=== PATIENT | female | born 1945 | race Caucasian/White ===

== ENCOUNTER 2016-08-12 08:46 | Day surgery (SDC) | payer BC ==
[2016-08-11 10:17] VITALS: BMI 25.2
[~2016-08-12 08:46] MED LIST: DEXAMETHASONE SOD PHOSPHATE 10 MG/ML 1 ML VIAL IV ONE; HYDROmorphone 1 MG/ML 1 ML SYRINGE IVP PRN; LACTATED RINGERS 1,000 ML IV ONE; LIDOCAINE 1% 20 ML VIAL (10MG/ML) FOR IV START INTRADERMA PRN; MIDAZOLAM 2 MG/2 ML VIAL IV PRN; ONDANSETRON 4 MG/2 ML VIAL IVP ONE; SCOPOLAMINE 1.5MG/72HR PATCH TRANSDERM ONE
[2016-08-12] MEDS: PHENYLEPHRINE 10% OPHTH DROPS 5 ML BTL OP ONE ×3 (09:41→09:58)
[2016-08-12] MEDS: CYCLOPENTOLATE 1% OPHTH SOLN 2 ML BTL OP ONE ×3 (09:43→10:02)
[2016-08-12] MEDS: FLURBIPROFEN 0.03% OPHTH DROPS 2.5 ML BTL OP ONE ×3 (09:44→10:05)
[2016-08-12] MEDS ORDERED: METOPROLOL TARTRATE 5 MG/5 ML VIAL IVP ONE (09:59)
[2016-08-12] MEDS ORDERED: hydrALAZINE HCL 20 MG/ML 1 ML VIAL IV ONE (10:01)
[2016-08-12 10:08] VITALS: RESP 16; TEMP 97.7
[2016-08-12] MEDS ORDERED: LIDOCAINE 1% INJ 10MG/ML (20 ML MDV) ONE (10:09)
[2016-08-12] MEDS ORDERED: hydrALAZINE HCL 20 MG/ML 1 ML VIAL ONE (10:09)
[2016-08-12] MEDS ORDERED: PROPOFOL 10 MG/ML 20 ML VIAL IV ONE (10:09)
[2016-08-12] MEDS ORDERED: GLYCOPYRROLATE 0.2 MG/ML 2 ML VIAL ONE (10:09)
[2016-08-12] MEDS ORDERED: EPINEPHrine (PF) 0.5 ML in BALANCED SALT IRRIG SOLN COMB2 500 ML IRRIGATION ONE (10:17)
[2016-08-12] MEDS ORDERED: HYALURONATE SODIUM INTRAOCULAR 1 EACH SYRINGE (10MG/ML) INTRAOCULA ONE (10:19)
[2016-08-12] MEDS ORDERED: BALANCED SALT IRRIG SOLN COMB2 15 ML IRRIG.SOLN INTRAOCULA ONE (10:19)
--- NOTE | 2016-08-12 10:37 | P.OP ---
Date of Procedure: 08/12/16 Procedure(s) Performed: PREOPERATIVE DIAGNOSIS: Cataract, left eye. POSTOPERATIVE DIAGNOSIS: Cataract, left eye. OPERATION: Phacoemulsification cataract, left eye. DESCRIPTION OF PROCEDURE: The patient was taken to the preoperative holding area. Intravenous Propofol was given so as to bring about adequate sedation. The following mixture was given for local anesthesia: 5 mL of 2% lidocaine, 5 mL of 0.75% Marcaine, and 1 mL of Wydase. Approximately 4 mL was injected in the retrobulbar space of the surgical eye. Additional 1 mL was then directed to the temporal area of the surgical eye. This was performed to allow adequate neurological block of the facial muscles. The patient was revived and then taken into the operative room. The patient was prepped and draped in the usual sterile manner for the operative eye. A lid speculum was put into position. The conjunctiva was resected back from the limbus in the 12 o'clock position. Bleeding was controlled with electrocautery. A #69 blade was then used and a half-thickness scleral incision approximately 1-mm posterior to the limbus was made on bare sclera. This was shelved in the clear cornea using a crescent knife. Next a 15-degree blade was used to make a stab incision at the 3 o' clock position at the corneolimbal interface. Keratome blade was then used and the superior wound was extended into the anterior chamber. Viscoelastic was injected into the anterior chamber and to maintain its form. Next, a cystotome was used and a continuous anterior capsulotomy was made without difficulty. Hydrodissection using a blunt cannula and BSS was performed. Phaco probe was then employed and a groove extending from 12 to 6 o'clock in the lens was created. A Oswaldo wand was used through the stab incision so as to perform a divide and conquer technique. Next an irrigation aspiration probe was utilized and any residual cortex was removed from the eye. Again, viscoelastic was injected into the anterior chamber. An Jonnathan posterior chamber lens implant was placed in the cartridge and injected into the anterior chamber without difficulty. The [employer] Fle[employer] hook was utilized to spin the lens into position and this was again performed without any difficulty. The irrigation and aspiration probe was again employed and any residual viscoelastic was removed from the eye. Then BSS was injected into the limbal stab incision and the anterior chamber re-inflated. The conjunctiva was reapproximated using electrocautery. One drop of 0.25% Timoptic was placed over the corneal along with TobraDex ophthalmic ointment. Two sterile patches and a Willis eye shield were taped into position. The patient was transported to the recovery room in stable condition. Pathology: none sent Condition: stable Disposition: same day
[2016-08-12 11:08] VITALS: BP 156/80; PULSE 76
[2016-08-12] MEDS ORDERED: TIMOLOL 0.5% OPHTH SOLN (PF) 0.2 ML DROPERETTE OP ONE (23:00)
[2016-08-12] MEDS ORDERED: GENTAMICIN/PREDNISOL AC OPHTH OINT 3.5GM OPHTHALMIC ONE (23:00)
[2016-08-12] MEDS ORDERED: BUPIVACAINE (PF) 0.75% 5 ML, LIDOCAINE 4% (PF) 5 ML, HYALURONIDASE, HUMAN RECOMB 150 UNIT MISCELLANE ONE ×3 (23:00)
== END 2016-08-12 11:36 | disposition home or self-care (01) ==
LOC: OR 08:46
PROVIDERS: ATTEND Ophthalmology
DX: H26.9 Unspecified cataract (principal); H40.059 Ocular hypertension, unspecified eye; I10 Essential (primary) hypertension; J44.9 Chronic obstructive pulmonary disease, unspecified; F17.200 Nicotine dependence, unspecified, uncomplicated; Z79.899 Other long term (current) drug therapy
CPT/HCPCS: 66984; V2632; J2001 ×2; J3470; J0360; J0171; J2704; 99152; 99153

== ENCOUNTER → 2016-09-16 | Day surgery (SDC) | payer BC, OTHER ==
[2016-09-12 10:37] VITALS: BMI 25.2
[~2016-09-16] MED LIST changes: +BALANCED SALT IRRIG SOLN COMB2 15 ML IRRIG.SOLN INTRAOCULA ONE; +BUPIVACAINE (PF) 0.75% 5 ML, LIDOCAINE 4% (PF) 5 ML, HYALURONIDASE, HUMAN RECOMB 150 UNIT MISCELLANE ONE; +EPINEPHrine (PF) 0.5 ML in BALANCED SALT IRRIG SOLN COMB2 500 ML IRRIGATION ONE; +GENTAMICIN/PREDNISOL AC OPHTH OINT 3.5GM OPHTHALMIC ONE; +HYALURONATE SODIUM INTRAOCULAR 1 EACH SYRINGE (10MG/ML) INTRAOCULA ONE; -LACTATED RINGERS 1,000 ML IV ONE; +LACTATED RINGERS 1,000 ML IV SCH; +LIDOCAINE 1% 20 ML VIAL (10MG/ML) FOR IV START INTRADERMA ONE; -LIDOCAINE 1% 20 ML VIAL (10MG/ML) FOR IV START INTRADERMA PRN; +LIDOCAINE 1% INJ 10MG/ML (20 ML MDV) ONE; -MIDAZOLAM 2 MG/2 ML VIAL IV PRN; +PROPOFOL 10 MG/ML 20 ML VIAL IV ONE; -SCOPOLAMINE 1.5MG/72HR PATCH TRANSDERM ONE; +TETRACAINE 0.5% OPHTH (PF) DROPS 4 ML BTL RIGHT EYE ONE; +TIMOLOL 0.5% OPHTH SOLN (PF) 0.2 ML DROPERETTE OP ONE
[2016-09-16] MEDS: CYCLOPENTOLATE 1% OPHTH SOLN 2 ML BTL OP ONE ×3 (10:50→11:08)
[2016-09-16] MEDS: FLURBIPROFEN 0.03% OPHTH DROPS 2.5 ML BTL OP ONE ×3 (10:53→11:11)
[2016-09-16] MEDS: PHENYLEPHRINE 10% OPHTH DROPS 5 ML BTL OP ONE ×3 (10:56→11:15)
[2016-09-16 10:59] VITALS: RESP 18
--- NOTE | 2016-09-16 12:03 | P.OP ---
Date of Procedure: 09/16/16 Procedure(s) Performed: PREOPERATIVE DIAGNOSIS: Cataract, right eye. POSTOPERATIVE DIAGNOSIS: Cataract, right eye. OPERATION: Phacoemulsification cataract, right eye. DESCRIPTION OF PROCEDURE: The patient was taken to the preoperative holding area. Intravenous Propofol was given so as to bring about adequate sedation. The following mixture was given for local anesthesia: 5 mL of 2% lidocaine, 5 mL of 0.75% Marcaine, and 1 mL of Wydase. Approximately 4 mL was injected in the retrobulbar space of the surgical eye. Additional 1 mL was then directed to the temporal area of the surgical eye. This was performed to allow adequate neurological block of the facial muscles. The patient was revived and then taken into the operative room. The patient was prepped and draped in the usual sterile manner for the operative eye. A lid speculum was put into position. The conjunctiva was resected back from the limbus in the 12 o'clock position. Bleeding was controlled with electrocautery. A #69 blade was then used and a half-thickness scleral incision approximately 1-mm posterior to the limbus was made on bare sclera. This was shelved in the clear cornea using a crescent knife. The steep axis of astigmatism was marked using a pre-inked corneal marking device. Next a 15-degree blade was used to make a stab incision at the 3 o'clock position at the corneolimbal interface. Keratome blade was then used and the superior wound was extended into the anterior chamber. Viscoelastic was injected into the anterior chamber and to maintain its form. Next, a cystotome was used and a continuous anterior capsulotomy was made without difficulty. Hydrodissection using a blunt cannula and BSS was performed. Phaco probe was then employed and a groove extending from 12 to 6 o' clock in the lens was created. A Oswaldo wand was used through the stab incision so as to perform a divide and conquer technique. Next an irrigation aspiration probe was utilized and any residual cortex was removed from the eye. Again, viscoelastic was injected into the anterior chamber. An Jonnathan toric posterior chamber lens implant was placed in the cartridge and injected into the anterior chamber without difficulty. The Sinskey hook was utilized to spin the lens into position and this was again performed without any difficulty. The irrigation and aspiration probe was again employed and any residual viscoelastic was removed from the eye. Then BSS was injected into the limbal stab incision and the anterior chamber re-inflated. The conjunctiva was reapproximated using electrocautery. One drop of 0.25% Timoptic was placed over the corneal along with TobraDex ophthalmic ointment. Two sterile patches and a Willis eye shield were taped into position. The patient was transported to the recovery room in stable condition. Pathology: none sent Condition: stable Disposition: same day
[2016-09-16 12:17] VITALS: TEMP 98.2
[2016-09-16 12:26] VITALS: BP 200/90; PULSE 59
== END | disposition home or self-care (01) ==
LOC: OR 10:06
PROVIDERS: ATTEND Ophthalmology
DX: H26.9 Unspecified cataract (principal); I10 Essential (primary) hypertension; J44.9 Chronic obstructive pulmonary disease, unspecified; J45.909 Unspecified asthma, uncomplicated; Z87.891 Personal history of nicotine dependence; Z79.899 Other long term (current) drug therapy
CPT/HCPCS: 66984; V2787; C1780; J2001 ×2; J3470; J0171; J2704; 99152; 99153

== ENCOUNTER → 2017-04-06 | Outpatient (CLI) | payer BC ==
[2017-04-06 15:21] LABS: Blood Urea Nitrogen 16 mg/dL (7-17); Non-African American GFR(MDRD) >60 (>60 ml/min/1.73 sqM)
--- NOTE | 2017-04-06 16:07 | CT ---
EXAMINATION TYPE: CT chest w con DATE OF EXAM: 04/06/2017 COMPARISON: CT 07/08/2016 and chest x-ray 12/25/2016 HISTORY: Lung nodule follow-up. CT DLP: 647.00 mGycm Automated exposure control for dose reduction was used. CONTRAST: CT scan of the chest is performed with IV Contrast, patient injected with 100 mL of Omnipaque 300. FINDINGS: LUNGS: The lungs are grossly clear, there is no concerning parenchymal mass or nodule identified. Ca lcified right upper lobe lung nodule is present and stable. Centrilobular emphysematous changes are p resent bilaterally. Lingular nodule is not calcified and is stable. It measures 8 mm. There is no ple ural effusion or pneumothorax seen. The tracheobronchial tree is patent. MEDIASTINUM: There are no greater than 1 cm hilar or mediastinal lymph nodes. No pericardial effusi on is seen. Hiatal hernia is present as on prior exam. AORTA: No additional significant abnormality is seen. OTHER: Calcified granuloma present within the spleen. Liver shows low attenuation likely due to hepa tic steatosis. There are calcified right axillary nodes. IMPRESSION: Stable exam. Findings are likely benign, follow-up to assess for stability.
== END | disposition home or self-care (01) ==
LOC: RADCTMAIN 14:40
PROVIDERS: ATTEND Internal Medicine
DX: R91.8 Other nonspecific abnormal finding of lung field (principal); R06.02 Shortness of breath
CPT/HCPCS: 82565; 84520; 71260; 36415; Q9967

== ENCOUNTER → 2017-08-26 | Outpatient (CLI) | payer BC, MEDICARE ==
[2017-08-26 14:49] LABS: ALT 46 U/L (9-52); AST 34 U/L (14-36); Albumin 4.4 g/dL (3.5-5.0); Alkaline Phosphatase 63 U/L (38-126); Anion Gap 13 mmol/L; Blood Urea Nitrogen 23 mg/dL (7-17); Calcium 9.7 mg/dL (8.4-10.2); Carbon Dioxide 31 mmol/L (22-30); Chloride 101 mmol/L (98-107); Cholesterol 195 mg/dL (<200); Glucose 100 mg/dL (74-99); HDL Cholesterol 53 mg/dL (40-60); LDL Cholesterol,Calculated 118 mg/dL (0-99); Potassium 4.5 mmol/L (3.5-5.1); Sodium 145 mmol/L (137-145); Total Bilirubin 0.5 mg/dL (0.2-1.3); Total Protein 7.6 g/dL (6.3-8.2); Triglycerides 119 mg/dL (<150)
[2017-08-26 14:50] LABS: Basophils # (A) 0.1 k/uL (0-0.2); Basophils % (A) 1 %; Eosinophils # (A) 0.3 k/uL (0-0.7); Eosinophils % (A) 3 %; HCT 41.1 % (34.0-46.0); HGB 13.7 gm/dL (11.4-16.0); Lymphocytes # (A) 2.1 k/uL (1.0-4.8); Lymphocytes % (A) 28 %; MCH 28.7 pg (25.0-35.0); MCHC 33.4 g/dL (31.0-37.0); Monocytes # (A) 0.5 k/uL (0-1.0); Monocytes % (A) 7 %; Neutrophils # (A) 4.3 k/uL (1.3-7.7); Neutrophils % (A) 58 %; Platelet Count 205 k/uL (150-450); RBC 4.78 m/uL (3.80-5.40); RDW 14.9 % (11.5-15.5); WBC 7.3 k/uL (3.8-10.6)
--- NOTE | 2017-08-26 16:29 | BD ---
EXAMINATION TYPE: MG DEXA axial skeleton. DATE OF EXAM: 08/26/2017 COMPARISON: NONE CLINICAL HISTORY: 71-year-old female. Postmenopausal screening for osteoporosis Height: 5 FT 71/2 IN Weight: 200 FRAX RISK QUESTIONS: Alcohol (3 or more units per day): NO Family History (Parent hip fracture): NO Glucocorticoids (More than 3mos): NO (Ex: prednisone, prednisolone, methylprednisolone, dexamethasone, and hydrocortisone). History of Fracture in Adulthood: NO Secondary Osteoporosis: 1. Type 1 Diabetes: NO 2. Hyperthyroidism: NO 3. Menopause before 45: NO 4. Malnutrition: NO 5. Chronic liver disease: NO Rheumatoid Arthritis: NO Current Tobacco Use: NO RISK FACTORS HISTORY OF: Active: YES Postmenopausal woman: AGE 48 Lost more than 2 inches in height since high school: YES TOOK PREMPRO FOR SEVEN YEARS AFTER MENOPAUSE. NO LONGER TAKES MEDICATIONS: Additional Medications: BLOOD PRESSURE MEDS, INHALER FOR EMPHYSEMA Additional History: EXAM MEASUREMENTS: Bone mineral densitometry was performed using the [employer] System. Bone mineral density as measured about the Lumbar spine is: ----- L1-L4(G/cm2): 1.317 T Score Values are as follows: ----- L2: 0.9 ----- L3: 1.1 ----- L4: 1.6 ----- L1-L4: 1.1 BASELINE Bone mineral density about the R hip (g/cm2): 0.901 Bone mineral density about the L hip (g/cm2): 0.891 T Score values are as follows: -----R Neck: -1.0 -----L Neck: -1.1 -----R Total: 0.3 -----L Total: 0.8 BASELINE IMPRESSION: Osteopenia (T Score between -2.5 and -1 as noted by T score values There is slightly increased risk of fracture and the patient may be considered for treatment. Re-Screen 2-5 years. NOTE: T-SCORE=SD OF THE YOUNG ADULT MEAN.
--- NOTE | 2017-08-28 09:22 | MM ---
Reason for exam: screening (asymptomatic). History: Patient is postmenopausal. Physical Findings: A clinical breast exam by your physician is recommended on an annual basis and results should be correlated with mammographic findings. MG Screening Mammo w CAD Bilateral CC and MLO view(s) were taken. No prior studies available for comparison. There are scattered fibroglandular densities. There is a 6.6mm mass lower outer quadrant at posterior depth, 11-12cm from nipple. 5mm superior right breast asymmetry at middle depth. 1.1cm left breast focal asymmetry upper outer quadrant at middle depth. ASSESSMENT: Incomplete: need additional imaging evaluation, BI-RAD 0 RECOMMENDATION: Special view mammogram of both breasts. If lesion persists on supplemental views, image directed ultrasound is recommended. [facility] will attempt to contact patient to return for supplemental views and ultrasound if indicated.
== END | disposition home or self-care (01) ==
LOC: RADMAMWWP 13:39
PROVIDERS: ATTEND Family Medicine
DX: Z12.31 Encounter for screening mammogram for malignant neoplasm of breast (principal); Z13.820 Encounter for screening for osteoporosis; Z00.00 Encounter for general adult medical examination without abnormal findings; M85.80 Other specified disorders of bone density and structure, unspecified site; R92.2 Inconclusive mammogram; J42 Unspecified chronic bronchitis; I10 Essential (primary) hypertension; J44.9 Chronic obstructive pulmonary disease, unspecified
CPT/HCPCS: 77067; 77080; 80053; 80061; 84443; 85025; 86803

== ENCOUNTER → 2017-08-26 | Outpatient (CLI) | payer BC ==
--- NOTE | 2017-08-26 15:38 | XR ---
Lumbosacral spine HISTORY: Low back pain 5 views of the lumbosacral spine Lumbar vertebral bodies show preserved height and alignment. Bone mineralization is reduced. No spond ylolysis. There is multilevel spondylosis. Disc height is relatively maintained, some loss of disc he ight suspected L3-4, possible L4-5. Sclerosis present in the posterior elements of the lumbar spine. Atherosclerotic vascular calcifications noted within the aorta and proximal iliac vasculature. IMPRESSION: Osteopenia, facet arthropathy, lumbar spondylosis, possible degenerative disc disease.
== END | disposition home or self-care (01) ==
LOC: RADXRMAIN 14:27
PROVIDERS: ATTEND Family Medicine
DX: M85.80 Other specified disorders of bone density and structure, unspecified site (principal); M12.88 Other specific arthropathies, not elsewhere classified, other specified site; M47.816 Spondylosis without myelopathy or radiculopathy, lumbar region
CPT/HCPCS: 72110

== ENCOUNTER → 2017-09-07 | Outpatient (CLI) | payer BC ==
--- NOTE | 2017-09-08 07:57 | MM ---
Reason for exam: additional evaluation requested from abnormal screening. Last mammogram was performed less than 1 month ago. History: Patient is postmenopausal. Physical Findings: Nurse did not find any significant physical abnormalities on exam. MG Work Up Mamm w CAD BILAT Bilateral spot compression CC, spot compression MLO, and LM view(s) were taken. Prior study comparison: August 26, 2017, bilateral MG screening mammo w CAD. There are scattered fibroglandular densities. Right 1.1cm oval focal asymmetry far posterior lower outer quadrant. The focal asymmetry lateral left breast does not persist. These results were verbally communicated with the patient and result sheet given to the patient on 09/07/17. ASSESSMENT: Incomplete: need additional imaging evaluation, BI-RAD 0 RECOMMENDATION: Ultrasound of the right breast.
--- NOTE | 2017-09-08 08:05 | USB ---
Reason for exam: additional evaluation requested from abnormal screening. History: Patient is postmenopausal. US Breast Workup RT Right breast ultrasound includes all four quadrants, the retroareolar region and axilla. Finding demonstrates a 11 x 7 x 10mm irregular solid, hypoechoic, vascular lesion at 8 o'clock, 7-8cm from nipple. Suspicious. Non-enlarged axillary lymph nodes. A couple may have some incidental calcifications of questionable clinical significance. No other solid or cystic lesions. These results were verbally communicated with the patient and result sheet given to the patient on 09/07/17. ASSESSMENT: Suspicious, BI-RAD 4 RECOMMENDATION: Surgical consultation and ultrasound core biopsy of the right breast. Called Dr. Rivera with mammographic findings and has scheduled an appointment for the patient for 10/14/17 at 4:[address] Antony. Biopsy scheduled for 09/17/17 at 8:00. PRELIMINARY REPORT CALLED AND FAXED TO DR. ANTONY ON 09/08/17.
== END | disposition home or self-care (01) ==
LOC: RADMAMWWP 13:41
PROVIDERS: ATTEND Family Medicine
DX: R92.8 Other abnormal and inconclusive findings on diagnostic imaging of breast (principal)
CPT/HCPCS: 77066

== ENCOUNTER → 2017-09-17 | Day surgery (SDC) | payer BC ==
[2017-09-17 07:14] VITALS: RESP 16; BMI 28.7
[2017-09-17 09:23] VITALS: BP 147/91; PULSE 73; TEMP 97.5
--- NOTE | 2017-09-17 10:31 | USB ---
EXAMINATION TYPE: US biopsy breast VAD RT, Postprocedure MG diagnostic mammo RT wo CAD DATE OF EXAM: 09/17/2017 CLINICAL HISTORY: 71-year-old female R92.8 ABN Mammogram. Referred for ultrasound-guided biopsy TECHNIQUE: Ultrasound guided core biopsy of the 8:00 posterior right breast. COMPARISON: 09/07/2017 FINDINGS: The procedure of ultrasound guided core biopsy was explained to the patient. Benefits, alternatives, and risks were discussed. An informed consent was then obtained. The patient was placed in supine positioning for imaging and for the procedure. The overlying skin was prepped and draped in usual sterile fashion. Lidocaine buffered with bicarbonate was used as anesthetic into the skin and subcutaneous tissue up to area of concern in the 8:00 position right breast. Under ultrasound guidance, a 13-gauge vacuum-assisted mammotome Elite biopsy gun device was used to obtain 6 core samples. Following this, a coil clip was left in lesion. The patient tolerated the procedure well without any immediate complication. The patient was kept in the radiology department for short stay after the procedure and then discharged home in stable condition. Of note, the lesion at the time of biopsy had a less suspicious appearance as compared to the initial ultrasound workup on 09/07/2017. Postbiopsy mammogram shows clip posteriorly in the lower outer quadrant corresponding to the site of mammographic abnormality. IMPRESSION: Successful, uncomplicated ultrasound guided core biopsy of area of concern in the 8:00 posterior right breast. We note a somewhat less suspicious appearance to the lesion at the time of biopsy. Full pathology results to follow. Pathology Results: Benign BREAST, RIGHT, EIGHT O'CLOCK, CORE BIOPSY: FIBROADENOMA AND BACKGROUND FIBROCYSTIC CHANGES INCLUDING SCLEROSING ADENOSIS WITH MICROCALCIFICATIONS. Recommendation Follow up ultrasound of the right breast in 6 months. HERNANDEZD
== END ==
LOC: RADUSWWP 06:49
PROVIDERS: ATTEND Surgery
DX: D24.1 Benign neoplasm of right breast (principal); N60.21 Fibroadenosis of right breast; R92.0 Mammographic microcalcification found on diagnostic imaging of breast; N60.11 Diffuse cystic mastopathy of right breast
CPT/HCPCS: 88305; 77065; 19083; A4648; J2001

== ENCOUNTER → 2018-05-27 | Outpatient (CLI) | payer BC ==
--- NOTE | 2018-05-27 13:31 | XR ---
EXAMINATION TYPE: XR Hip Complete LT DATE OF EXAM: 05/27/2018 COMPARISON: NONE HISTORY: Pain TECHNIQUE: 2 views submitted FINDINGS: There is no evidence of erosive change or acute fracture. There is moderate to severe concentric narr owing the joint space. Hypertrophic change of the acetabulum. IMPRESSION: 1. No evidence of acute fracture or dislocation. 2. Moderate to severe arthropathy. Correlate for femoral acetabular impingement.
== END ==
LOC: RADXRMAIN 12:53
PROVIDERS: ATTEND Family Medicine
DX: M16.12 Unilateral primary osteoarthritis, left hip (principal)
CPT/HCPCS: 73502

== ENCOUNTER → 2018-12-09 | Outpatient (CLI) | payer BC ==
[2018-12-09 09:59] LABS: Basophils # (A) 0.1 k/uL (0-0.2); Basophils % (A) 1 %; Eosinophils # (A) 0.3 k/uL (0-0.7); Eosinophils % (A) 5 %; HGB 14.1 gm/dL (11.4-16.0); Lymphocytes # (A) 2.3 k/uL (1.0-4.8); Lymphocytes % (A) 40 %; MCH 26.9 pg (25.0-35.0); MCHC 32.2 g/dL (31.0-37.0); MCV 83.6 fL (80.0-100.0); Mean Platelet Volume 7.8; Monocytes # (A) 0.3 k/uL (0-1.0); Monocytes % (A) 5 %; Neutrophils # (A) 2.7 k/uL (1.3-7.7); Neutrophils % (A) 47 %; Platelet Count 187 k/uL (150-450); RBC 5.26 m/uL (3.80-5.40); RDW 14.2 % (11.5-15.5); WBC 5.7 k/uL (3.8-10.6)
[2018-12-09 16:47] LABS: Albumin 4.2 g/dL (3.80-4.90); Albumin/Globulin Ratio 1.68 (1.60-3.17); Anion Gap 6.7 mmol/L (4.00-12.00); Calcium 9.6 mg/dL (8.7-10.3); Carbon Dioxide 30.3 mmol/L (21.6-31.8); Globulin 2.5 g/dL (1.6-3.3); Potassium 4.4 mmol/L (3.5-5.5); Total Bilirubin 0.6 mg/dL (0.2-1.2); Total Protein 6.7 g/dL (6.2-8.2)
[2018-12-09 16:56] LABS: T4, Free (Free Thyroxine) 0.8 ng/dL (0.80-1.80)
== END | disposition home or self-care (01) ==
LOC: LABWHC1 09:16
PROVIDERS: ATTEND Family Medicine
DX: Z00.00 Encounter for general adult medical examination without abnormal findings (principal); I10 Essential (primary) hypertension; J44.9 Chronic obstructive pulmonary disease, unspecified; R91.1 Solitary pulmonary nodule; M15.2 Bouchard's nodes (with arthropathy)
CPT/HCPCS: 36415; 80053; 80061; 84439; 84443; 85025

== ENCOUNTER → 2020-05-07 | Outpatient (CLI) | payer MEDICARE ==
--- NOTE | 2020-05-07 14:02 | MM ---
Reason for exam: additional evaluation requested from prior study. Last mammogram was performed 2 years and 8 months ago. History: Patient is postmenopausal. Benign US biopsy breast VAD RT of the right breast, September 17, 2017. Took estrogen for 6 years beginning at age 49. Took progesterone for 6 years beginning at age 49. Physical Findings: Nurse did not find any significant physical abnormalities on exam. MG 3D Diag Mammo W/Cad BRIDGETTE Bilateral CC and MLO view(s) were taken. Prior study comparison: September 17, 2017, right breast MG diagnostic mammo RT wo CAD. September 07, 2017, bilateral MG work up mamm w CAD BILAT. There are scattered fibroglandular densities. Previous mammotome biopsy in the right breast. Right axillary calcifications are old and stable back to a 2016 CT. No significant new findings when compared with previous films. These results were verbally communicated with the patient and result sheet given to the patient on 05/07/20. ASSESSMENT: Benign, BI-RAD 2 RECOMMENDATION: Routine screening mammogram of both breasts in 1 year.
--- NOTE | 2020-05-07 19:12 | BD ---
EXAMINATION TYPE: Axial Bone Density DATE OF EXAM: 05/07/2020 COMPARISON: 08/26/2017 CLINICAL HISTORY: Post menopausal screening Height: 67.2 IN Weight: 201 LBS RISK FACTORS HISTORY OF: Active: YES Postmenopausal woman: AGE 49 Take estrogen and/or progesterone medications: NOT NOW How long: TOOK PREMPRO FOR 6 YEARS Lost more than 2 inches in height since high school: 3" MEDICATIONS: Thyroid Medications: YES Which medication: Levothyroxine How Lon MONTHS Additional Medications: CALCIUM, VIT D, LEVOTHYROXINE, BLOOD PRESSURE MEDS, ARTHRITIS MEDS, EXAM MEASUREMENTS: Bone mineral densitometry was performed using the [employer] System. Bone mineral density as measured about the Lumbar spine is: ----- L1-L4(G/cm2): 1.310 T Score Values are as follows: ----- L2: 0.7 ----- L3: 1.1 ----- L4: 1.4 ----- L1-L4: 1.1 Bone mineral density has: Decreased -1.1% since study of: 08/26/2017 Bone mineral density about the R hip (g/cm2): 0.926 Bone mineral density about the L hip (g/cm2): 0.881 T Score values are as follows: -----R Neck: -0.8 -----L Neck: -1.1 -----R Total: 0.6 -----L Total: 0.8 Bone mineral density has: Increased 2.2% since study of: 08/26/2017 IMPRESSION: Osteopenia (T Score between -2.5 and -1). There is slightly increased risk of fracture and the patient may be considered for treatment. Re-Screen 2-5 years. NOTE: T-SCORE=SD OF THE YOUNG ADULT MEAN.
== END | disposition home or self-care (01) ==
LOC: RADBDWWP 12:34
PROVIDERS: ATTEND Family Medicine
DX: R92.8 Other abnormal and inconclusive findings on diagnostic imaging of breast (principal); R92.0 Mammographic microcalcification found on diagnostic imaging of breast; M85.80 Other specified disorders of bone density and structure, unspecified site
CPT/HCPCS: 77080; 77066; G0279; 77062

== ENCOUNTER 2021-07-15 18:46 | Inpatient (IN) | payer MEDICARE ==
[2021-07-15] MEDS ORDERED: SODIUM CHLORIDE 0.9% 500 ML 500 ML IV STA (19:14)
--- NOTE | 2021-07-15 19:18 | ED ---
General Adult HPI - General Chief complaint: Shortness of Breath Stated complaint: weakness Time Seen by Provider: 07/15/21 19:00 Source: patient, RN notes reviewed, old records reviewed Mode of arrival: EMS Limitations: no limitations - History of Present Illness Initial comments: 75-year-old female, alert and oriented 4, presents to the emergency room with complaints of shortness of breath and cold-like symptoms for one week. Patient states she has not been vaccinated. She does have a history of COPD and hypertension. Came in today for worsening shortness of breath, weakness, she did have 5 days of diarrhea which has resolved 2 days ago. She is a former smoker. She has been tolerating Pedialyte and apple sauce. -: week(s) (1) Location: chest Severity scale (1-10): 2 Quality: aching (body aches) Consistency: constant Improves with: none Worsens with: none Associated Symptoms: cough, malaise, shortness of breath Treatments Prior to Arrival: none - Related Data Home Medications Medication Instructions Recorded Confirmed Celecoxib [CeleBREX] 200 mg PO DAILY 07/15/21 07/15/21 Chlorthalidone 12.5 mg PO DAILY 07/15/21 07/15/21 Fluticasone/Umeclidin/Vilanter 1 puff INHALATION RT-DAILY 07/15/21 07/15/21 [Trelegy Ellipta 100-62.5-25] Levothyroxine Sodium [Synthroid] 25 mcg PO DAILY 07/15/21 07/15/21 Naproxen Sodium [Aleve] 440 mg PO DAILY PRN 07/15/21 07/15/21 amLODIPine BESYLATE/BENAZEPRIL 1 cap PO DAILY 07/15/21 07/15/21 [amLODIPine BESYLATE/BENAZEPRIL 5-20 MG] Allergies Allergy/AdvReac Type Severity Reaction Status Date / Time No Known Allergies Allergy Verified 07/15/21 20:47 Review of Systems ROS Statement: Those systems with pertinent positive or pertinent negative responses have been documented in the HPI. ROS Other: All systems not noted in ROS Statement are negative. Past Medical History Past Medical History: COPD, Eye Disorder, Hypertension Additional Past Medical History / Comment(s): CATARACTS History of Any Multi-Drug Resistant Organisms: None Reported Past Surgical History: Tubal Ligation Additional Past Surgical History / Comment(s): Bilateral CATARACT SX Past Anesthesia/Blood Transfusion Reactions: No Reported Reaction Past Psychological History: No Psychological Hx Reported Smoking Status: Former smoker Past Alcohol Use History: Rare Past Drug Use History: None Reported - Past Family History Mother Family Medical History: No Reported History General Exam Limitations: no limitations General appearance: alert, in no apparent distress Head exam: Present: atraumatic, normocephalic, normal inspection Eye exam: Present: normal appearance, EOMI. Absent: scleral icterus, conj unctival injection, periorbital swelling, periorbital tenderness ENT exam: Present: normal exam, normal oropharynx, mucous membranes dry Neck exam: Present: normal inspection, full ROM. Absent: tenderness, meningismus, lymphadenopathy, thyromegaly Respiratory exam: Present: rales (Bilateral bases). Absent: stridor, chest wall tenderness, accessory muscle use, decreased breath sounds Cardiovascular Exam: Present: tachycardia, irregular rhythm. Absent: JVD GI/Abdominal exam: Present: soft, normal bowel sounds. Absent: distended, tenderness, guarding, rebound, rigid Extremities exam: Present: normal inspection, full ROM, normal capillary refill. Absent: tenderness, pedal edema, joint swelling, calf tenderness Back exam: Present: full ROM. Absent: tenderness Neurological exam: Present: alert, oriented X3 Psychiatric exam: Present: normal affect, normal mood Skin exam: Present: warm, dry, intact, normal color. Absent: rash, cyanosis, diaphoretic, petechiae, pallor Course Vital Signs 07/15/21 07/15/21 07/15/21 18:51 18:55 21:38 Temperature 99.3 F 98.0 F Pulse Rate 70 117 H Respiratory 16 20 Rate Blood Pressure 108/96 115/64 O2 Sat by Pulse 90 L 90 L Oximetry 07/15/21 22:20 Temperature 98.2 F Pulse Rate 110 H Respiratory 20 Rate Blood Pressure 119/70 O2 Sat by Pulse 90 L Oximetry - Reevaluation(s) Reevaluation #1: 07/15/21 20:27 Patient's oxygen saturation is 91 and 93% on room air. She has not been vaccinated and is interested in getting the monoclonal antibody infusion. She will be admitted for new onset atrial fibrillation with RVR and on a Cardizem drip. Heart rate is down to 104. I discussed this case with Dr. Yañez 07/15/21 20:34 Time: 20:27 EKG Findings - EKG Results: EKG shows: atrial fibrillation (Ventricular rate of 122, QRS 0.84, QTC 0.456; new onset afib) Medical Decision Making - Medical Decision Making 75-year-old female, alert and oriented 4, presents to the emergency room with complaints of shortness of breath and cold-like symptoms for one week. Patient states she has not been vaccinated. She does have a history of COPD and hypertension. Came in today for worsening shortness of breath, weakness, she did have 5 days of diarrhea which resolved 2 days ago. EKG shows atrial fibrillation with rapid ventricular rate of 130. Patient was started on Cardizem drip and rate was controlled at 104. She was also started on a heparin drip. Troponin is negative at 0.012. There is no evidence of leukocytosis. D-dimer is positive at 0.88. Patient is Covid positive and was given monoclonal antibodies. Chest xray shows mild interstitial pneumonia versus mild congestive heart failure. Case discussed with Dr. Yañez. Patient will be admitted to Dr. Sherman with new onset A. fib and coronavirus - Lab Data Result diagrams: 07/15/21 19:16 07/15/21 19:16 Lab Results 07/15/21 07/15/21 07/15/21 Range/Units 19:16 19:16 19:16 WBC 7.0 (3.8-10.6) k/uL RBC 5.46 H (3.80-5.40) m/uL Hgb 15.7 (11.4-16.0) gm/dL Hct 47.6 H (34.0-46.0) % MCV 87.2 (80.0-100.0) fL MCH 28.7 (25.0-35.0) pg MCHC 33.0 (31.0-37.0) g/dL RDW 13.4 (11.5-15.5) % Plt Count 192 (150-450) k/uL MPV 8.9 Neutrophils % 76 % Lymphocytes % 17 % Monocytes % 5 % Eosinophils % 0 % Basophils % 1 % Neutrophils # 5.3 (1.3-7.7) k/uL Lymphocytes # 1.2 (1.0-4.8) k/uL Monocytes # 0.3 (0-1.0) k/uL Eosinophils # 0.0 (0-0.7) k/uL Basophils # 0.0 (0-0.2) k/uL PT 10.3 (9.0-12.0) sec INR 1.0 (<1.2) APTT 25.0 (22.0-30.0) sec D-Dimer 0.88 H (<0.60) mg/L FEU Sodium 135 L (137-145) mmol/L Potassium 4.0 (3.5-5.1) mmol/L Chloride 91 L (98-107) mmol/L Carbon Dioxide 33 H (22-30) mmol/L Anion Gap 11 mmol/L BUN 27 H (7-17) mg/dL Creatinine 0.78 (0.52-1.04) mg/dL Est GFR (CKD-EPI)AfAm 86 (>60 ml/min/1.73 sqM) Est GFR (CKD-EPI)NonAf 74 (>60 ml/min/1.73 sqM) Glucose 107 H (74-99) mg/dL Plasma Lactic Acid Anders (0.7-2.0) mmol/L Calcium 8.3 L (8.4-10.2) mg/dL Magnesium 2.0 (1.6-2.3) mg/dL Total Bilirubin 0.6 (0.2-1.3) mg/dL AST 97 H (14-36) U/L ALT 52 H (4-34) U/L Alkaline Phosphatase 66 (38-126) U/L Troponin I (0.000-0.034) ng/mL Total Protein 7.0 (6.3-8.2) g/dL Albumin 3.8 (3.5-5.0) g/dL Coronavirus (PCR) (Not Detectd) 07/15/21 07/15/21 07/15/21 Range/Units 19:16 19:16 19:27 WBC (3.8-10.6) k/uL RBC (3.80-5.40) m/uL Hgb (11.4-16.0) gm/dL Hct (34.0-46.0) % MCV (80.0-100.0) fL MCH (25.0-35.0) pg MCHC (31.0-37.0) g/dL RDW (11.5-15.5) % Plt Count (150-450) k/uL MPV Neutrophils % % Lymphocytes % % Monocytes % % Eosinophils % % Basophils % % Neutrophils # (1.3-7.7) k/uL Lymphocytes # (1.0-4.8) k/uL Monocytes # (0-1.0) k/uL Eosinophils # (0-0.7) k/uL Basophils # (0-0.2) k/uL PT (9.0-12.0) sec INR (<1.2) APTT (22.0-30.0) sec D-Dimer (<0.60) mg/L FEU Sodium (137-145) mmol/L Potassium (3.5-5.1) mmol/L Chloride (98-107) mmol/L Carbon Dioxide (22-30) mmol/L Anion Gap mmol/L BUN (7-17) mg/dL Creatinine (0.52-1.04) mg/dL Est GFR (CKD-EPI)AfAm (>60 ml/min/1.73 sqM) Est GFR (CKD-EPI)NonAf (>60 ml/min/1.73 sqM) Glucose (74-99) mg/dL Plasma Lactic Acid Anders 1.4 (0.7-2.0) mmol/L Calcium (8.4-10.2) mg/dL Magnesium (1.6-2.3) mg/dL Total Bilirubin (0.2-1.3) mg/dL AST (14-36) U/L ALT (4-34) U/L Alkaline Phosphatase (38-126) U/L Troponin I <0.012 (0.000-0.034) ng/mL Total Protein (6.3-8.2) g/dL Albumin (3.5-5.0) g/dL Coronavirus (PCR) Detected A (Not Detectd) Disposition Clinical Impression: COVID-19, New onset a-fib Disposition: ADMITTED IP TO THIS [facility] Condition: Good Decision Date: 07/15/21 Decision Time: 21:00
[2021-07-15 19:39] LABS: Basophils % (A) 1 %; Eosinophils % (A) 0 %; HCT 47.6 % (34.0-46.0); HGB 15.7 gm/dL (11.4-16.0); Lymphocytes # (A) 1.2 k/uL (1.0-4.8); Lymphocytes % (A) 17 %; MCH 28.7 pg (25.0-35.0); MCV 87.2 fL (80.0-100.0); Mean Platelet Volume 8.9; Monocytes # (A) 0.3 k/uL (0-1.0); Monocytes % (A) 5 %; Neutrophils # (A) 5.3 k/uL (1.3-7.7); Neutrophils % (A) 76 %; Platelet Count 192 k/uL (150-450); RBC 5.46 m/uL (3.80-5.40); RDW 13.4 % (11.5-15.5)
[2021-07-15 19:56] LABS: Prothrombin Time 10.3 sec (9.0-12.0)
[2021-07-15 20:00] LABS: Albumin 3.8 g/dL (3.5-5.0); Calcium 8.3 mg/dL (8.4-10.2); Total Bilirubin 0.6 mg/dL (0.2-1.3)
[2021-07-15] MEDS ORDERED: DILTIAZEM 125 MG in SODIUM CHLORIDE 0.9% 100 ML IV SCH (20:00)
--- NOTE | 2021-07-15 20:08 | XR ---
EXAMINATION TYPE: XR chest 2V DATE OF EXAM: 07/15/2021 COMPARISON: 03/11/2021 HISTORY: Short of breath TECHNIQUE: FINDINGS: There is coarsening of the interstitial pulmonary markings. Heart appears enlarged. There i s very slight blunting of the costophrenic angles. There are no hilar masses. There are chest leads. IMPRESSION: There is some mild pulmonary interstitial increased density compared to old exam. This co uld be mild interstitial pneumonia. Mild congestive heart failure also possible.
[2021-07-15] MEDS ORDERED: SODIUM CHLORIDE 0.9% 50 ML IVPB ONE (20:45)
[2021-07-15] MEDS ORDERED: BAMLANIVIMAB (EUA) 700 MG, ETESEVIMAB (EUA) 1,400 MG in SODIUM CHLORIDE 0.9% 50 ML IVPB ONE (20:45)
[2021-07-15] MEDS ORDERED: HEPARIN SODIUM 1,000 UN/ML (10ML VL) IV PRN (21:09)
[2021-07-15] MEDS ORDERED: HEPARIN SODIUM 1,000 UN/ML (10ML VL) IV ONE (21:09)
[2021-07-15] MEDS ORDERED: NALOXONE 0.4 MG/ML 1 ML VIAL IV PRN (21:10)
[2021-07-15] MEDS ORDERED: NAPROXEN 250 MG TAB PO PRN (21:12)
[2021-07-15] MEDS ORDERED: HEPARIN SOD,PORK IN 0.45% NACL 25,000 UNIT in 0.45% NACL 1 250ML.BAG IV SCH (21:15)
[2021-07-16 03:05] LABS: Basophils # (A) 0.1 k/uL (0-0.2); Basophils % (A) 1 %; Eosinophils % (A) 0 %; HCT 42.7 % (34.0-46.0); HGB 14.6 gm/dL (11.4-16.0); Lymphocytes # (A) 1.2 k/uL (1.0-4.8); Lymphocytes % (A) 17 %; MCH 29.1 pg (25.0-35.0); MCHC 34.1 g/dL (31.0-37.0); MCV 85.4 fL (80.0-100.0); Mean Platelet Volume 8.6; Monocytes # (A) 0.4 k/uL (0-1.0); Monocytes % (A) 6 %; Neutrophils # (A) 5.3 k/uL (1.3-7.7); Neutrophils % (A) 75 %; Platelet Count 177 k/uL (150-450); WBC 7.1 k/uL (3.8-10.6)
[2021-07-16 03:40] LABS: Partial Thromboplastin Time 62.3 sec (22.0-30.0); Prothrombin Time 10.9 sec (9.0-12.0)
[2021-07-16 05:09] LABS: Appearance,Urine Clear (Clear); Bilirubin,Urine Negative (Negative); Blood,Urine Negative (Negative); Color,Urine Yellow; Glucose,Urine (UA) Negative (Negative); Ketones,Urine Negative (Negative); Leukocyte Esterase,Urine Negative (Negative); Nitrite,Urine Negative (Negative); PH, Urine 5.5 (5.0-8.0); Protein,Urine Negative (Negative); Specific Gravity,Urine 1.009 (1.001-1.035); Urobilinogen,Urine <2.0 mg/dL (<2.0)
[2021-07-16] MEDS: LEVOTHYROXINE 25 MCG TAB PO SCH (05:53)
[2021-07-16] MEDS: TIOTROPIUM 2.5 MCG INHALER INHALATION SCH (08:38)
[2021-07-16] MEDS: SYMBICORT 80-4.5 MCG INHALER INHALATION SCH ×2 (08:38→19:11)
[2021-07-16] MEDS ORDERED: lisinopriL 20 MG TAB PO SCH (09:00)
[2021-07-16] MEDS ORDERED: amLODIPine 5 MG TAB PO SCH (09:00)
[2021-07-16] MEDS ORDERED: MELOXICAM 7.5 MG TAB PO SCH (09:00)
[2021-07-16 09:08] LABS: ALT 41 U/L (4-34); AST 75 U/L (14-36); African American GFR (CKD) >90 (>60 ml/min/1.73 sqM); Albumin 3.3 g/dL (3.5-5.0); Alkaline Phosphatase 58 U/L (38-126); Anion Gap 9 mmol/L; Blood Urea Nitrogen 21 mg/dL (7-17); Calcium 7.9 mg/dL (8.4-10.2); Carbon Dioxide 29 mmol/L (22-30); Chloride 98 mmol/L (98-107); Glucose 110 mg/dL (74-99); Non-African American GFR(CKD) 82 (>60 ml/min/1.73 sqM); Potassium 3.6 mmol/L (3.5-5.1); Sodium 136 mmol/L (137-145); Total Bilirubin 0.7 mg/dL (0.2-1.3); Total Protein 6.4 g/dL (6.3-8.2)
[2021-07-16] MEDS: lisinopriL 10 MG TAB PO SCH (09:19)
[2021-07-16] MEDS: APIXABAN 5 MG TAB PO SCH ×2 (09:19→20:26)
[2021-07-16] MEDS: METOPROLOL SUCCINATE (ER) 25 MG TAB.ER.24H PO SCH (09:19)
[2021-07-16] MEDS: CHLORTHALIDONE 25 MG TAB PO SCH (09:20)
--- NOTE | 2021-07-16 11:01 | P.CRDCN ---
History of Present Illness History of present illness: HISTORY OF PRESENTING ILLNESS This is a pleasant 75-year-old female past medical history significant for hypertension, former smoker, COPD. 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 We have been asked to see in consultation for atrial fibrillation with rapid ventricular response. Patient presents emergency department with shortness of breath and cold-like symptoms for one week. She symptoms of shortness of breath, cough, chills, weakness, and diarrhea. Found to be COVID-19 positive. She is not vaccinated. She denies symptoms of chest pain, palpitations, lightheadedness, dizziness, syncope or near syncope. She denies history of A fib, Diabetes, Stroke, [place], or hyperlipidemia. Family history includes grandmother did have history of heart issues at an older age, patient unsure of diagnosis. She is a former smoker quit 5 years ago. She denies alcohol or illicit drug use. Patient was found to be in atrial fibrillation with RVR, she was started on IV Cardizem and IV heparin DIAGNOSTICS EKG reveals atrial fibrillation HR 122, no significant ST-T wave abnormalities. No prior EKG to compare Telemetry tracings indicate atrial fibrillation with controlled ventricular rates. Chest xray mild pulmonary interstitial increased density compared to old exam. Could be mild interstitial pneumonia. Laboratory reviewed,CBC unremarkable, d-dimer 0.88, sodium 136, potassium 3.6, B UN 21, serum creatinine 0.7, AST 75, ALT, TSH within normal limits Current home medications include amlodipine/benazepril 5-20mg daily, chlorthalidone, naproxien, Ellipta, Celebrex REVIEW OF SYSTEMS CONSTITUTIONAL: Denies fever +chills. CARDIOVASCULAR: Denies chest pain, +shortness of breath, Denies orthopnea, PND or palpitations. RESPIRATORY: + cough. GASTROINTESTINAL: Denies abdominal pain, diarrhea, constipation, nausea or vomiting. MUSCULOSKELETAL: Denies myalgias. NEUROLOGIC: Denies numbness, tingling, headacbe or weakness. ENDOCRINE: Denies fatigue, weight change, polydipsia or polyurina. GENITOURINARY: Denies burning, hematuria or urgency with micturation. HEMATOLOGIC: Denies history of anemia or bleeding. PHYSICAL EXAMINATION Vitals BP 101/55, HR 92, afebrile 92% on 2L nasal cannula CONSTITUTIONAL: No apparent distress. HEENT: Head is normocephalic. No JVD. No carotid bruit. CHEST EXAMINATION: Lungs are diminished bilaterally to auscultation. HEART EXAMINATION: Irregular rate and rhythm. S1, S2 heard. ABDOMEN: Soft, nontender. EXTREMITIES: no lower extremity edema and no calf tenderness. NEUROLOGIC EXAMINATION: Patient is awake, alert and oriented x3. ASSESSMENT New onset paroxysmal atrial fibrillation with RVR- [id number] score 4 History of hypertension, hypotensive inpatient COPD Former nicotine dependence PLAN -Discontinue IV Cardizem, start metoprolol succinate 25mg daily -Decrease lisinopril to 10mg daily and Discontinue amlodipine at this time -Start Eliquis 5mg BID, Consult case management for coverage -Stop IV heparin drip -Obtain 2D echocardiogram -Monitor patient on cardiac telemetry -Further recommendations based on clinical course Nurse Practitioner note has been reviewed, I agree with a documented findings and plan of care. Patient was seen and examined. Past Medical History Past Medical History: COPD, Eye Disorder, Hypertension Additional Past Medical History / Comment(s): CATARACTS History of Any Multi-Drug Resistant Organisms: None Reported Past Surgical History: Tubal Ligation Additional Past Surgical History / Comment(s): Bilateral CATARACT SX Past Anesthesia/Blood Transfusion Reactions: No Reported Reaction Past Psychological History: No Psychological Hx Reported Smoking Status: Former smoker Past Alcohol Use History: Rare Past Drug Use History: None Reported - Past Family History Mother Family Medical History: No Reported History Medications and Allergies Home Medications Medication Instructions Recorded Confirmed Type Celecoxib [CeleBREX] 200 mg PO DAILY 07/15/21 07/15/21 History Chlorthalidone 12.5 mg PO DAILY 07/15/21 07/15/21 History Fluticasone/Umeclidin/Vilanter 1 puff INHALATION RT-DAILY 07/15/21 07/15/21 History [Trelegy Ellipta 100-62.5-25] Levothyroxine Sodium [Synthroid] 25 mcg PO DAILY 07/15/21 07/15/21 History Naproxen Sodium [Aleve] 440 mg PO DAILY PRN 07/15/21 07/15/21 History amLODIPine BESYLATE/BENAZEPRIL 1 cap PO DAILY 07/15/21 07/15/21 History [amLODIPine BESYLATE/BENAZEPRIL 5-20 MG] Apixaban [Eliquis] 5 mg PO BID 30 Days #60 tab 07/16/21 Rx Allergies Allergy/AdvReac Type Severity Reaction Status Date / Time No Known Allergies Allergy Verified 07/15/21 20:47 Physical Exam Vitals: Vital Signs Temp Pulse Pulse Resp BP BP Pulse Ox 07/16/21 04:00 99.2 F 94 20 97/55 95 07/16/21 00:00 99.0 F 07/15/21 22:23 99.0 F 80 20 101/59 94 L 07/15/21 22:20 98.2 F 110 H 20 119/70 90 L 07/15/21 21:38 98.0 F 117 H 20 115/64 90 L 07/15/21 18:55 99.3 F 07/15/21 18:51 70 16 108/96 90 L Intake and Output 07/15/21 07/16/21 07/16/21 22:59 06:59 14:59 Intake Total 42.583 Balance 42.583 Intake: Intake, IV Titration 42.583 Amount Diltiazem 125 mg In 20.25 Sodium Chloride 0.9% 100 ml @ 5 MG/HR 5 mls/hr IV .Q24H [facility] Rx#:[id number] Heparin Sod,Pork in 0.45% 22.333 NaCl 25,000 unit In 0.45 % NaCl 1 250ml.bag @ 11. 023 UNITS/KG/HR 10 mls/hr IV .Q24H [facility] Rx#: [id number] Other: # Voids 1 1 Weight 90.718 kg 90.5 kg Results 07/16/21 02:43 07/16/21 08:08 Cardiac Enzymes 07/15/21 07/15/21 Range/Units 19:16 19:16 AST 97 H (14-36) U/L Troponin I <0.012 (0.000-0.034) ng/mL Coagulation 07/15/21 07/16/21 Range/Units 19:16 02:43 PT 10.3 10.9 (9.0-12.0) sec APTT 25.0 62.3 H (22.0-30.0) sec CBC 07/15/21 07/16/21 Range/Units 19:16 02:43 WBC 7.0 7.1 (3.8-10.6) k/uL RBC 5.46 H 5.00 (3.80-5.40) m/uL Hgb 15.7 14.6 (11.4-16.0) gm/dL Hct 47.6 H 42.7 (34.0-46.0) % Plt Count 192 177 (150-450) k/uL Comprehensive Metabolic Panel 07/15/21 Range/Units 19:16 Sodium 135 L (137-145) mmol/L Potassium 4.0 (3.5-5.1) mmol/L Chloride 91 L (98-107) mmol/L Carbon Dioxide 33 H (22-30) mmol/L BUN 27 H (7-17) mg/dL Creatinine 0.78 (0.52-1.04) mg/dL Glucose 107 H (74-99) mg/dL Calcium 8.3 L (8.4-10.2) mg/dL AST 97 H (14-36) U/L ALT 52 H (4-34) U/L Alkaline Phosphatase 66 (38-126) U/L Total Protein 7.0 (6.3-8.2) g/dL Albumin 3.8 (3.5-5.0) g/dL Current Medications Generic Name Dose Route Start Last Admin Trade Name Freq PRN Reason Stop Dose Admin Acetaminophen 650 mg 07/15/21 21:10 Acetaminophen Tab 325 Mg Tab PO Q6HR PRN Mild Pain or Fever > 100.5 Amlodipine Besylate 5 mg 07/16/21 09:00 Amlodipine 5 Mg Tab PO DAILY [facility] Budesonide/Formoterol Fumarate 2 puff 07/16/21 08:00 Symbicort 80-4.5 Mcg Inhaler INHALATION RT-BID [facility] Chlorthalidone 12.5 mg 07/16/21 09:00 Chlorthalidone 25 Mg Tab PO DAILY JAMES Heparin Sodium (Porcine) 0 unit 07/15/21 21:09 Heparin Sodium 1,000 Un/Ml (10ml Vl) IV PER PROTOCOL PRN Low PTT Protocol Diltiazem HCl 125 mg/ Sodium 125 mls @ 5 mls/hr 07/15/21 20:00 07/16/21 00:20 Chloride IV 5 mg/hr .Q24H JAMES 5 mls/hr Infusion 5 MG/HR Heparin Sodium/Sodium Chloride 250 mls @ 10 mls/hr 07/15/21 21:15 07/16/21 00:22 25,000 unit/ Sodium Chloride IV 11.02 units/kg/hr .Q24H JAMES 10 mls/hr Titration Protocol 11.023 UNITS/KG/HR Levothyroxine Sodium 25 mcg 07/16/21 06:30 07/16/21 05:53 Levothyroxine 25 Mcg Tab PO 25 mcg DAILY@0630 JAMES Administration Lisinopril 20 mg 07/16/21 09:00 Lisinopril 20 Mg Tab PO DAILY JAMES Meloxicam 7.5 mg 07/16/21 09:00 Meloxicam 7.5 Mg Tab PO DAILY JAMES Naloxone HCl 0.2 mg 07/15/21 21:10 Naloxone 0.4 Mg/Ml 1 Ml Vial IV Q2M PRN Opioid Reversal Naproxen 500 mg 07/15/21 21:12 Naproxen 250 Mg Tab PO DAILY PRN Pain Tiotropium [place] 2 puff 07/16/21 08:00 Tiotropium 2.5 Mcg Inhaler INHALATION RT-DAILY [facility] Intake and Output 07/15/21 07/16/21 07/16/21 22:59 06:59 14:59 Intake Total 42.583 Balance 42.583 Intake: Intake, IV Titration 42.583 Amount Diltiazem 125 mg In 20.25 Sodium Chloride 0.9% 100 ml @ 5 MG/HR 5 mls/hr IV .Q24H [facility] Rx#:[id number] Heparin Sod,Pork in 0.45% 22.333 NaCl 25,000 unit In 0.45 % NaCl 1 250ml.bag @ 11. 023 UNITS/KG/HR 10 mls/hr IV .Q24H [facility] Rx#: [id number] Other: # Voids 1 1 Weight 90.718 kg 90.5 kg 07/16/21 02:43 07/15/21 19:16
[2021-07-16 11:28] LABS: Magnesium 1.9 mg/dL (1.6-2.3)
[2021-07-16 11:44] LABS: C Reactive Protein 15.4 mg/dL (<1.0)
[2021-07-16 11:54] LABS: Partial Thromboplastin Time 43.4 sec (22.0-30.0); Prothrombin Time 10.8 sec (9.0-12.0)
--- NOTE | 2021-07-16 14:25 | P.HPIM ---
History of Present Illness This is a 75-year-old white female oknown to the practice. She has been sick since last Thursday. She is UNVACCINATED. She was aware she had Covid. She indicates increasing shortness of breath and weakness over the past five days. In the ER, she was found to be an atrial fibrillation with RVR. Shes been starting on a courtesy trip. Her heart rate is now gotten under control. She received monoclonal antibodies on the emergency room. Her chest x-ray showed possible interstitial pneumonia versus CHF. She was admitted to see cardiology and pulmonology.Today she complains of fatigue and shortness of breath with exertion. She is on oxygen 2 L via nasal cannula. She is afebrile. Heart rate and vital signs otherwise are stable. Review of Systems All systems: negative Past Medical History Past Medical History: COPD, Eye Disorder, Hypertension Additional Past Medical History / Comment(s): CATARACTS History of Any Multi-Drug Resistant Organisms: None Reported Past Surgical History: Tubal Ligation Additional Past Surgical History / Comment(s): Bilateral CATARACT SX Past Anesthesia/Blood Transfusion Reactions: No Reported Reaction Past Psychological History: No Psychological Hx Reported Smoking Status: Former smoker Past Alcohol Use History: Rare Past Drug Use History: None Reported - Past Family History Mother Family Medical History: No Reported History Medications and Allergies Home Medications Medication Instructions Recorded Confirmed Type Celecoxib [CeleBREX] 200 mg PO DAILY 07/15/21 07/15/21 History Chlorthalidone 12.5 mg PO DAILY 07/15/21 07/15/21 History Fluticasone/Umeclidin/Vilanter 1 puff INHALATION RT-DAILY 07/15/21 07/15/21 History [Trelegy Ellipta 100-62.5-25] Levothyroxine Sodium [Synthroid] 25 mcg PO DAILY 07/15/21 07/15/21 History Naproxen Sodium [Aleve] 440 mg PO DAILY PRN 07/15/21 07/15/21 History amLODIPine BESYLATE/BENAZEPRIL 1 cap PO DAILY 07/15/21 07/15/21 History [amLODIPine BESYLATE/BENAZEPRIL 5-20 MG] Apixaban [Eliquis] 5 mg PO BID 30 Days #60 tab 07/16/21 Rx Allergies Allergy/AdvReac Type Severity Reaction Status Date / Time No Known Allergies Allergy Verified 07/15/21 20:47 Physical Exam Vitals: Vital Signs Temp Pulse Pulse Resp BP BP Pulse Ox 07/16/21 12:08 97.3 F L 84 20 99/56 92 L 07/16/21 11:05 91 L 07/16/21 08:00 98.4 F 92 20 101/55 92 L 07/16/21 04:00 99.2 F 94 20 97/55 95 07/16/21 00:00 99.0 F 07/15/21 22:23 99.0 F 80 20 101/59 94 L 07/15/21 22:20 98.2 F 110 H 20 119/70 90 L 07/15/21 21:38 98.0 F 117 H 20 115/64 90 L 07/15/21 18:55 99.3 F 07/15/21 18:51 70 16 108/96 90 L Intake and Output 07/15/21 07/16/21 07/16/21 22:59 06:59 14:59 Intake Total 42.583 1114.833 Balance 42.583 1114.833 Intake: IV 20 Invasive Line 1 10 Invasive Line 2 10 Intake, IV Titration 42.583 134.833 Amount Diltiazem 125 mg In 20.25 45 Sodium Chloride 0.9% 100 ml @ 5 MG/HR 5 mls/hr IV .Q24H JAMES Rx#:[id number] Heparin Sod,Pork in 0.45% 22.333 89.833 NaCl 25,000 unit In 0.45 % NaCl 1 250ml.bag @ 11. 023 UNITS/KG/HR 10 mls/hr IV .Q24H JAMES Rx#: [id number] Oral 960 Other: Voiding Method Toilet Bedside Commode # Voids 1 1 Weight 90.718 kg 90.5 kg HEENT: PERRLA, EOMI, normal oropharynx Neck: The neck is supple, there is mild thyromegaly, lymphadenopathy, tenderness or JVD. Cardiovascular: S1S2 is normal, There is irregular rhythm, rate 90s. No murmur, rub or gallop is appreciated. Respiratory: Lungs are coarse to auscultation bilaterally with rhonchi intermittently noted, respirations are non-labored, breath sounds are equal. Gastrointestinal: Soft, non-distended, without masses or organomegaly noted. There is no rebound or guarding present. Bowel sounds are unremarkable. Musculoskeletal: Normal ROM, no tenderness, There is no pedal edema. There is no calf tenderness or swelling. No cords were appreciated. Neurological: CN II-XII intact, there are no obvious motor or sensory deficits. Coordination appears grossly intact. Speech is normal.he is awake alert and oriented 3 today. Skin: Skin is warm and dry and no rashes or lesions are noted. Results CBC & Chem 7: 07/16/21 02:43 07/16/21 08:08 Labs: Abnormal Lab Results - Last 24 Hours (Table) 07/15/21 07/15/21 07/15/21 Range/Units 19:16 19:16 19:16 RBC 5.46 H (3.80-5.40) m/uL Hct 47.6 H (34.0-46.0) % APTT (22.0-30.0) sec D-Dimer 0.88 H (<0.60) mg/L FEU Sodium 135 L (137-145) mmol/L Chloride 91 L (98-107) mmol/L Carbon Dioxide 33 H (22-30) mmol/L BUN 27 H (7-17) mg/dL Glucose 107 H (74-99) mg/dL Calcium 8.3 L (8.4-10.2) mg/dL AST 97 H (14-36) U/L ALT 52 H (4-34) U/L Lactate Dehydrogenase (313-618) U/L C-Reactive Protein (<1.0) mg/dL Albumin (3.5-5.0) g/dL Coronavirus (PCR) (Not Detectd) 07/15/21 07/16/21 07/16/21 Range/Units 19:27 02:43 08:08 RBC (3.80-5.40) m/uL Hct (34.0-46.0) % APTT 62.3 H (22.0-30.0) sec D-Dimer (<0.60) mg/L FEU Sodium 136 L (137-145) mmol/L Chloride (98-107) mmol/L Carbon Dioxide (22-30) mmol/L BUN 21 H (7-17) mg/dL Glucose 110 H (74-99) mg/dL Calcium 7.9 L (8.4-10.2) mg/dL AST 75 H (14-36) U/L ALT 41 H (4-34) U/L Lactate Dehydrogenase (313-618) U/L C-Reactive Protein (<1.0) mg/dL Albumin 3.3 L (3.5-5.0) g/dL Coronavirus (PCR) Detected A (Not Detectd) 07/16/21 07/16/21 07/16/21 Range/Units 08:09 10:39 10:39 RBC (3.80-5.40) m/uL Hct (34.0-46.0) % APTT 63.4 H 43.4 H (22.0-30.0) sec D-Dimer (<0.60) mg/L FEU Sodium (137-145) mmol/L Chloride (98-107) mmol/L Carbon Dioxide (22-30) mmol/L BUN (7-17) mg/dL Glucose (74-99) mg/dL Calcium (8.4-10.2) mg/dL AST (14-36) U/L ALT (4-34) U/L Lactate Dehydrogenase 1202 H (313-618) U/L C-Reactive Protein 15.4 H (<1.0) mg/dL Albumin (3.5-5.0) g/dL Coronavirus (PCR) (Not Detectd) Chest x-ray: report reviewed Thrombosis Risk Factor Assmnt - DVT/VTE Prophylaxis DVT/VTE Prophylaxis: Pharmacologic Prophylaxis ordered - Choose All That Apply Any of the Below Risk Factors Present?: Yes Each Factor Represents 1 point: Abnormal pulmonary function (COPD) Other Risk Factors: Yes Each Risk Factor Represents 3 Points: Age 75 years or older Other congenital or acquired thrombophilia - If yes, enter type in comment: No Thrombosis Risk Factor Assessment Total Risk Factor Score: 4 Thrombosis Risk Factor Assessment Level: Moderate Risk Assessment and Plan (1) Pneumonia due to COVID-19 virus Current Visit: Yes Status: Acute Code(s): U07.1 - COVID-19; J12.82 - PNEUMONIA DUE TO CORONAVIRUS DISEASE 2018 SNOMED Code(s): 077520504705180969 (2) Atrial fibrillation with rapid ventricular response Current Visit: Yes Status: Acute Code(s): I48.91 - UNSPECIFIED ATRIAL FIBRILLATION SNOMED Code(s): 331634909433953 (3) COVID-19 Current Visit: Yes Status: Acute Code(s): U07.1 - COVID-19 SNOMED Code(s): 102621456 (4) New onset a-fib Current Visit: Yes Status: Acute Code(s): I48.91 - UNSPECIFIED ATRIAL FIBRILLATION SNOMED Code(s): 08717621 (5) COPD (chronic obstructive pulmonary disease) Current Visit: Yes Status: Acute Code(s): J44.9 - CHRONIC OBSTRUCTIVE PULMONARY DISEASE, UNSPECIFIED SNOMED Code(s): 46796277 (6) Former smoker Current Visit: Yes Status: Acute Code(s): Z87.891 - PERSONAL HISTORY OF [place] DEPENDENCE SNOMED Code(s): 5949262 (7) Hypothyroidism Current Visit: Yes Status: Acute Code(s): E03.9 - HYPOTHYROIDISM, UNSPECIFIED SNOMED Code(s): 43607795 Plan: consult Cardiology and pulmonoology COVID protocol, isolation Covid Cocktail meds repeat labs in am reevaluate in the next 24 hours
[2021-07-16] MEDS ORDERED: IPRATROPIUM-ALBUTEROL 3 ML NEB INHALATION PRN (14:30)
[2021-07-16] MEDS: ASCORBIC ACID 500 MG TAB PO SCH (15:09)
[2021-07-16] MEDS: guaiFENesin 600 MG TABLET.ER PO SCH ×2 (15:09→20:27)
[2021-07-16] MEDS: ZINC SULFATE 220 MG CAP PO SCH (15:09)
[2021-07-16] MEDS: DEXAMETHASONE SOD PHOSPHATE 10 MG/ML 1 ML VIAL IV SCH (15:09)
[2021-07-16] MEDS: CHOLECALCIFEROL 125 MCG (5000 IU) TABLET PO SCH (15:09)
[2021-07-16] MEDS ORDERED: REMDESIVIR 200 MG in SODIUM CHLORIDE 0.9% 250 ML IVPB ONE (16:12)
--- NOTE | 2021-07-16 16:12 | P.CNPUL ---
History of Present Illness Consult date: 07/16/21 Reason for consult: dyspnea, hypoxemia, pneumonia History of present illness: 75-year-old. Patient presented to the ED because of worsening shortness of breath. The patient has history of COPD and hypertension. The patient is a former smoker. The patient was having symptoms of cold and some shortness of breath for the past 1 week. Her symptoms were shortness of breath, cough, chills, body aches, weakness and some diarrhea. She has not been vaccinated for COVID 19. In the emergency department, the patient checked positive for COVID 1 9. she was given multiple antibodies. Subsequently , The Patient Was Found to Be in Atrial Fibrillation with Rapid Ventricular Response and a Cardiology Consultation Has Been Initiated. She Denies Having Any Previous History of Cardiac Arrhythmias. The Patient Was Started on IV Cardizem Drip for Rate Control. The Patient Was Also Started on IV Heparin. His EKG Initially Showed Atrial Fibrillation with RVR with a Heart Rate of [address] Segment Changes. Chest X-Ray Showed Increased Interstitial Markings Bilaterally Could Be Related to interstitial pneumonia. The patient had a d-dimer of 0.88. The white cell count was at 7.1 with a hemoglobin of 14.6 and a platelet count of 177, the LDH level was 1202 with a CRP level of 15.4. Rest of the electrolytes were within essentially within normal limits. The patient a normal renal function. UA was negative. TSH was at 2.8 with a albumin of 3.3 and a total protein of 6.4. ProBNP level was 359. For now, the patient is on 2 L nasal cannula with a pulse ox of 91%. Review of Systems CONSTITUTIONAL: Denies fever +chills. CARDIOVASCULAR: Denies chest pain, +shortness of breath, Denies orthopnea, PND or palpitations. RESPIRATORY: + cough. GASTROINTESTINAL: Denies abdominal pain, diarrhea, constipation, nausea or vomiting. MUSCULOSKELETAL: Denies myalgias. NEUROLOGIC: Denies numbness, tingling, headacbe or weakness. ENDOCRINE: Denies fatigue, weight change, polydipsia or polyurina. GENITOURINARY: Denies burning, hematuria or urgency with micturation. HEMATOLOGIC: Denies history of anemia or bleeding. Past Medical History Past Medical History: COPD, Eye Disorder, Hypertension Additional Past Medical History / Comment(s): CATARACTS History of Any Multi-Drug Resistant Organisms: None Reported Past Surgical History: Tubal Ligation Additional Past Surgical History / Comment(s): Bilateral CATARACT SX Past Anesthesia/Blood Transfusion Reactions: No Reported Reaction Past Psychological History: No Psychological Hx Reported Smoking Status: Former smoker Past Alcohol Use History: Rare Past Drug Use History: None Reported - Past Family History Mother Family Medical History: No Reported History Medications and Allergies Home Medications Medication Instructions Recorded Confirmed Type Celecoxib [CeleBREX] 200 mg PO DAILY 07/15/21 07/15/21 History Chlorthalidone 12.5 mg PO DAILY 07/15/21 07/15/21 History Fluticasone/Umeclidin/Vilanter 1 puff INHALATION RT-DAILY 07/15/21 07/15/21 History [Trelegy Ellipta 100-62.5-25] Levothyroxine Sodium [Synthroid] 25 mcg PO DAILY 07/15/21 07/15/21 History Naproxen Sodium [Aleve] 440 mg PO DAILY PRN 07/15/21 07/15/21 History amLODIPine BESYLATE/BENAZEPRIL 1 cap PO DAILY 07/15/21 07/15/21 History [amLODIPine BESYLATE/BENAZEPRIL 5-20 MG] Apixaban [Eliquis] 5 mg PO BID 30 Days #60 tab 07/16/21 Rx Allergies Allergy/AdvReac Type Severity Reaction Status Date / Time No Known Allergies Allergy Verified 07/15/21 20:47 Physical Exam Vitals: Vital Signs Temp Pulse Pulse Resp BP BP Pulse Ox 07/16/21 15:15 98.1 F 83 20 101/60 91 L 07/16/21 12:08 97.3 F L 84 20 99/56 92 L 07/16/21 11:05 91 L 07/16/21 08:00 98.4 F 92 20 101/55 92 L 07/16/21 04:00 99.2 F 94 20 97/55 95 07/16/21 00:00 99.0 F 07/15/21 22:23 99.0 F 80 20 101/59 94 L 07/15/21 22:20 98.2 F 110 H 20 119/70 90 L 07/15/21 21:38 98.0 F 117 H 20 115/64 90 L 07/15/21 18:55 99.3 F 07/15/21 18:51 70 16 108/96 90 L Intake and Output 07/16/21 07/16/21 07/16/21 06:59 14:59 22:59 Intake Total 42.583 1114.833 Balance 42.583 1114.833 Intake: IV 20 Invasive Line 1 10 Invasive Line 2 10 Intake, IV Titration 42.583 134.833 Amount Diltiazem 125 mg In 20.25 45 Sodium Chloride 0.9% 100 ml @ 5 MG/HR 5 mls/hr IV .Q24H JAMES Rx#:[id number] Heparin Sod,Pork in 0.45% 22.333 89.833 NaCl 25,000 unit In 0.45 % NaCl 1 250ml.bag @ 11. 023 UNITS/KG/HR 10 mls/hr IV .Q24H JAMES Rx#: [id number] Oral 960 Other: Voiding Method Toilet Bedside Commode # Voids 1 Weight 90.5 kg Vitals BP 101/55, HR 92, afebrile 92% on 2L nasal cannula , breathing is nonlabored and the patient not using excessive muscle breathing CONSTITUTIONAL: No apparent distress. Head exam was generally normal. There was no scleral icterus or corneal arcus. Mucous membranes were moist. HEENT: Head is normocephalic. No JVD. No carotid bruit. CHEST EXAMINATION: Lungs are diminished bilaterally to auscultation. Few crackles in lung bases bilaterally HEART EXAMINATION: Irregular rate and rhythm. S1, S2 heard. Abdominal exam revealed normal bowel sounds. The abdomen was soft, non-tender, and without masses, organomegaly, or appreciable enlargement of the abdominal aorta. EXTREMITIES: no lower extremity edema and no calf tenderness. Neurologically, the patient is awake and alert and the patient does not have any focal neurological deficit. Cranial nerves are essentially intact. Examination of the skin revealed no evidence of significant rashes, suspicious appearing nevi or other concerning lesions. Results - Laboratory Findings CBC and BMP: 07/16/21 02:43 07/16/21 08:08 PT/INR, D-dimer PT 10.8 sec (9.0-12.0) 07/16/21 10:39 INR 1.0 (<1.2) 07/16/21 10:39 D-Dimer 0.55 mg/L FEU (<0.60) 07/16/21 10:39 Abnormal lab findings: Abnormal Labs 07/15/21 07/15/21 07/15/21 19:16 19:16 19:16 RBC 5.46 H Hct 47.6 H APTT D-Dimer 0.88 H Sodium 135 L Chloride 91 L Carbon Dioxide 33 H BUN 27 H Glucose 107 H Calcium 8.3 L AST 97 H ALT 52 H Lactate Dehydrogenase C-Reactive Protein Albumin Coronavirus (PCR) 07/15/21 07/16/21 07/16/21 19:27 02:43 08:08 RBC Hct APTT 62.3 H D-Dimer Sodium 136 L Chloride Carbon Dioxide BUN 21 H Glucose 110 H Calcium 7.9 L AST 75 H ALT 41 H Lactate Dehydrogenase C-Reactive Protein Albumin 3.3 L Coronavirus (PCR) Detected A 07/16/21 07/16/21 07/16/21 08:09 10:39 10:39 RBC Hct APTT 63.4 H 43.4 H D-Dimer Sodium Chloride Carbon Dioxide BUN Glucose Calcium AST ALT Lactate Dehydrogenase 1202 H C-Reactive Protein 15.4 H Albumin Coronavirus (PCR) - Diagnostic Findings Chest x-ray: image reviewed Assessment and Plan Plan: 1 acute COVID 19 related pneumonia. Given monoclonal abs in the ED. Symptoms started approximately a week ago and the patient is currently presented with bilateral pulmonary infiltrates and currently the patient's hypoxia on 2 L of oxygen by nasal cannula. She was started on Decadron. given a monoclonal antibodies in the emergency department. 2 acute hypoxic respiratory failure secondary to above currently on 2 L 3 atrial fibrillation with rapid ventricular response, currently on IV heparin and IV Cardizem drip 4 COPD 5 hypertension 6 elevated inflammatory markers second COVID 19 infection. D-dimer is low at this point in time. Plan Continue oxygen. Maintain saturation above 90% currently on 2 L Continue Decadron 6 mg IV every 24 hours Start Remdesivir Management of atrial fibrillation per cardiology. The patient will need a 2-D echocardiogram Monitor inflammatory markers D-dimer is low at this point in time Resume Spiriva and Symbicort regarding her COPD Albuterol HFA 4 times a day [id number] Cardizem drip to be switched to oral medications for rate control including possibility of beta blockers Anti-coagulation per cardiology. Patient will likely be switched Eliquis 5 mg by mouth twice a day We'll continue to follow.
[2021-07-17] MEDS: LEVOTHYROXINE 25 MCG TAB PO SCH (06:53)
[2021-07-17] MEDS: TIOTROPIUM 2.5 MCG INHALER INHALATION SCH (08:22)
[2021-07-17] MEDS: SYMBICORT 80-4.5 MCG INHALER INHALATION SCH ×2 (08:22→21:01)
--- NOTE | 2021-07-17 09:16 | ECHOF ---
Referral Reason:a fib MEASUREMENTS -------- HEIGHT: 175.3 cm WEIGHT: 90.3 kg BP: 97/55 RVIDd: 3.8 cm (< 3.3) IVSd: 1.2 cm (0.6 - 1.1) LVIDd: 4.2 cm (3.9 - 5.3) LVPWd: 1.2 cm (0.6 - 1.1) IVSs: 1.4 cm LVIDs: 3.2 cm LVPWs: 1.3 cm LAESV Index (A-L): 34.26 ml/m RAP: 5.00 mmHg RVSP: 14.58 mmHg FINDINGS -------- Atrial fibrillation. This was a technically difficult study with suboptimal apical views. The left ventricular size is normal. There is mild concentric left ventricular hypertrophy. Overa ll left ventricular systolic function is mild-moderately impaired with, an EF between 40 - 45 %. The right ventricle is mild to moderately enlarged. LA is moderately dilated 34-39 ml/m2 The right atrial size is normal. 3.0mg of Lumason was utilized for enhancement of images Interatrial and interventricular septum intact. There is no evidence of aortic regurgitation. There is no evidence of aortic stenosis. [id number] mitral regurgitation is present. Mild tricuspid regurgitation present. There is no evidence of pulmonary hypertension. The right v entricular systolic pressure, as measured by Doppler, is 14.58mmHg. There is no pulmonic regurgitation present. The aortic root size is normal. IVC Not well visulized. Echo free space represents a pericardial fat pad. There is no pericardial effusion. CONCLUSIONS -------- 1. The left ventricular size is normal. 2. There is mild concentric left ventricular hypertrophy. 3. Overall left ventricular systolic function is mild-moderately impaired with, an EF between 40 - 45 %. 4. The right ventricle is mild to moderately enlarged. 5. LA is moderately dilated 34-39 ml/m2 6. [id number] mitral regurgitation is present. 7. Mild tricuspid regurgitation present. TRANSPORT TECH: Cindy Chandra RDCS
[2021-07-17] MEDS: CHLORTHALIDONE 25 MG TAB PO SCH (10:29)
[2021-07-17] MEDS: lisinopriL 10 MG TAB PO SCH (10:30)
[2021-07-17] MEDS: guaiFENesin 600 MG TABLET.ER PO SCH ×2 (10:30→20:34)
[2021-07-17] MEDS: ZINC SULFATE 220 MG CAP PO SCH (10:30)
[2021-07-17] MEDS: ASCORBIC ACID 500 MG TAB PO SCH (10:30)
[2021-07-17] MEDS: METOPROLOL SUCCINATE (ER) 25 MG TAB.ER.24H PO SCH (10:30)
[2021-07-17] MEDS: APIXABAN 5 MG TAB PO SCH ×2 (10:30→20:34)
[2021-07-17] MEDS: DEXAMETHASONE SOD PHOSPHATE 10 MG/ML 1 ML VIAL IV SCH (10:31)
[2021-07-17] MEDS: REMDESIVIR 100 MG in SODIUM CHLORIDE 0.9% 250 ML IVPB SCH (10:32)
[2021-07-17] MEDS: CHOLECALCIFEROL 125 MCG (5000 IU) TABLET PO SCH (10:32)
--- NOTE | 2021-07-17 13:18 | P.PN ---
Subjective HISTORY OF PRESENTING ILLNESS This is a pleasant 75-year-old female past medical history significant for hypertension, former smoker, COPD. 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 We have been asked to see in consultation for atrial fibrillation with rapid ventricular response. Patient presents emergency department with shortness of breath and cold-like symptoms for one week. She symptoms of shortness of breath, cough, chills, weakness, and diarrhea. Found to be COVID-19 positive. She is not vaccinated. Patient seen at bedside, no acute distress. Her breathing and symptoms have improved. She continue to be in atrial fibrillation with controlled ventricular rates. Her Eliquis is covered with $40.50 copay per month per case management. He blood pressures are stable. She maintaining SpO2 92% on 2L nasal cannula. She is maintained on Eliquis 5mg BID, lisinopril 10mg daily, metoprolol succinate 25mg daily. Echocardiogram revealed an EF 40-45%, RV is mild to moderately enlarged, LA is moderately dilated. Mild to moderate mitral regurgitation, mild tricuspid regurgitation. PHYSICAL EXAMINATION Vitals Reviewed CONSTITUTIONAL: No apparent distress. HEENT: Head is normocephalic. No JVD. No carotid bruit. CHEST EXAMINATION: Lungs are diminished bilaterally to auscultation. HEART EXAMINATION: Irregular rate and rhythm. S1, S2 heard. ABDOMEN: Soft, nontender. EXTREMITIES: no lower extremity edema and no calf tenderness. NEUROLOGIC EXAMINATION: Patient is awake, alert and oriented x3. ASSESSMENT New onset paroxysmal atrial fibrillation with RVR- [id number] score 4 COVID-19 Infection Cardiomyopathy, with mild to moderately impaired EF 40-45%, likely non-ischemic History of hypertension, hypotensive inpatient COPD Former nicotine dependence PLAN -Continue metoprolol succinate 25mg daily -Continue lisinopril 10mg daily -Continue Eliquis 5mg BID, Medication is covered with $40.50 copay per month per case management -From a cardiology perspective, patient with controlled ventricular rates, recommend continue current medical therapy. Recommend follow up outpatient with Dr. Olivera for further management of atrial fibrillation. Please reach out with any further questions or concerns. Nurse Practitioner note has been reviewed, I agree with a documented findings and plan of care. Patient was seen and examined. Objective - Vital Signs Vital signs: Vital Signs Temp 97.8 F 07/17/21 04:00 Pulse 93 07/17/21 04:00 Resp 22 07/17/21 04:00 BP 112/58 07/17/21 04:00 Pulse Ox 92 L 07/17/21 04:00 Intake & Output 07/16/21 07/17/21 07/17/21 18:59 06:59 18:59 Intake Total 1294.833 118 Balance 1294.833 118 Weight 90.5 kg Intake: IV 20 Invasive Line 1 10 Invasive Line 2 10 Intake, IV Titration 134.833 Amount Diltiazem 125 mg In 45 Sodium Chloride 0.9% 100 ml @ 5 MG/HR 5 mls/hr IV .Q24H JAMES Rx#:[id number] Heparin Sod,Pork in 0.45% 89.833 NaCl 25,000 unit In 0.45 % NaCl 1 250ml.bag @ 11. 023 UNITS/KG/HR 10 mls/hr IV .Q24H JAMES Rx#: [id number] Oral 1140 118 Other: Voiding Method Toilet Bedside Commode # Voids 1 - Labs CBC & Chem 7: 07/16/21 02:43 07/16/21 08:08 Labs: Abnormal Lab Results - Last 24 Hours (Table) 07/16/21 Range/Units 10:39 Ferritin 519.0 H (10.0-291.0) ng/mL
--- NOTE | 2021-07-17 14:30 | P.PN ---
Subjective Progress Note Date: 07/17/21 75-year-old. Patient presented to the ED because of worsening shortness of breath. The patient has history of COPD and hypertension. The patient is a former smoker. The patient was having symptoms of cold and some shortness of breath for the past 1 week. Her symptoms were shortness of breath, cough, chills, body aches, weakness and some diarrhea. She has not been vaccinated for COVID 19. In the emergency department, the patient checked positive for COVID 19. she was given multiple antibodies. Subsequently , The Patient Was Found to Be in Atrial Fibrillation with Rapid Ventricular Response and a Cardiology Consultation Has Been Initiated. She Denies Having Any Previous History of Cardiac Arrhythmias. The Patient Was Started on IV Cardizem Drip for Rate Control. The Patient Was Also Started on IV Heparin. His EKG Initially Showed Atrial Fibrillation with RVR with a Heart Rate of [address] Segment Changes. Chest X-Ray Showed Increased Interstitial Markings Bilaterally Could Be Related to interstitial pneumonia. The patient had a d-dimer of 0.88. The white cell count was at 7.1 with a hemoglobin of 14.6 and a platelet count of 177, the LDH level was 1202 with a CRP level of 15.4. Rest of the electrolytes were within essentially within normal limits. The patient a normal renal function. UA was negative. TSH was at 2.8 with a albumin of 3.3 and a t otal protein of 6.4. ProBNP level was 359. For now, the patient is on 2 L nasal cannula with a pulse ox of 91%. On today's evaluation of 07/15/2021, the patient is feeling well. The patient is currently on 2 L of oxygen by nasal cannula. No significant cough sputum production chest answer wheezing her condition is been stable since yesterday. The patient is currently running a low d-dimer of 0.5, the LDH level was 1202 and the CRP level is at 15.4. The patient remains on Decadron and she was also started on Remdesivir per protocol and today she is day #2. Echo to 60 mg IV every 24 hours. The patient is also on long-term medical condition with Eliquis 5 mg by mouth twice a day. She remains atrial fibrillation. She is on a metoprolol 25 mg on a daily dose. Echo was completed yesterday and it showed evidence of mild CHF with an ejection fraction of 40-45%. No significant valvu lar abnormalities. There was [id number] mitral regurgitation. Objective - Vital Signs Vital signs: Vital Signs Temp 97.8 F 07/17/21 04:00 Pulse 93 07/17/21 04:00 Resp 22 07/17/21 04:00 BP 112/58 07/17/21 04:00 Pulse Ox 92 L 07/17/21 04:00 Intake & Output 07/16/21 07/17/21 07/17/21 18:59 06:59 18:59 Intake Total 1294.833 358 Balance 1294.833 358 Weight 90.5 kg Intake: IV 20 Invasive Line 1 10 Invasive Line 2 10 Intake, IV Titration 134.833 Amount Diltiazem 125 mg In 45 Sodium Chloride 0.9% 100 ml @ 5 MG/HR 5 mls/hr IV .Q24H JAMES Rx#:[id number] Heparin Sod,Pork in 0.45% 89.833 NaCl 25,000 unit In 0.45 % NaCl 1 250ml.bag @ 11. 023 UNITS/KG/HR 10 mls/hr IV .Q24H JAMES Rx#: [id number] Oral 1140 358 Other: Voiding Method Toilet Bedside Commode # Voids 1 1 # Bowel Movements 1 - Exam Vitals BP 101/55, HR 92, afebrile 92% on 2L nasal cannula , breathing is nonlabored and the patient not using excessive muscle breathing CONSTITUTIONAL: No apparent distress. Head exam was generally normal. There was no scleral icterus or corneal arcus. Mucous membranes were moist. HEENT: Head is normocephalic. No JVD. No carotid bruit. CHEST EXAMINATION: Lungs are diminished bilaterally to auscultation. Few crackles in lung bases bilaterally HEART EXAMINATION: Irregular rate and rhythm. S1, S2 heard. Abdominal exam revealed normal bowel sounds. The abdomen was soft, non-tender, and without masses, organomegaly, or appreciable enlargement of the abdominal aorta. EXTREMITIES: no lower extremity edema and no calf tenderness. Neurologically, the patient is awake and alert and the patient does not have any focal neurological deficit. Cranial nerves are essentially intact. Examination of the skin revealed no evidence of significant rashes, suspicious appearing nevi or other concerning lesions. - Labs CBC & Chem 7: 07/16/21 02:43 12/21/21 08:08 Labs: Abnormal Lab Results - Last 24 Hours (Table) 07/16/21 Range/Units 10:39 Ferritin 519.0 H (10.0-291.0) ng/mL Assessment and Plan Plan: 1 acute COVID 19 related pneumonia. Given monoclonal abs in the ED. Symptoms started approximately a week ago and the patient is currently presented with bilateral pulmonary infiltrates and currently the patient's hypoxia on 2 L of oxygen by nasal cannula. She was started on Decadron. given a monoclonal antibodies in the emergency department. The patient is currently stable on 2 L about 2 by nasal cannula maintained on a combination of Decadron and Remdesivir. 2 acute hypoxic respiratory failure secondary to above currently on 2 L 3 atrial fibrillation with rapid ventricular response, currently on IV heparin and IV Cardizem drip 4 COPD 5 hypertension 6 elevated inflammatory markers second COVID 19 infection. D-dimer is low at this point in time. Plan Continue oxygen. Maintain saturation above 90% currently on 2 L Continue Decadron 6 mg IV every 24 hours, and Remdesivir day #2 Echo of the heart was noted and the patient has a preserved LV function Management of atrial fibrillation per cardiology. Continue metoprolol Continue Eliquis Inflammatory markers were noted Monitor inflammatory markers D-dimer is low at this point in time Resume Spiriva and Symbicort regarding her COPD Albuterol HFA 4 times a day [id number] We'll continue to follow.
--- NOTE | 2021-07-17 15:39 | P.PN ---
Subjective This is a 75-year-old white female oknown to the practice. She has been sick since last Thursday. She is UNVACCINATED. She was aware she had Covid. She indicates increasing shortness of breath and weakness over the past five days. In the ER, she was found to be an atrial fibrillation with RVR. Shes been starting on a courtesy trip. Her heart rate is now gotten under control. She received monoclonal antibodies on the emergency room. Her chest x-ray showed possible interstitial pneumonia versus CHF. She was admitted to see cardiology and pulmonology.Today she complains of fatigue and shortness of breath with exertion. She is on oxygen 2 L via nasal cannula. She is afebrile. Heart rate and vital signs otherwise are stable. July 17, 2021: patient remain stable on 2 L of oxygen via nasal cannula. Pulse ox is in the low 90s. Temperature remains afebrile labs for this morning per Covid protocol. Pulmonology and cardiology notes reviewed Patient denies any chest pains or pressure this time. She has some shortness of breath with exertion but feels OK at rest. She is on Decadron, Remdesivir day number two, Covid cocktail, anticoagulated on Eliquis, Objective - Vital Signs Vital signs: Vital Signs Temp 98.1 F 07/17/21 12:30 Pulse 61 07/17/21 12:30 Resp 16 07/17/21 12:30 BP 119/54 07/17/21 12:30 Pulse Ox 97 07/17/21 14:26 Intake & Output 07/16/21 07/17/21 07/17/21 18:59 06:59 18:59 Intake Total 1294.833 358 Balance 1294.833 358 Weight 90.5 kg Intake: IV 20 Invasive Line 1 10 Invasive Line 2 10 Intake, IV Titration 134.833 Amount Diltiazem 125 mg In 45 Sodium Chloride 0.9% 100 ml @ 5 MG/HR 5 mls/hr IV .Q24H JAMES Rx#:[id number] Heparin Sod,Pork in 0.45% 89.833 NaCl 25,000 unit In 0.45 % NaCl 1 250ml.bag @ 11. 023 UNITS/KG/HR 10 mls/hr IV .Q24H JAMES Rx#: [id number] Oral 1140 358 Other: Voiding Method Toilet Toilet Bedside Commode Bedside Commode # Voids 1 1 # Bowel Movements 1 - Exam Neck: The neck is supple, there is mild thyromegaly, lymphadenopathy, tenderness or JVD. Cardiovascular: S1S2 is normal, There is irregular rhythm, rate 90s. No murmur, rub or gallop is appreciated. Respiratory: Lungs are coarse to auscultation bilaterally with rhonchi intermittently noted, respirations are non-labored, breath sounds are equal. Gastrointestinal: Soft, non-distended, without masses or organomegaly noted. There is no rebound or guarding present. Bowel sounds are unremarkable. Musculoskeletal: Normal ROM, no tenderness, There is no pedal edema. There is no calf tenderness or swelling. No cords were appreciated. Neurological: CN II-XII intact, there are no obvious motor or sensory deficits. Coordination appears grossly intact. Speech is normal.he is awake alert and oriented 3 today. Skin: Skin is warm and dry and no rashes or lesions are noted. - Labs CBC & Chem 7: 07/16/21 02:43 07/16/21 08:08 Labs: Abnormal Lab Results - Last 24 Hours (Table) 07/16/21 Range/Units 10:39 Ferritin 519.0 H (10.0-291.0) ng/mL Assessment and Plan (1) Pneumonia due to COVID-19 virus Current Visit: Yes Status: Acute Code(s): U07.1 - COVID-19; J12.82 - PNEUMON IA DUE TO CORONAVIRUS DISEASE 2019 SNOMED Code(s): 723016263707655328 (2) Atrial fibrillation with rapid ventricular response Current Visit: Yes Status: Acute Code(s): I48.91 - UNSPECIFIED ATRIAL FIBRILLATION SNOMED Code(s): 480107115611024 (3) COVID-19 Current Visit: Yes Status: Acute Code(s): U07.1 - COVID-19 SNOMED Code(s): 208380064 (4) New onset a-fib Current Visit: Yes Status: Acute Code(s): I48.91 - UNSPECIFIED ATRIAL FIBRILLATION SNOMED Code(s): 28978739 (5) COPD (chronic obstructive pulmonary disease) Current Visit: Yes Status: Acute Code(s): J44.9 - CHRONIC OBSTRUCTIVE PULMONARY DISEASE, UNSPECIFIED SNOMED Code(s): 68706740 (6) Former smoker Current Visit: Yes Status: Acute Code(s): Z87.891 - PERSONAL HISTORY OF NICOTINE DEPENDENCE SNOMED Code(s): 7697071 (7) Hypothyroidism Current Visit: Yes Status: Acute Code(s): E03.9 - HYPOTHYROIDISM, UNSPECIFIED SNOMED Code(s): 40428149 Plan: wait on furhter recommendations per Cardiology and pulmonoology COVID protocol, isolation Covid Cocktail meds, decadron, remdesivir day#2 repeat labs in am reevaluate in the next 24 hours
[2021-07-18] MEDS: LEVOTHYROXINE 25 MCG TAB PO SCH (05:47)
[2021-07-18] MEDS: TIOTROPIUM 2.5 MCG INHALER INHALATION SCH (09:38)
[2021-07-18] MEDS: SYMBICORT 80-4.5 MCG INHALER INHALATION SCH ×2 (09:38→21:22)
[2021-07-18] MEDS: APIXABAN 5 MG TAB PO SCH ×2 (10:00→20:53)
[2021-07-18] MEDS: ASCORBIC ACID 500 MG TAB PO SCH (10:00)
[2021-07-18] MEDS: CHLORTHALIDONE 25 MG TAB PO SCH (10:00)
[2021-07-18] MEDS: CHOLECALCIFEROL 125 MCG (5000 IU) TABLET PO SCH (10:02)
[2021-07-18] MEDS: lisinopriL 10 MG TAB PO SCH (10:03)
[2021-07-18] MEDS: REMDESIVIR 100 MG in SODIUM CHLORIDE 0.9% 250 ML IVPB SCH (10:03)
[2021-07-18] MEDS: METOPROLOL SUCCINATE (ER) 25 MG TAB.ER.24H PO SCH (10:03)
[2021-07-18] MEDS: guaiFENesin 600 MG TABLET.ER PO SCH ×2 (10:03→20:53)
[2021-07-18] MEDS: ZINC SULFATE 220 MG CAP PO SCH (10:03)
[2021-07-18] MEDS: DEXAMETHASONE SOD PHOSPHATE 10 MG/ML 1 ML VIAL IV SCH (10:04)
[2021-07-18 10:46] LABS: Basophils # (A) 0.1 k/uL (0-0.2); Basophils % (A) 0 %; Eosinophils % (A) 0 %; Lymphocytes # (A) 1.3 k/uL (1.0-4.8); Lymphocytes % (A) 7 %; MCH 29.4 pg (25.0-35.0); MCHC 33.4 g/dL (31.0-37.0); MCV 87.9 fL (80.0-100.0); Mean Platelet Volume 8.5; Monocytes # (A) 0.6 k/uL (0-1.0); Monocytes % (A) 3 %; Neutrophils # (A) 16.6 k/uL (1.3-7.7); Neutrophils % (A) 88 %; Platelet Count 332 k/uL (150-450); RBC 5.46 m/uL (3.80-5.40); RDW 13.7 % (11.5-15.5); WBC 18.8 k/uL (3.8-10.6)
[2021-07-18 10:53] LABS: INR 1.3 (<1.2); Partial Thromboplastin Time 24.8 sec (22.0-30.0); Prothrombin Time 13.2 sec (9.0-12.0)
[2021-07-18 10:57] LABS: Albumin 3.6 g/dL (3.5-5.0); C Reactive Protein 4.6 mg/dL (<1.0); Calcium 8.9 mg/dL (8.4-10.2); Magnesium 2.1 mg/dL (1.6-2.3); Potassium 3.9 mmol/L (3.5-5.1); Total Bilirubin 0.6 mg/dL (0.2-1.3)
--- NOTE | 2021-07-18 12:16 | P.PN ---
Subjective This is a 75-year-old white female oknown to the practice. She has been sick since last Thursday. She is UNVACCINATED. She was aware she had Covid. She indicates increasing shortness of breath and weakness over the past five days. In the ER, she was found to be an atrial fibrillation with RVR. Shes been starting on a courtesy trip. Her heart rate is now gotten under control. She received monoclonal antibodies on the emergency room. Her chest x-ray showed possible interstitial pneumonia versus CHF. She was admitted to see cardiology and pulmonology.Today she complains of fatigue and shortness of breath with exertion. She is on oxygen 2 L via nasal cannula. She is afebrile. Heart rate and vital signs otherwise are stable. July 17, 2021: patient remain stable on 2 L of oxygen via nasal cannula. Pulse ox is in the low 90s. Temperature remains afebrile labs for this morning per Covid protocol. Pulmonology and cardiology notes reviewed Patient denies any chest pains or pressure this time. She has some shortness of breath with exertion but feels OK at rest. She is on Decadron, Remdesivir day number two, Covid cocktail, anticoagulated on Eliquis, 07/18/2021: She remains stable on 2-3 L of oxygen via nasal cannula. She is afebrile. Heart rate and respiratory remain stable. Blood pressure is controlled. Laboratory studies now show a leukocytosis WBC count 18.8 and absolute neutrophil count of 516.6. Hemoglobin is stable 16. INR is 1.3 today d-dimer 0.9. Fibrinogen and PTT are normal. Electrolytes show BUN 32 creatine is 0.75. AST and ALT are slightly elevated at 118 and 81. LDH is down to 1085. C- reactive protein is down to 4.6. Patient is on day 3 of Remdesevir She remains on Covid cocktail. She Zantac anticoagulated with Elequis 5 mg twice a day. Heart rate and atrial fibrillation is controlled metoprolol lisinopril. She remains on her levothyroxin for hypothyroidism. She is breathing medications for COPD of albuterol,r, and Symbicort. Pulmonology notes were reviewed. Cardiology signed off for the atrial fibrillation this time. The patient feels improved. She indicates she is coughing bringing mucus up. Shortness of breath less fatigued today. Objective - Vital Signs Vital signs: Vital Signs Temp 97.0 F L 07/18/21 08:00 Pulse 101 H 07/18/21 08:00 Resp 20 07/18/21 08:00 BP 129/60 07/18/21 08:00 Pulse Ox 90 L 07/18/21 08:00 Intake & Output 07/17/21 07/18/21 07/18/21 18:59 06:59 18:59 Intake Total 476 Balance 476 Weight 90.5 kg Intake: Oral 476 Other: Voiding Method Toilet Bedside Commode # Voids 1 1 # Bowel Movements 1 - Exam Neck: The neck is supple, there is mild thyromegaly, lymphadenopathy, tenderness or JVD. Cardiovascular: S1S2 is normal, There is irregular rhythm, rate 90s. No murmur, rub or gallop is appreciated. Respiratory: Lungs are coarse to auscultation bilaterally with rhonchi intermittently noted, respirations are non-labored, breath sounds are equal. Gastrointestinal: Soft, non-distended, without masses or organomegaly noted. There is no rebound or guarding present. Bowel sounds are unremarkable. Musculoskeletal: Normal ROM, no tenderness, There is no pedal edema. There is no calf tenderness or swelling. No cords were appreciated. Neurological: CN II-XII intact, there are no obvious motor or sensory deficits. Coordination appears grossly intact. Speech is normal.he is awake alert and oriented 3 today. Skin: Skin is warm and dry and no rashes or lesions are noted. - Labs CBC & Chem 7: 07/18/21 10:15 07/18/21 10:15 Labs: Abnormal Lab Results - Last 24 Hours (Table) 07/18/21 07/18/21 07/18/21 Range/Units 10:15 10:15 10:15 WBC 18.8 H (3.8-10.6) k/uL RBC 5.46 H (3.80-5.40) m/uL Hct 48.0 H (34.0-46.0) % Neutrophils # 16.6 H (1.3-7.7) k/uL PT 13.2 H (9.0-12.0) sec INR 1.3 H (<1.2) D-Dimer 0.90 H (<0.60) mg/L FEU Chloride 96 L (98-107) mmol/L BUN 32 H (7-17) mg/dL Glucose 225 H (74-99) mg/dL AST 118 H (14-36) U/L ALT 81 H (4-34) U/L Lactate Dehydrogenase 1085 H (313-618) U/L C-Reactive Protein 4.6 H (<1.0) mg/dL Assessment and Plan (1) Pneumonia due to COVID-19 virus Current Visit: Yes Status: Acute Code(s): U07.1 - COVID-19; J12.82 - PNEUMONIA DUE TO CORONAVIRUS DISEASE 2019 SNOMED Code(s): 296156873016662553 (2) Atrial fibrillation with rapid ventricular response Current Visit: Yes Status: Acute Code(s): I48.91 - UNSPECIFIED ATRIAL FIBRILLATION SNOMED Code(s): 686960925883209 (3) COVID-19 Current Visit: Yes Status: Acute Code(s): U07.1 - COVID-19 SNOMED Code(s): 069232128 (4) New onset a-fib Current Visit: Yes Status: Acute Code(s): I48.91 - UNSPECIFIED ATRIAL FIBRILLATION SNOMED Code(s): 07974841 (5) COPD (chronic obstructive pulmonary disease) Current Visit: Yes Status: Acute Code(s): J44.9 - CHRONIC OBSTRUCTIVE PULMONARY DISEASE, UNSPECIFIED SNOMED Code(s): 56966107 (6) Former smoker Current Visit: Yes Status: Acute Code(s): Z87.891 - PERSONAL HISTORY OF NICOTINE DEPENDENCE SNOMED Code(s): 6779262 (7) Hypothyroidism Current Visit: Yes Status: Acute Code(s): E03.9 - HYPOTHYROIDISM, UNSPECIFIED SNOMED Code(s): 39002545 Plan: wait on further recognitions from pulmonology COVID protocol, isolation Covid Cocktail meds, decadron, remdesivir day#3 repeat labs in am reevaluate in the next 24 hours
--- NOTE | 2021-07-18 13:45 | P.PN ---
Subjective Progress Note Date: 07/18/21 75-year-old. Patient presented to the ED because of worsening shortness of breath. The patient has history of COPD and hypertension. The patient is a former smoker. The patient was having symptoms of cold and some shortness of breath for the past 1 week. Her symptoms were shortness of breath, cough, chills, body aches, weakness and some diarrhea. She has not been vaccinated for COVID 19. In the emergency department, the patient checked positive for COVID 19. she was given multiple antibodies. Subsequently , The Patient Was Found to Be in Atrial Fibrillation with Rapid Ventricular Response and a Cardiology Consultation Has Been Initiated. She Denies Having Any Previous History of Cardiac Arrhythmias. The Patient Was Started on IV Cardizem Drip for Rate Control. The Patient Was Also Started on IV Heparin. His EKG Initially Showed Atrial Fibrillation with RVR with a Heart Rate of [address] Segment Changes. Chest X-Ray Showed Increased Interstitial Markings Bilaterally Could Be Related to interstitial pneumonia. The patient had a d-dimer of 0.88. The white cell count was at 7.1 with a hemoglobin of 14.6 and a platelet count of 177, the LDH level was 1202 with a CRP level of 15.4. Rest of the electrolytes were within essentially within normal limits. The patient a normal renal function. UA was negative. TSH was at 2.8 with a albumin of 3.3 and a to julien protein of 6.4. ProBNP level was 359. For now, the patient is on 2 L nasal cannula with a pulse ox of 91%. On today's evaluation of 07/15/2021, the patient is feeling well. The patient is currently on 2 L of oxygen by nasal cannula. No significant cough sputum production chest answer wheezing her condition is been stable since yesterday. The patient is currently running a low d-dimer of 0.5, the LDH level was 1202 and the CRP level is at 15.4. The patient remains on Decadron and she was also started on Remdesivir per protocol and today she is day #2. Echo to 60 mg IV every 24 hours. The patient is also on long-term medical condition with Eliquis 5 mg by mouth twice a day. She remains atrial fibrillation. She is on a metoprolol 25 mg on a daily dose. Echo was completed yesterday and it showed evidence of mild CHF with an ejection fraction of 40-45%. No significant valvul ar abnormalities. There was [id number] mitral regurgitation. Patient seen today 07/18/2021 in follow-up on the elective care unit. She is awake and alert in no acute distress. She is up ambulating in her room. She is currently on 3 L nasal cannula to maintain O2 saturations in the 90s. She is anticoagulated with Eliquis. White count 18.8. Hemoglobin 16.0. INR 1.3. D- dimer 0.90. Sodium 141 potassium 3.9. Creatinine 0.5. Glucose 225. AST 2018. ALT 81. LDH 1085. C-reactive protein 4.6. She is continued on Symbicort, albuterol, Decadron, Remdesivir day #3. Objective - Vital Signs Vital signs: Vital Signs Temp 97.0 F L 07/18/21 08:00 Pulse 101 H 07/18/21 08:00 Resp 20 07/18/21 08:00 BP 129/60 07/18/21 08:00 Pulse Ox 90 L 07/18/21 08:00 Intake & Output 07/17/21 07/18/21 07/18/21 18:59 06:59 18:59 Intake Total 476 Balance 476 Weight 90.5 kg Intake: Oral 476 Other: Voiding Method Toilet Bedside Commode # Voids 1 1 # Bowel Movements 1 - Exam GENERAL EXAM: Alert, pleasant 75-year-old female patient, on 3 L nasal cannula, comfortable in no apparent distress. HEAD: Normocephalic. EYES: Normal reaction of pupils, equal size. NOSE: Clear with pink turbinates. THROAT: No erythema or exudates. NECK: No masses, no JVD. CHEST: No chest wall deformity. LUNGS: Equal air entry with crackles in the bilateral bases CVS: S1 and S2 normal with no audible murmur, regular rhythm. ABDOMEN: No hepatosplenomegaly, normal bowel sounds, no guarding or rigidity. SPINE: No scoliosis or deformity SKIN: No rashes CENTRAL NERVOUS SYSTEM: No focal deficits, tone is normal in all 4 extremities. EXTREMITIES: There is no peripheral edema. No clubbing, no cyanosis. Peripheral pulses are intact. - Labs CBC & Chem 7: 07/18/21 10:15 12/23/21 10:15 Labs: Abnormal Lab Results - Last 24 Hours (Table) 07/18/21 07/18/21 07/18/21 Range/Units 10:15 10:15 10:15 WBC 18.8 H (3.8-10.6) k/uL RBC 5.46 H (3.80-5.40) m/uL Hct 48.0 H (34.0-46.0) % Neutrophils # 16.6 H (1.3-7.7) k/uL PT 13.2 H (9.0-12.0) sec INR 1.3 H (<1.2) D-Dimer 0.90 H (<0.60) mg/L FEU Chloride 96 L (98-107) mmol/L BUN 32 H (7-17) mg/dL Glucose 225 H (74-99) mg/dL AST 118 H (14-36) U/L ALT 81 H (4-34) U/L Lactate Dehydrogenase 1085 H (313-618) U/L C-Reactive Protein 4.6 H (<1.0) mg/dL Assessment and Plan Assessment: 1 acute COVID 19 related pneumonia. Given monoclonal abs in the ED. Symptoms started approximately a week ago and the patient is currently presented with bilateral pulmonary infiltrates and currently the patient's hypoxia on 2 L of oxygen by nasal cannula. She was started on Decadron. given a monoclonal antibodies in the emergency department. 2 acute hypoxic respiratory failure secondary to above currently on 2 L 3 atrial fibrillation with rapid ventricular response, currently on IV heparin and IV Cardizem drip 4 COPD 5 hypertension 6 elevated inflammatory markers second COVID 19 infection. D-dimer is low at this point in time. Plan The patient was seen and evaluated Currently stable and on 3 L nasal cannula Anticoagulated with Eliquis, on Decadron Continued on Symbicort, Spiriva, albuterol Day#3 of Remdesivir Continue to work with the incentive spirometer Titrate down the FiO2 as tolerate We'll continue to follow I, the cosigning physician, performed a history & physical examination of the patient. Lungs sounds with coarse crackles in the bilateral bases. Maintaining good O2 saturations in the 90s on 3 liters per minute per nasal cannula. I discussed the assessment and plan of care with my nurse practitioner, Elly Nguyen. I attest to the above note as dictated by her.
[2021-07-18] MEDS: ACETAMINOPHEN TAB 325 MG TAB PO PRN (14:31)
[2021-07-18] MEDS: ALBUTEROL HFA INHALER INHALATION PRN ×2 (17:09→21:22)
[2021-07-19] MEDS: LEVOTHYROXINE 25 MCG TAB PO SCH (06:11)
[2021-07-19] MEDS: ALBUTEROL HFA INHALER INHALATION PRN ×4 (07:44→20:51)
[2021-07-19] MEDS: TIOTROPIUM 2.5 MCG INHALER INHALATION SCH (07:44)
[2021-07-19] MEDS: SYMBICORT 80-4.5 MCG INHALER INHALATION SCH ×2 (07:44→20:50)
[2021-07-19 07:53] VITALS: BMI 20.9
[2021-07-19] MEDS: CHLORTHALIDONE 25 MG TAB PO SCH (09:52)
[2021-07-19] MEDS: CHOLECALCIFEROL 125 MCG (5000 IU) TABLET PO SCH (09:53)
[2021-07-19] MEDS: ASCORBIC ACID 500 MG TAB PO SCH (09:53)
[2021-07-19] MEDS: guaiFENesin 600 MG TABLET.ER PO SCH ×2 (09:53→20:23)
[2021-07-19] MEDS: lisinopriL 10 MG TAB PO SCH (09:53)
[2021-07-19] MEDS: APIXABAN 5 MG TAB PO SCH ×2 (09:53→20:23)
[2021-07-19] MEDS: METOPROLOL SUCCINATE (ER) 25 MG TAB.ER.24H PO SCH (09:54)
[2021-07-19] MEDS: ZINC SULFATE 220 MG CAP PO SCH (09:54)
[2021-07-19] MEDS: REMDESIVIR 100 MG in SODIUM CHLORIDE 0.9% 250 ML IVPB SCH (09:56)
[2021-07-19] MEDS: DEXAMETHASONE SOD PHOSPHATE 10 MG/ML 1 ML VIAL IV SCH (10:12)
--- NOTE | 2021-07-19 11:44 | P.PN ---
Subjective This is a 75-year-old white female oknown to the practice. She has been sick since last Thursday. She is UNVACCINATED. She was aware she had Covid. She indicates increasing shortness of breath and weakness over the past five days. In the ER, she was found to be an atrial fibrillation with RVR. Shes been starting on a courtesy trip. Her heart rate is now gotten under control. She received monoclonal antibodies on the emergency room. Her chest x-ray showed possible interstitial pneumonia versus CHF. She was admitted to see cardiology and pulmonology.Today she complains of fatigue and shortness of breath with exertion. She is on oxygen 2 L via nasal cannula. She is afebrile. Heart rate and vital signs otherwise are stable. July 17, 2021: patient remain stable on 2 L of oxygen via nasal cannula. Pulse ox is in the low 90s. Temperature remains afebrile labs for this morning per Covid protocol. Pulmonology and cardiology notes reviewed Patient denies any chest pains or pressure this time. She has some shortness of breath with exertion but feels OK at rest. She is on Decadron, Remdesivir day number two, Covid cocktail, anticoagulated on Eliquis, 07/18/2021: She remains stable on 2-3 L of oxygen via nasal cannula. She is afebrile. Heart rate and respiratory remain stable. Blood pressure is controlled. Laboratory studies now show a leukocytosis WBC count 18.8 and absolute neutrophil count of 516.6. Hemoglobin is stable 16. INR is 1.3 today d-dimer 0.9. Fibrinogen and PTT are normal. Electrolytes show BUN 32 creatine is 0.75. AST and ALT are slightly elevated at 118 and 81. LDH is down to 1085. C- reactive protein is down to 4.6. Patient is on day 3 of Remdesevir She remains on Covid cocktail. She Zantac anticoagulated with Elequis 5 mg twice a day. Heart rate and atrial fibrillation is controlled metoprolol lisinopril. She remains on her levothyroxin for hypothyroidism. She is breathing medications for COPD of albuterol,r, and Symbicort. Pulmonology notes were reviewed. Cardiology signed off for the atrial fibrillation this time. The patient feels improved. She indicates she is coughing bringing mucus up. Shortness of breath less fatigued today. 07/19/2021: Patient education feeling a little worse today. She is having more shortness of breath. Her oxygen demands are now up to 3 L/m via nasal cannula. Heart rate remained sinus and stable. rate controlled. Blood pressure is normal. Pulse oximetry is 90% on 3 L O2 via nasal cannula currently. Laboratory studies today are pending per her protocol. Pulmonology notes reviewed from yesterday. Shoe today she'll receive room to severe dose #4. She remains on anticoagulation of Elequis for her new atrial fibrillation. She has Covid protocols ordered including methylprednisolone with him and CT and zinc. She has updrafts ordered of albuterol, breathing medications of Symbicort, Spiriva, and expectorant guaifenesin. She is anticoagulated with Elequis Objective - Vital Signs Vital signs: Vital Signs Temp 97.6 F 07/19/21 09:38 Pulse 87 07/19/21 09:38 Resp 18 07/19/21 09:38 BP 109/73 07/19/21 09:38 Pulse Ox 90 L 07/19/21 09:38 Intake & Output 07/18/21 07/19/21 07/19/21 18:59 06:59 18:59 Intake Total 400 Balance 400 Weight 64.5 kg 64.5 kg Intake: Oral 400 Other: Voiding Method Toilet Toilet Bedside Commode Bedside Commode # Voids 2 - Exam General appearance: Patient appears to be more distressed today. Neck: The neck is supple, there is mild thyromegaly, lymphadenopathy, tenderness or JVD. Cardiovascular: S1S2 is normal, There is irregular rhythm, rate 90s. No murmur, rub or gallop is appreciated. Respiratory: Lungs are coarse to auscultation bilaterally with rhonchi intermittently noted, respirations are slightly more labored than previous day. Gastrointestinal: Soft, non-distended, without masses or organomegaly noted. There is no rebound or guarding present. Bowel sounds are unremarkable. Musculoskeletal: Normal ROM, no tenderness, There is no pedal edema. There is no calf tenderness or swelling. No cords were appreciated. Neurological: CN II-XII intact, there are no obvious motor or sensory deficits. Coordination appears grossly intact. Speech is normal.he is awake alert and oriented 3 today. Skin: Skin is warm and dry and no rashes or lesions are noted. - Labs CBC & Chem 7: 07/18/21 10:15 07/18/21 10:15 Labs: Abnormal Lab Results - Last 24 Hours (Table) 07/18/21 Range/Units 10:15 Ferritin 454.0 H (10.0-291.0) ng/mL Assessment and Plan (1) Pneumonia due to COVID-19 virus Current Visit: Yes Status: Acute Code(s): U07.1 - COVID-19; J12.82 - PNE UMONIA DUE TO CORONAVIRUS DISEASE 2018 SNOMED Code(s): 964932999415279978 (2) Atrial fibrillation with rapid ventricular response Current Visit: Yes Status: Acute Code(s): I48.91 - UNSPECIFIED ATRIAL FIBRILLATION SNOMED Code(s): 093455203438279 (3) COVID-19 Current Visit: Yes Status: Acute Code(s): U07.1 - COVID-19 SNOMED Code(s): 079303447 (4) New onset a-fib Current Visit: Yes Status: Acute Code(s): I48.91 - UNSPECIFIED ATRIAL FIBRILLATION SNOMED Code(s): 73939111 (5) COPD (chronic obstructive pulmonary disease) Current Visit: Yes Status: Acute Code(s): J44.9 - CHRONIC OBSTRUCTIVE PULMONARY DISEASE, UNSPECIFIED SNOMED Code(s): 46577690 (6) Former smoker Current Visit: Yes Status: Acute Code(s): Z87.891 - PERSONAL HISTORY OF NICOTINE DEPENDENCE SNOMED Code(s): 9954797 (7) Hypothyroidism Current Visit: Yes Status: Acute Code(s): E03.9 - HYPOTHYROIDISM, UNSPECIFIED SNOMED Code(s): 86516734 Plan: wait on further recognitions from pulmonology COVID protocol, isolation Covid Cocktail meds, decadron, remdesivir day#4 repeat labs in am reevaluate in the next 24 hours
--- NOTE | 2021-07-19 11:51 | XR ---
EXAMINATION TYPE: XR chest 1V portable DATE OF EXAM: 07/19/2021 COMPARISON: Chest x-ray 07/15/2021 HISTORY: Covid, shortness of breath TECHNIQUE: Single frontal view of the chest is obtained. FINDINGS: There are overlying leads. Calcifications present in the right axilla are again seen, inde terminate. Probable calcified granuloma present in the right upper lobe. There are overlying artifact s. Patchy bilateral density present peripherally seen best the lung bases, there is prominence of int erstitium. No evident pneumothorax or pleural effusion. Cardiac mediastinal silhouette is stable. IMPRESSION: Correlate for pneumonia.
[2021-07-19] MEDS: methylPREDNISolone SOD SUCCI 125 MG/2 ML VIAL IV SCH ×2 (12:24→17:31)
--- NOTE | 2021-07-19 13:20 | P.PN ---
Subjective Progress Note Date: 07/19/21 Principal diagnosis: Shortness of breath, COVID-19 On 07/19/2021 patient seen in follow-up on medical surgical floor. She is awake and alert, she is currently on 3 L of oxygen pulse ox is 90-95%. Afebrile, she feels very congested today, coughing quite a bit, at times she is able to bring up some yellow colored phlegm. She remains in atrial fibrillation with a controlled rate, she has been on Eliquis. She continues on Remdesivir, she is on day 4 of treatment, she continues on Decadron 6 mg daily, and inhaled bronchodilators. Today's labs have been reviewed, her white blood cell count is up to 18.8, hemoglobin is 16, INR is 1.3, d-dimer is 0.90, sodium is 141, potas sium is 3.9, chloride is 96, BUN is 32, creatinine 0.75. AST is 118, ALT is 81, ferritin level is improving and is down to 454, CRP is improving and is down to 4.6, proBNP level has increased up to 1320. No fever, no hemoptysis or chest pain. Continued chest congestion, she is on Mucinex 600 mg twice daily. She does have underlying history of COPD Objective - Vital Signs Vital signs: Vital Signs Temp 97.6 F 07/19/21 09:38 Pulse 87 07/19/21 09:38 Resp 18 07/19/21 09:38 BP 109/73 07/19/21 09:38 Pulse Ox 90 L 07/19/21 09:38 Intake & Output 07/18/21 07/19/21 07/19/21 18:59 06:59 18:59 Intake Total 400 Balance 400 Weight 64.5 kg 64.5 kg Intake: Oral 400 Other: Voiding Method Toilet Toilet Bedside Commode Bedside Commode # Voids 2 - Exam GENERAL EXAM: Alert, pleasant, 75-year-old white female on 3 L of oxygen with a pulse ox of 90-92% frequent congested cough comfortable in no apparent distress. HEAD: Normocephalic/atraumatic. EYES: Normal reaction of pupils, equal size. Conjunctiva pink, sclera white. NOSE: Clear with pink turbinates. THROAT: No erythema or exudates. NECK: No masses, no JVD, no thyroid enlargement, no adenopathy. CHEST: No chest wall deformity. Symmetrical expansion. LUNGS: Equal air entry with basilar crackles and rhonchi CVS: Irregular rate and rhythm, normal S1 and S2, no gallops, no murmurs, no rubs ABDOMEN: Soft, nontender. No hepatosplenomegaly, normal bowel sounds, no guarding or rigidity. EXTREMITIES: No clubbing, no edema, no cyanosis, 2+ pulses and upper and lower extremities. MUSCULOSKELETAL: Muscle strength and tone normal. SPINE: No scoliosis or deformity SKIN: No rashes CENTRAL NERVOUS SYSTEM: Alert and oriented -3. No focal deficits, tone is normal in all 4 extremities. PSYCHIATRIC: Alert and oriented -3. Appropriate affect. Intact judgment and insight. - Labs CBC & Chem 7: 07/18/21 10:15 07/18/21 10:15 Labs: Abnormal Lab Results - Last 24 Hours (Table) 07/18/21 Range/Units 10:15 Ferritin 454.0 H (10.0-291.0) ng/mL Assessment and Plan Plan: Assessment: #1. Acute hypoxic respiratory failure related to acute COVID-19 related pneumonia, patient presented to the emergency department on 07/15/2021 with one week history of symptoms. She is status post monoclonal antibody infusion in the emergency department. Chest x-ray showed bilateral pulmonary infiltrates patient was started on Remdesivir on 07/16/2021 #2. Acute exacerbation of COPD #3. New onset A. fib with RVR, initially on Cardizem infusion and IV heparin, currently remains in A. fib with a controlled rate, has been transitioned to Eliquis and metoprolol for rate control #4. Leukocytosis, possibly related to IV steroids #5. Elevated inflammatory markers, improving #6. Nonischemic cardiomyopathy with moderately impaired EF of 40-45%, cardiology is following #7. Hypertension #8. Former nicotine dependence Plan: We'll switch Decadron to IV Solu-Medrol Continue oral anticoagulation Continue Remdesivir, today is day 4 of treatment Continue inhaled bronchodilators Remains in A. fib but the rate is controlled, patient has been transitioned to Eliquis remains on metoprolol for rate control No acute events overnight, just continues with congestion and cough We will continue to follow her clinical course I performed a history & physical examination of the patient and discussed their management with my nurse practitioner, Chiquita Vines. I reviewed the nurse practitioner's note and agree with the documented findings and plan of care. Lung sounds are positive for diffuse rhonchi throughout the lung chand. The findings and the impression was discussed with the patient. I attest to the documentation by the nurse practitioner. Time with Patient: Less than 30
[2021-07-20] MEDS: methylPREDNISolone SOD SUCCI 125 MG/2 ML VIAL IV SCH ×4 (00:05→17:26)
[2021-07-20 06:55] LABS: INR 1.4 (<1.2); Partial Thromboplastin Time 24.8 sec (22.0-30.0); Prothrombin Time 13.9 sec (9.0-12.0)
[2021-07-20] MEDS: lisinopriL 10 MG TAB PO SCH (08:15)
[2021-07-20] MEDS: APIXABAN 5 MG TAB PO SCH ×2 (08:15→21:05)
[2021-07-20] MEDS: CHLORTHALIDONE 25 MG TAB PO SCH (08:15)
[2021-07-20] MEDS: ASCORBIC ACID 500 MG TAB PO SCH (08:16)
[2021-07-20] MEDS: guaiFENesin 600 MG TABLET.ER PO SCH ×2 (08:16→21:06)
[2021-07-20] MEDS: METOPROLOL SUCCINATE (ER) 25 MG TAB.ER.24H PO SCH (08:16)
[2021-07-20] MEDS: ZINC SULFATE 220 MG CAP PO SCH (08:16)
[2021-07-20] MEDS: CHOLECALCIFEROL 125 MCG (5000 IU) TABLET PO SCH (08:16)
[2021-07-20] MEDS: REMDESIVIR 100 MG in SODIUM CHLORIDE 0.9% 250 ML IVPB SCH (08:16)
[2021-07-20] MEDS: LEVOTHYROXINE 25 MCG TAB PO SCH (08:17)
[2021-07-20 09:07] LABS: Basophils # (A) 0.03 X 10*3/uL (0.00-0.10); Basophils % (A) 0.2 %; Eosinophils # (A) 0 X 10*3/uL (0.04-0.35); Eosinophils % (A) 0 %; HCT 46.9 % (37.2-46.3); HGB 15.4 g/dL (12.0-15.0); Lymphocytes # (A) 1.32 X 10*3/uL (0.90-5.00); Lymphocytes % (A) 8.8 %; MCH 27.9 pg (27.0-32.0); MCHC 32.8 g/dL (32.0-37.0); MCV 85.1 fL (80.0-97.0); Mean Platelet Volume 10.8 fL (9.5-12.2); Monocytes # (A) 0.75 X 10*3/uL (0.20-1.00); Neutrophils # (A) 12.54 X 10*3/uL (1.80-7.70); Platelet Count 358 X 10*3/uL (140-440); RBC 5.51 X 10*6/uL (4.10-5.20); WBC 14.94 X 10*3/uL (4.50-10.00)
[2021-07-20 09:35] LABS: African American GFR (CKD) 97.5 (60.0-200.0); Albumin 3.8 g/dL (3.8-4.9); Albumin/Globulin Ratio 1.23 (1.60-3.17); Anion Gap 14.4 mmol/L (10.00-18.00); BUN/Creat Ratio 38.43 Ratio (12.00-20.00); Blood Urea Nitrogen 26.9 mg/dL (9.0-27.0); C Reactive Protein 2.5 mg/dL (0.00-0.80); Calcium 9.2 mg/dL (8.7-10.3); Carbon Dioxide 26.6 mmol/L (20.0-27.5); Globulin 3.1 g/dL (1.6-3.3); Magnesium 2.1 mg/dL (1.5-2.4); Non-African American GFR(CKD) 84.2 (60.0-200.0); Potassium 4.2 mmol/L (3.5-5.5); Total Bilirubin 0.6 mg/dL (0.30-1.20); Total Protein 6.9 g/dL (6.2-8.2)
[2021-07-20] MEDS: SYMBICORT 80-4.5 MCG INHALER INHALATION SCH ×2 (09:45→20:10)
[2021-07-20] MEDS: TIOTROPIUM 2.5 MCG INHALER INHALATION SCH (09:45)
[2021-07-20] MEDS: ACETAMINOPHEN TAB 325 MG TAB PO PRN ×2 (10:28→21:06)
[2021-07-20] MEDS: ALBUTEROL HFA INHALER INHALATION PRN ×2 (11:40→15:27)
--- NOTE | 2021-07-20 12:22 | P.PN ---
Subjective This is a 75-year-old white female oknown to the practice. She has been sick since last Thursday. She is UNVACCINATED. She was aware she had Covid. She indicates increasing shortness of breath and weakness over the past five days. In the ER, she was found to be an atrial fibrillation with RVR. Shes been starting on a courtesy trip. Her heart rate is now gotten under control. She received monoclonal antibodies on the emergency room. Her chest x-ray showed possible interstitial pneumonia versus CHF. She was admitted to see cardiology and pulmonology.Today she complains of fatigue and shortness of breath with exertion. She is on oxygen 2 L via nasal cannula. She is afebrile. Heart rate and vital signs otherwise are stable. July 17, 2021: patient remain stable on 2 L of oxygen via nasal cannula. Pulse ox is in the low 90s. Temperature remains afebrile labs for this morning per Covid protocol. Pulmonology and cardiology notes reviewed Patient denies any chest pains or pressure this time. She has some shortness of breath with exertion but feels OK at rest. She is on Decadron, Remdesivir day number two, Covid cocktail, anticoagulated on Eliquis, 07/18/2021: She remains stable on 2-3 L of oxygen via nasal cannula. She is afebrile. Heart rate and respiratory remain stable. Blood pressure is controlled. Laboratory studies now show a leukocytosis WBC count 18.8 and absolute neutrophil count of 516.6. Hemoglobin is stable 16. INR is 1.3 today d-dimer 0.9. Fibrinogen and PTT are normal. Electrolytes show BUN 32 creatine is 0.75. AST and ALT are slightly elevated at 118 and 81. LDH is down to 1085. C- reactive protein is down to 4.6. Patient is on day 3 of Remdesevir She remains on Covid cocktail. She Zantac anticoagulated with Elequis 5 mg twice a day. Heart rate and atrial fibrillation is controlled metoprolol lisinopril. She remains on her levothyroxin for hypothyroidism. She is breathing medications for COPD of albuterol,r, and Symbicort. Pulmonology notes were reviewed. Cardiology signed off for the atrial fibrillation this time. The patient feels improved. She indicates she is coughing bringing mucus up. Shortness of breath less fatigued today. 07/19/2021: Patient feeling a little worse today. She is having more shortness of breath. Her oxygen demands are now up to 3 L/m via nasal cannula. Heart rate remained sinus and stable. rate controlled. Blood pressure is normal. Pulse oximetry is 90% on 3 L O2 via nasal cannula currently. Laboratory studies today are pending per her protocol. Pulmonology notes reviewed from yesterday. Shoe today she'll receive room to severe dose #4. She remains on anticoagulation of Elequis for her new atrial fibrillation. She has Covid protocols ordered including methylprednisolone with him and CT and zinc. She has updrafts ordered of albuterol, breathing medications of Symbicort, Spiriva, and expectorant guaifenesin. She is anticoagulated with Elequis 07/20/2021: Patient is feels slightly improved today. She has only shortness breath with exertion at this time. She remains on oxygen at 3 L/m via nasal cannula. Heart rate remains controlled. She is afebrile. Respiratory rate is normal. Blood pressure is normal pulse ox in the low 90s on 3 L of O2. The laboratory studies show improving leukocytosis not on 14.9, hemoglobin is 15.4 today. Platelets are normal, chemistries were essentially normal today. INR is 1.4. Fibrinogen is noted on 411, d-dimer is normal 0.44. INR is 1.4. Because his elevated to 50 ferritin is now down to 369, AST ALT are improved as well. LDH is now 345. CRP is 2.5. Chest x-ray from yesterday shows correlate for pneumonia. Pulmonology notes reviewed from yesterday. Patient remains on Elequis for anticoagulation for A. fib and her COVID-19 ammonia, albuterol, budesonide/formoterol and she truly preoperative breathing treatments. She remains on vitamin CD and zinc for code protocol. Guaifenesin as an expectorant, levothyroxine for her hypothyroidism, lisinopril and metoprolol for blood pressure control, and Solu-Medrol. Objective - Vital Signs Vital signs: Vital Signs Temp 97.6 F 07/20/21 10:11 Pulse 100 07/20/21 10:11 Resp 18 07/20/21 10:11 BP 113/81 07/20/21 10:11 Pulse Ox 93 L 07/20/21 10:11 Intake & Output 07/19/21 07/20/21 07/20/21 18:59 06:59 18:59 Intake Total 480 400 Balance 480 400 Weight 64.5 kg 89.5 kg Intake: Oral 480 400 Other: Voiding Method Toilet Toilet Bedside Commode Bedside Commode # Voids 2 3 - Exam General appearance: Patient appears slightly more ease today. Neck: The neck is supple, there is mild thyromegaly, lymphadenopathy, tenderness or JVD. Cardiovascular: S1S2 is normal, There is irregular rhythm, rate 90s. No murmur, rub or gallop is appreciated. Respiratory: Lungs are coarse to auscultation bilaterally with rhonchi intermittently noted, respirations are slightly improved from 1 day ago. Active coughing with deep inspiration. Gastrointestinal: Soft, non-distended, without masses or organomegaly noted. There is no rebound or guarding present. Bowel sounds are unremarkable. Musculoskeletal: Normal ROM, no tenderness, There is no pedal edema. There is no calf tenderness or swelling. No cords were appreciated. Neurological: CN II-XII intact, there are no obvious motor or sensory deficits. Coordination appears grossly intact. Speech is normal.he is awake alert and oriented 3 today. Skin: Skin is warm and dry and no rashes or lesions are noted. - Labs CBC & Chem 7: 07/20/21 06:21 07/20/21 06:21 Labs: Abnormal Lab Results - Last 24 Hours (Table) 07/20/21 07/20/21 07/20/21 Range/Units 06:21 06:21 06:21 WBC 14.94 H (4.50-10.00) X 10*3/uL RBC 5.51 H (4.10-5.20) X 10*6/uL Hgb 15.4 H (12.0-15.0) g/dL Hct 46.9 H (37.2-46.3) % Absolute Nucleated RBC 0.02 H (0.00-0.00) X 10*3/uL Immature Gran # 0.30 H (0.00-0.04) X 10*3/uL Neutrophils # 12.54 H (1.80-7.70) X 10*3/uL Eosinophils # 0 L (0.04-0.35) X 10*3/uL NRBC/100 WBC Diff 0.1 H (0.0-0.0) /100 WBCS PT 13.9 H (9.0-12.0) sec INR 1.4 H (<1.2) Sodium 134 L (135-145) mmol/L Chloride 93 L (96-109) mmol/L BUN/Creatinine Ratio 38.43 H (12.00-20.00) Ratio Glucose 252 H (70-110) mg/dL Ferritin 369.0 H (10.0-291.0) ng/mL AST 44 H (13-35) U/L ALT 94 H (8-44) U/L Lactate Dehydrogenase 345 H (120-246) U/L C-Reactive Protein 2.50 H (0.00-0.80) mg/dL Albumin/Globulin Ratio 1.23 L (1.60-3.17) g/dL Microbiology - Last 24 Hours (Table) 07/19/21 10:00 Gram Stain - Preliminary Sputum Sputum Culture - Preliminary Assessment and Plan (1) Pneumonia due to COVID-19 virus Current Visit: Yes Status: Acute Code(s): U07.1 - COVID-19; J12.82 - PNEUMONIA DUE TO CORONAVIRUS DISEASE 2019 SNOMED Code(s): 146607257132189829 (2) Atrial fibrillation with rapid ventricular response Current Visit: Yes Status: Acute Code(s): I48.91 - UNSPECIFIED ATRIAL FIBRILLATION SNOMED Code(s): 260390278363485 (3) COVID-19 Current Visit: Yes Status: Acute Code(s): U07.1 - COVID-19 SNOMED Code(s): 487315456 (4) New onset a-fib Current Visit: Yes Status: Acute Code(s): I48.91 - UNSPECIFIED ATRIAL FIBRILLATION SNOMED Code(s): 63508607 (5) COPD (chronic obstructive pulmonary disease) Current Visit: Yes Status: Acute Code(s): J44.9 - CHRONIC OBSTRUCTIVE PULMONARY DISEASE, UNSPECIFIED SNOMED Code(s): 22887068 (6) Former smoker Current Visit: Yes Status: Acute Code(s): Z87.891 - PERSONAL HISTORY OF NICOTINE DEPENDENCE SNOMED Code(s): 5747176 (7) Hypothyroidism Current Visit: Yes Status: Acute Code(s): E03.9 - HYPOTHYROIDISM, UNSPECIFIED SNOMED Code(s): 99715720 Plan: wait on further recommendations from pulmonology COVID protocol, isolation Covid Cocktail meds, Solu-Medrol, remdesivir day#5, last dose was given this morning repeat labs in am reevaluate in the next 24 hours
--- NOTE | 2021-07-20 16:41 | P.PN ---
Subjective Progress Note Date: 07/20/21 Principal diagnosis: Acute hypoxic respiratory failure secondary to COVID-19 pneumonia On 07/19/2021 patient seen in follow-up on medical surgical floor. She is awake and alert, she is currently on 3 L of oxygen pulse ox is 90-95%. Afebrile, she feels very congested today, coughing quite a bit, at times she is able to bring up some yellow colored phlegm. She remains in atrial fibrillation with a controlled rate, she has been on Eliquis. She continues on Remdesivir, she is on day 4 of treatment, she continues on Decadron 6 mg daily, and inhaled bronchodilators. Today's labs have been reviewed, her white blood cell count is up to 18.8, hemoglobin is 16, INR is 1.3, d-dimer is 0.90, sodium is 141, potassium is 3.9, chloride is 96, BUN is 32, creatinine 0.75. AST is 118, ALT is 81, ferritin level is improving and is down to 454, CRP is improving and is down to 4.6, proBNP level has increased up to 1320. No fever, no hemoptysis or chest pain. Continued chest congestion, she is on Mucinex 600 mg twice daily. She does have underlying history of COPD Reevaluated today on 07/20/21, patient is doing quite well, she is on 3 L nasal cannula, and I believe the patient should be considered for discharge home today or tomorrow in a.m. She has minimal cough, minimal pulmonary symptoms. And I will clear the patient to be discharged home. Objective - Vital Signs Vital signs: Vital Signs Temp 97.6 F 07/20/21 14:43 Pulse 80 07/20/21 14:43 Resp 17 07/20/21 14:43 BP 115/77 07/20/21 14:43 Pulse Ox 93 L 07/20/21 15:04 Intake & Output 07/19/21 07/20/21 07/20/21 18:59 06:59 18:59 Intake Total 480 400 Balance 480 400 Weight 64.5 kg 89.5 kg Intake: Oral 480 400 Other: Voiding Method Toilet Toilet Bedside Commode Bedside Commode # Voids 2 3 0 - Exam Physical Exam revealed 75-year-old female in no distress on 2 L nasal cannula.. HEENT:[Neck is supple.] [No neck masses.] [No thyromegaly.] [No JVD.] Chest: [Crackles at the bases Cardiac Exam: [Normal S1 and S2, no S3 gallop, no murmur.] Abdomen: [Soft, nontender, no megaly, no rebound, no guarding, normal bowel sounds.] Extremities: [No clubbing, no edema, no cyanosis.] Neurological Exam: [No focal neurologic deficit.] Psychiatric: Normal mood affect and normal mental status examination. - Labs CBC & Chem 7: 07/20/21 06:21 07/20/21 06:21 Labs: Abnormal Lab Results - Last 24 Hours (Table) 07/20/21 07/20/21 07/20/21 Range/Units 06: 06:21 06:21 WBC 14.94 H (4.50-10.00) X 10*3/uL RBC 5.51 H (4.10-5.20) X 10*6/uL Hgb 15.4 H (12.0-15.0) g/dL Hct 46.9 H (37.2-46.3) % Absolute Nucleated RBC 0.02 H (0.00-0.00) X 10*3/uL Immature Gran # 0.30 H (0.00-0.04) X 10*3/uL Neutrophils # 12.54 H (1.80-7.70) X 10*3/uL Eosinophils # 0 L (0.04-0.35) X 10*3/uL NRBC/100 WBC Diff 0.1 H (0.0-0.0) /100 WBCS PT 13.9 H (9.0-12.0) sec INR 1.4 H (<1.2) Sodium 134 L (135-145) mmol/L Chloride 93 L (96-109) mmol/L BUN/Creatinine Ratio 38.43 H (12.00-20.00) Ratio Glucose 252 H (70-110) mg/dL Ferritin 369.0 H (10.0-291.0) ng/mL AST 44 H (13-35) U/L ALT 94 H (8-44) U/L Lactate Dehydrogenase 345 H (120-246) U/L C-Reactive Protein 2.50 H (0.00-0.80) mg/dL Albumin/Globulin Ratio 1.23 L (1.60-3.17) g/dL Microbiology - Last 24 Hours (Table) 07/19/21 10:00 Gram Stain - Preliminary Sputum Sputum Culture - Preliminary Assessment and Plan Assessment: #1. Acute hypoxic respiratory failure related to acute COVID-19 related pneumonia, patient presented to the emergency department on 07/15/2021 with one week history of symptoms. She is status post monoclonal antibody infusion in the emergency department. Chest x-ray showed bilateral pulmonary infiltrates patient was started on Remdesivir on 07/16/2021 #2. Acute exacerbation of COPD #3. New onset A. fib with RVR, initially on Cardizem infusion and IV heparin, currently remains in A. fib with a controlled rate, has been transitioned to Eliquis and metoprolol for rate control #4. Leukocytosis, possibly related to IV steroids #5. Elevated inflammatory markers, improving #6. Nonischemic cardiomyopathy with moderately impaired EF of 40-45%, cardiology is following #7. Hypertension #8. Former nicotine dependence Recommendation: Continue present treatment plan Clear patient to be discharged home today or in a.m. Patient finished a full course of Remdesivir Continue inhaled bronchodilators Follow-up on outpatient basis Time with Patient: Less than 30
[2021-07-21] MEDS: methylPREDNISolone SOD SUCCI 125 MG/2 ML VIAL IV SCH ×2 (00:48→05:24)
[2021-07-21] MEDS: LEVOTHYROXINE 25 MCG TAB PO SCH (05:25)
[2021-07-21] MEDS: CHLORTHALIDONE 25 MG TAB PO SCH (07:17)
[2021-07-21] MEDS: ZINC SULFATE 220 MG CAP PO SCH (07:17)
[2021-07-21] MEDS: CHOLECALCIFEROL 125 MCG (5000 IU) TABLET PO SCH (07:17)
[2021-07-21] MEDS: ASCORBIC ACID 500 MG TAB PO SCH (07:17)
[2021-07-21] MEDS: METOPROLOL SUCCINATE (ER) 25 MG TAB.ER.24H PO SCH (07:17)
[2021-07-21] MEDS: guaiFENesin 600 MG TABLET.ER PO SCH (07:18)
[2021-07-21] MEDS: APIXABAN 5 MG TAB PO SCH (07:18)
[2021-07-21] MEDS: lisinopriL 10 MG TAB PO SCH (07:18)
[2021-07-21] MEDS: ALBUTEROL HFA INHALER INHALATION PRN ×2 (08:23→12:04)
[2021-07-21] MEDS: SYMBICORT 80-4.5 MCG INHALER INHALATION SCH (08:23)
[2021-07-21] MEDS: TIOTROPIUM 2.5 MCG INHALER INHALATION SCH (08:23)
--- NOTE | 2021-07-21 10:47 | P.PN ---
Subjective Progress Note Date: 07/21/21 Principal diagnosis: Shortness of breath, COVID-19 On 07/19/2021 patient seen in follow-up on medical surgical floor. She is awake and alert, she is currently on 3 L of oxygen pulse ox is 90-95%. Afebrile, she feels very congested today, coughing quite a bit, at times she is able to bring up some yellow colored phlegm. She remains in atrial fibrillation with a controlled rate, she has been on Eliquis. She continues on Remdesivir, she is on day 4 of treatment, she continues on Decadron 6 mg daily, and inhaled bronchodilators. Today's labs have been reviewed, her white blood cell count is up to 18.8, hemoglobin is 16, INR is 1.3, d-dimer is 0.90, sodium is 141, potas sium is 3.9, chloride is 96, BUN is 32, creatinine 0.75. AST is 118, ALT is 81, ferritin level is improving and is down to 454, CRP is improving and is down to 4.6, proBNP level has increased up to 1320. No fever, no hemoptysis or chest pain. Continued chest congestion, she is on Mucinex 600 mg twice daily. She does have underlying history of COPD On 07/21/2021 patient seen in follow-up on medical surgical floor. She is sitting up in bed, currently on 3 L of oxygen pulse ox of 92%. She states she still has some exertional dyspnea, but does not appear to be in any acute distress, overall she states that she is feeling tired. Afebrile, blood pressure is been stable, she remains in atrial fibrillation with a rate of 90 BPM, she is currently on Eliquis, and Toprol XL 25 mg daily. She is on inhaled bronchodilators in the form of a bitter all and Symbicort, she is receiving Mucinex, she has completed her Remdesivir. She is on IV Solu-Medrol 60 mg every 6 hours, the cough, and the chest congestion have significantly improved. Objective - Vital Signs Vital signs: Vital Signs Temp 98.3 F 07/21/21 09:58 Pulse 91 07/21/21 09:58 Resp 17 07/21/21 09:58 BP 139/77 07/21/21 09:58 Pulse Ox 91 L 07/21/21 09:58 Intake & Output 07/20/21 07/21/21 07/21/21 18:59 06:59 18:59 Intake Total 300 Balance 300 Weight 89 kg Intake: Oral 300 Other: Voiding Method Toilet Bedside Commode # Voids 0 2 - Exam GENERAL EXAM: Alert, pleasant, 75-year-old white female on 3 L of oxygen with a pulse ox of 92% in no apparent distress HEAD: Normocephalic/atraumatic. EYES: Normal reaction of pupils, equal size. Conjunctiva pink, sclera white. NOSE: Clear with pink turbinates. THROAT: No erythema or exudates. NECK: No masses, no JVD, no thyroid enlargement, no adenopathy. CHEST: No chest wall deformity. Symmetrical expansion. LUNGS: Equal air entry with basilar crackles CVS: Irregular rate and rhythm, normal S1 and S2, no gallops, no murmurs, no rubs ABDOMEN: Soft, nontender. No hepatosplenomegaly, normal bowel sounds, no guarding or rigidity. EXTREMITIES: No clubbing, no edema, no cyanosis, 2+ pulses and upper and lower extremities. MUSCULOSKELETAL: Muscle strength and tone normal. SPINE: No scoliosis or deformity SKIN: No rashes CENTRAL NERVOUS SYSTEM: Alert and oriented -3. No focal deficits, tone is normal in all 4 extremities. PSYCHIATRIC: Alert and oriented -3. Appropriate affect. Intact judgment and i nsight. - Labs CBC & Chem 7: 07/20/21 06:21 07/20/21 06:21 Labs: Microbiology - Last 24 Hours (Table) 07/19/21 10:00 Gram Stain - Preliminary Sputum Sputum Culture - Preliminary Assessment and Plan Plan: Assessment: #1. Acute hypoxic respiratory failure related to acute COVID-19 related pneumonia, patient presented to the emergency department on 07/15/2021 with one week history of symptoms. She is status post monoclonal antibody infusion in the emergency department. Chest x-ray showed bilateral pulmonary infiltrates patient was started on Remdesivir on 07/16/2021 and finished on 07/21/2021 #2. Acute exacerbation of COPD, improved #3. New onset A. fib with RVR, initially on Cardizem infusion and IV heparin, currently remains in A. fib with a controlled rate, has been transitioned to Eliquis and metoprolol for rate control #4. Leukocytosis, possibly related to IV steroids, improving #5. Elevated inflammatory markers, improving #6. Nonischemic cardiomyopathy with moderately impaired EF of 40-45%, cardiology is following #7. Hypertension #8. Former nicotine dependence Plan: Patient's cough and chest congestion have significantly improved in the last 48 hours We'll switch the IV Solu-Medrol to oral prednisone 40 mg daily Vital signs are stable Patient is on 3 L of oxygen pulse ox of 92% Increase activity as tolerated Continue oral anticoagulation Patient remains in A. fib, rate control medications per cardiology Inflammatory markers are improving She could be considered for discharge home today or tomorrow if cleared by medicine I performed a history & physical examination of the patient and discussed their management with my nurse practitioner, Chiquita Vines. I reviewed the nurse practitioner's note and agree with the documented findings and plan of care. Lung sounds are positive for diffuse rhonchi throughout the lung chand. The findings and the impression was discussed with the patient. I attest to the documentation by the nurse practitioner. Time with Patient: Less than 30
--- NOTE | 2021-07-21 13:05 | P.DS ---
Providers Date of admission: 07/15/21 20:21 Expected date of discharge: 07/21/21 Attending physician: Hugo Sherman Consults: 07/15/21 21:10 Consult Physician Routine Consulting Provider: Jass Neville Consult Reason/Comments: new onset afib with RVR Do you want consulting provider notified?: Yes 07/16/21 10:04 Consult Physician Routine Consulting Provider: Armando Don Consult Reason/Comments: COVID Do you want consulting provider notified?: Yes Primary care physician: Merritt Sarmiento - Arpan Diagnosis(es) (1) Pneumonia due to COVID-19 virus Current Visit: Yes Status: Acute (2) Atrial fibrillation with rapid ventricular response Current Visit: Yes Status: Acute (3) COVID-19 Current Visit: Yes Status: Acute (4) New onset a-fib Current Visit: Yes Status: Acute (5) COPD (chronic obstructive pulmonary disease) Current Visit: Yes Status: Acute (6) Former smoker Current Visit: Yes Status: Acute (7) Hypothyroidism Current Visit: Yes Status: Acute Hospital Course: This is a 75-year-old white female oknown to the practice. She has been sick since last Thursday. She is UNVACCINATED. She was aware she had Covid. She indicates increasing shortness of breath and weakness over the past five days. In the ER, she was found to be an atrial fibrillation with RVR. Shes been starting on a courtesy trip. Her heart rate is now gotten under control. She received monoclonal antibodies on the emergency room. Her chest x-ray showed possible interstitial pneumonia versus CHF. She was admitted to see cardiology and pulmonology.Today she complains of fatigue and shortness of breath with exertion. She is on oxygen 2 L via nasal cannula. She is afebrile. Heart rate and vital signs otherwise are stable. July 17, 2021: patient remain stable on 2 L of oxygen via nasal cannula. Pulse ox is in the low 90s. Temperature remains afebrile labs for this morning per Covid protocol. Pulmonology and cardiology notes reviewed Patient denies any chest pains or pressure this time. She has some shortness of breath with exertion but feels OK at rest. She is on Decadron, Remdesivir day number two, Covid cocktail, anticoagulated on Eliquis, 07/18/2021: She remains stable on 2-3 L of oxygen via nasal cannula. She is afebrile. Heart rate and respiratory remain stable. Blood pressure is controlled. Laboratory studies now show a leukocytosis WBC count 18.8 and absolute neutrophil count of 516.6. Hemoglobin is stable 16. INR is 1.3 today d-dimer 0.9. Fibrinogen and PTT are normal. Electrolytes show BUN 32 creatine is 0.75. AST and ALT are slightly elevated at 118 and 81. LDH is down to 1085. C- reactive protein is down to 4.6. Patient is on day 3 of Remdesevir She remains on Covid cocktail. She Zantac anticoagulated with Elequis 5 mg twice a day. Heart rate and atrial fibrillation is controlled metoprolol lisinopril. She remains on her levothyroxin for hypothyroidism. She is breathing medications for COPD of albuterol,r, and Symbicort. Pulmonology notes were reviewed. Cardiology signed off for the atrial fibrillation this time. The patient feels improved. She indicates she is coughing bringing mucus up. Shortness of breath less fatigued today. 07/19/2021: Patient feeling a little worse today. She is having more shortness of breath. Her oxygen demands are now up to 3 L/m via nasal cannula. Heart rate remained sinus and stable. Mr. rate controlled. Blood pressure is normal. Pulse oximetry is 90% on 3 L O2 via nasal cannula currently. Laboratory studies today are pending per her protocol. Pulmonology notes reviewed from yesterday. Shoe today she'll receive room to severe dose #4. She remains on anticoagulation of Elequis for her new atrial fibrillation. She has Covid protocols ordered including methylprednisolone with him and CT and zinc. She has updrafts ordered of albuterol, breathing medications of Symbicort, Spiriva, and expectorant guaifenesin. She is anticoagulated with Elequis 07/20/2021: Patient is feels slightly improved today. She has only shortness breath with exertion at this time. She remains on oxygen at 3 L/m via nasal cannula. Heart rate remains controlled. She is afebrile. Respiratory rate is normal. Blood pressure is normal pulse ox in the low 90s on 3 L of O2. The laboratory studies show improving leukocytosis not on 14.9, hemoglobin is 15.4 today. Platelets are normal, chemistries were essentially normal today. INR is 1.4. Fibrinogen is noted on 411, d-dimer is normal 0.44. INR is 1.4. Because his elevated to 50 ferritin is now down to 369, AST ALT are improved as well. LDH is now 345. CRP is 2.5. Chest x-ray from yesterday shows correlate for pneumonia. Pulmonology notes reviewed from yesterday. Patient remains on Elequis for anticoagulation for A. fib and her COVID-19 ammonia, albuterol, budesonide/formoterol and she truly preoperative breathing treatments. She remains on vitamin CD and zinc for code protocol. Guaifenesin as an expectorant, levothyroxine for her hypothyroidism, lisinopril and metoprolol for blood pressure control, and Solu-Medrol. July 21, 2021: patient is slightly improved again. She remains on 3 L of oxygen via nasal cannula. Laboratory studies are improved. She's been cleared by pulmonology for discharge. Oxygen at home has been set up. So continue on Medication's as per her discharge summary. She'll follow up in the office in the next several days via Tele visit. Patient Condition at Discharge: Good Plan - Discharge Summary Discharge Rx Participant: No New Discharge Prescriptions: New guaiFENesin [Mucinex] 600 mg PO Q12HR tablet Zinc Sulfate [Orazinc] 220 mg PO DAILY cap Acetaminophen Tab [Tylenol] 650 mg PO Q6HR PRN tab PRN Reason: Mild Pain Or Fever > 100.5 Cholecalciferol [Vitamin D3 (125 Mcg = 5000 Iu)] 125 mcg PO DAILY tablet Apixaban [Eliquis] 5 mg PO BID #60 tab predniSONE [Deltasone] 20 mg PO DAILY #10 tab Metoprolol Succinate (ER) [Toprol XL] 25 mg PO DAILY #90 tab Albuterol Inhaler [Ventolin Hfa Inhaler] 2 puff INHALATION RT-QID PRN #1 unit PRN Reason: Shortness Of Breath Or Wheezing Ascorbic Acid [Vitamin C] 500 mg PO DAILY tab Continue Fluticasone/Umeclidin/Vilanter [Trelegy Ellipta 100-62.5-25] 1 puff INHALATION RT-DAILY amLODIPine BESYLATE/BENAZEPRIL [amLODIPine BESYLATE/BENAZEPRIL 5-20 MG] 1 cap PO DAILY Levothyroxine Sodium [Synthroid] 25 mcg PO DAILY Chlorthalidone 12.5 mg PO DAILY Celecoxib [CeleBREX] 200 mg PO DAILY Discontinued Naproxen Sodium [Aleve] 440 mg PO DAILY PRN PRN Reason: Pain Discharge Medication List Celecoxib [CeleBREX] 200 mg PO DAILY 07/15/21 [History] Chlorthalidone 12.5 mg PO DAILY 07/15/21 [History] Fluticasone/Umeclidin/Vilanter [Trelegy Ellipta 100-62.5-25] 1 puff INHALATION RT-DAILY 07/15/21 [History] Levothyroxine Sodium [Synthroid] 25 mcg PO DAILY 07/15/21 [History] amLODIPine BESYLATE/BENAZEPRIL [amLODIPine BESYLATE/BENAZEPRIL 5-20 MG] 1 cap PO DAILY 07/15/21 [History] Acetaminophen Tab [Tylenol] 650 mg PO Q6HR PRN tab 07/21/21 [Rx] Albuterol Inhaler [Ventolin Hfa Inhaler] 2 puff INHALATION RT-QID PRN #1 unit 07/21/21 [Rx] Apixaban [Eliquis] 5 mg PO BID #60 tab 07/21/21 [Rx] Ascorbic Acid [Vitamin C] 500 mg PO DAILY tab 07/21/21 [Rx] Cholecalciferol [Vitamin D3 (125 Mcg = 5000 Iu)] 125 mcg PO DAILY tablet 07/21/21 [Rx] Metoprolol Succinate (ER) [Toprol XL] 25 mg PO DAILY #90 tab 07/21/21 [Rx] Zinc Sulfate [Orazinc] 220 mg PO DAILY cap 07/21/21 [Rx] guaiFENesin [Mucinex] 600 mg PO Q12HR tablet 07/21/21 [Rx] predniSONE [Deltasone] 20 mg PO DAILY #10 tab 07/21/21 [Rx] Follow up Appointment(s)/Referral(s): Merritt Sarmiento Jr, DO [Primary Care Provider] - 1-2 days [facility],Equipment [NON-STAFF] - (*Please call [facility] once home to arrange delivery of oxygen concentrator. ) [facility], [NON-STAFF] - As Needed Abhishek Olivera MD [STAFF PHYSICIAN] - 3 Weeks (Office will call patient to make appointment) Armando Don MD [STAFF PHYSICIAN] - 2 Weeks Activity/Diet/Wound Care/Special Instructions: [facility] [employer] $40.50 per [facility] located at [facility] RX SENT TO [facility] as thery are CLOSED THURSDAY. Oxygen 3 L per minute, via nasal cannula Discharge Disposition: HOME WITH HOME HEALTH SERVICES
[2021-07-21 18:41] VITALS: BP 123/78; PULSE 98; RESP 18; TEMP 98.3
[2021-07-22] MEDS ORDERED: predniSONE 20 MG TAB PO SCH (09:00)
== END 2021-07-21 18:45 | disposition home health service (06) | DRG 177 ==
LOC: EC 18:46 → 3SCARD 20:21 → 4SSUR 07-18 11:26
PROVIDERS: ADMIT Family Medicine; ATTEND Family Medicine
PROC: XW033F6 Introduction of Bamlanivimab Monoclonal Antibody into Peripheral Vein, Percutaneous Approach, New Technology Group 6 (ICD-10-PCS; principal; 2021-07-15)
PROC: XW033E5 Introduction of Remdesivir Anti-infective into Peripheral Vein, Percutaneous Approach, New Technology Group 5 (ICD-10-PCS; 2021-07-16)
DX: U07.1 COVID-19 (principal); J12.82 Pneumonia due to coronavirus disease 2019; J96.01 Acute respiratory failure with hypoxia; I42.8 Other cardiomyopathies; J44.0 Chronic obstructive pulmonary disease with (acute) lower respiratory infection; J44.1 Chronic obstructive pulmonary disease with (acute) exacerbation; E03.9 Hypothyroidism, unspecified; F17.200 Nicotine dependence, unspecified, uncomplicated; I50.9 Heart failure, unspecified; I11.0 Hypertensive heart disease with heart failure; I25.5 Ischemic cardiomyopathy; I34.0 Nonrheumatic mitral (valve) insufficiency; I48.0 Paroxysmal atrial fibrillation; Z79.01 Long term (current) use of anticoagulants; Z79.1 Long term (current) use of non-steroidal anti-inflammatories (NSAID); Z79.890 Hormone replacement therapy; Z79.899 Other long term (current) drug therapy; Z98.42 Cataract extraction status, left eye; Z98.41 Cataract extraction status, right eye
CPT/HCPCS: 36415; 71045; 71046; 80053; 81003; 82728; 83605; 83615; 83735; 83880; 84443; 84484; 85025; 85379; 85384; 85610; 85730; 86140; 87070; 87205; 87635; 93005; 93306; 94640; 99285

== ENCOUNTER → 2021-08-26 | Outpatient (CLI) | payer MEDICARE ==
[2021-08-26 18:55] LABS: Anion Gap 14.8 mmol/L (10.00-18.00); Blood Urea Nitrogen 14.8 mg/dL (9.0-27.0); Carbon Dioxide 25.2 mmol/L (20.0-27.5); Non-African American GFR(CKD) 62.1 (60.0-200.0); Potassium 4.1 mmol/L (3.5-5.5)
[2021-08-26 18:57] LABS: HCT 41.7 % (37.2-46.3); MCH 28.3 pg (27.0-32.0); MCHC 31.2 g/dL (32.0-37.0); MCV 90.8 fL (80.0-97.0); Mean Platelet Volume 11.3 fL (9.5-12.2); Platelet Count 269 X 10*3/uL (140-440); RBC 4.59 X 10*6/uL (4.10-5.20); WBC 10.36 X 10*3/uL (4.50-10.00)
== END | disposition home or self-care (01) ==
LOC: LABPAT 12:22
PROVIDERS: ATTEND Internal Medicine Cardiovascular Disease
DX: Z01.812 Encounter for preprocedural laboratory examination (principal); I48.11 Longstanding persistent atrial fibrillation
CPT/HCPCS: 36415; 80051; 82565; 84520; 85027

== ENCOUNTER 2021-09-03 10:40 | Day surgery (SDC) | payer MEDICARE ==
[2021-08-29 13:34] VITALS: BMI 28.6
[~2021-09-03 10:40] MED LIST changes: -BALANCED SALT IRRIG SOLN COMB2 15 ML IRRIG.SOLN INTRAOCULA ONE; -BUPIVACAINE (PF) 0.75% 5 ML, LIDOCAINE 4% (PF) 5 ML, HYALURONIDASE, HUMAN RECOMB 150 UNIT MISCELLANE ONE; -DEXAMETHASONE SOD PHOSPHATE 10 MG/ML 1 ML VIAL IV ONE; -EPINEPHrine (PF) 0.5 ML in BALANCED SALT IRRIG SOLN COMB2 500 ML IRRIGATION ONE; -GENTAMICIN/PREDNISOL AC OPHTH OINT 3.5GM OPHTHALMIC ONE; -HYALURONATE SODIUM INTRAOCULAR 1 EACH SYRINGE (10MG/ML) INTRAOCULA ONE; -HYDROmorphone 1 MG/ML 1 ML SYRINGE IVP PRN; -LACTATED RINGERS 1,000 ML IV SCH; -LIDOCAINE 1% 20 ML VIAL (10MG/ML) FOR IV START INTRADERMA ONE; -LIDOCAINE 1% INJ 10MG/ML (20 ML MDV) ONE; -ONDANSETRON 4 MG/2 ML VIAL IVP ONE; -PROPOFOL 10 MG/ML 20 ML VIAL IV ONE; +SODIUM CHLORIDE 0.9% 1,000 ML IV SCH; -TETRACAINE 0.5% OPHTH (PF) DROPS 4 ML BTL RIGHT EYE ONE; -TIMOLOL 0.5% OPHTH SOLN (PF) 0.2 ML DROPERETTE OP ONE
[2021-09-03] MEDS ORDERED: SODIUM CHLORIDE 0.9% 500 ML 500 ML IV ONE (11:12)
[2021-09-03 11:20] VITALS: RESP 16; TEMP 98.6
[2021-09-03] MEDS ORDERED: BENZOCAINE SPRAY 1 CAN MUCOUS MEM ONE (11:58)
[2021-09-03] MEDS ORDERED: PROPOFOL 10 MG/ML 20 ML VIAL IV ONE (12:00)
[2021-09-03] MEDS ORDERED: LIDOCAINE 1% INJ 10MG/ML (20 ML MDV) ONE (12:00)
--- NOTE | 2021-09-03 12:38 | ECHOT ---
TRANSESOPHAGEAL ECHOCARDIOGRAM TRANSESOPHAGEAL ECHOCARDIOGRAM: INDICATION: Persistent atrial fibrillation. This is a 75-year-old lady who developed atrial fibrillation following an episode of COVID infection, had cardiomyopathy and was in atrial fibrillation. She continued to be in atrial fibrillation, so we advised her to undergo a transesophageal echo and cardioversion. PROCEDURE NOTE: After obtaining informed consent, transesophageal echocardiogram is performed in left lateral position using an Omniplane probe. Local and IV sedation were obtained by the cider press operator. Two-D, color Doppler and spectral analysis were performed. The patient tolerated the procedure well without any obvious immediate complications. FINDINGS: 1. There is no intracardiac thrombus within the left atrial appendage, left atrium, right atrium, right ventricle or left ventricle. 2. Left atrium appears mildly enlarged. 3. Right atrium appears moderately enlarged. 4. Left ventricle appears mildly enlarged, shows diffuse global hypokinesis with severe LV dysfunction with an ejection fraction of 30% to 35%. 5. Mitral valve is anatomically normal. There is moderate central mitral regurgitation noted. 6. Aortic valve is a 3-leaflet valve. There is no evidence of aortic stenosis or regurgitation. 7. There is mild tricuspid regurgitation. 8. Interatrial septum: There is no evidence of [id number] shunt by color-flow Doppler or [id number] shunt by agitated saline contrast study. CONCLUSIONS: 1. No intracardiac thrombus. 2. Severe LV dysfunction. 3. Moderate mitral regurgitation. PLAN: Patient will undergo cardioversion. MMDESHAWN / IJN: [id number] /
[2021-09-03 13:52] VITALS: PULSE 67
--- NOTE | 2021-09-03 13:55 | PCN ---
PROCEDURE NOTE PROCEDURE: Cardioversion. INDICATION: Persistent atrial fibrillation. DESCRIPTION: The patient underwent electrical cardioversion with 150 joules of synchronized DC current. She converted to sinus rhythm following a single shock. Local and IV sedation were obtained by the assistant professor of criminal justice. A CAS was performed to rule out intracardiac thrombus and patient is adequately anticoagulated with Eliquis. MMODL / IJN: [id number] /
--- NOTE | 2021-09-03 13:58 | LTR ---
September 03, 2021 To: Dr. Sherman Re: Josette Koenig (43) Dear Hugo, I performed a CAS and cardioversion on Josette Koenig for persistent atrial fibrillation that she developed after a recent COVID infection. I am happy to report to you that she converted to sinus rhythm following a single shock. I am hoping that with resumption of sinus and adequate medical therapy, her LV function would improve. Thank you for giving me the privilege of participating in the care of this pleasant lady. Sincerely, Abhishek Olivera M.D. ASHLEIGH / BERTA: [id number] /
[2021-09-03 14:04] VITALS: BP 109/56
== END 2021-09-03 14:13 | disposition home or self-care (01) ==
LOC: CATHCVL 10:40
PROVIDERS: ATTEND Internal Medicine Cardiovascular Disease
DX: I48.19 Other persistent atrial fibrillation (principal)
CPT/HCPCS: 92960; 93312; 93320; 93325; J2001; J2704

== ENCOUNTER 2022-07-07 10:59 | Inpatient (IN) | payer MEDICARE ==
[2022-07-07] MEDS ORDERED: SODIUM CHLORIDE 0.9% 1,000 ML IV STA (11:26)
[2022-07-07] MEDS ORDERED: ACETAMINOPHEN TAB 500 MG TAB PO STA (11:26)
--- NOTE | 2022-07-07 11:32 | ED ---
SOB HPI - General Chief Complaint: Shortness of Breath Stated Complaint: IDA Time Seen by Provider: 07/07/22 11:09 Source: patient, RN notes reviewed Mode of arrival: EMS Limitations: no limitations - History of Present Illness Initial Comments: Patient is 76-year-old female presenting to the emergency room via EMS with complaints of increase in shortness of breath. Upon arrival she was hypoxic with an oxygen level of 86-88 on room air. She required titration to 3.5 L to maintain oxygen saturation of 91-92%. She did not demonstrate any accessory muscle use, purse lipped breathing or tachypnea at time of arrival are after titration of oxygen. She states that she has not been feeling well since of last week (4 days ago). She reports a barky cough, shortness of breath and sputum production. She reports that her ribs are bothering her from coughing along with her head bothering her from coughing but she denies any typical chest pain. She has a history of COPD and typically uses Trilogy and does not require nebulized treatments but does have albuterol to utilize at home as needed. She utilize albuterol yesterday without any improvement in symptoms. She complains of generalized malaise and fatigue. She does report some nausea without any emesis,. She denies any abdominal pain diarrhea, dizziness, altered mental status or weakness not directly related to her generalized malaise. She has a history of atrial fibrillation and is on Eliquis. She denies any palpitations at this time. She denies any known exposure to COVID, influenza, RSV, or pneumonia. In addition to her COPD and A. fib history she has past medical history significant for hypertension, osteoarthritis and hypothyroidism. - Related Data Home Medications Medication Instructions Recorded Confirmed Chlorthalidone 12.5 mg PO DAILY 07/15/21 07/07/22 Levothyroxine Sodium [Synthroid] 25 mcg PO DAILY 07/15/21 07/07/22 amLODIPine BESYLATE/BENAZEPRIL 1 cap PO DAILY 07/15/21 07/07/22 [amLODIPine BESYLATE/BENAZEPRIL 5-20 MG] Bran/D3/Mag11/Zinc/Steward/Stewardess Second/Kurtis/Bor 1 tab PO HS 08/29/21 07/07/22 [Caltrate 600+D Plus Tablet] Fish Oil/Dha/Epa [Fish Oil 1,200 1 cap PO BID 08/29/21 07/07/22 mg Fish Oil] Fluticasone/Umeclidin/Vilanter 1 puff INHALATION RT-DAILY 08/29/21 07/07/22 [Trelegy Ellipta 100-62.5-25] Albuterol Sulfate [Albuterol 2 puff PO RT-QID PRN 07/07/22 07/07/22 Sulfate Hfa] Cholecalciferol [Vitamin D3 (125 125 mcg PO DAILY 07/07/22 07/07/22 Mcg = 5000 Iu)] Metoprolol Succinate (ER) [Toprol 25 mg PO DAILY 07/07/22 07/07/22 Xl] Previous Rx's Medication Instructions Recorded Apixaban [Eliquis] 5 mg PO BID #60 tab 07/21/21 Allergies Allergy/AdvReac Type Severity Reaction Status Date / Time No Known Allergies Allergy Verified 07/07/22 12:23 Review of Systems ROS Statement: Those systems with pertinent positive or pertinent negative responses have been documented in the HPI. ROS Other: All systems not noted in ROS Statement are negative. Past Medical History Past Medical History: Atrial Fibrillation, COPD, Hypertension, Osteoarthritis (OA), Pneumonia, Thyroid Disorder Additional Past Medical History / Comment(s): COVID 07/15/21, History of Any Multi-Drug Resistant Organisms: None Reported Past Surgical History: Tubal Ligation Additional Past Surgical History / Comment(s): Bilateral CATARACT SX Past Anesthesia/Blood Transfusion Reactions: No Reported Reaction Past Psychological History: No Psychological Hx Reported Smoking Status: Former smoker - Past Family History Mother Family Medical History: No Reported History General Exam General appearance: alert, in no apparent distress Head exam: Present: atraumatic, normocephalic, normal inspection Eye exam: Present: normal appearance, PERRL, EOMI. Absent: scleral icterus, conjunctival injection, periorbital swelling ENT exam: Present: normal exam, mucous membranes moist Neck exam: Present: normal inspection, full ROM Respiratory exam: Present: decreased breath sounds, other (Hypoxemia requiring supplemental oxygen). Absent: respiratory distress, wheezes, rales, rhonchi, stridor, chest wall tenderness, accessory muscle use Cardiovascular Exam: Present: tachycardia, irregular rhythm, normal heart sounds. Absent: systolic murmur, diastolic murmur, rubs, gallop, clicks GI/Abdominal exam: Present: soft, normal bowel sounds. Absent: distended, tenderness, guarding, rebound, rigid Rectal exam: Present: deferred Extremities exam: Present: normal inspection. Absent: pedal edema, joint swelling Back exam: Present: normal inspection Neurological exam: Present: alert, oriented X3, CN II-XII intact Psychiatric exam: Present: normal affect, normal mood Skin exam: Present: warm, dry, intact, normal color. Absent: rash Course Vital Signs 07/07/22 07/07/22 11:06 12:00 Temperature 100.2 F H Pulse Rate 130 H Respiratory 20 Rate Blood Pressure 110/77 103/76 O2 Sat by Pulse 90 L Oximetry - Consultations Consultation #1: Spoke with Dr. Sarmiento regarding patient presentation workup and results. Advise requiring supplemental oxygen to maintain oxygen saturations. He is accepting of admission and advised observation admission. Advised patient follows with Dr. Gaona and Dr. Waldrop cardiology pulmonology respectively outpatient and advised may consult providers. Time: 13:13 Medical Decision Making - Medical Decision Making 76-year-old female presenting to the emergency room via EMS for cough, congestion, shortness of breath, generalized malaise and low-grade fevers. Ongoing for 4 days. Hypoxic on arrival of oxygen level 88% requiring supplemental oxygen. No wheeze on exam assess her muscle use or obvious respiratory distress. Will continue supplemental oxygen. Tachycardia noted will give IV fluid bolus along with Tylenol for low-grade temperature. Known history of atrial fibrillation. Will start workup with chest x-ray, EKG, CBC, CMP, mag, proBNP, troponin, d-dimer, coags, lactic acid, venous blood gas and blood cultures. Will also obtain separate swab to evaluate for COVID, RSV and flu. Will continue to monitor closely. Chest x-ray to the imaging Information is hyper inflation consistent with COPD, no consolidation or infiltrate. Radiologist's report reviewed. EKG completed demonstrates atrial flutter ablation with RVR, improved heart rate with oxygenation but continuing to maintain elevated heart rate of 110s despite 1 g of Tylenol for fever and limited fluid bolus. Will give home dose of metoprolol for heart rate. Cephid swab positive for RSV. Covid and influenza negative. CBC with mild leukocytosis and elevated hemoglobin likely delusional. Troponin negative, BUN normal, CO2 slightly elevated; VBG's shows compensation for respiratory acidosis. D-dimer normal. Coags normal. No significant abnormalities and electrolyte replacement. Lactic acid normal. Blood cultures pending. ProBNP slightly elevated no obvious heart failure. Spoke with Dr. Sarmiento regarding admission for RSV positive hypoxemia. He is accepting of admission. Will place admission orders. Consult to cardiopulmonary pulmonary will also be placed as indicated by him. His request his physician shipping assistant was paged to notify regarding admission. Awaiting callback. Case discussed with Dr. Yañez. - Lab Data Result diagrams: 07/07/22 11:31 07/07/22 11:31 Lab Results 07/07/22 07/07/22 07/07/22 Range/Units 11:31 11:31 11:31 WBC 11.7 H (3.8-10.6) k/uL RBC 5.35 (3.80-5.40) m/uL Hgb 16.1 H (11.4-16.0) gm/dL Hct 47.3 H (34.0-46.0) % MCV 88.4 (80.0-100.0) fL MCH 30.1 (25.0-35.0) pg MCHC 34.0 (31.0-37.0) g/dL RDW 12.7 (11.5-15.5) % Plt Count 210 (150-450) k/uL MPV 8.3 Neutrophils % 83 % Lymphocytes % 10 % Monocytes % 5 % Eosinophils % 0 % Basophils % 1 % Neutrophils # 9.7 H (1.3-7.7) k/uL Lymphocytes # 1.2 (1.0-4.8) k/uL Monocytes # 0.6 (0-1.0) k/uL Eosinophils # 0.0 (0-0.7) k/uL Basophils # 0.1 (0-0.2) k/uL PT 11.6 (9.0-12.0) sec INR 1.1 (<1.2) APTT 27.2 (22.0-30.0) sec D-Dimer 0.40 (<0.60) mg/L FEU VBG pH (7.31-7.41) VBG pCO2 (37-51) mmHg VBG HCO3 (24-28) mmol/L Sodium 134 L (137-145) mmol/L Potassium 3.9 (3.5-5.1) mmol/L Chloride 93 L (98-107) mmol/L Carbon Dioxide 32 H (22-30) mmol/L Anion Gap 9 mmol/L BUN 15 (7-17) mg/dL Creatinine 0.88 (0.52-1.04) mg/dL Est GFR (CKD-EPI)AfAm 74 (>60 ml/min/1.73 sqM) Est GFR (CKD-EPI)NonAf 64 (>60 ml/min/1.73 sqM) Glucose 158 H (74-99) mg/dL Plasma Lactic Acid Anders (0.7-2.0) mmol/L Calcium 9.2 (8.4-10.2) mg/dL Magnesium 1.5 L (1.6-2.3) mg/dL Total Bilirubin 1.3 (0.2-1.3) mg/dL AST 33 (14-36) U/L ALT 24 (4-34) U/L Alkaline Phosphatase 74 (38-126) U/L Troponin I (0.000-0.034) ng/mL NT-Pro-B Natriuret Pep pg/mL Total Protein 7.9 (6.3-8.2) g/dL Albumin 4.5 (3.5-5.0) g/dL Influenza Type A (PCR) (Not Detectd) Influenza Type B (PCR) (Not Detectd) RSV (PCR) (Not Detectd) SARS-CoV-2 (PCR) (Not Detectd) 07/07/22 07/07/22 07/07/22 Range/Units 11:31 11:31 11:31 WBC (3.8-10.6) k/uL RBC (3.80-5.40) m/uL Hgb (11.4-16.0) gm/dL Hct (34.0-46.0) % MCV (80.0-100.0) fL MCH (25.0-35.0) pg MCHC (31.0-37.0) g/dL RDW (11.5-15.5) % Plt Count (150-450) k/uL MPV Neutrophils % % Lymphocytes % % Monocytes % % Eosinophils % % Basophils % % Neutrophils # (1.3-7.7) k/uL Lymphocytes # (1.0-4.8) k/uL Monocytes # (0-1.0) k/uL Eosinophils # (0-0.7) k/uL Basophils # (0-0.2) k/uL PT (9.0-12.0) sec INR (<1.2) APTT (22.0-30.0) sec D-Dimer (<0.60) mg/L FEU VBG pH (7.31-7.41) VBG pCO2 (37-51) mmHg VBG HCO3 (24-28) mmol/L Sodium (137-145) mmol/L Potassium (3.5-5.1) mmol/L Chloride (98-107) mmol/L Carbon Dioxide (22-30) mmol/L Anion Gap mmol/L BUN (7-17) mg/dL Creatinine (0.52-1.04) mg/dL Est GFR (CKD-EPI)AfAm (>60 ml/min/1.73 sqM) Est GFR (CKD-EPI)NonAf (>60 ml/min/1.73 sqM) Glucose (74-99) mg/dL Plasma Lactic Acid Anders 1.9 (0.7-2.0) mmol/L Calcium (8.4-10.2) mg/dL Magnesium (1.6-2.3) mg/dL Total Bilirubin (0.2-1.3) mg/dL AST (14-36) U/L ALT (4-34) U/L Alkaline Phosphatase (38-126) U/L Troponin I <0.012 (0.000-0.034) ng/mL NT-Pro-B Natriuret Pep 1550 pg/mL Total Protein (6.3-8.2) g/dL Albumin (3.5-5.0) g/dL Influenza Type A (PCR) (Not Detectd) Influenza Type B (PCR) (Not Detectd) RSV (PCR) (Not Detectd) SARS-CoV-2 (PCR) (Not Detectd) 07/07/22 07/07/22 Range/Units 11:31 11:46 WBC (3.8-10.6) k/uL RBC (3.80-5.40) m/uL Hgb (11.4-16.0) gm/dL Hct (34.0-46.0) % MCV (80.0-100.0) fL MCH (25.0-35.0) pg MCHC (31.0-37.0) g/dL RDW (11.5-15.5) % Plt Count (150-450) k/uL MPV Neutrophils % % Lymphocytes % % Monocytes % % Eosinophils % % Basophils % % Neutrophils # (1.3-7.7) k/uL Lymphocytes # (1.0-4.8) k/uL Monocytes # (0-1.0) k/uL Eosinophils # (0-0.7) k/uL Basophils # (0-0.2) k/uL PT (9.0-12.0) sec INR (<1.2) APTT (22.0-30.0) sec D-Dimer (<0.60) mg/L FEU VBG pH 7.37 (7.31-7.41) VBG pCO2 56 H (37-51) mmHg VBG HCO3 32 H (24-28) mmol/L Sodium (137-145) mmol/L Potassium (3.5-5.1) mmol/L Chloride (98-107) mmol/L Carbon Dioxide (22-30) mmol/L Anion Gap mmol/L BUN (7-17) mg/dL Creatinine (0.52-1.04) mg/dL Est GFR (CKD-EPI)AfAm (>60 ml/min/1.73 sqM) Est GFR (CKD-EPI)NonAf (>60 ml/min/1.73 sqM) Glucose (74-99) mg/dL Plasma Lactic Acid Anders (0.7-2.0) mmol/L Calcium (8.4-10.2) mg/dL Magnesium (1.6-2.3) mg/dL Total Bilirubin (0.2-1.3) mg/dL AST (14-36) U/L ALT (4-34) U/L Alkaline Phosphatase (38-126) U/L Troponin I (0.000-0.034) ng/mL NT-Pro-B Natriuret Pep pg/mL Total Protein (6.3-8.2) g/dL Albumin (3.5-5.0) g/dL Influenza Type A (PCR) Not Detected (Not Detectd) Influenza Type B (PCR) Not Detected (Not Detectd) RSV (PCR) Detected A (Not Detectd) SARS-CoV-2 (PCR) Not Detected (Not Detectd) - EKG Data EKG Comments: EKG completed 1141 interpreted by me demonstrates atrial fibrillation with rapid ventricular response, ventricular 126 bmp, DE interval * ms, QRS duration 84 ms, QT/QTC 287/362 ms, PRT axes *, 60, 92 - Radiology Data Radiology results: report reviewed, image reviewed Disposition Clinical Impression: Acute hypoxemic respiratory failure, RSV infection, Atrial fibrillation with RVR Disposition: ADMITTED IP TO THIS HOSP Condition: Fair Is patient prescribed a controlled substance at d/c from ED?: No Referrals: Hugo Sherman MD [Primary Care Provider] - 1-2 days Time of Disposition: 13:25
[2022-07-07 11:48] LABS: VBG PH 7.37 (7.31-7.41)
[2022-07-07 11:52] LABS: HCT 47.3 % (34.0-46.0); HGB 16.1 gm/dL (11.4-16.0); MCH 30.1 pg (25.0-35.0); MCV 88.4 fL (80.0-100.0); RBC 5.35 m/uL (3.80-5.40); WBC 11.7 k/uL (3.8-10.6)
[2022-07-07 11:53] LABS: Basophils # (A) 0.1 k/uL (0-0.2); Basophils % (A) 1 %; Eosinophils % (A) 0 %; Lymphocytes # (A) 1.2 k/uL (1.0-4.8); Lymphocytes % (A) 10 %; Mean Platelet Volume 8.3; Monocytes # (A) 0.6 k/uL (0-1.0); Monocytes % (A) 5 %; Neutrophils # (A) 9.7 k/uL (1.3-7.7); Neutrophils % (A) 83 %; Platelet Count 210 k/uL (150-450); RDW 12.7 % (11.5-15.5)
[2022-07-07 11:58] LABS: Albumin 4.5 g/dL (3.5-5.0); Calcium 9.2 mg/dL (8.4-10.2); Magnesium 1.5 mg/dL (1.6-2.3); Potassium 3.9 mmol/L (3.5-5.1); Total Bilirubin 1.3 mg/dL (0.2-1.3); Total Protein 7.9 g/dL (6.3-8.2)
[2022-07-07 12:05] LABS: INR 1.1 (<1.2); Partial Thromboplastin Time 27.2 sec (22.0-30.0); Prothrombin Time 11.6 sec (9.0-12.0)
--- NOTE | 2022-07-07 12:07 | XR ---
EXAMINATION TYPE: XR chest 2V DATE OF EXAM: 07/07/2022 COMPARISON: 07/19/2021 HISTORY: Shortness of breath TECHNIQUE: Frontal and lateral views of the chest are obtained. FINDINGS: Scattered senescent parenchymal changes noted. Hyperinflation compatible with COPD. No evidence for infiltrate. No evidence for atelectasis. Mild cardiomegaly without pulmonary venous congestion. No evidence for overt failure at this time. Mediastinal structures are stable and grossly unremarkable. No evidence for hilar prominence. Degenerative changes dorsal spine. IMPRESSION: 1. Mild cardiomegaly without pulmonary venous congestion. No evidence for overt failure at this time.
[2022-07-07] MEDS ORDERED: METOPROLOL SUCCINATE (ER) 25 MG TAB.ER.24H PO STA (13:15)
[2022-07-07] MEDS ORDERED: NALOXONE 0.4 MG/ML 1 ML VIAL IV PRN (13:23)
[2022-07-07] MEDS ORDERED: DILTIAZEM 5 MG/ML 5 ML VIAL IVP STA (13:51)
[2022-07-07] MEDS ORDERED: ALBUTEROL NEBULIZED 2.5 MG/3 ML INHALATION STA (13:54)
[2022-07-07] MEDS ORDERED: DEXTROSE 5%-0.45% NACL 1,000 ML IV ONE (14:38)
[2022-07-07] MEDS ORDERED: IPRATROPIUM-ALBUTEROL 3 ML NEB INHALATION PRN (14:44)
[2022-07-07] MEDS ORDERED: Magnesium Replacement Protocol 1 EACH MISC MISCELLANE PRN ×2 (14:49→19:48)
[2022-07-07] MEDS: PANTOPRAZOLE 40 MG/10 ML VIAL IVP SCH (15:27)
[2022-07-07] MEDS ORDERED: DEXTROSE 5% IN WATER 100 ML with AMIODARONE 150 MG IV ONE ×2 (15:55→18:24)
[2022-07-07] MEDS ORDERED: AMIODARONE 360 MG in DEXTROSE 5% IN WATER 200 ML IV ONE ×4 (15:55→18:24)
[2022-07-07] MEDS: methylPREDNISolone SOD SUCCI 125 MG/2 ML VIAL IV SCH (16:16)
[2022-07-07] MEDS: IPRATROPIUM-ALBUTEROL 3 ML NEB INHALATION SCH ×2 (16:41→20:17)
--- NOTE | 2022-07-07 18:04 | P.CNPUL ---
History of Present Illness Consult date: 07/07/22 Reason for consult: dyspnea History of present illness: 76-year-old female patient who presented emergency department with progressively worsening shortness of breath. The patient is known to me. After taking care of this patient back in June 2021 and at that time the patient had a Covid 19 infection/pneumonia. The patient was given a monoclonal antibiotics in the emergency department and subsequently she developed bilateral pulmonary infiltrates and she was given steroids and she gradually improved and she was discharged home. She was also given Remdesivir. During this current admission, the patient came into the emergency department because of shortness of breath and she was found to be hypoxic. She was placed initially on oxygen at 3-1/2 L and subsequently her condition further decompensated and the patient was placed on BiPAP. At the time of my arrival in the emergency department, the patient was receiving BiPAP at a pressure of 12/6 and 50 she was able to generate a tidal volume of 550 and her respiratory rate was 28 and a minute ventilation was 13.7. The patient was in acute COPD exacerbation. The chest x-ray showed mild hepatomegaly without pulmonary vessel congestion. Nevertheless, during her hospital emergency stay, the patient went into atrial fibrillation with rapid ventricular response. She was given a dose of Cardizem with limited success. She became borderline hypotensive along with A. fib RVR. She checked positive for RSV. Her Covid 19 testing was negative. She is known to have severe COPD with an FEV1 of 49%. The patient has limited on Trelegy Ellipta on outpatient basis. Her blood work showed a WBC count of 11.7 with a hemoglobin of 16 normal coagulation profile, d-dimer was at 0.4, BUN was 50 with a creatinine of 0.80 sodium level of 134 with a potassium level of 3.9. Troponins were negative. ProBNP level was 1550. Influenza screen was negative. Troponin 2 was negative . Review of Systems Constitutional: Reports fatigue, Reports weakness Eyes: denies as per HPI, denies blurred vision, denies bulging eye, denies decreased vision, denies diplopia, denies discharge, denies dry eye, denies irritation, denies itching, denies pain, denies photophobia, denies loss of peripheral vision, denies loss of vision, denies tunnel vision/blind spots Ears: deny: decreased hearing, ear discharge, earache, tinnitus Ears, nose, mouth and throat: Reports as per HPI Breasts: absent: as per HPI, change in shape, gynecomastia, masses, nipple discharge, pain, skin changes, swelling Cardiovascular: Reports decreased exercise tolerance, Reports dyspnea on exertion, Reports irregular heart beat, Reports shortness of breath Respiratory: Reports cough, Reports dyspnea Gastrointestinal: Reports as per HPI Genitourinary: Reports as per HPI Menstruation: Reports as per HPI Musculoskeletal: Reports as per HPI Musculoskeletal: absent: ankle pain, ankle stiffness, ankle swelling Integumentary: Reports as per HPI Neurological: Reports as per HPI Psychiatric: Reports as per HPI Endocrine: Reports as per HPI, Reports fatigue Hematologic/Lymphatic: Reports as per HPI Allergic/Immunologic: Reports as per HPI Past Medical History Past Medical History: Atrial Fibrillation, COPD, Hypertension, Osteoarthritis (OA), Pneumonia, Thyroid Disorder Additional Past Medical History / Comment(s): COVID 07/15/21, History of Any Multi-Drug Resistant Organisms: None Reported Past Surgical History: Tubal Ligation Additional Past Surgical History / Comment(s): Bilateral CATARACT SX Past Anesthesia/Blood Transfusion Reactions: No Reported Reaction Past Psychological History: No Psychological Hx Reported Smoking Status: Former smoker - Past Family History Mother Family Medical History: No Reported History Medications and Allergies Home Medications Medication Instructions Recorded Confirmed Type Chlorthalidone 12.5 mg PO DAILY 07/15/21 07/07/22 History Levothyroxine Sodium [Synthroid] 25 mcg PO DAILY 07/15/21 07/07/22 History amLODIPine BESYLATE/BENAZEPRIL 1 cap PO DAILY 07/15/21 07/07/22 History [amLODIPine BESYLATE/BENAZEPRIL 5-20 MG] Apixaban [Eliquis] 5 mg PO BID #60 tab 07/21/21 07/07/22 Rx Bran/D3/Mag11/Zinc/Food And Nutrition Supervisor/Kurtis/Bor 1 tab PO HS 08/29/21 07/07/22 History [Caltrate 600+D Plus Tablet] Fish Oil/Dha/Epa [Fish Oil 1,200 1 cap PO BID 08/29/21 07/07/22 History mg Fish Oil] Fluticasone/Umeclidin/Vilanter 1 puff INHALATION RT-DAILY 08/29/21 07/07/22 History [Trelegy Ellipta 100-62.5-25] Albuterol Sulfate [Albuterol 2 puff PO RT-QID PRN 07/07/22 07/07/22 History Sulfate Hfa] Cholecalciferol [Vitamin D3 (125 125 mcg PO DAILY 07/07/22 07/07/22 History Mcg = 5000 Iu)] Metoprolol Succinate (ER) [Toprol 25 mg PO DAILY 07/07/22 07/07/22 History Xl] Allergies Allergy/AdvReac Type Severity Reaction Status Date / Time No Known Allergies Allergy Verified 07/07/22 12:23 Physical Exam Vitals: Vital Signs Temp Pulse Pulse Resp BP BP Pulse Ox 07/07/22 16:51 112 H 07/07/22 16:41 123 H 07/07/22 16:30 133 H 28 H 94/70 95 07/07/22 16:15 121 H 24 124/76 94 L 07/07/22 16:10 98.3 F 122 H 27 H 112/96 94 L 07/07/22 15:31 98.2 F 138 H 26 H 94/83 94 L 07/07/22 15:15 133 H 26 H 126/71 96 07/07/22 15:05 07/07/22 15:00 130 H 26 H 108/79 93 L 07/07/22 14:45 152 H 22 100/72 86 L 07/07/22 14:39 98.3 F 07/07/22 14:38 125 H 07/07/22 14:30 128 H 22 91/68 92 L 07/07/22 14:27 116 H 07/07/22 14:25 07/07/22 14:16 125 H 20 103/76 90 L 07/07/22 14:00 122 H 20 106/70 89 L 07/07/22 13:55 07/07/22 13:52 133 H 20 91/64 87 L 07/07/22 13:00 120 H 22 119/64 92 L 07/07/22 12:00 103/76 07/07/22 11:06 100.2 F H 130 H 20 110/77 90 L FiO2 07/07/22 16:51 07/07/22 16:41 07/07/22 16:30 50 07/07/22 16:15 50 07/07/22 16:10 50 07/07/22 15:31 07/07/22 15:15 07/07/22 15:05 50 07/07/22 15:00 07/07/22 14:45 07/07/22 14:39 07/07/22 14:38 07/07/22 14:30 07/07/22 14:27 07/07/22 14:25 50 07/07/22 14:16 07/07/22 14:00 07/07/22 13:55 40 07/07/22 13:52 07/07/22 13:00 07/07/22 12:00 07/07/22 11:06 Intake and Output 07/07/22 07/07/22 07/07/22 06:59 14:59 22:59 Other: Weight 90.718 kg Gen. appearance the patient is a mild degree of respiratory distress and the patient was kept on a BiPAP at a pressure of 12/6 cm of water with FiO2 50% Head exam was generally normal. There was no scleral icterus or corneal arcus. Mucous membranes were moist. Neck was supple and without jugular venous distension, thyromegaly, or carotid bruits. Carotids were easily palpable bilaterally. There was no adenopathy. HEENT: Head is normocephalic. No JVD. No carotid bruit. CHEST EXAMINATION: Lungs are diminished bilaterally to auscultation. Few crackles in lung bases bilaterally HEART EXAMINATION: Irregular rate and rhythm. S1, S2 heard. The patient was also no evidence currently response. Abdominal exam revealed normal bowel sounds. The abdomen was soft, non-tender, and without masses, organomegaly, or appreciable enlargement of the abdominal aorta. EXTREMITIES: no lower extremity edema and no calf tenderness. Neurologically, the patient is awake and alert and the patient does not have any focal neurological deficit. Cranial nerves are essentially intact. Examination of the skin revealed no evidence of significant rashes, suspicious appearing nevi or other concerning lesions. Results - Laboratory Findings CBC and BMP: 07/07/22 11:31 07/07/22 11:31 PT/INR, D-dimer PT 11.6 sec (9.0-12.0) 07/07/22 11:31 INR 1.1 (<1.2) 07/07/22 11:31 D-Dimer 0.40 mg/L FEU (<0.60) 07/07/22 11:31 Abnormal lab findings: Abnormal Labs 12/12/22 12/12/22 12/12/22 11:31 11:31 11:31 WBC 11.7 H Hgb 16.1 H Hct 47.3 H Neutrophils # 9.7 H VBG pCO2 56 H VBG HCO3 32 H Sodium 134 L Chloride 93 L Carbon Dioxide 32 H Glucose 158 H Magnesium 1.5 L RSV (PCR) 07/07/22 11:46 WBC Hgb Hct Neutrophils # VBG pCO2 VBG HCO3 Sodium Chloride Carbon Dioxide Glucose Magnesium RSV (PCR) Detected A - Diagnostic Findings Chest x-ray: image reviewed Assessment and Plan Plan: Acute COPD exacerbation Acute RSV tracheal bronchitis with secondary COPD exacerbation Acute dyspnea and hypoxic respiratory failure currently on a BiPAP at a pressure of 12/6 L of water with an FiO2 of 50% Chronic atrial fibrillation with rapid ventricular response secondary to above Recent Covid 19 pneumonia, hospitalized back in June 2021 Advanced COPD with an FEV1 of 49% of predicted maintain on Trelegy Ellipta on outpatient basis Hypertension Chronic systolic heart failure with an ejection fraction of 40-45% based on echocardiography from 07/17/2021. The patient also has [id number] mitral regurgitation Plan Admit this patient to intensive care unit Start the patient on DuoNeb nebulized treatments [id number] and IV Solu- Medrol 60 mg every 6 hours Check pro calcitonin level Start the patient amiodarone per protocol Continue anticoagulation with Eliquis May restart beta blockers in the form of metoprolol and the patient's blood pressure tolerates We'll continue to follow make further recommendations based on her progress
[2022-07-07 19:14] LABS: Glucose,Whole Blood 232 mg/dL (70-110)
[2022-07-07] MEDS ORDERED: BUDESONIDE 1 MG/2 ML NEBU INHALATION SCH (20:00)
[2022-07-07] MEDS: BUDESONIDE 1 MG/2 ML NEBU INHALATION SCH (20:17)
[2022-07-07] MEDS ORDERED: APIXABAN 5 MG TAB PO SCH (21:00)
[2022-07-07 21:12] LABS: Glucose,Whole Blood 268 mg/dL (70-110)
[2022-07-07] MEDS: INSULIN ASPART (NovoLOG) 100 UNIT/ML VIAL SQ SCH (21:19)
[2022-07-07] MEDS: APIXABAN 5 MG TAB PO SCH (21:19)
[2022-07-07] MEDS: MAGNESIUM SULFATE-D5W PMX 1 GM in DEXTROSE/WATER 1 100ML.BAG IVPB SCH ×2 (21:20→23:06)
[2022-07-07] MEDS: SODIUM CHLORIDE 0.9% 1,000 ML IV SCH (21:20)
[2022-07-07] MEDS ORDERED: AMIODARONE 450 MG in DEXTROSE 5% IN WATER 250 ML IV SCH ×4 (22:00)
[2022-07-08] MEDS: methylPREDNISolone SOD SUCCI 125 MG/2 ML VIAL IV SCH ×4 (00:11→18:14)
[2022-07-08 06:24] LABS: Glucose,Whole Blood 251 mg/dL (70-110)
[2022-07-08] MEDS: INSULIN ASPART (NovoLOG) 100 UNIT/ML VIAL SQ SCH ×4 (06:36→20:12)
[2022-07-08] MEDS: LEVOTHYROXINE 25 MCG TAB PO SCH (06:36)
[2022-07-08 07:44] LABS: Basophils % (A) 0 %; Eosinophils % (A) 0 %; HCT 40.7 % (34.0-46.0); HGB 14.2 gm/dL (11.4-16.0); Lymphocytes # (A) 1.1 k/uL (1.0-4.8); Lymphocytes % (A) 7 %; MCH 30.6 pg (25.0-35.0); MCHC 34.9 g/dL (31.0-37.0); MCV 87.9 fL (80.0-100.0); Mean Platelet Volume 8.4; Monocytes # (A) 0.3 k/uL (0-1.0); Monocytes % (A) 2 %; Neutrophils # (A) 14.6 k/uL (1.3-7.7); Neutrophils % (A) 91 %; Platelet Count 208 k/uL (150-450); RBC 4.63 m/uL (3.80-5.40); RDW 12.8 % (11.5-15.5); WBC 16.1 k/uL (3.8-10.6)
[2022-07-08 07:57] LABS: African American GFR (CKD) >90 (>60 ml/min/1.73 sqM); Anion Gap 8 mmol/L; Blood Urea Nitrogen 19 mg/dL (7-17); Calcium 8.3 mg/dL (8.4-10.2); Carbon Dioxide 25 mmol/L (22-30); Chloride 103 mmol/L (98-107); Glucose 246 mg/dL (74-99); Magnesium 2.3 mg/dL (1.6-2.3); Non-African American GFR(CKD) 86 (>60 ml/min/1.73 sqM); Potassium 3.4 mmol/L (3.5-5.1); Sodium 136 mmol/L (137-145)
[2022-07-08] MEDS ORDERED: SYMBICORT 80-4.5 MCG INHALER INHALATION SCH (08:00)
[2022-07-08] MEDS ORDERED: IPRATROPIUM 0.5 MG/2.5 ML NEBU INHALATION SCH (08:00)
[2022-07-08] MEDS: APIXABAN 5 MG TAB PO SCH ×2 (08:05→20:12)
[2022-07-08] MEDS: PANTOPRAZOLE 40 MG/10 ML VIAL IVP SCH (08:05)
--- NOTE | 2022-07-08 08:34 | XR ---
EXAMINATION TYPE: XR chest 1V portable DATE OF EXAM: 07/08/2022 COMPARISON: 07/07/2022 HISTORY: Difficulty breathing TECHNIQUE: Single frontal view of the chest is obtained. FINDINGS: There is no focal air space opacity, pleural effusion, or pneumothorax seen. The cardiac silhouette size is within normal limits. The osseous structures are intact. Subsegmental linear josie nges at the lung bases. Heart size upper limits of normal. No overt failure. Nodule measuring 7 mm ri ght upper lobe. IMPRESSION: 1. Basilar atelectasis favored over pneumonia. There is a 7 mm nodule right upper lobe.
--- NOTE | 2022-07-08 08:45 | P.CRDCN ---
History of Present Illness Consult date: 07/08/22 History of present illness: History of Present Illness: The patient is a 76-year-old female with a history of hypertension, diabetes prior history of smoking, history of COPD for about a year ago had COVID-19 infection and had atrial fibrillation at that time she was subsequently evaluated by Dr. Olivera and underwent CAS guided cardioversion with taoist of sinus mechanism. At that time she was found to have a cardiomyopathy. It is unclear if her LV systolic function improved. According to her she had an MPI that showed no evidence of stress-induced ischemia. She has been doing well until the last week when she started to have cough, progressive dyspnea and fatigue. She presented with respiratory distress and was diagnosed with RSV infection. She was in atrial fibrillation with episodes of rapid ventricle response. She does not feel the palpitations. She denies any chest discomfort, PND or orthopnea. She has no peripheral edema. She is feeling better today and continues to be in atrial fibrillation. She has been anticoagulated as an outpatient. Her [id number] score is 5. On presentation her troponin was normal and her NT proBNP was 1550. She had no ventricular ectopic activity since admission. Medications: Metoprolol succinate 25 mg daily, amlodipineBenazepril 520, Eliquis 5 mg bid, levothyroxine, albuterol, Trelegy Ellipta, vitamin D, insulin, Review of Systems: Respiratory: He should has a history of COPD with dyspnea on exertion GI: No nausea or vomiting . No history of peptic ulcer disease. No recent GI bleed. : No hematuria or dysuria. Nervous System: No stroke or seizure. Physical Examination: 76-year-old female, alert and oriented no apparent distress ,Blood pressure 107/70, Heart rate 95 Head: Normocephalic. Eyes: Sclerae nonicteric. Neck: Good carotid upstroke, no bruit, no jugular venous distention. Lungs: Decrease air exchange with diffuse crackles Heart: Irregular rate and rhythm, S1-S2, no S3, no rub. No murmur. Abdomen: Soft nontender, positive bowel sounds no organomegaly. Extremities: No edema, intact distal pulses. Labs: 1 blood cell 11.7, hemoglobin 16.1. BUN 15, creatinine 0.88. Potassium 3.4, chest x-ray bi-basilar atelectasis and 7 mm nodule in the right upper lobe EKG: Atrial fibrillation, rate of [address]-T wave changes Impression: 1. RSV infection with progressive dyspnea 2. Recurrent atrial fibrillation status post cardioversion. It is unclear when the patient converted back to atrial fibrillation 3. Cardiomyopathy in the past with no clear evidence of CHF 4. History of hypertension 5. History of COPD 6. COVID-19 infection last year 7. History of diabetes Plan: 1. Change to oral amiodarone 2. Restart beta flower 3. Repeat echocardiogram 4. Follow ventricular response 5. If blood pressure is stable restart RACHAEL inhibitor 6. Depending on her progress further recommendations will be made. Thank you for this consult we will follow with you. Past Medical History Past Medical History: Atrial Fibrillation, COPD, Hypertension, Osteoarthritis (OA), Pneumonia, Thyroid Disorder Additional Past Medical History / Comment(s): COVID 07/15/21 History of Any Multi-Drug Resistant Organisms: None Reported Past Surgical History: Tubal Ligation Additional Past Surgical History / Comment(s): Bilateral CATARACT SX Past Anesthesia/Blood Transfusion Reactions: No Reported Reaction Past Psychological History: No Psychological Hx Reported Smoking Status: Former smoker Past Alcohol Use History: None Reported Additional Past Alcohol Use History / Comment(s): quit smoking 2015, smoked for 30 yrs, up to 1 PPD Past Drug Use History: None Reported - Past Family History Mother Family Medical History: No Reported History Medications and Allergies Home Medications Medication Instructions Recorded Confirmed Type Chlorthalidone 12.5 mg PO DAILY 07/15/21 07/07/22 History Levothyroxine Sodium [Synthroid] 25 mcg PO DAILY 07/15/21 07/07/22 History amLODIPine BESYLATE/BENAZEPRIL 1 cap PO DAILY 07/15/21 07/07/22 History [amLODIPine BESYLATE/BENAZEPRIL 5-20 MG] Apixaban [Eliquis] 5 mg PO BID #60 tab 07/21/21 07/07/22 Rx Bran/D3/Mag11/Zinc/Motel Keeper/Kurtis/Bor 1 tab PO HS 08/29/21 07/07/22 History [Caltrate 600+D Plus Tablet] Fish Oil/Dha/Epa [Fish Oil 1,200 1 cap PO BID 08/29/21 07/07/22 History mg Fish Oil] Fluticasone/Umeclidin/Vilanter 1 puff INHALATION RT-DAILY 08/29/21 07/07/22 History [Treledavid Ellipta 100-62.5-25] Albuterol Sulfate [Albuterol 2 puff PO RT-QID PRN 07/07/22 07/07/22 History Sulfate Hfa] Cholecalciferol [Vitamin D3 (125 125 mcg PO DAILY 07/07/22 07/07/22 History Mcg = 5000 Iu)] Metoprolol Succinate (ER) [Toprol 25 mg PO DAILY 07/07/22 07/07/22 History Xl] Allergies Allergy/AdvReac Type Severity Reaction Status Date / Time No Known Allergies Allergy Verified 07/07/22 12:23 Physical Exam Vitals: Vital Signs Temp Pulse Pulse Resp BP BP Pulse Ox 07/08/22 08:00 98.2 F 109 H 14 107/74 96 07/08/22 07:00 97 21 113/74 96 07/08/22 06:00 94 21 110/73 97 07/08/22 05:00 99 19 109/68 95 07/08/22 04:29 07/08/22 04:00 97.9 F 84 20 112/70 95 07/08/22 03:00 102 H 20 127/83 95 07/08/22 02:00 89 20 119/95 95 07/08/22 01:00 89 20 115/81 95 07/08/22 00:23 07/08/22 00:06 99 22 106/70 95 07/08/22 00:00 98.2 F 105 H 24 103/74 95 07/07/22 23:00 112 H 24 110/80 96 07/07/22 22:28 07/07/22 22:00 117 H 22 140/90 88 L 07/07/22 21:49 97.8 F 116 H 23 140/90 89 L 07/07/22 21:00 108 H 27 H 120/70 88 L 07/07/22 20:40 92 L 07/07/22 20:39 112 H 07/07/22 20:18 118 H 07/07/22 20:00 97.9 F 108 H 24 109/96 96 07/07/22 19:14 07/07/22 19:13 97.9 F 114 H 22 124/61 95 07/07/22 18:29 98.4 F 120 H 26 H 125/97 93 L 07/07/22 18:15 107 H 25 H 108/80 93 L 07/07/22 18:00 111 H 25 H 109/73 93 L 07/07/22 17:45 112 H 24 126/75 07/07/22 17:30 120 H 25 H 137/117 93 L 07/07/22 17:15 126 H 24 111/80 94 L 07/07/22 17:00 120 H 26 H 114/78 92 L 07/07/22 16:51 112 H 07/07/22 16:45 125 H 26 H 114/70 94 L 07/07/22 16:41 123 H 07/07/22 16:30 133 H 28 H 94/70 95 07/07/22 16:15 121 H 24 124/76 94 L 07/07/22 16:10 98.3 F 122 H 27 H 112/96 94 L 07/07/22 16:01 97.8 F 116 H 07/07/22 15:31 98.2 F 138 H 26 H 94/83 94 L 07/07/22 15:15 133 H 26 H 126/71 96 07/07/22 15:05 07/07/22 15:00 130 H 26 H 108/79 93 L 07/07/22 14:45 152 H 22 100/72 86 L 07/07/22 14:39 98.3 F 07/07/22 14:38 125 H 07/07/22 14:30 128 H 22 91/68 92 L 07/07/22 14:27 116 H 07/07/22 14:25 07/07/22 14:16 125 H 20 103/76 90 L 07/07/22 14:00 122 H 20 106/70 89 L 07/07/22 13:55 07/07/22 13:52 133 H 20 91/64 87 L 07/07/22 13:00 120 H 22 119/64 92 L 07/07/22 12:00 103/76 07/07/22 11:06 100.2 F H 130 H 20 110/77 90 L FiO2 07/08/22 08:00 50 07/08/22 07:00 07/08/22 06:00 07/08/22 05:00 07/08/22 04:29 50 07/08/22 04:00 50 07/08/22 03:00 07/08/22 02:00 07/08/22 01:00 07/08/22 00:23 50 07/08/22 00:06 07/08/22 00:00 50 07/07/22 23:00 50 07/07/22 22:28 50 07/07/22 22:00 07/07/22 21:49 07/07/22 21:00 07/07/22 20:40 07/07/22 20:39 07/07/22 20:18 07/07/22 20:00 50 07/07/22 19:14 50 07/07/22 19:13 07/07/22 18:29 07/07/22 18:15 50 07/07/22 18:00 50 07/07/22 17:45 50 07/07/22 17:30 50 07/07/22 17:15 50 07/07/22 17:00 50 07/07/22 16:51 07/07/22 16:45 50 07/07/22 16:41 07/07/22 16:30 50 07/07/22 16:15 50 07/07/22 16:10 50 07/07/22 16:01 07/07/22 15:31 07/07/22 15:15 07/07/22 15:05 50 07/07/22 15:00 07/07/22 14:45 07/07/22 14:39 07/07/22 14:38 07/07/22 14:30 07/07/22 14:27 07/07/22 14:25 50 07/07/22 14:16 07/07/22 14:00 07/07/22 13:55 40 07/07/22 13:52 07/07/22 13:00 07/07/22 12:00 07/07/22 11:06 Intake and Output 07/07/22 07/08/22 07/08/22 22:59 06:59 14:59 Intake Total 790 970 20 Output Total 0 1500 Balance 790 -530 20 Intake: IV 250 700 20 Magnesium Sulfate-D5w Pmx 100 100 1 gm In Dextrose/Water 1 100ml.bag @ 100 mls/hr IVPB Q1H [facility] Rx#: [id number] Sodium Chloride 0.9% 1, 150 600 20 000 ml @ 75 mls/hr IV . [id number] [facility] Rx#:[id number] Oral 540 270 Output: Urine 0 1500 Other: Voiding Method Bedside Commode Bedside Commode Weight 90.718 kg 96.2 kg Results 07/08/22 07:26 07/08/22 07:26 Cardiac Enzymes 07/07/22 07/07/22 Range/Units 11:31 11:31 AST 33 (14-36) U/L Troponin I <0.012 (0.000-0.034) ng/mL Coagulation 07/07/22 Range/Units 11:31 PT 11.6 (9.0-12.0) sec APTT 27.2 (22.0-30.0) sec CBC 07/07/22 07/08/22 Range/Units 11:31 07:26 WBC 11.7 H 16.1 H (3.8-10.6) k/uL RBC 5.35 4.63 (3.80-5.40) m/uL Hgb 16.1 H 14.2 (11.4-16.0) gm/dL Hct 47.3 H 40.7 (34.0-46.0) % Plt Count 210 208 (150-450) k/uL Comprehensive Metabolic Panel 07/07/22 07/08/22 Range/Units 11:31 07:26 Sodium 134 L 136 L (137-145) mmol/L Potassium 3.9 3.4 L (3.5-5.1) mmol/L Chloride 93 L 103 (98-107) mmol/L Carbon Dioxide 32 H 25 (22-30) mmol/L BUN 15 19 H (7-17) mg/dL Creatinine 0.88 0.66 (0.52-1.04) mg/dL Glucose 158 H 246 H (74-99) mg/dL Calcium 9.2 8.3 L (8.4-10.2) mg/dL AST 33 (14-36) U/L ALT 24 (4-34) U/L Alkaline Phosphatase 74 (38-126) U/L Total Protein 7.9 (6.3-8.2) g/dL Albumin 4.5 (3.5-5.0) g/dL Current Medications Generic Name Dose Route Start Last Admin Trade Name Freq PRN Reason Stop Dose Admin Albuterol/Ipratropium 3 ml 07/07/22 14:45 07/07/22 20:17 Ipratropium-Albuterol 3 Ml Neb INHALATION 3 ml RT-QID JAMES Administration Albuterol/Ipratropium 3 ml 07/07/22 14:44 Ipratropium-Albuterol 3 Ml Neb INHALATION Q2H PRN Shortness Of Breath Apixaban 5 mg 07/07/22 21:00 07/08/22 08:05 Apixaban 5 Mg Tab PO 5 mg BID JAMES Administration Protocol Budesonide 1 mg 07/07/22 20:00 07/07/22 20:17 Budesonide 1 Mg/2 Ml Nebu INHALATION 1 mg RT-BID JAMES Administration Amiodarone HCl 450 mg/ 250 mls @ 16.667 mls/hr 07/07/22 22:00 07/07/22 22:40 Dextrose/Water IV 07/08/22 15:59 0.5 mg/min .Q15H JAMES 16.667 mls/hr Administration Protocol 0.5 MG/MIN Sodium Chloride 1,000 mls @ 75 mls/hr 07/07/22 21:00 07/07/22 21:20 Saline 0.9% IV 75 mls/hr .[id number] JAMES Administration Insulin Aspart 0 unit 07/07/22 21:00 07/08/22 06:36 Insulin Aspart (Novolog) 100 Unit/Ml Vial SQ 6 unit ACHS JAMES Administration Protocol Levothyroxine Sodium 25 mcg 07/08/22 06:30 07/08/22 06:36 Levothyroxine 25 Mcg Tab PO 25 mcg DAILY@0630 JAMES Administration Methylprednisolone Sodium Succinate 60 mg 07/07/22 18:00 07/08/22 06:36 Methylprednisolone Sod Succi 125 Mg/2 Ml Vial IV 60 mg Q6HR JAMES Administration Miscellaneous Information 1 each 07/07/22 19:48 Magnesium Replacement Protocol 1 Each Misc MISCELLANE DAILY PRN Per Protocol Protocol Naloxone HCl 0.2 mg 07/07/22 13:23 Naloxone 0.4 Mg/Ml 1 Ml Vial IV Q2M PRN Opioid Reversal Pantoprazole Sodium 40 mg 07/07/22 15:00 07/08/22 08:05 Pantoprazole 40 Mg/10 Ml Vial IVP 40 mg DAILY JAMES Administration Intake and Output 07/07/22 07/08/2222 22:59 06:59 14:59 Intake Total 790 970 20 Output Total 0 1500 Balance 790 -530 20 Intake: IV 250 700 20 Magnesium Sulfate-D5w Pmx 100 100 1 gm In Dextrose/Water 1 100ml.bag @ 100 mls/hr IVPB Q1H [facility] Rx#: [id number] Sodium Chloride 0.9% 1, 150 600 20 000 ml @ 75 mls/hr IV . [id number] [facility] Rx#:[id number] Oral 540 270 Output: Urine 0 1500 Other: Voiding Method Bedside Commode Bedside Commode Weight 90.718 kg 96.2 kg 07/08/22 07:26 07/08/22 07:26
[2022-07-08] MEDS ORDERED: METOPROLOL SUCCINATE (ER) 50 MG TAB.ER.24H PO SCH (09:00)
[2022-07-08] MEDS: BUDESONIDE 1 MG/2 ML NEBU INHALATION SCH ×2 (09:25→19:40)
[2022-07-08] MEDS: IPRATROPIUM-ALBUTEROL 3 ML NEB INHALATION SCH ×4 (09:25→19:40)
[2022-07-08] MEDS: ATORVASTATIN 40 MG TAB PO SCH (10:02)
[2022-07-08] MEDS: AMIODARONE 200 MG TAB PO SCH ×2 (10:03→20:12)
[2022-07-08] MEDS: POTASSIUM CHLORIDE ER 20 MEQ TAB.ER PO SCH ×2 (10:05→11:08)
[2022-07-08] MEDS: SODIUM CHLORIDE 0.9% 1,000 ML IV SCH (11:00)
[2022-07-08 11:36] LABS: Glucose,Whole Blood 262 mg/dL (70-110)
[2022-07-08] MEDS ORDERED: METOPROLOL SUCCINATE (ER) 50 MG TAB.ER.24H PO STA (11:38)
--- NOTE | 2022-07-08 13:57 | P.PN ---
Subjective Progress Note Date: 07/08/22 76-year-old female patient who presented emergency department with progressively worsening shortness of breath. The patient is known to me. After taking care of this patient back in June 2021 and at that time the patient had a Covid 19 infection/pneumonia. The patient was given a monoclonal antibiotics in the emergency department and subsequently she developed bilateral pulmonary infiltrates and she was given steroids and she gradually improved and she was discharged home. She was also given Remdesivir. During this current admission, the patient came into the emergency department because of shortness of breath and she was found to be hypoxic. She was placed initially on oxygen at 3-1/2 L and subsequently her condition further decompensated and the patient was placed on BiPAP. At the time of my arrival in the emergency department, the patient was receiving BiPAP at a pressure of 12/6 and 50 she was able to generate a tidal volume of 550 and her respiratory rate was 28 and a minute ventilation was 13.7. The patient was in acute COPD exacerbation. The chest x-ray showed mild hepatomegaly without pulmonary vessel congestion. Nevertheless, during her hospital emergency stay, the patient went into atrial fibrillation with rapid ventricular response. She was given a dose of Cardizem with limited success. She became borderline hypotensive along with A. fib RVR. She checked positive for RSV. Her Covid 19 testing was negative. She is known to have severe COPD with an FEV1 of 49%. The patient has limited on Trelegy Ellipta on outpatient basis. Her blood work showed a WBC count of 11.7 with a hemoglobin of 16 normal coagulation profile, d-dimer was at 0.4, BUN was 50 with a creatinine of 0.80 sodium level of 134 with a potassium level of 3.9. Troponins were negative. ProBNP level was 1550. Influenza screen was negative. Troponin 2 was negative. On 07/08/2022, the patient is doing well. She is off the BiPAP and is on 5 L of oxygen by nasal cannula. Less short of breath bronchospastic and wheezy. Note that the patient was infected with RSV which exacerbated underlying COPD. She also went into atrial fibrillation with rapid ventricular response. She was started on amiodarone loading and the patient is currently on amiodarone 0.5 mg/m maintenance. She is going to switch to oral amiodarone. She missed into fibrillation. Her pro calcitonin level was at 0.21. No vesicles of 16.4 with a hemoglobin of 14.2 platelets of 208. Sodium is at 136 with a BUN of 19 and a creatinine of 0.6. Alert and awake and communicating. Tolerating her diet. Denies having any chest pain. The proBNP level was slightly elevated at 1 5 x 0 and the troponins were negative. Blood sugars are slightly elevated secondary to systemic steroids as the patient is currently on IV Solu-Medrol 60 mg every 6 hours. The patient is also on anticoagulants with Eliquis. Objective - Vital Signs Vital signs: Vital Signs Temp 98.2 F 07/08/22 08:00 Pulse 109 H 07/08/22 08:00 Resp 14 07/08/22 08:00 BP 107/74 07/08/22 08:00 Pulse Ox 96 07/08/22 08:00 FiO2 50 07/08/22 08:00 Intake & Output 07/07/22 07/08/22 07/08/22 18:59 06:59 18:59 Intake Total 1760 20 Output Total 1500 Balance 260 20 Weight 90.718 kg 96.2 kg Intake: IV 950 20 Magnesium Sulfate-D5w Pmx 200 1 gm In Dextrose/Water 1 100ml.bag @ 100 mls/hr IVPB Q1H [facility] Rx#: [id number] Sodium Chloride 0.9% 1, 750 20 000 ml @ 75 mls/hr IV . [id number] [facility] Rx#:[id number] Oral 810 Output: Urine 1500 Other: Voiding Method Bedside Commode - Exam Gen. appearance the patient is a mild degree of respiratory distress and the patient is currently off BiPAP on 5 L of oxygen by nasal cannula Head exam was generally normal. There was no scleral icterus or corneal arcus. Mucous membranes were moist. Neck was supple and without jugular venous distension, thyromegaly, or carotid bruits. Carotids were easily palpable bilaterally. There was no adenopathy. HEENT: Head is normocephalic. No JVD. No carotid bruit. CHEST EXAMINATION: Lungs are diminished bilaterally to auscultation. Few crackles in lung bases bilaterally, diminished wheezing compared to yesterday and there is improvement in air entry HEART EXAMINATION: Irregular rate and rhythm. S1, S2 heard. The patient was als o no evidence currently response. Abdominal exam revealed normal bowel sounds. The abdomen was soft, non-tender, and without masses, organomegaly, or appreciable enlargement of the abdominal aorta. EXTREMITIES: no lower extremity edema and no calf tenderness. Neurologically, the patient is awake and alert and the patient does not have any focal neurological deficit. Cranial nerves are essentially intact. Examination of the skin revealed no evidence of significant rashes, suspicious appearing nevi or other concerning lesions. - Labs CBC & Chem 7: 07/08/22 07:26 07/08/22 07:26 Labs: Abnormal Lab Results - Last 24 Hours (Table) 07/07/22 07/07/22 07/07/22 Range/Units 11:31 11:31 11:31 WBC 11.7 H (3.8-10.6) k/uL Hgb 16.1 H (11.4-16.0) gm/dL Hct 47.3 H (34.0-46.0) % Neutrophils # 9.7 H (1.3-7.7) k/uL VBG pCO2 56 H (37-51) mmHg VBG HCO3 32 H (24-28) mmol/L Sodium 134 L (137-145) mmol/L Potassium (3.5-5.1) mmol/L Chloride 93 L (98-107) mmol/L Carbon Dioxide 32 H (22-30) mmol/L BUN (7-17) mg/dL Glucose 158 H (74-99) mg/dL POC Glucose (mg/dL) (70-110) mg/dL Calcium (8.4-10.2) mg/dL Magnesium 1.5 L (1.6-2.3) mg/dL Procalcitonin (0.02-0.09) ng/mL RSV (PCR) (Not Detectd) 07/07/22 07/07/22 07/07/22 Range/Units 11:31 11:46 19:12 WBC (3.8-10.6) k/uL Hgb (11.4-16.0) gm/dL Hct (34.0-46.0) % Neutrophils # (1.3-7.7) k/uL VBG pCO2 (37-51) mmHg VBG HCO3 (24-28) mmol/L Sodium (137-145) mmol/L Potassium (3.5-5.1) mmol/L Chloride (98-107) mmol/L Carbon Dioxide (22-30) mmol/L BUN (7-17) mg/dL Glucose (74-99) mg/dL POC Glucose (mg/dL) 232 H (70-110) mg/dL Calcium (8.4-10.2) mg/dL Magnesium (1.6-2.3) mg/dL Procalcitonin 0.21 H (0.02-0.09) ng/mL RSV (PCR) Detected A (Not Detectd) 07/07/22 07/08/22 07/08/22 Range/Units 21:10 06:22 07:26 WBC (3.8-10.6) k/uL Hgb (11.4-16.0) gm/dL Hct (34.0-46.0) % Neutrophils # (1.3-7.7) k/uL VBG pCO2 (37-51) mmHg VBG HCO3 (24-28) mmol/L Sodium 136 L (137-145) mmol/L Potassium 3.4 L (3.5-5.1) mmol/L Chloride (98-107) mmol/L Carbon Dioxide (22-30) mmol/L BUN 19 H (7-17) mg/dL Glucose 246 H (74-99) mg/dL POC Glucose (mg/dL) 268 H 251 H (70-110) mg/dL Calcium 8.3 L (8.4-10.2) mg/dL Magnesium (1.6-2.3) mg/dL Procalcitonin (0.02-0.09) ng/mL RSV (PCR) (Not Detectd) 07/08/22 Range/Units 07:26 WBC 16.1 H (3.8-10.6) k/uL Hgb (11.4-16.0) gm/dL Hct (34.0-46.0) % Neutrophils # 14.6 H (1.3-7.7) k/uL VBG pCO2 (37-51) mmHg VBG HCO3 (24-28) mmol/L Sodium (137-145) mmol/L Potassium (3.5-5.1) mmol/L Chloride (98-107) mmol/L Carbon Dioxide (22-30) mmol/L BUN (7-17) mg/dL Glucose (74-99) mg/dL POC Glucose (mg/dL) (70-110) mg/dL Calcium (8.4-10.2) mg/dL Magnesium (1.6-2.3) mg/dL Procalcitonin (0.02-0.09) ng/mL RSV (PCR) (Not Detectd) Assessment and Plan Plan: Acute COPD exacerbation, improving Acute RSV tracheal bronchitis with secondary COPD exacerbation, improved compared to yesterday Acute dyspnea and hypoxic respiratory failure currently on a BiPAP at the time of admission currently the patient is off the BiPAP on 5 L of 02 nasal cannula Atrial fibrillation, chronic with rapid ventricular response secondary to above, currently on amiodarone loading to be transitioned to oral amiodarone and the patient isn't particularly related with Eliquis Recent Covid 19 pneumonia, hospitalized back in June 2021 Advanced COPD with an FEV1 of 49% of predicted maintain on Trelegy Ellipta on outpatient basis Hypertension Chronic systolic heart failure with an ejection fraction of 40-45% based on echocardiography from 07/17/2021. The patient also has [id number] mitral regurgitation Plan Keep the patient 5 L of O2 nasal cannula Continue patient on DuoNeb nebulized treatments [id number] and IV Solu- Medrol 60 mg every 6 hours Oral amiodarone at a dose of 4 mg by mouth twice a day and metoprolol 50 mg by mouth twice a day for rate control Continue anticoagulation with Noemyqudelisa Clinically improving At 10 units of Levemir insulin coverage for blood sugar control We'll continue to follow make further recommendations based on her progress
--- NOTE | 2022-07-08 14:52 | P.HPIM ---
History of Present Illness H&P Date: 07/08/22 Chief Complaint: Worsening dyspnea This is 76-year-old female with past medical history of COPD, hypertension, former nicotine dependence, COVID-19 infection, and multiple other medical issues presented to the ER with complaints of worsening dyspnea. Hypoxic on admission, initially placed on 3 L nasal cannula, continued to decline and eventually required BiPAP.developed atrial fibrillation with RVR, initially treated with IV Cardizem, blood pressure softened. troponin negative 2 ,NT proBNP 1550.Chest x-ray reported mild cardiomegaly without pulmonary theodore congestion, with no overt failure. Repeat chest x-ray reported basilar atelectasis favored over pneumonia, 7 mm nodule right upper lobe .influenza screen negative ,tested positive for RSV. Placed on nebulized bronchodilators, IV steroids and weaned to 6 L high flow nasal cannula. Lkdbxajsyupdm-pespgaj-ezvnawd. Pro-calcitonin 0.21 . Sputum culture reporting many Haemophilus influenzae. Renal function stable This morning telemetry A. fib heart rates 130s to 140s, completing amiodarone drip and transitioning to oral. Received an additional dose of metoprolol. Denies chest pain, palpitations. Review of Systems ROS Statement: Those systems with pertinent positive or pertinent negative responses have been documented in the HPI. ROS Other: All systems not noted in ROS Statement are negative. Past Medical History Past Medical History: Atrial Fibrillation, COPD, Hypertension, Osteoarthritis (OA), Pneumonia, Thyroid Disorder Additional Past Medical History / Comment(s): COVID 07/15/21 History of Any Multi-Drug Resistant Organisms: None Reported Past Surgical History: Tubal Ligation Additional Past Surgical History / Comment(s): Bilateral CATARACT SX Past Anesthesia/Blood Transfusion Reactions: No Reported Reaction Past Psychological History: No Psychological Hx Reported Smoking Status: Former smoker Past Alcohol Use History: None Reported Additional Past Alcohol Use History / Comment(s): quit smoking 2015, smoked for 30 yrs, up to 1 PPD Past Drug Use History: None Reported - Past Family History Mother Family Medical History: No Reported History Medications and Allergies Home Medications Medication Instructions Recorded Confirmed Type Chlorthalidone 12.5 mg PO DAILY 07/15/21 07/07/22 History Levothyroxine Sodium [Synthroid] 25 mcg PO DAILY 07/15/21 07/07/22 History amLODIPine BESYLATE/BENAZEPRIL 1 cap PO DAILY 07/15/21 07/07/22 History [amLODIPine BESYLATE/BENAZEPRIL 5-20 MG] Apixaban [Eliquis] 5 mg PO BID #60 tab 07/21/21 07/07/22 Rx Bran/D3/Mag11/Zinc/Press Machine Feeder/Kurtis/Bor 1 tab PO HS 08/29/21 07/07/22 History [Caltrate 600+D Plus Tablet] Fish Oil/Dha/Epa [Fish Oil 1,200 1 cap PO BID 08/29/21 07/07/22 History mg Fish Oil] Fluticasone/Umeclidin/Vilanter 1 puff INHALATION RT-DAILY 08/29/21 07/07/22 History [Trelegy Ellipta 100-62.5-25] Albuterol Sulfate [Albuterol 2 puff PO RT-QID PRN 07/07/22 07/07/22 History Sulfate Hfa] Cholecalciferol [Vitamin D3 (125 125 mcg PO DAILY 07/07/22 07/07/22 History Mcg = 5000 Iu)] Metoprolol Succinate (ER) [Toprol 25 mg PO DAILY 07/07/22 07/07/22 History Xl] Allergies Allergy/AdvReac Type Severity Reaction Status Date / Time No Known Allergies Allergy Verified 07/07/22 12:23 Physical Exam Vitals: Vital Signs Temp Pulse Pulse Resp BP BP Pulse Ox 07/08/22 11:00 129 H 26 H 124/112 90 L 07/08/22 10:00 133 H 27 H 114/73 91 L 07/08/22 09:44 120 H 07/08/22 09:26 100 07/08/22 09:00 108 H 18 107/74 90 L 07/08/22 08:00 98.2 F 109 H 14 107/74 96 07/08/22 07:00 97 21 113/74 96 07/08/22 06:00 94 21 110/73 97 07/08/22 05:00 99 19 109/68 95 07/08/22 04:29 07/08/22 04:00 97.9 F 84 20 112/70 95 07/08/22 03:00 102 H 20 127/83 95 07/08/22 02:00 89 20 119/95 95 07/08/22 01:00 89 20 115/81 95 07/08/22 00:23 07/08/22 00:06 99 22 106/70 95 07/08/22 00:00 98.2 F 105 H 24 103/74 95 07/07/22 23:00 112 H 24 110/80 96 07/07/22 22:28 07/07/22 22:00 117 H 22 140/90 88 L 07/07/22 21:49 97.8 F 116 H 23 140/90 89 L 07/07/22 21:00 108 H 27 H 120/70 88 L 07/07/22 20:40 92 L 07/07/22 20:39 112 H 07/07/22 20:18 118 H 07/07/22 20:00 97.9 F 108 H 24 109/96 96 07/07/22 19:14 07/07/22 19:13 97.9 F 114 H 22 124/61 95 07/07/22 18:29 98.4 F 120 H 26 H 125/97 93 L 07/07/22 18:15 107 H 25 H 108/80 93 L 07/07/22 18:00 111 H 25 H 109/73 93 L 07/07/22 17:45 112 H 24 126/75 07/07/22 17:30 120 H 25 H 137/117 93 L 07/07/22 17:15 126 H 24 111/80 94 L 07/07/22 17:00 120 H 26 H 114/78 92 L 07/07/22 16:51 112 H 07/07/22 16:45 125 H 26 H 114/70 94 L 07/07/22 16:41 123 H 07/07/22 16:30 133 H 28 H 94/70 95 07/07/22 16:15 121 H 24 124/76 94 L 07/07/22 16:10 98.3 F 122 H 27 H 112/96 94 L 07/07/22 16:01 97.8 F 116 H 07/07/22 15:31 98.2 F 138 H 26 H 94/83 94 L 07/07/22 15:15 133 H 26 H 126/71 96 07/07/22 15:05 07/07/22 15:00 130 H 26 H 108/79 93 L 07/07/22 14:45 152 H 22 100/72 86 L 07/07/22 14:39 98.3 F 07/07/22 14:38 125 H 07/07/22 14:30 128 H 22 91/68 92 L 07/07/22 14:27 116 H 07/07/22 14:25 07/07/22 14:16 125 H 20 103/76 90 L 07/07/22 14:00 122 H 20 106/70 89 L 07/07/22 13:55 07/07/22 13:52 133 H 20 91/64 87 L 07/07/22 13:00 120 H 22 119/64 92 L 07/07/22 12:00 103/76 FiO2 07/08/22 11:00 07/08/22 10:00 07/08/22 09:44 07/08/22 09:26 07/08/22 09:00 07/08/22 08:00 50 07/08/22 07:00 07/08/22 06:00 07/08/22 05:00 07/08/22 04:29 50 07/08/22 04:00 50 07/08/22 03:00 07/08/22 02:00 07/08/22 01:00 07/08/22 00:23 50 07/08/22 00:06 07/08/22 00:00 50 07/07/22 23:00 50 07/07/22 22:28 50 07/07/22 22:00 07/07/22 21:49 07/07/22 21:00 07/07/22 20:40 07/07/22 20:39 07/07/22 20:18 07/07/22 20:00 50 07/07/22 19:14 50 07/07/22 19:13 07/07/22 18:29 07/07/22 18:15 50 07/07/22 18:00 50 07/07/22 17:45 50 07/07/22 17:30 50 07/07/22 17:15 50 07/07/22 17:00 50 07/07/22 16:51 07/07/22 16:45 50 07/07/22 16:41 07/07/22 16:30 50 07/07/22 16:15 50 07/07/22 16:10 50 07/07/22 16:01 07/07/22 15:31 07/07/22 15:15 07/07/22 15:05 50 12/12/22 15:00 07/07/22 14:45 07/07/22 14:39 07/07/22 14:38 07/07/22 14:30 07/07/22 14:27 07/07/22 14:25 50 07/07/22 14:16 07/07/22 14:00 07/07/22 13:55 40 07/07/22 13:52 07/07/22 13:00 07/07/22 12:00 Intake and Output 07/07/22 07/08/22 07/08/22 22:59 06:59 14:59 Intake Total 790 970 80 Output Total 0 1500 400 Balance 790 -530 -320 Intake: IV 250 700 80 Magnesium Sulfate-D5w Pmx 100 100 1 gm In Dextrose/Water 1 100ml.bag @ 100 mls/hr IVPB Q1H J[facility] Rx#: [id number] Sodium Chloride 0.9% 1, 150 600 80 000 ml @ 75 mls/hr IV . [id number] J[facility] Rx#:[id number] Oral 540 270 Output: Urine 0 1500 400 Other: Voiding Method Bedside Commode Bedside Commode Bedside Commode Weight 90.718 kg 96.2 kg - Exam General: Sitting up in chair, no acute distress. Conversing fluently without shortness of breath. HEENT: Atraumatic, normocephalic ,MMM.neck is supple, no JVD, no thyromegaly. Cardiovascular: S1S2 is normal, irregular , tachycardic. No murmur, rub or gallop is appreciated. Respiratory: Improved air entry with bilateral bases diminished with fine bibasilar crackles, minimal expiratory wheezing. Gastrointestinal: Soft, non-distended, without masses or organomegaly noted. There is no rebound or guarding present. Bowel sounds are unremarkable. Musculoskeletal: Normal ROM, no tenderness, There is no pedal edema. There is no calf tenderness or swelling. Neurological: CN II-XII intact, no focal deficits Skin: Skin is warm and dry and no rashes noted. Results CBC & Chem 7: 07/08/22 07:26 07/08/22 07:26 Labs: Abnormal Lab Results - Last 24 Hours (Table) 07/07/22 07/07/22 07/07/22 Range/Units 11:31 11:31 11:31 WBC 11.7 H (3.8-10.6) k/uL Hgb 16.1 H (11.4-16.0) gm/dL Hct 47.3 H (34.0-46.0) % Neutrophils # 9.7 H (1.3-7.7) k/uL VBG pCO2 56 H (37-51) mmHg VBG HCO3 32 H (24-28) mmol/L Sodium 134 L (137-145) mmol/L Potassium (3.5-5.1) mmol/L Chloride 93 L (98-107) mmol/L Carbon Dioxide 32 H (22-30) mmol/L BUN (7-17) mg/dL Glucose 158 H (74-99) mg/dL POC Glucose (mg/dL) (70-110) mg/dL Calcium (8.4-10.2) mg/dL Magnesium 1.5 L (1.6-2.3) mg/dL Procalcitonin (0.02-0.09) ng/mL RSV (PCR) (Not Detectd) 07/07/22 07/07/22 07/07/22 Range/Units 11:31 11:46 19:12 WBC (3.8-10.6) k/uL Hgb (11.4-16.0) gm/dL Hct (34.0-46.0) % Neutrophils # (1.3-7.7) k/uL VBG pCO2 (37-51) mmHg VBG HCO3 (24-28) mmol/L Sodium (137-145) mmol/L Potassium (3.5-5.1) mmol/L Chloride (98-107) mmol/L Carbon Dioxide (22-30) mmol/L BUN (7-17) mg/dL Glucose (74-99) mg/dL POC Glucose (mg/dL) 232 H (70-110) mg/dL Calcium (8.4-10.2) mg/dL Magnesium (1.6-2.3) mg/dL Procalcitonin 0.21 H (0.02-0.09) ng/mL RSV (PCR) Detected A (Not Detectd) 07/07/22 07/08/22 07/08/22 Range/Units 21:10 06:22 07:26 WBC (3.8-10.6) k/uL Hgb (11.4-16.0) gm/dL Hct (34.0-46.0) % Neutrophils # (1.3-7.7) k/uL VBG pCO2 (37-51) mmHg VBG HCO3 (24-28) mmol/L Sodium 136 L (137-145) mmol/L Potassium 3.4 L (3.5-5.1) mmol/L Chloride (98-107) mmol/L Carbon Dioxide (22-30) mmol/L BUN 19 H (7-17) mg/dL Glucose 246 H (74-99) mg/dL POC Glucose (mg/dL) 268 H 251 H (70-110) mg/dL Calcium 8.3 L (8.4-10.2) mg/dL Magnesium (1.6-2.3) mg/dL Procalcitonin (0.02-0.09) ng/mL RSV (PCR) (Not Detectd) 07/08/22 07/08/22 Range/Units 07:26 07:26 WBC 16.1 H (3.8-10.6) k/uL Hgb (11.4-16.0) gm/dL Hct (34.0-46.0) % Neutrophils # 14.6 H (1.3-7.7) k/uL VBG pCO2 (37-51) mmHg VBG HCO3 (24-28) mmol/L Sodium (137-145) mmol/L Potassium (3.5-5.1) mmol/L Chloride (98-107) mmol/L Carbon Dioxide (22-30) mmol/L BUN (7-17) mg/dL Glucose (74-99) mg/dL POC Glucose (mg/dL) (70-110) mg/dL Calcium (8.4-10.2) mg/dL Magnesium (1.6-2.3) mg/dL Procalcitonin 0.38 H (0.02-0.09) ng/mL RSV (PCR) (Not Detectd) Thrombosis Risk Factor Assmnt - Choose All That Apply Any of the Below Risk Factors Present?: Yes Each Risk Factor Represents 3 Points: Age 75 years or older Other congenital or acquired thrombophilia - If yes, enter type in comment: No Thrombosis Risk Factor Assessment Total Risk Factor Score: 3 Thrombosis Risk Factor Assessment Level: Moderate Risk Assessment and Plan Assessment: Acute hypoxic respiratory failure secondary to acute RSV bronchitis, acute COPD exacerbation, status post BiPAP Chronic atrial fibrillation currently with RVR on amiodarone drip 7 mm nodule right upper lobe reported per chest x-ray Recent Covid-19 infection Hypertension Chronic CHF, systolic dysfunction Mild to moderate mitral regurgitation, history Obesity, BMI 32.2 Plan: Continue on current medication regime ,monitoring and symptomatic treatment. Antiarrhythmics as per cardiology. Anticoagulated on Eliquis. Aggressive pulmonary toileting with nebulized bronchodilators, IV steroids. Hyperglycemic, steroid-induced, Lantus initiated. Potassium 3.4, receiving supplementation. The impression and plan of care has been dictated as directed. : I performed a history and examination of this patient, discussed the same with the dictator. I agree with the dictator's note ,documented as a scribe. Any additional findings or plans will be noted.
[2022-07-08] MEDS: ACETAMINOPHEN TAB 500 MG TAB PO PRN (16:20)
[2022-07-08 16:43] LABS: Glucose,Whole Blood 161 mg/dL (70-110)
--- NOTE | 2022-07-08 17:46 | CA ---
Transthoracic Echo Report Name: Josette Koenig Age: 76 Gender: F : 1945 Exam Date: 07/08/2022 14:07 Exam Location: [facility] Ht (in): 68 Wt (lb): 212 Ordering Physician: Ruperto Kumari MD ([id number]) Attending/Referring Phys: Sharemilker Cindy Chandra RDCS Procedure CPT: Indications: cm Cardiac Hx: Technical Quality: Fair Contrast 1: Total Dose (mL): Contrast 2: Total Dose (mL): MEASUREMENTS (Male / Female) Normal Values 2D ECHO LV Diastolic Diameter PLAX 3.5 cm 4.2 - 5.9 / 3.9 - 5.3 cm LV Systolic Diameter PLAX 2.8 cm IVS Diastolic Thickness 1.4 cm 0.6 - 1.0 / 0.6 - 0.9 cm LVPW Diastolic Thickness 1.5 cm 0.6 - 1.0 / 0.6 - 0.9 cm LV Relative Wall Thickness 0.8 LA Volume 76.5 cm??? 18 - 58 / 22 - 52 cm??? M-MODE Aortic Root Diameter MM 3.3 cm LA Systolic Diameter MM 4.2 cm LA Ao Ratio MM 1.3 AV Cusp Separation MM 1.9 cm DOPPLER AV Peak Velocity 112.5 cm/s AV Peak Gradient 5.1 mmHg TR Peak Velocity 253.6 cm/s TR Peak Gradient 25.7 mmHg Right Ventricular Systolic Press 30.7 mmHg FINDINGS Left Ventricle Moderately increased left ventricular wall thickness. Normal left ventricular systolic function with no obvious regional wall motion abnormalities. Left ventricular ejection fraction is estimated at 50-55 %. Right Ventricle Normal right ventricular size and function. Right ventricular systolic pressure within normal limits. Right Atrium Normal right atrial size. Left Atrium Severely increased left atrial volume. Mildly increased left atrial area. Mitral Valve Structurally normal mitral valve. Ccni-vs-ddkemujr mitral regurgitation. Aortic Valve No aortic valve stenosis or regurgitation. Tricuspid Valve Structurally normal tricuspid valve. Mild tricuspid regurgitation. Pulmonic Valve Trace pulmonic regurgitation. Pericardium No pericardial effusion. Aorta Normal size aortic root and proximal ascending aorta. CONCLUSIONS Moderate left ventricular hypertrophy with normal LV function Dilated left atrium Mild to moderate mitral regurgitation Mild tricuspid regurgitation Anterior echo free space probably represents pericardial fat pad Previewed by: Dr. Abhishek Olivera MD (Electronically Signed) Final Date: 08 July 2022 17:45
[2022-07-08 19:59] LABS: Glucose,Whole Blood 159 mg/dL (70-110)
[2022-07-08] MEDS: INSULIN DETEMIR (LEVEMIR) 100 UNIT/ML SYR SQ SCH (20:12)
[2022-07-08] MEDS: METOPROLOL SUCCINATE (ER) 50 MG TAB.ER.24H PO SCH (21:57)
[2022-07-09] MEDS: SODIUM CHLORIDE 0.9% 1,000 ML IV SCH (01:00)
[2022-07-09] MEDS: methylPREDNISolone SOD SUCCI 125 MG/2 ML VIAL IV SCH ×4 (01:07→18:01)
[2022-07-09 02:27] LABS: Glucose,Whole Blood 160 mg/dL (70-110)
[2022-07-09] MEDS: LEVOTHYROXINE 25 MCG TAB PO SCH (05:39)
[2022-07-09 06:31] LABS: Glucose,Whole Blood 158 mg/dL (70-110)
[2022-07-09 06:46] LABS: Calcium 8.3 mg/dL (8.4-10.2); Potassium 3.6 mmol/L (3.5-5.1)
[2022-07-09] MEDS: INSULIN ASPART (NovoLOG) 100 UNIT/ML VIAL SQ SCH ×4 (06:52→21:23)
--- NOTE | 2022-07-09 08:58 | P.PN ---
Subjective Progress Note Date: 07/09/22 PROGRESS NOTE The patient is a 76-year-old female with a history of hypertension, diabetes prior history of smoking, history of COPD for about a year ago had COVID-19 infection and had atrial fibrillation at that time she was subsequently evaluated by Dr. Olivera and underwent CAS guided cardioversion with zoroastrianism of sinus mechanism. At that time she was found to have a cardiomyopathy. It is unclear if her LV systolic function improved. According to her she had an MPI that showed no evidence of stress-induced ischemia. She has been doing well until the last week when she started to have cough, progressive dyspnea and fatigue. She presented with respiratory distress and was diagnosed with RSV infection. She was in atrial fibrillation with episodes of rapid ventricle response. She does not feel the palpitations. She denies any chest discomfort, PND or orthopnea. She has no peripheral edema. She is feeling better today and continues to be in atrial fibrillation. She has been anticoagulated as an outpatient. Her [id number] score is 5. On presentation her troponin was normal and her NT proBNP was 1550. She had no ventricular ectopic activity since admission. July 09: The patient continues to be dyspneic, coughing. She continues to be in atrial fibrillation with overall controlled ventricular response. She denies any chest discomfort, dizziness or palpitations. Her MPI in the office showed no evidence of stress-induced ischemia. Her echocardiogram showed an ejection fraction of 50-55% with [id number]-sd-mcihkigy mitral and mild tricuspid regurgitation. She has no nausea or vomiting. Medications: Amiodarone 400 mg twice a day, metoprolol succinate 50 mg twice a day, insulin, Lipitor 40 mg daily,Eliquis 5 mg bid PHYSICAL EXAMINATION: Blood pressure 113/70 heart rate 80 LUNGS: Scattered rhonchi HEART: Irregular rate and rhythm, S1, S2. No S3. systolic ejection murmur ABDOMEN: Soft, nontender, no organomegaly EXTREMETIES: No edema LAB: Potassium 3.6, BUN 29, creatinine 0.75 IMPRESSION: 1. RSV infection with dyspnea 2. Recurrent atrial fibrillation, anticoagulated, rate controlled 3. Prior cardiomyopathy improved 4. History of hypertension PLAN: 1. Continue present dose of amiodarone for 7 days 2. Continue beta flower 3. Increase physical activity 4. Restart low-dose RACHAEL inhibitor 5. If atrial fibrillation persists after resolution of the infection consider repeat heart cardioversion as an outpatient. Objective - Vital Signs Vital signs: Vital Signs Temp 97.9 F 07/09/22 04:00 Pulse 89 07/09/22 04:00 Resp 21 07/09/22 04:00 BP 113/70 07/09/22 04:00 Pulse Ox 91 L 07/09/22 04:00 FiO2 50 07/08/22 08:00 Intake & Output 07/08/22 07/09/22 07/09/22 18:59 06:59 18:59 Intake Total 240 180 Output Total 1200 1350 Balance -960 -1170 Weight 95.8 kg Intake: IV 240 180 Sodium Chloride 0.9% 1, 240 180 000 ml @ 75 mls/hr IV . [id number] [facility] Rx#:[id number] Output: Urine 1200 1350 Other: Voiding Method Bedside Commode Bedside Commode # Voids 0 1 # Bowel Movements 1 - Labs CBC & Chem 7: 07/08/22 07:26 07/09/22 05:46 Labs: Abnormal Lab Results - Last 24 Hours (Table) 07/08/22 07/08/22 07/08/22 Range/Units 07:26 11:35 16:42 BUN (7-17) mg/dL Glucose (74-99) mg/dL POC Glucose (mg/dL) 262 H 161 H (70-110) mg/dL Calcium (8.4-10.2) mg/dL Procalcitonin 0.38 H (0.02-0.09) ng/mL 07/08/22 07/09/22 07/09/22 Range/Units 19:58 02:25 05:46 BUN 29 H (7-17) mg/dL Glucose 164 H (74-99) mg/dL POC Glucose (mg/dL) 159 H 160 H (70-110) mg/dL Calcium 8.3 L (8.4-10.2) mg/dL Procalcitonin (0.02-0.09) ng/mL 07/09/22 Range/Units 06:30 BUN (7-17) mg/dL Glucose (74-99) mg/dL POC Glucose (mg/dL) 158 H (70-110) mg/dL Calcium (8.4-10.2) mg/dL Procalcitonin (0.02-0.09) ng/mL Microbiology - Last 24 Hours (Table) 07/07/22 11:31 Blood Culture - Preliminary Blood No Growth after 24 hours 07/07/22 11:31 Blood Culture - Preliminary Blood No Growth after 24 hours
[2022-07-09] MEDS: IPRATROPIUM-ALBUTEROL 3 ML NEB INHALATION SCH ×4 (09:07→20:05)
[2022-07-09] MEDS ORDERED: FUROSEMIDE 10 MG/ML 2 ML VIAL IV STA (10:03)
[2022-07-09] MEDS ORDERED: SODIUM CHLORIDE 0.65% NASAL SPRAY 44 ML BTL NASAL PRN (10:04)
[2022-07-09] MEDS: PANTOPRAZOLE 40 MG/10 ML VIAL IVP SCH (10:06)
[2022-07-09] MEDS: APIXABAN 5 MG TAB PO SCH ×2 (10:07→21:23)
[2022-07-09] MEDS: AMIODARONE 200 MG TAB PO SCH ×2 (10:07→21:23)
[2022-07-09] MEDS: METOPROLOL SUCCINATE (ER) 50 MG TAB.ER.24H PO SCH ×2 (10:07→21:35)
[2022-07-09] MEDS: ATORVASTATIN 40 MG TAB PO SCH (10:07)
[2022-07-09] MEDS: guaiFENesin-DM 100-10MG/5ML 10 ML CUP PO SCH ×2 (11:35→18:01)
[2022-07-09] MEDS: BUDESONIDE 1 MG/2 ML NEBU INHALATION SCH ×2 (11:47→20:05)
[2022-07-09 12:00] LABS: Glucose,Whole Blood 267 mg/dL (70-110)
--- NOTE | 2022-07-09 13:47 | P.PN ---
Subjective Progress Note Date: 07/09/22 07/09/2022 H&P Date: 07/08/22 Chief Complaint: Worsening dyspnea This is 76-year-old female with past medical history of COPD, hypertension, former nicotine dependence, COVID-19 infection, and multiple other medical issues presented to the ER with complaints of worsening dyspnea. Hypoxic on admission, initially placed on 3 L nasal cannula, continued to decline and eventually required BiPAP.developed atrial fibrillation with RVR, initially treated with IV Cardizem, blood pressure softened. troponin negative 2 ,NT proBNP 1550.Chest x-ray reported mild cardiomegaly without pulmonary theodore congestion, with no overt failure. Repeat chest x-ray reported basilar atelectasis favored over pneumonia, 7 mm nodule right upper lobe .influenza screen negative ,tested positive for RSV. Placed on nebulized bronchodilators, IV steroids and weaned to 6 L high flow nasal cannula. Bdhcolctkmfet-vcogfnq-nmxgifv. Pro-calcitonin 0.21 . Sputum culture reporting many Haemophilus influenzae. Renal function stable This morning telemetry A. fib heart rates 130s to 140s, completing amiodarone drip and transitioning to oral. Received an additional dose of metoprolol. Denies chest pain, palpitations. 07/09/2022 telemetry A. fib with controlled ventricular rate, transition to oral amiodarone yesterday, continued on beta flower. Maintaining O2 sats in the 90s on 8 L high flow nasal cannula. Received a dose of Lasix 40 mg IV push 1 as per pulmonary. Sitting up in chair, positive diet intake, denies nausea vomiting or diarrhea. Bowel movement earlier this a.m. denies chest pain, palpitations. Echo completed yesterday reporting moderate left ventricular hypertrophy with normal LV function, mild to moderate mitral regurgitation. Objective - Vital Signs Vital signs: Vital Signs Temp 97.9 F 07/09/22 08:00 Pulse 110 H 07/09/22 12:02 Resp 25 H 07/09/22 10:00 BP 129/81 07/09/22 10:00 Pulse Ox 91 L 07/09/22 10:00 FiO2 50 07/08/22 08:00 Intake & Output 07/08/22 07/09/22 07/09/22 18:59 06:59 18:59 Intake Total 240 180 Output Total 1200 1350 0 Balance -960 -1170 0 Weight 95.8 kg Intake: IV 240 180 Sodium Chloride 0.9% 1, 240 180 000 ml @ 75 mls/hr IV . [id number] [facility] Rx#:[id number] Output: Urine 1200 1350 0 Other: Voiding Method Bedside Commode Bedside Commode Bedside Commode # Voids 0 1 # Bowel Movements 1 1 - Exam - Exam General: Sitting up in chair, no acute distress. Conversing fluently without shortness of breath. HEENT: Atraumatic, normocephalic ,MMM.neck is supple, no JVD, Cardiovascular: S1S2 is normal, irregular , No murmur, rub or gallop is appreciated. Respiratory: Improved air entry with bilateral bases diminished with fine bibasilar crackles, minimal expiratory wheezing. Gastrointestinal: Soft, non-distended, without masses or organomegaly noted. There is no rebound or guarding present. Positive Bowel sounds. EXTREMITIES: no pedal edema. There is no calf tenderness or swelling. Neurological: CN II-XII intact, no focal deficits Skin: Skin is warm and dry and no rashes noted. - Labs CBC & Chem 7: 07/08/22 07:26 07/09/22 05:46 Labs: Abnormal Lab Results - Last 24 Hours (Table) 07/08/22 07/08/22 07/09/22 Range/Units 16:42 19:58 02:25 BUN (7-17) mg/dL Glucose (74-99) mg/dL POC Glucose (mg/dL) 161 H 159 H 160 H (70-110) mg/dL Calcium (8.4-10.2) mg/dL 07/09/22 07/09/22 07/09/22 Range/Units 05:46 06:30 11:59 BUN 29 H (7-17) mg/dL Glucose 164 H (74-99) mg/dL POC Glucose (mg/dL) 158 H 267 H (70-110) mg/dL Calcium 8.3 L (8.4-10.2) mg/dL Microbiology - Last 24 Hours (Table) 07/07/22 11:31 Blood Culture - Preliminary Blood No Growth after 24 hours 07/07/22 11:31 Blood Culture - Preliminary Blood No Growth after 24 hours Assessment and Plan Assessment: Acute hypoxic respiratory failure secondary to acute RSV bronchitis, acute COPD exacerbation, status post BiPAP Chronic atrial fibrillation currently with RVR on amiodarone drip 7 mm nodule right upper lobe reported per chest x-ray Recent Covid-19 infection Hypertension Chronic CHF, systolic dysfunction Mild to moderate mitral regurgitation, history Obesity, BMI 32.2 Plan: Continue on current medication regime ,monitoring and symptomatic treatment. Antiarrhythmics as per cardiology. Anticoagulated on Eliquis. Aggressive pulmonary toileting with nebulized bronchodilators, IV steroids. Hyperglycemic, steroid-induced, Lantus initiated. Potassium 3.4, receiving supplementation. The impression and plan of care has been dictated as directed. : I performed a history and examination of this patient, discussed the same with the dictator. I agree with the dictator's note ,documented as a scribe. Any additional findings or plans will be noted.
--- NOTE | 2022-07-09 15:20 | P.PN ---
Subjective Progress Note Date: 07/09/22 76-year-old female patient who presented emergency department with progressively worsening shortness of breath. The patient is known to me. After taking care of this patient back in June 2021 and at that time the patient had a Covid 19 infection/pneumonia. The patient was given a monoclonal antibiotics in the emergency department and subsequently she developed bilateral pulmonary infiltrates and she was given steroids and she gradually improved and she was discharged home. She was also given Remdesivir. During this current admission, the patient came into the emergency department because of shortness of breath and she was found to be hypoxic. She was placed initially on oxygen at 3-1/2 L and subsequently her condition further decompensated and the patient was placed on BiPAP. At the time of my arrival in the emergency department, the patient was receiving BiPAP at a pressure of 12/6 and 50 she was able to generate a tidal volume of 550 and her respiratory rate was 28 and a minute ventilation was 13.7. The patient was in acute COPD exacerbation. The chest x-ray showed mild hepatomegaly without pulmonary vessel congestion. Nevertheless, during her hospital emergency stay, the patient went into atrial fibrillation with rapid ventricular response. She was given a dose of Cardizem with limited success. She became borderline hypotensive along with A. fib RVR. She checked positive for RSV. Her Covid 19 testing was negative. She is known to have severe COPD with an FEV1 of 49%. The patient has limited on Trelegy Ellipta on outpatient basis. Her blood work showed a WBC count of 11.7 with a hemoglobin of 16 normal coagulation profile, d-dimer was at 0.4, BUN was 50 with a creatinine of 0.80 sodium level of 134 with a potassium level of 3.9. Troponins were negative. ProBNP level was 1550. Influenza screen was negative. Troponin 2 was negative. On 07/08/2022, the patient is doing well. She is off the BiPAP and is on 5 L of oxygen by nasal cannula. Less short of breath bronchospastic and wheezy. Note that the patient was infected with RSV which exacerbated underlying COPD. She also went into atrial fibrillation with rapid ventricular response. She was started on amiodarone loading and the patient is currently on amiodarone 0.5 mg/m maintenance. She is going to switch to oral amiodarone. She missed into fibrillation. Her pro calcitonin level was at 0.21. No vesicles of 16.4 with a hemoglobin of 14.2 platelets of 208. Sodium is at 136 with a BUN of 19 and a creatinine of 0.6. Alert and awake and communicating. Tolerating her diet. Denies having any chest pain. The proBNP level was slightly elevated at 1 5 x 0 and the troponins were negative. Blood sugars are slightly elevated secondary to systemic steroids as the patient is currently on IV Solu-Medrol 60 mg every 6 hours. The patient is also on anticoagulants with Eliquis. 07/09/2022, the patient is feeling better. She is on 8 L of oxygen by nasal cannula. Nevertheless, she feels less bronchospastic and wheezy and her cough has essentially subsided and the patient is not using the BiPAP at this point in time. She is on DuoNeb about treatments [id number]. She is on Pulmicort Respules and Perforomist twice a day and she is also receiving IV Solu-Medrol 60 mg IV push every 6 hours. She remained nature fibrillation. Rate is controlled. The patient on anticoagulation with Eliquis. The patient also metoprolol XL 50 mg by mouth daily. No other significant events otherwise for now. IV fluids are still running at the rate of 75 mL an hour. She is fariba ating her diet. No chest pain. No nausea or vomiting. No other complaints otherwise for now. Echocardiogram was noted and the patient has a preserved LV function with an ejection fraction of 50% without any valvular abnormalities. No evidence of any pulmonary hypertension. Objective - Vital Signs Vital signs: Vital Signs Temp 97.9 F 07/09/22 12:00 Pulse 110 H 07/09/22 12:02 Resp 14 07/09/22 12:00 BP 105/51 07/09/22 12:00 Pulse Ox 91 L 07/09/22 12:00 FiO2 50 07/08/22 08:00 Intake & Output 07/08/22 07/09/22 07/09/22 18:59 06:59 18:59 Intake Total 240 180 500 Output Total 1200 1350 0 Balance -960 -1170 500 Weight 95.8 kg Intake: IV 240 180 Sodium Chloride 0.9% 1, 240 180 000 ml @ 75 mls/hr IV . [id number] [facility] Rx#:[id number] Oral 500 Output: Urine 1200 1350 0 Other: Voiding Method Bedside Commode Bedside Commode Bedside Commode # Voids 0 1 1 # Bowel Movements 1 1 - Exam Gen. appearance the patient is a mild degree of respiratory distress and the patient is currently off BiPAP on 8 L of oxygen by nasal cannula Head exam was generally normal. There was no scleral icterus or corneal arcus. Mucous membranes were moist. Neck was supple and without jugular venous distension, thyromegaly, or carotid bruits. Carotids were easily palpable bilaterally. There was no adenopathy. HEENT: Head is normocephalic. No JVD. No carotid bruit. CHEST EXAMINATION: Lungs are diminished bilaterally to auscultation. Few crackles in lung bases bilaterally, diminished wheezing compared to yesterday and there is improvement in air entry HEART EXAMINATION: Irregular rate and rhythm. S1, S2 heard. The patient was also no evidence currently response. Abdominal exam revealed normal bowel sounds. The abdomen was soft, non-tender, and without masses, organomegaly, or appreciable enlargement of the abdominal aorta. EXTREMITIES: no lower extremity edema and no calf tenderness. Neurologically, the patient is awake and alert and the patient does not have any focal neurological deficit. Cranial nerves are essentially intact. Examination of the skin revealed no evidence of significant rashes, suspicious appearing nevi or other concerning lesions. - Labs CBC & Chem 7: 07/08/22 07:26 07/09/22 05:46 Labs: Abnormal Lab Results - Last 24 Hours (Table) 07/08/22 07/08/22 07/09/22 Range/Units 16:42 19:58 02:25 BUN (7-17) mg/dL Glucose (74-99) mg/dL POC Glucose (mg/dL) 161 H 159 H 160 H (70-110) mg/dL Calcium (8.4-10.2) mg/dL 07/09/22 07/09/22 07/09/22 Range/Units 05:46 06:30 11:59 BUN 29 H (7-17) mg/dL Glucose 164 H (74-99) mg/dL POC Glucose (mg/dL) 158 H 267 H (70-110) mg/dL Calcium 8.3 L (8.4-10.2) mg/dL Microbiology - Last 24 Hours (Table) 07/07/22 11:31 Blood Culture - Preliminary Blood No Growth after 48 hours 07/07/22 11:31 Blood Culture - Preliminary Blood No Growth after 48 hours Assessment and Plan Plan: Acute COPD exacerbation, improving, and the exacerbating factor was RSV infection of the lungs. The patient is less short of breath as bronchus spastic and wheezy. Oxygenation is still abnormal and the patient is currently on 8 L of O2 nasal cannula. Acute hypoxic respiratory failure the patient is currently on 8 L of oxygen by n gypsy cannula Acute RSV tracheal bronchitis with secondary COPD exacerbation, improved compared to yesterday Acute dyspnea and hypoxic respiratory failure currently on a BiPAP at the time of admission currently the patient is off the BiPAP on 8 L of 02 nasal cannula Atrial fibrillation, chronic with rapid ventricular response secondary to above, currently on amiodarone loading to be transitioned to oral amiodarone and the patient isn't particularly related with Eliquis, the patient's rate is under better control for now and the patient is on metoprolol 50 mg by mouth daily in combination with amiodarone 400 mg by mouth twice a day. Recent Covid 19 pneumonia, hospitalized back in June 2021 Advanced COPD with an FEV1 of 49% of predicted maintain on Trelegy Ellipta on outpatient basis Hypertension Chronic systolic heart failure with an ejection fraction of 40-45% based on echocardiography from 07/17/2021. The patient also has [id number] mitral regurgitation Plan Keep the patient 8 L of O2 nasal cannula Wean down FiO2 to maintain saturation above 90% Discontinue BiPAP Continue patient on DuoNeb nebulized treatments [id number] and IV Solu- Medrol 60 mg every 6 hours Oral amiodarone at a dose of 400 mg by mouth twice a day and metoprolol 50 mg by mouth twice a day for rate control Continue anticoagulation with Eliquis Clinically improving Levemir insulin coverage for blood sugar control We'll continue to follow make further recommendations based on her progress IV fluids to KVO We'll give the patient does of Lasix 40 mg IV push 1. The patient can be transferred out of the intensive care unit for now.
[2022-07-09 16:47] LABS: Glucose,Whole Blood 170 mg/dL (70-110)
[2022-07-09 21:16] LABS: Glucose,Whole Blood 168 mg/dL (70-110)
[2022-07-09] MEDS: INSULIN DETEMIR (LEVEMIR) 100 UNIT/ML SYR SQ SCH (21:23)
[2022-07-10] MEDS: guaiFENesin-DM 100-10MG/5ML 10 ML CUP PO SCH ×5 (00:57→23:30)
[2022-07-10] MEDS: methylPREDNISolone SOD SUCCI 125 MG/2 ML VIAL IV SCH ×5 (00:57→23:29)
[2022-07-10 06:36] LABS: Glucose,Whole Blood 177 mg/dL (70-110)
[2022-07-10] MEDS: INSULIN ASPART (NovoLOG) 100 UNIT/ML VIAL SQ SCH ×4 (06:39→21:21)
[2022-07-10] MEDS: LEVOTHYROXINE 25 MCG TAB PO SCH (06:39)
[2022-07-10 06:45] LABS: Basophils # (A) 0.1 k/uL (0-0.2); Basophils % (A) 0 %; Eosinophils % (A) 0 %; HCT 38.7 % (34.0-46.0); HGB 13.1 gm/dL (11.4-16.0); Lymphocytes # (A) 1.2 k/uL (1.0-4.8); Lymphocytes % (A) 6 %; MCH 29.8 pg (25.0-35.0); MCHC 33.9 g/dL (31.0-37.0); MCV 87.9 fL (80.0-100.0); Monocytes # (A) 0.5 k/uL (0-1.0); Monocytes % (A) 3 %; Neutrophils # (A) 16.4 k/uL (1.3-7.7); Neutrophils % (A) 89 %; Platelet Count 233 k/uL (150-450); RBC 4.41 m/uL (3.80-5.40); RDW 13.1 % (11.5-15.5); WBC 18.4 k/uL (3.8-10.6)
[2022-07-10] MEDS ORDERED: FUROSEMIDE 10 MG/ML 4 ML VIAL IV STA (07:06)
[2022-07-10 07:09] LABS: Calcium 8.3 mg/dL (8.4-10.2); Potassium 3.5 mmol/L (3.5-5.1)
--- NOTE | 2022-07-10 07:09 | P.PN ---
Subjective Progress Note Date: 07/10/22 76-year-old female patient who presented emergency department with progressively worsening shortness of breath. The patient is known to me. After taking care of this patient back in June 2021 and at that time the patient had a Covid 19 infection/pneumonia. The patient was given a monoclonal antibiotics in the emergency department and subsequently she developed bilateral pulmonary infiltrates and she was given steroids and she gradually improved and she was discharged home. She was also given Remdesivir. During this current admission, the patient came into the emergency department because of shortness of breath and she was found to be hypoxic. She was placed initially on oxygen at 3-1/2 L and subsequently her condition further decompensated and the patient was placed on BiPAP. At the time of my arrival in the emergency department, the patient was receiving BiPAP at a pressure of 12/6 and 50 she was able to generate a tidal volume of 550 and her respiratory rate was 28 and a minute ventilation was 13.7. The patient was in acute COPD exacerbation. The chest x-ray showed mild hepatomegaly without pulmonary vessel congestion. Nevertheless, during her hospital emergency stay, the patient went into atrial fibrillation with rapid ventricular response. She was given a dose of Cardizem with limited success. She became borderline hypotensive along with A. fib RVR. She checked positive for RSV. Her Covid 19 testing was negative. She is known to have severe COPD with an FEV1 of 49%. The patient has limited on Trelegy Ellipta on outpatient basis. Her blood work showed a WBC count of 11.7 with a hemoglobin of 16 normal coagulation profile, d-dimer was at 0.4, BUN was 50 with a creatinine of 0.80 sodium level of 134 with a potassium level of 3.9. Troponins were negative. ProBNP level was 1550. Influenza screen was negative. Troponin 2 was negative. On 07/08/2022, the patient is doing well. She is off the BiPAP and is on 5 L of oxygen by nasal cannula. Less short of breath bronchospastic and wheezy. Note that the patient was infected with RSV which exacerbated underlying COPD. She also went into atrial fibrillation with rapid ventricular response. She was started on amiodarone loading and the patient is currently on amiodarone 0.5 mg/m maintenance. She is going to switch to oral amiodarone. She missed into fibrillation. Her pro calcitonin level was at 0.21. No vesicles of 16.4 with a hemoglobin of 14.2 platelets of 208. Sodium is at 136 with a BUN of 19 and a creatinine of 0.6. Alert and awake and communicating. Tolerating her diet. Denies having any chest pain. The proBNP level was slightly elevated at 1 5 x 0 and the troponins were negative. Blood sugars are slightly elevated secondary to systemic steroids as the patient is currently on IV Solu-Medrol 60 mg every 6 hours. The patient is also on anticoagulants with Eliquis. 07/09/2022, the patient is feeling better. She is on 8 L of oxygen by nasal cannula. Nevertheless, she feels less bronchospastic and wheezy and her cough has essentially subsided and the patient is not using the BiPAP at this point in time. She is on DuoNeb about treatments [id number]. She is on Pulmicort Respules and Perforomist twice a day and she is also receiving IV Solu-Medrol 60 mg IV push every 6 hours. She remained nature fibrillation. Rate is controlled. The patient on anticoagulation with Eliquis. The patient also metoprolol XL 50 mg by mouth daily. No other significant events otherwise for now. IV fluids are still running at the rate of 75 mL an hour. She is fariba ating her diet. No chest pain. No nausea or vomiting. No other complaints otherwise for now. Echocardiogram was noted and the patient has a preserved LV function with an ejection fraction of 50% without any valvular abnormalities. No evidence of any pulmonary hypertension. 15 2021, the patient remains on 8 L. She is using the incentive spirometer. Her pulse ox is ranging between 91-94%. Chest x-ray shows some increased interstitial marking in small left-sided pleural effusion/atelectasis. Otherwise, there is no airspace disease. The patient remains on bronchodilators. The patient remains on Pulmicort Respules and Perforomist updrafts. The patient remains on IV Solu-Medrol. Her cardiac rhythm is atrial fibrillation which is essentially well controlled and the patient is on ant icoagulants. Her IV fluids are currently of KVO. She was given a dose of Lasix yesterday with good diuresis. This will be repeated today. Had echocardiogram showed a preserved LV function with an EF of around 50%. Objective - Vital Signs Vital signs: Vital Signs Temp 98.0 F 07/10/22 04:00 Pulse 112 H 07/09/22 20:29 Resp 19 07/09/22 16:00 BP 118/76 07/10/22 04:00 Pulse Ox 96 07/10/22 04:00 FiO2 50 07/08/22 08:00 Intake & Output 07/09/22 07/10/22 07/10/22 18:59 06:59 18:59 Intake Total 500 Output Total 0 Balance 500 Weight 90 kg Intake: Oral 500 Output: Urine 0 Other: Voiding Method Bedside Commode Bedside Commode # Voids 1 0 # Bowel Movements 1 - Exam Gen. appearance the patient is a mild degree of respiratory distress and the patient is currently off BiPAP on 8 L of oxygen by nasal cannula Head exam was generally normal. There was no scleral icterus or corneal arcus. Mucous membranes were moist. Neck was supple and without jugular venous distension, thyromegaly, or carotid bruits. Carotids were easily palpable bilaterally. There was no adenopathy. HEENT: Head is normocephalic. No JVD. No carotid bruit. CHEST EXAMINATION: Lungs are diminished bilaterally to auscultation. Few crack les in lung bases bilaterally, diminished wheezing compared to yesterday and there is improvement in air entry HEART EXAMINATION: Irregular rate and rhythm. S1, S2 heard. The patient was also no evidence currently response. Abdominal exam revealed normal bowel sounds. The abdomen was soft, non-tender, and without masses, organomegaly, or appreciable enlargement of the abdominal aorta. EXTREMITIES: no lower extremity edema and no calf tenderness. Neurologically, the patient is awake and alert and the patient does not have any focal neurological deficit. Cranial nerves are essentially intact. Examination of the skin revealed no evidence of significant rashes, suspicious appearing nevi or other concerning lesions. - Labs CBC & Chem 7: 07/10/22 05:41 07/09/22 05:46 Labs: Abnormal Lab Results - Last 24 Hours (Table) 07/09/22 07/09/22 07/09/22 Range/Units 11:59 16:45 21:15 WBC (3.8-10.6) k/uL Neutrophils # (1.3-7.7) k/uL POC Glucose (mg/dL) 267 H 170 H 168 H (70-110) mg/dL 07/10/22 07/10/22 Range/Units 05:41 06:35 WBC 18.4 H (3.8-10.6) k/uL Neutrophils # 16.4 H (1.3-7.7) k/uL POC Glucose (mg/dL) 177 H (70-110) mg/dL Microbiology - Last 24 Hours (Table) 07/07/22 11:31 Blood Culture - Preliminary Blood No Growth after 48 hours 07/07/22 11:31 Blood Culture - Preliminary Blood No Growth after 48 hours Assessment and Plan Plan: Acute COPD exacerbation, improving, and the exacerbating factor was RSV infection of the lungs. The patient is less short of breath as bronchus spastic and wheezy. Oxygenation is still abnormal and the patient is currently on 8 L of O2 nasal cannula. Chest x-ray still showing some pulmonary vascular markings and small effusion left lung base. Oxygen requirements remain unchanged and the patient remains on 8 L of oxygen by nasal cannula. Nevertheless, much less bronchospastic and wheezy on today's evaluation. Remains on bronchodilators. Remains on steroids. Acute hypoxic respiratory failure the patient is currently on 8 L of oxygen by nasal cannula Acute RSV tracheal bronchitis with secondary COPD exacerbation, improved compared to yesterday Acute dyspnea and hypoxic respiratory failure currently on a BiPAP at the time of admission currently the patient is off the BiPAP on 8 L of 02 nasal cannula Atrial fibrillation, chronic with rapid ventricular response secondary to above, currently on amiodarone loading to be transitioned to oral amiodarone and the patient isn't particularly related with Eliquis, the patient's rate is under better control for now and the patient is on metoprolol 50 mg by mouth daily in combination with amiodarone 400 mg by mouth twice a day. Recent Covid 19 pneumonia, hospitalized back in June 2021 Advanced COPD with an FEV1 of 49% of predicted maintain on Trelegy Ellipta on o utpatient basis Hypertension Chronic systolic heart failure with an ejection fraction of 40-45% based on echocardiography from 07/17/2021. The patient also has [id number] mitral regurgitation Plan Keep the patient 8 L of O2 nasal cannula Give the patient another dose of Lasix 40 mg IV Wean down FiO2 to maintain saturation above 90% Obtain adequate pulse ox reading Continue patient on DuoNeb nebulized treatments [id number] and IV Solu- Medrol 60 mg every 6 hours Oral amiodarone at a dose of 400 mg by mouth twice a day and metoprolol 50 mg by mouth twice a day for rate control Continue anticoagulation with Eliquis Levemir insulin coverage for blood sugar control IV fluids to KVO Use incentive spirometer. The patient can be transferred out of the intensive care unit for now.
[2022-07-10] MEDS ORDERED: Potassium Replacement Protocol 1 EACH MISC MISCELLANE PRN (07:53)
--- NOTE | 2022-07-10 08:22 | P.PN ---
Subjective Progress Note Date: 07/10/22 PROGRESS NOTE The patient is a 76-year-old female with a history of hypertension, diabetes prior history of smoking, history of COPD for about a year ago had COVID-19 infection and had atrial fibrillation at that time she was subsequently evaluated by Dr. Olivera and underwent CAS guided cardioversion with taoist of sinus mechanism. At that time she was found to have a cardiomyopathy. It is unclear if her LV systolic function improved. According to her she had an MPI that showed no evidence of stress-induced ischemia. She has been doing well until the last week when she started to have cough, progressive dyspnea and fatigue. She presented with respiratory distress and was diagnosed with RSV infection. She was in atrial fibrillation with episodes of rapid ventricle response. She does not feel the palpitations. She denies any chest discomfort, PND or orthopnea. She has no peripheral edema. She is feeling better today and continues to be in atrial fibrillation. She has been anticoagulated as an outpatient. Her [id number] score is 5. On presentation her troponin was normal and her NT proBNP was 1550. She had no ventricular ectopic activity since admission. July 09: The patient continues to be dyspneic, coughing. She continues to be in atrial fibrillation with overall controlled ventricular response. She denies any chest discomfort, dizziness or palpitations. Her MPI in the office showed no evidence of stress-induced ischemia. Her echocardiogram showed an ejection fraction of 50-55% with [id number] mitral and mild tricuspid regurgitation. She has no nausea or vomiting. July 10: The patient feels better today, her cough is better. She denies any chest discomfort, dizziness or palpitations. She continues to be in atrial ablation with controlled ventricular response. She has no evidence of ventricular ectopic activity. She continues to be anticoagulated. She received one dose of diuresis yesterday Medications: Amiodarone 400 mg twice a day, metoprolol succinate 50 mg twice a day, insulin, Lipitor 40 mg daily,Eliquis 5 mg bid, lisinopril 20 half milligrams twice a day PHYSICAL EXAMINATION: Blood pressure 118/70 heart rate 90 LUNGS: Scattered rhonchi HEART: Irregular rate and rhythm, S1, S2. No S3. systolic ejection murmur ABDOMEN: Soft, nontender, no organomegaly EXTREMETIES: No edema LAB: Potassium 3.5, BUN 33, creatinine 0.76 IMPRESSION: 1. RSV infection with dyspnea with exacerbation of COPD 2. Recurrent atrial fibrillation, anticoagulated, rate controlled 3. Prior cardiomyopathy improved 4. History of hypertension PLAN: 1. If heart rate remains stable decrease amiodarone tomorrow 2. Follow blood pressure and adjust the dose of RACHAEL inhibitor 3. Increase physical activity and probable transfer to telemetry 4. Evaluate as outpatient for repeat cardioversion once her infectious process resolves. Objective - Vital Signs Vital signs: Vital Signs Temp 98.0 F 07/10/22 04:00 Pulse 112 H 07/09/22 20:29 Resp 19 07/09/22 16:00 BP 118/76 07/10/22 04:00 Pulse Ox 96 07/10/22 04:00 FiO2 50 07/08/22 08:00 Intake & Output 07/09/22 07/10/22 07/10/22 18:59 06:59 18:59 Intake Total 500 Output Total 0 Balance 500 Weight 90 kg Intake: Oral 500 Output: Urine 0 Other: Voiding Method Bedside Commode Bedside Commode # Voids 1 0 # Bowel Movements 1 - Labs CBC & Chem 7: 07/10/22 05:41 07/10/22 05:41 Labs: Abnormal Lab Results - Last 24 Hours (Table) 07/09/22 07/09/22 07/09/22 Range/Units 11:59 16:45 21:15 WBC (3.8-10.6) k/uL Neutrophils # (1.3-7.7) k/uL Carbon Dioxide (22-30) mmol/L BUN (7-17) mg/dL Glucose (74-99) mg/dL POC Glucose (mg/dL) 267 H 170 H 168 H (70-110) mg/dL Calcium (8.4-10.2) mg/dL 07/10/22 07/10/22 07/10/22 Range/Units 05:41 05:41 06:35 WBC 18.4 H (3.8-10.6) k/uL Neutrophils # 16.4 H (1.3-7.7) k/uL Carbon Dioxide 35 H (22-30) mmol/L BUN 33 H (7-17) mg/dL Glucose 144 H (74-99) mg/dL POC Glucose (mg/dL) 177 H (70-110) mg/dL Calcium 8.3 L (8.4-10.2) mg/dL Microbiology - Last 24 Hours (Table) 12 11:31 Blood Culture - Preliminary Blood No Growth after 48 hours 07/07/22 11:31 Blood Culture - Preliminary Blood No Growth after 48 hours
[2022-07-10] MEDS: BUDESONIDE 1 MG/2 ML NEBU INHALATION SCH ×2 (08:58→21:06)
[2022-07-10] MEDS: IPRATROPIUM-ALBUTEROL 3 ML NEB INHALATION SCH ×4 (08:58→21:06)
--- NOTE | 2022-07-10 09:17 | XR ---
EXAMINATION TYPE: XR chest 1V portable DATE OF EXAM: 07/10/2022 COMPARISON: NONE HISTORY: SOB TECHNIQUE: Single frontal view of the chest is obtained. FINDINGS: There is no focal air space opacity, pleural effusion, or pneumothorax seen. The cardiac s ilhouette size is within normal limits. The osseous structures are intact. Subsegmental linear change s at the lung bases. Heart size upper limits of normal. No overt failure. Nodule measuring 7 mm right upper lobe. IMPRESSION: Basilar atelectasis favored over pneumonia. There is a 7 mm nodule right upper lobe.
[2022-07-10] MEDS: PANTOPRAZOLE 40 MG/10 ML VIAL IVP SCH (09:22)
[2022-07-10] MEDS: APIXABAN 5 MG TAB PO SCH ×2 (09:22→21:21)
[2022-07-10] MEDS: POTASSIUM CHLORIDE ER 20 MEQ TAB.ER PO SCH ×2 (09:22→11:42)
[2022-07-10] MEDS: ATORVASTATIN 40 MG TAB PO SCH (09:22)
[2022-07-10] MEDS: AMIODARONE 200 MG TAB PO SCH ×2 (09:22→21:21)
[2022-07-10] MEDS: METOPROLOL SUCCINATE (ER) 50 MG TAB.ER.24H PO SCH ×2 (09:28→21:22)
[2022-07-10 11:35] LABS: Glucose,Whole Blood 146 mg/dL (70-110)
--- NOTE | 2022-07-10 11:54 | P.PN ---
Subjective Progress Note Date: 07/10/22 07/09/2022 H&P Date: 07/08/22 Chief Complaint: Worsening dyspnea This is 76-year-old female with past medical history of COPD, hypertension, former nicotine dependence, COVID-19 infection, and multiple other medical issues presented to the ER with complaints of worsening dyspnea. Hypoxic on admission, initially placed on 3 L nasal cannula, continued to decline and eventually required BiPAP.developed atrial fibrillation with RVR, initially treated with IV Cardizem, blood pressure softened. troponin negative 2 ,NT proBNP 1550.Chest x-ray reported mild cardiomegaly without pulmonary theodore congestion, with no overt failure. Repeat chest x-ray reported basilar atelectasis favored over pneumonia, 7 mm nodule right upper lobe .influenza screen negative ,tested positive for RSV. Placed on nebulized bronchodilators, IV steroids and weaned to 6 L high flow nasal cannula. Agpvbjpzcowqr-cvnnzzo-rohxyrq. Pro-calcitonin 0.21 . Sputum culture reporting many Haemophilus influenzae. Renal function stable This morning telemetry A. fib heart rates 130s to 140s, completing amiodarone drip and transitioning to oral. Received an additional dose of metoprolol. Denies chest pain, palpitations. 07/09/2022 telemetry A. fib with controlled ventricular rate, transition to oral amiodarone yesterday, continued on beta flower. Maintaining O2 sats in the 90s on 8 L high flow nasal cannula. Received a dose of Lasix 40 mg IV push 1 as per pulmonary. Sitting up in chair, positive diet intake, denies nausea vomiting or diarrhea. Bowel movement earlier this a.m. denies chest pain, palpitations. Echo completed yesterday reporting moderate left ventricular hypertrophy with normal LV function, mild to moderate mitral regurgitation. 07/10/2022 A. fib with controlled ventricular rate. Maintained on oral amiodarone, metoprolol .Anticoagulated on Eliquis.Continues on IV steroids, nebulized bronchodilators, currently requiring 8 L high flow nasal cannula, maintaining O2 sats in the 90s. Chest x-ray reporting these or atelectasis favored over pneumonia, 7 mm nodule right upper lobe .Afebrile, T-max 99.1, preliminary blood cultures reporting no growth after 48 hours. Potassium 3.5, BUN 33, creatinine 0.76. Good diet intake, no nausea vomiting or diarrhea. Positive bowel movement yesterday. Denies abdominal pain. blood sugars controlled, on Lantus. Objective - Vital Signs Vital signs: Vital Signs Temp 98.1 F 07/10/22 09:41 Pulse 96 07/10/22 09:41 Resp 19 07/10/22 07:00 BP 126/87 07/10/22 09:41 Pulse Ox 93 L 07/10/22 09:41 FiO2 50 07/08/22 08:00 Intake & Output 07/09/22 07/10/22 07/10/22 18:59 06:59 18:59 Intake Total 500 Output Total 0 Balance 500 Weight 90 kg Intake: Oral 500 Output: Urine 0 Other: Voiding Method Bedside Commode Bedside Commode # Voids 1 0 # Bowel Movements 1 - Exam - Exam General: Sitting up in chair, no acute distress. Conversing fluently without shortness of breath. HEENT: Atraumatic, normocephalic ,MMM.neck is supple, no JVD, Cardiovascular: S1S2 is normal, irregular , No murmur, rub or gallop is appreciated. Respiratory: Improved air entry with bilateral bases diminished with minimal expiratory wheezing. Gastrointestinal: Soft, non-distended, without masses or organomegaly noted. There is no rebound or guarding present. Positive Bowel sounds. EXTREMITIES: no pedal edema. There is no calf tenderness or swelling. Neurological: CN II-XII intact, no focal deficits Skin: Skin is warm and dry and no rashes noted. - Labs CBC & Chem 7: 07/10/22 05:41 07/10/22 05:41 Labs: Abnormal Lab Results - Last 24 Hours (Table) 07/09/22 07/09/22 07/09/22 Range/Units 11:59 16:45 21:15 WBC (3.8-10.6) k/uL Neutrophils # (1.3-7.7) k/uL Carbon Dioxide (22-30) mmol/L BUN (7-17) mg/dL Glucose (74-99) mg/dL POC Glucose (mg/dL) 267 H 170 H 168 H (70-110) mg/dL Calcium (8.4-10.2) mg/dL 07/10/22 07/10/22 07/10/22 Range/Units 05:41 05:41 06:35 WBC 18.4 H (3.8-10.6) k/uL Neutrophils # 16.4 H (1.3-7.7) k/uL Carbon Dioxide 35 H (22-30) mmol/L BUN 33 H (7-17) mg/dL Glucose 144 H (74-99) mg/dL POC Glucose (mg/dL) 177 H (70-110) mg/dL Calcium 8.3 L (8.4-10.2) mg/dL 07/10/22 Range/Units 11:34 WBC (3.8-10.6) k/uL Neutrophils # (1.3-7.7) k/uL Carbon Dioxide (22-30) mmol/L BUN (7-17) mg/dL Glucose (74-99) mg/dL POC Glucose (mg/dL) 146 H (70-110) mg/dL Calcium (8.4-10.2) mg/dL Microbiology - Last 24 Hours (Table) 07/07/22 11:31 Blood Culture - Preliminary Blood No Growth after 48 hours 07/07/22 11:31 Blood Culture - Preliminary Blood No Growth after 48 hours Assessment and Plan Assessment: Acute hypoxic respiratory failure secondary to acute RSV bronchitis, acute COPD exacerbation, status post BiPAP Chronic atrial fibrillation currently with RVR on amiodarone drip 7 mm nodule right upper lobe reported per chest x-ray Recent Covid-19 infection Hypertension Chronic CHF, systolic dysfunction Mild to moderate mitral regurgitation, history Obesity, BMI 32.2 Plan: Continue on current medication regime ,monitoring and symptomatic treatme nt. Potassium 3.5, receiving supplementation.Antiarrhythmics as per cardiology. Maintain aggressive pulmonary toileting with nebulized bronchodilators, IV steroids. The impression and plan of care has been dictated as directed. : I performed a history and examination of this patient, discussed the same with the dictator. I agree with the dictator's note ,documented as a scribe. Any ad ditional findings or plans will be noted.
[2022-07-10 16:29] LABS: Glucose,Whole Blood 162 mg/dL (70-110)
[2022-07-10 21:06] LABS: Glucose,Whole Blood 199 mg/dL (70-110)
[2022-07-10] MEDS: INSULIN DETEMIR (LEVEMIR) 100 UNIT/ML SYR SQ SCH (21:21)
[2022-07-11] MEDS: guaiFENesin-DM 100-10MG/5ML 10 ML CUP PO SCH ×4 (00:28→17:27)
[2022-07-11] MEDS: LEVOTHYROXINE 25 MCG TAB PO SCH (05:30)
[2022-07-11] MEDS: methylPREDNISolone SOD SUCCI 125 MG/2 ML VIAL IV SCH ×3 (05:31→17:27)
[2022-07-11 06:52] LABS: Glucose,Whole Blood 163 mg/dL (70-110)
[2022-07-11] MEDS: INSULIN ASPART (NovoLOG) 100 UNIT/ML VIAL SQ SCH ×4 (06:55→20:28)
[2022-07-11 07:25] LABS: Calcium 8.3 mg/dL (8.4-10.2); Potassium 3.3 mmol/L (3.5-5.1)
[2022-07-11 07:31] LABS: Basophils # (A) 0.1 k/uL (0-0.2); Basophils % (A) 1 %; Eosinophils % (A) 0 %; HCT 40.5 % (34.0-46.0); HGB 13.9 gm/dL (11.4-16.0); Lymphocytes # (A) 1.4 k/uL (1.0-4.8); Lymphocytes % (A) 8 %; MCH 30.2 pg (25.0-35.0); MCHC 34.2 g/dL (31.0-37.0); MCV 88.3 fL (80.0-100.0); Mean Platelet Volume 8.5; Monocytes # (A) 0.7 k/uL (0-1.0); Monocytes % (A) 4 %; Neutrophils # (A) 15.6 k/uL (1.3-7.7); Neutrophils % (A) 87 %; Platelet Count 244 k/uL (150-450); RBC 4.59 m/uL (3.80-5.40); RDW 12.6 % (11.5-15.5); WBC 17.9 k/uL (3.8-10.6)
[2022-07-11] MEDS: BUDESONIDE 1 MG/2 ML NEBU INHALATION SCH ×2 (07:39→20:48)
[2022-07-11] MEDS: IPRATROPIUM-ALBUTEROL 3 ML NEB INHALATION SCH ×4 (07:39→20:48)
[2022-07-11] MEDS: PANTOPRAZOLE 40 MG/10 ML VIAL IVP SCH (08:10)
[2022-07-11] MEDS: POTASSIUM CHLORIDE ER 20 MEQ TAB.ER PO SCH ×2 (08:14→09:44)
[2022-07-11] MEDS: APIXABAN 5 MG TAB PO SCH ×2 (08:14→20:28)
[2022-07-11] MEDS: METOPROLOL SUCCINATE (ER) 50 MG TAB.ER.24H PO SCH ×2 (08:14→20:28)
[2022-07-11] MEDS: AMIODARONE 200 MG TAB PO SCH ×3 (08:14→20:28)
[2022-07-11] MEDS: ATORVASTATIN 40 MG TAB PO SCH (08:14)
[2022-07-11] MEDS: ACETAMINOPHEN TAB 500 MG TAB PO PRN (08:21)
--- NOTE | 2022-07-11 08:44 | P.PN ---
Subjective Progress Note Date: 07/11/22 PROGRESS NOTE The patient is a 76-year-old female with a history of hypertension, diabetes prior history of smoking, history of COPD for about a year ago had COVID-19 infection and had atrial fibrillation at that time she was subsequently evaluated by Dr. Olivera and underwent CAS guided cardioversion with voodoo of sinus mechanism. At that time she was found to have a cardiomyopathy. It is unclear if her LV systolic function improved. According to her she had an MPI that showed no evidence of stress-induced ischemia. She has been doing well until the last week when she started to have cough, progressive dyspnea and fatigue. She presented with respiratory distress and was diagnosed with RSV infection. She was in atrial fibrillation with episodes of rapid ventricle response. She does not feel the palpitations. She denies any chest discomfort, PND or orthopnea. She has no peripheral edema. She is feeling better today and continues to be in atrial fibrillation. She has been anticoagulated as an outpatient. Her [id number] score is 5. On presentation her troponin was normal and her NT proBNP was 1550. She had no ventricular ectopic activity since admission. July 09: The patient continues to be dyspneic, coughing. She continues to be in atrial fibrillation with overall controlled ventricular response. She denies any chest discomfort, dizziness or palpitations. Her MPI in the office showed no evidence of stress-induced ischemia. Her echocardiogram showed an ejection fraction of 50-55% with [id number] mitral and mild tricuspid regurgitation. She has no nausea or vomiting. July 10: The patient feels better today, her cough is better. She denies any chest discomfort, dizziness or palpitations. She continues to be in atrial fibrillation with controlled ventricular response. She has no evidence of ventricular ectopic activity. She continues to be anticoagulated. She received one dose of diuresis yesterday July 11: She continues to have a cough, productive, she denies any chest discomfort, dizziness or palpitations. She continues to be in atrial fibrillation with controlled ventricular response. Hemodynamically she is stable. She is ambulating in the room. She denies any nausea or vomiting. There is no evidence of ventricular ectopic activity. Medications: Amiodarone 400 mg twice a day, metoprolol succinate 50 mg twice a day, insulin, Lipitor 40 mg daily,Eliquis 5 mg bid, lisinopril 20 half milligrams twice a day PHYSICAL EXAMINATION: Blood pressure 128/80 heart rate 80 LUNGS: No wheezes or rales with mild decrease in the breath sounds HEART: Irregular rate and rhythm, S1, S2. No S3. systolic ejection murmur ABDOMEN: Soft, nontender, no organomegaly EXTREMETIES: No edema LAB: Potassium 3.3, BUN 36, creatinine 0.79, white blood cells 17.9 IMPRESSION: 1. RSV infection with dyspnea with exacerbation of COPD 2. Recurrent atrial fibrillation, anticoagulated, rate controlled 3. Prior cardiomyopathy improved 4. History of hypertension PLAN: 1. Decrease amiodarone to 200 mg twice a day 2. Increase physical activity 3. Follow-up as an outpatient with Dr. Olivera for evaluation for possible cardioversion once the infection resolved 4. Replace potassium 5. We will see her as needed, please feel free to call us for any question Objective - Vital Signs Vital signs: Vital Signs Temp 98.1 F 07/11/22 00:00 Pulse 82 07/11/22 07:53 Resp 19 07/11/22 01:21 BP 128/82 07/11/22 00:00 Pulse Ox 94 L 07/11/22 00:00 FiO2 50 07/08/22 08:00 Intake & Output 07/10/22 07/11/22 07/11/22 18:59 06:59 18:59 Intake Total 400 500 Output Total 1200 900 Balance -800 -400 Intake: Oral 400 500 Output: Urine 1200 900 Other: Voiding Method Bedside Commode Bedside Commode - Labs CBC & Chem 7: 07/11/22 06:00 07/11/22 06:00 Labs: Abnormal Lab Results - Last 24 Hours (Table) 07/10/22 07/10/22 07/10/22 Range/Units 11:34 16:28 21:04 WBC (3.8-10.6) k/uL Neutrophils # (1.3-7.7) k/uL Sodium (137-145) mmol/L Potassium (3.5-5.1) mmol/L Chloride (98-107) mmol/L Carbon Dioxide (22-30) mmol/L BUN (7-17) mg/dL Glucose (74-99) mg/dL POC Glucose (mg/dL) 146 H 162 H 199 H (70-110) mg/dL Calcium (8.4-10.2) mg/dL 07/11/22 07/11/22 07/11/22 Range/Units 06:00 06:00 06:51 WBC 17.9 H (3.8-10.6) k/uL Neutrophils # 15.6 H (1.3-7.7) k/uL Sodium 136 L (137-145) mmol/L Potassium 3.3 L (3.5-5.1) mmol/L Chloride 96 L (98-107) mmol/L Carbon Dioxide 33 H (22-30) mmol/L BUN 36 H (7-17) mg/dL Glucose 135 H (74-99) mg/dL POC Glucose (mg/dL) 163 H (70-110) mg/dL Calcium 8.3 L (8.4-10.2) mg/dL Microbiology - Last 24 Hours (Table) 07/07/22 11:31 Blood Culture - Preliminary Blood No Growth after 72 hours 07/07/22 11:31 Blood Culture - Preliminary Blood No Growth after 72 hours
[2022-07-11] MEDS ORDERED: POTASSIUM CHLORIDE ER 20 MEQ TAB.ER PO ONE (11:00)
--- NOTE | 2022-07-11 11:44 | P.PN ---
Subjective Progress Note Date: 07/11/22 07/09/2022 H&P Date: 07/08/22 Chief Complaint: Worsening dyspnea This is 76-year-old female with past medical history of COPD, hypertension, former nicotine dependence, COVID-19 infection, and multiple other medical issues presented to the ER with complaints of worsening dyspnea. Hypoxic on admission, initially placed on 3 L nasal cannula, continued to decline and eventually required BiPAP.developed atrial fibrillation with RVR, initially treated with IV Cardizem, blood pressure softened. troponin negative 2 ,NT proBNP 1550.Chest x-ray reported mild cardiomegaly without pulmonary theodore congestion, with no overt failure. Repeat chest x-ray reported basilar atelectasis favored over pneumonia, 7 mm nodule right upper lobe .influenza screen negative ,tested positive for RSV. Placed on nebulized bronchodilators, IV steroids and weaned to 6 L high flow nasal cannula. Hfnbjwnzwlffz-xympbsg-[id number]. Pro-calcitonin 0.21 . Sputum culture reporting many Haemophilus influenzae. Renal function stable This morning telemetry A. fib heart rates 130s to 140s, completing amiodarone drip and transitioning to oral. Received an additional dose of metoprolol. Denies chest pain, palpitations. 07/09/2022 telemetry A. fib with controlled ventricular rate, transition to oral amiodarone yesterday, continued on beta flower. Maintaining O2 sats in the 90s on 8 L high flow nasal cannula. Received a dose of Lasix 40 mg IV push 1 as per pulmonary. Sitting up in chair, positive diet intake, denies nausea vomiting or diarrhea. Bowel movement earlier this a.m. denies chest pain, palpitations. Echo completed yesterday reporting moderate left ventricular hypertrophy with normal LV function, mild to moderate mitral regurgitation. 07/10/2022 A. fib with controlled ventricular rate. Maintained on oral amiodarone, metoprolol .Anticoagulated on Eliquis.Continues on IV steroids, nebulized bronchodilators, currently requiring 8 L high flow nasal cannula, maintaining O2 sats in the 90s. Chest x-ray reporting these or atelectasis favored over pneumonia, 7 mm nodule right upper lobe .Afebrile, T-max 99.1, preliminary blood cultures reporting no growth after 48 hours. Potassium 3.5, BUN 33, creatinine 0.76. Good diet intake, no nausea vomiting or diarrhea. Positive bowel movement yesterday. Denies abdominal pain. blood sugars controlled, on Lantus. 07/11/2022 received a dose of Lasix IV push yesterday, diuresed well. Remains in atrial fibrillation with controlled ventricular rate. Amiodarone decreased. Continues on nebulized bronchodilators , IV steroids ,FIO2 weaned to 5 L nasal cannula, maintaining O2 sats in the 90s. Potassium 3.3, magnesium level pending. Afebrile. Objective - Vital Signs Vital signs: Vital Signs Temp 98.0 F 07/11/22 08:00 Pulse 93 07/11/22 08:00 Resp 16 07/11/22 08:00 BP 133/82 07/11/22 08:00 Pulse Ox 94 L 07/11/22 08:00 FiO2 50 07/08/22 08:00 Intake & Output 07/10/22 07/11/22 07/11/22 18:59 06:59 18:59 Intake Total 400 500 Output Total 1200 900 600 Balance -800 -400 -600 Intake: Oral 400 500 Output: Urine 1200 900 600 Other: Voiding Method Bedside Commode Bedside Commode Bedside Commode # Bowel Movements 1 - Exam - Exam VS: As above General: Alert and oriented 3 Sitting up in chair, no acute distress. HEENT: Atraumatic, normocephalic ,MMM.neck is supple, no JVD, Cardiovascular: S1S2 is normal, irregular , No murmur, rub or gallop is appreciated. Respiratory: Improved air entry with bilateral bases diminished with fine expiratory wheezing. Gastrointestinal: Soft, non-distended, without masses or organomegaly noted. There is no rebound or guarding present. Positive Bowel sounds. EXTREMITIES: no pedal edema. There is no calf tenderness or swelling. Neurological: CN II-XII intact, no focal deficits Skin: Skin is warm and dry and no rashes noted. - Labs CBC & Chem 7: 07/11/22 06:00 07/11/22 06:00 Labs: Abnormal Lab Results - Last 24 Hours (Table) 07/10/22 07/10/22 07/10/22 Range/Units 11:34 16:28 21:04 WBC (3.8-10.6) k/uL Neutrophils # (1.3-7.7) k/uL Sodium (137-145) mmol/L Potassium (3.5-5.1) mmol/L Chloride (98-107) mmol/L Carbon Dioxide (22-30) mmol/L BUN (7-17) mg/dL Glucose (74-99) mg/dL POC Glucose (mg/dL) 146 H 162 H 199 H (70-110) mg/dL Calcium (8.4-10.2) mg/dL 07/11/22 07/11/22 07/11/22 Range/Units 06:00 06:00 06:51 WBC 17.9 H (3.8-10.6) k/uL Neutrophils # 15.6 H (1.3-7.7) k/uL Sodium 136 L (137-145) mmol/L Potassium 3.3 L (3.5-5.1) mmol/L Chloride 96 L (98-107) mmol/L Carbon Dioxide 33 H (22-30) mmol/L BUN 36 H (7-17) mg/dL Glucose 135 H (74-99) mg/dL POC Glucose (mg/dL) 163 H (70-110) mg/dL Calcium 8.3 L (8.4-10.2) mg/dL Microbiology - Last 24 Hours (Table) 07/07/22 11:31 Blood Culture - Preliminary Blood No Growth after 72 hours 07/07/22 11:31 Blood Culture - Preliminary Blood No Growth after 72 hours Assessment and Plan Assessment: Acute hypoxic respiratory failure secondary to acute RSV bronchitis, acute COPD exacerbation, status post BiPAP Chronic atrial fibrillation currently with RVR on amiodarone drip 7 mm nodule right upper lobe reported per chest x-ray Recent Covid-19 infection Hypertension Chronic CHF, systolic dysfunction Mild to moderate mitral regurgitation, history Obesity, BMI 32.2 Plan: Continue on current medication regime ,monitoring and symptomatic treatment. Receiving potassium supplementation as per replacement protocol, magnesium level ordered.Antiarrhythmics as per cardiology. Maintain aggressive pulmonary toileting with nebulized bronchodilators, IV steroids. Incentive spirometer reinforced. The impression and plan of care has been dictated as directed. : I performed a history and examination of this patient, discussed the same with the dictator. I agree with the dictator's note ,documented as a scribe. Any additional findings or plans will be noted.
[2022-07-11 12:06] LABS: Glucose,Whole Blood 177 mg/dL (70-110)
--- NOTE | 2022-07-11 13:01 | P.PN ---
Subjective Progress Note Date: 07/11/22 76-year-old female patient who presented emergency department with progressively worsening shortness of breath. The patient is known to me. After taking care of this patient back in June 2021 and at that time the patient had a Covid 19 infection/pneumonia. The patient was given a monoclonal antibiotics in the emergency department and subsequently she developed bilateral pulmonary infiltrates and she was given steroids and she gradually improved and she was discharged home. She was also given Remdesivir. During this current admission, the patient came into the emergency department because of shortness of breath and she was found to be hypoxic. She was placed initially on oxygen at 3-1/2 L and subsequently her condition further decompensated and the patient was placed on BiPAP. At the time of my arrival in the emergency department, the patient was receiving BiPAP at a pressure of 12/6 and 50 she was able to generate a tidal volume of 550 and her respiratory rate was 28 and a minute ventilation was 13.7. The patient was in acute COPD exacerbation. The chest x-ray showed mild hepatomegaly without pulmonary vessel congestion. Nevertheless, during her hospital emergency stay, the patient went into atrial fibrillation with rapid ventricular response. She was given a dose of Cardizem with limited success. She became borderline hypotensive along with A. fib RVR. She checked positive for RSV. Her Covid 19 testing was negative. She is known to have severe COPD with an FEV1 of 49%. The patient has limited on Trelegy Ellipta on outpatient basis. Her blood work showed a WBC count of 11.7 with a hemoglobin of 16 normal coagulation profile, d-dimer was at 0.4, BUN was 50 with a creatinine of 0.80 sodium level of 134 with a potassium level of 3.9. Troponins were negative. ProBNP level was 1550. Influenza screen was negative. Troponin 2 was negative. On 07/08/2022, the patient is doing well. She is off the BiPAP and is on 5 L of oxygen by nasal cannula. Less short of breath bronchospastic and wheezy. Note that the patient was infected with RSV which exacerbated underlying COPD. She also went into atrial fibrillation with rapid ventricular response. She was started on amiodarone loading and the patient is currently on amiodarone 0.5 mg/m maintenance. She is going to switch to oral amiodarone. She missed into fibrillation. Her pro calcitonin level was at 0.21. No vesicles of 16.4 with a hemoglobin of 14.2 platelets of 208. Sodium is at 136 with a BUN of 19 and a creatinine of 0.6. Alert and awake and communicating. Tolerating her diet. Denies having any chest pain. The proBNP level was slightly elevated at 1 5 x 0 and the troponins were negative. Blood sugars are slightly elevated secondary to systemic steroids as the patient is currently on IV Solu-Medrol 60 mg every 6 hours. The patient is also on anticoagulants with Eliquis. 07/09/2022, the patient is feeling better. She is on 8 L of oxygen by nasal cannula. Nevertheless, she feels less bronchospastic and wheezy and her cough has essentially subsided and the patient is not using the BiPAP at this point in time. She is on DuoNeb about treatments [id number]. She is on Pulmicort Respules and Perforomist twice a day and she is also receiving IV Solu-Medrol 60 mg IV push every 6 hours. She remained nature fibrillation. Rate is controlled. The patient on anticoagulation with Eliquis. The patient also metoprolol XL 50 mg by mouth daily. No other significant events otherwise for now. IV fluids are still running at the rate of 75 mL an hour. She is fariba ating her diet. No chest pain. No nausea or vomiting. No other complaints otherwise for now. Echocardiogram was noted and the patient has a preserved LV function with an ejection fraction of 50% without any valvular abnormalities. No evidence of any pulmonary hypertension. 2021, the patient remains on 8 L. She is using the incentive spirometer. Her pulse ox is ranging between 91-94%. Chest x-ray shows some increased interstitial marking in small left-sided pleural effusion/atelectasis. Otherwise, there is no airspace disease. The patient remains on bronchodilators. The patient remains on Pulmicort Respules and Perforomist updrafts. The patient remains on IV Solu-Medrol. Her cardiac rhythm is atrial fibrillation which is essentially well controlled and the patient is on ant icoagulants. Her IV fluids are currently of KVO. She was given a dose of Lasix yesterday with good diuresis. This will be repeated today. Had echocardiogram showed a preserved LV function with an EF of around 50%. On 07/10/2022, the patient is improved and the patient is currently down to 5 L of oxygen by nasal cannula. Using the [employer] spirometer. Cardiac rhythm remained nature fibrillation. The patient has adequate rate control and the patient is also on anticoagulants. In terms of her COPD exacerbation, the patient remains on IV Solu-Medrol. She remains on DuoNeb about 2000 clock. She is on Levemir insulin for blood sugar control in addition to a sliding scale coverage. She is doing better. No chest pain. No shortness of breath at rest. Cough is also subsided. No hemoptysis. No pleurisy. No other complaints otherwise. On today's blood work, the patient has been restarted of 17.9 with a hemoglobin of 15.5. BUN is 36 with a creatinine of 0.7 and a sodium level is at 136. Blood sugars at 177. Objective - Vital Signs Vital signs: Vital Signs Temp 98.0 F 07/11/22 08:00 Pulse 78 07/11/22 12:00 Resp 16 07/11/22 08:00 BP 133/82 07/11/22 08:00 Pulse Ox 93 L 07/11/22 12:00 FiO2 50 07/08/22 08:00 Intake & Output 07/10/22 07/11/22 07/11/22 18:59 06:59 18:59 Intake Total 400 500 Output Total 1200 900 600 Balance -800 -400 -600 Intake: Oral 400 500 Output: Urine 1200 900 600 Other: Voiding Method Bedside Commode Bedside Commode Bedside Commode # Bowel Movements 1 - Exam Gen. appearance the patient is a mild degree of respiratory distress and the patient is currently off BiPAP on 5 L of oxygen by nasal cannula Head exam was generally normal. There was no scleral icterus or corneal arcus. Mucous membranes were moist. Neck was supple and without jugular venous distension, thyromegaly, or carotid bruits. Carotids were easily palpable bilaterally. There was no adenopathy. HEENT: Head is normocephalic. No JVD. No carotid bruit. CHEST EXAMINATION: Lungs are diminished bilaterally to auscultation. Few crackles in lung bases bilaterally, diminished wheezing compared to yesterday and there is improvement in air entry HEART EXAMINATION: Irregular rate and rhythm. S1, S2 heard. The patient was also no evidence currently response. Abdominal exam revealed normal bowel sounds. The abdomen was soft, non-tender, and without masses, organomegaly, or appreciable enlargement of the abdominal aorta. EXTREMITIES: no lower extremity edema and no calf tenderness. Neurologically, the patient is awake and alert and the patient does not have any focal neurological deficit. Cranial nerves are essentially intact. Examination of the skin revealed no evidence of significant rashes, suspicious appearing nevi or other concerning lesions. - Labs CBC & Chem 7: 07/11/22 06:00 07/11/22 06:00 Labs: Abnormal Lab Results - Last 24 Hours (Table) 07/10/22 07/10/22 07/11/22 Range/Units 16:28 21:04 06:00 WBC 17.9 H (3.8-10.6) k/uL Neutrophils # 15.6 H (1.3-7.7) k/uL Sodium (137-145) mmol/L Potassium (3.5-5.1) mmol/L Chloride (98-107) mmol/L Carbon Dioxide (22-30) mmol/L BUN (7-17) mg/dL Glucose (74-99) mg/dL POC Glucose (mg/dL) 162 H 199 H (70-110) mg/dL Calcium (8.4-10.2) mg/dL 07/11/22 07/11/22 07/11/22 Range/Units 06:00 06:51 12:05 WBC (3.8-10.6) k/uL Neutrophils # (1.3-7.7) k/uL Sodium 136 L (137-145) mmol/L Potassium 3.3 L (3.5-5.1) mmol/L Chloride 96 L (98-107) mmol/L Carbon Dioxide 33 H (22-30) mmol/L BUN 36 H (7-17) mg/dL Glucose 135 H (74-99) mg/dL POC Glucose (mg/dL) 163 H 177 H (70-110) mg/dL Calcium 8.3 L (8.4-10.2) mg/dL Microbiology - Last 24 Hours (Table) 07/07/22 11:31 Blood Culture - Preliminary Blood No Growth after 72 hours 07/07/22 11:31 Blood Culture - Preliminary Blood No Growth after 72 hours Assessment and Plan Plan: Acute COPD exacerbation, improving, and the exacerbating factor was RSV infection of the lungs. The patient is less short of breath as bronchus spastic and wheezy. Oxygenation is still abnormal and the patient is currently on 8 L of O2 nasal cannula. Chest x-ray still showing some pulmonary vascular markings and small effusion left lung base. Oxygen requirements remain unchanged and the patient remains on 5 L of oxygen by nasal cannula. Nevertheless, much less bronchospastic and wheezy on today's evaluation. Remains on bronchodilators. Remains on steroids. The patient continues to improve on a daily basis. She is breathing comfortably at rest. Acute hypoxic respiratory failure the patient is currently on 5 L of oxygen by nasal cannula Acute RSV tracheal bronchitis with secondary COPD exacerbation, improved compared to yesterday Acute dyspnea and hypoxic respiratory failure currently on a BiPAP at the time of admission currently the patient is off the BiPAP on 5 L of 02 nasal cannula Atrial fibrillation, chronic with rapid ventricular response secondary to above, currently on amiodarone loading to be transitioned to oral amiodarone and the patient isn't particularly related with Eliquis, the patient's rate is under better control for now and the patient is on metoprolol 50 mg by mouth daily in combination with amiodarone 400 mg by mouth twice a day. Recent Covid 19 pneumonia, hospitalized back in June 2021 Advanced COPD with an FEV1 of 49% of predicted maintain on Trelegy Ellipta on outpatient basis Hypertension Chronic systolic heart failure with an ejection fraction of 40-45% based on echocardiography from 07/17/2021. The patient also has [id number] mitral regurgitation Plan Keep the patient 5 L of O2 nasal cannula Attempt to wean down FiO2 further No need for further diuretics as the patient was given Lasix on a daily basis for the past 2 days Wean down FiO2 to maintain saturation above 90% Obtain adequate pulse ox reading Continue patient on DuoNeb nebulized treatments [id number] and IV Solu- Medrol 60 mg every 6 hours Oral amiodarone at a dose of 400 mg by mouth twice a day and metoprolol 50 mg by mouth twice a day for rate control Continue anticoagulation with Eliquis Levemir insulin coverage for blood sugar control IV fluids to KVO Use incentive spirometer. The patient can be transferred out of the intensive care unit for now.
[2022-07-11 16:39] LABS: Glucose,Whole Blood 186 mg/dL (70-110)
[2022-07-11 20:20] LABS: Glucose,Whole Blood 219 mg/dL (70-110)
[2022-07-11] MEDS: INSULIN DETEMIR (LEVEMIR) 100 UNIT/ML SYR SQ SCH (20:28)
[2022-07-12] MEDS: methylPREDNISolone SOD SUCCI 125 MG/2 ML VIAL IV SCH ×4 (00:36→19:37)
[2022-07-12] MEDS: guaiFENesin-DM 100-10MG/5ML 10 ML CUP PO SCH ×4 (00:36→17:47)
[2022-07-12 05:51] LABS: Glucose,Whole Blood 172 mg/dL (70-110)
[2022-07-12] MEDS: INSULIN ASPART (NovoLOG) 100 UNIT/ML VIAL SQ SCH ×4 (05:53→22:31)
[2022-07-12] MEDS: LEVOTHYROXINE 25 MCG TAB PO SCH (05:54)
[2022-07-12 07:43] LABS: Basophils # (A) 0.2 k/uL (0-0.2); Basophils % (A) 1 %; Eosinophils % (A) 0 %; HCT 41.1 % (34.0-46.0); Lymphocytes % (A) 6 %; MCHC 34.1 g/dL (31.0-37.0); Mean Platelet Volume 8.6; Monocytes # (A) 0.7 k/uL (0-1.0); Monocytes % (A) 4 %; Neutrophils # (A) 13.9 k/uL (1.3-7.7); Neutrophils % (A) 88 %; Platelet Count 258 k/uL (150-450); RBC 4.68 m/uL (3.80-5.40); RDW 12.7 % (11.5-15.5); WBC 15.8 k/uL (3.8-10.6)
[2022-07-12 07:55] LABS: Calcium 8.4 mg/dL (8.4-10.2); Potassium 3.8 mmol/L (3.5-5.1)
[2022-07-12] MEDS: IPRATROPIUM-ALBUTEROL 3 ML NEB INHALATION SCH ×4 (08:23→20:40)
[2022-07-12] MEDS: BUDESONIDE 1 MG/2 ML NEBU INHALATION SCH ×2 (08:29→20:40)
[2022-07-12] MEDS: METOPROLOL SUCCINATE (ER) 50 MG TAB.ER.24H PO SCH ×2 (09:28→22:30)
[2022-07-12] MEDS: APIXABAN 5 MG TAB PO SCH ×2 (09:28→22:30)
[2022-07-12] MEDS: ATORVASTATIN 40 MG TAB PO SCH (09:28)
[2022-07-12] MEDS: PANTOPRAZOLE 40 MG/10 ML VIAL IVP SCH (09:28)
[2022-07-12] MEDS: AMIODARONE 200 MG TAB PO SCH ×2 (09:28→22:30)
[2022-07-12 12:02] LABS: Glucose,Whole Blood 207 mg/dL (70-110)
[2022-07-12 16:51] LABS: Glucose,Whole Blood 203 mg/dL (70-110)
--- NOTE | 2022-07-12 18:33 | P.PN ---
Subjective Progress Note Date: 07/12/22 76-year-old female patient who presented emergency department with progressively worsening shortness of breath. The patient is known to me. After taking care of this patient back in June 2021 and at that time the patient had a Covid 19 infection/pneumonia. The patient was given a monoclonal antibiotics in the emergency department and subsequently she developed bilateral pulmonary infiltrates and she was given steroids and she gradually improved and she was discharged home. She was also given Remdesivir. During this current admission, the patient came into the emergency department because of shortness of breath and she was found to be hypoxic. She was placed initially on oxygen at 3-1/2 L and subsequently her condition further decompensated and the patient was placed on BiPAP. At the time of my arrival in the emergency department, the patient was receiving BiPAP at a pressure of 12/6 and 50 she was able to generate a tidal volume of 550 and her respiratory rate was 28 and a minute ventilation was 13.7. The patient was in acute COPD exacerbation. The chest x-ray showed mild hepatomegaly without pulmonary vessel congestion. Nevertheless, during her hospital emergency stay, the patient went into atrial fibrillation with rapid ventricular response. She was given a dose of Cardizem with limited success. She became borderline hypotensive along with A. fib RVR. She checked positive for RSV. Her Covid 19 testing was negative. She is known to have severe COPD with an FEV1 of 49%. The patient has limited on Trelegy Ellipta on outpatient basis. Her blood work showed a WBC count of 11.7 with a hemoglobin of 16 normal coagulation profile, d-dimer was at 0.4, BUN was 50 with a creatinine of 0.80 sodium level of 134 with a potassium level of 3.9. Troponins were negative. ProBNP level was 1550. Influenza screen was negative. Troponin 2 was negative. On 07/08/2022, the patient is doing well. She is off the BiPAP and is on 5 L of oxygen by nasal cannula. Less short of breath bronchospastic and wheezy. Note that the patient was infected with RSV which exacerbated underlying COPD. She also went into atrial fibrillation with rapid ventricular response. She was started on amiodarone loading and the patient is currently on amiodarone 0.5 mg/m maintenance. She is going to switch to oral amiodarone. She missed into fibrillation. Her pro calcitonin level was at 0.21. No vesicles of 16.4 with a hemoglobin of 14.2 platelets of 208. Sodium is at 136 with a BUN of 19 and a creatinine of 0.6. Alert and awake and communicating. Tolerating her diet. Denies having any chest pain. The proBNP level was slightly elevated at 1 5 x 0 and the troponins were negative. Blood sugars are slightly elevated secondary to systemic steroids as the patient is currently on IV Solu-Medrol 60 mg every 6 hours. The patient is also on anticoagulants with Eliquis. 07/09/2022, the patient is feeling better. She is on 8 L of oxygen by nasal cannula. Nevertheless, she feels less bronchospastic and wheezy and her cough has essentially subsided and the patient is not using the BiPAP at this point in time. She is on DuoNeb about treatments [id number]. She is on Pulmicort Respules and Perforomist twice a day and she is also receiving IV Solu-Medrol 60 mg IV push every 6 hours. She remained nature fibrillation. Rate is controlled. The patient on anticoagulation with Eliquis. The patient also metoprolol XL 50 mg by mouth daily. No other significant events otherwise for now. IV fluids are still running at the rate of 75 mL an hour. She is fariba ating her diet. No chest pain. No nausea or vomiting. No other complaints otherwise for now. Echocardiogram was noted and the patient has a preserved LV function with an ejection fraction of 50% without any valvular abnormalities. No evidence of any pulmonary hypertension. 2021, the patient remains on 8 L. She is using the incentive spirometer. Her pulse ox is ranging between 91-94%. Chest x-ray shows some increased interstitial marking in small left-sided pleural effusion/atelectasis. Otherwise, there is no airspace disease. The patient remains on bronchodilators. The patient remains on Pulmicort Respules and Perforomist updrafts. The patient remains on IV Solu-Medrol. Her cardiac rhythm is atrial fibrillation which is essentially well controlled and the patient is on ant icoagulants. Her IV fluids are currently of KVO. She was given a dose of Lasix yesterday with good diuresis. This will be repeated today. Had echocardiogram showed a preserved LV function with an EF of around 50%. On 07/10/2022, the patient is improved and the patient is currently down to 5 L of oxygen by nasal cannula. Using the [employer] spirometer. Cardiac rhythm remained nature fibrillation. The patient has adequate rate control and the patient is also on anticoagulants. In terms of her COPD exacerbation, the patient remains on IV Solu-Medrol. She remains on DuoNeb about 2000 clock. She is on Levemir insulin for blood sugar control in addition to a sliding scale coverage. She is doing better. No chest pain. No shortness of breath at rest. Cough is also subsided. No hemoptysis. No pleurisy. No other complaints otherwise. On today's blood work, the patient has been restarted of 17.9 with a hemoglobin of 15.5. BUN is 36 with a creatinine of 0.7 and a sodium level is at 136. Blood sugars at 177. 07/12/2022, the patient has been weaned down to 3 L O2 nasal cannula. Overall, doing well. She remains on systemic steroids and bronchodilators. No new complaints otherwise for now. She was transferred outside intensive care unit yesterday. Blood work from today shows a white cell count of 15.8 with a hemoglobin of 14. BUN is 36 with a creatinine of 0.8 and sodium level is 134. Objective - Vital Signs Vital signs: Vital Signs Temp 98.1 F 07/12/22 15:28 Pulse 98 07/12/22 17:10 Resp 18 07/12/22 15:28 BP 118/76 07/12/22 15:28 Pulse Ox 92 L 07/12/22 15:28 FiO2 50 07/08/22 08:00 Intake & Output 07/11/22 07/12/22 07/12/22 18:59 06:59 18:59 Intake Total 600 Output Total 600 Balance 0 Intake: Oral 600 Output: Urine 600 Other: Voiding Method Bedside Commode Bedside Commode # Voids 1 0 2 # Bowel Movements 1 - Exam Gen. appearance the patient is a mild degree of respiratory distress and the patient is currently off BiPAP on 5 L of oxygen by nasal cannula Head exam was generally normal. There was no scleral icterus or corneal arcus. Mucous membranes were moist. Neck was supple and without jugular venous distension, thyromegaly, or carotid bruits. Carotids were easily palpable bilaterally. There was no adenopathy. HEENT: Head is normocephalic. No JVD. No carotid bruit. CHEST EXAMINATION: Lungs are diminished bilaterally to auscultation. Few crackles in lung bases bilaterally, diminished wheezing compared to yesterday and there is improvement in air entry HEART EXAMINATION: Irregular rate and rhythm. S1, S2 heard. The patient was also no evidence currently response. Abdominal exam revealed normal bowel sounds. The abdomen was soft, non-tender, and without masses, organomegaly, or appreciable enlargement of the abdominal aorta. EXTREMITIES: no lower extremity edema and no calf tenderness. Neurologically, the patient is awake and alert and the patient does not have any focal neurological deficit. Cranial nerves are essentially intact. Examination of the skin revealed no evidence of significant rashes, suspicious appearing nevi or other concerning lesions. - Labs CBC & Chem 7: 07/12/22 07:03 07/12/22 07:03 Labs: Abnormal Lab Results - Last 24 Hours (Table) 07/11/22 07/12/22 07/12/22 Range/Units 20:19 05:48 07:03 WBC 15.8 H (3.8-10.6) k/uL Neutrophils # 13.9 H (1.3-7.7) k/uL Sodium (137-145) mmol/L Chloride (98-107) mmol/L Carbon Dioxide (22-30) mmol/L BUN (7-17) mg/dL Glucose (74-99) mg/dL POC Glucose (mg/dL) 219 H 172 H (70-110) mg/dL 07/12/22 07/12/22 07/12/22 Range/Units 07:03 12:01 16:51 WBC (3.8-10.6) k/uL Neutrophils # (1.3-7.7) k/uL Sodium 134 L (137-145) mmol/L Chloride 95 L (98-107) mmol/L Carbon Dioxide 32 H (22-30) mmol/L BUN 36 H (7-17) mg/dL Glucose 185 H (74-99) mg/dL POC Glucose (mg/dL) 207 H 203 H (70-110) mg/dL Microbiology - Last 24 Hours (Table) 07/07/22 11:31 Blood Culture - Preliminary Blood No Growth after 120 hours 07/07/22 11:31 Blood Culture - Preliminary Blood No Growth after 120 hours Assessment and Plan Plan: Acute COPD exacerbation, improving, and the exacerbating factor was RSV infection of the lungs. clinically improving and the patient is less short of breath Acute hypoxic respiratory failure the patient is currently on 3 L of oxygen by nasal cannula Acute RSV tracheal bronchitis with secondary COPD exacerbation, improved compared to yesterday Acute dyspnea and hypoxic respiratory failure currently on a BiPAP at the time of admission currently the patient is off the BiPAP on 5 L of 02 nasal cannula Atrial fibrillation, chronic with rapid ventricular response secondary to above, currently on amiodarone loading to be transitioned to oral amiodarone and the patient isn't particularly related with Eliquis, the patient's rate is under better control for now and the patient is on metoprolol 50 mg by mouth daily in combination with amiodarone 400 mg by mouth twice a day. Recent Covid 19 pneumonia, hospitalized back in June 2021 Advanced COPD with an FEV1 of 49% of predicted maintain on Trelegy Ellipta on outpatient basis Hypertension Chronic systolic heart failure with an ejection fraction of 40-45% based on echocardiography from 07/17/2021. The patient also has [id number] mitral regurgitation Plan Keep the patient 3 L of O2 nasal cannula Attempt to wean down FiO2 further Wean down FiO2 to maintain saturation above 90% Obtain adequate pulse ox reading Continue patient on DuoNeb nebulized treatments [id number] and IV Solu- Medrol 60 mg every 6 hours Oral amiodarone at a dose of 400 mg by mouth twice a day and metoprolol 50 mg by mouth twice a day for rate control Continue anticoagulation with Eliquis Levemir insulin coverage for blood sugar control IV fluids to KVO Use incentive spirometer.
[2022-07-12 21:13] LABS: Glucose,Whole Blood 208 mg/dL (70-110)
[2022-07-12] MEDS: INSULIN DETEMIR (LEVEMIR) 100 UNIT/ML SYR SQ SCH (22:30)
[2022-07-13] MEDS: guaiFENesin-DM 100-10MG/5ML 10 ML CUP PO SCH ×4 (00:32→16:54)
[2022-07-13] MEDS: methylPREDNISolone SOD SUCCI 125 MG/2 ML VIAL IV SCH ×4 (00:32→16:56)
[2022-07-13 06:10] LABS: Glucose,Whole Blood 159 mg/dL (70-110)
[2022-07-13] MEDS: INSULIN ASPART (NovoLOG) 100 UNIT/ML VIAL SQ SCH ×4 (06:38→21:15)
[2022-07-13] MEDS: LEVOTHYROXINE 25 MCG TAB PO SCH (06:38)
[2022-07-13] MEDS: ATORVASTATIN 40 MG TAB PO SCH (08:02)
[2022-07-13] MEDS: METOPROLOL SUCCINATE (ER) 50 MG TAB.ER.24H PO SCH ×2 (08:02→21:15)
[2022-07-13] MEDS: AMIODARONE 200 MG TAB PO SCH ×2 (08:03→21:15)
[2022-07-13] MEDS: APIXABAN 5 MG TAB PO SCH ×2 (08:03→21:15)
[2022-07-13] MEDS: PANTOPRAZOLE 40 MG/10 ML VIAL IVP SCH (08:03)
[2022-07-13] MEDS: IPRATROPIUM-ALBUTEROL 3 ML NEB INHALATION SCH ×4 (08:34→19:34)
[2022-07-13] MEDS: BUDESONIDE 1 MG/2 ML NEBU INHALATION SCH ×2 (08:34→19:34)
[2022-07-13 11:47] LABS: Glucose,Whole Blood 145 mg/dL (70-110)
--- NOTE | 2022-07-13 13:19 | P.PN ---
Subjective Progress Note Date: 07/13/22 Principal diagnosis: RSV pneumonia 76-year-old female well-known to the practice. Pleasant lady, nasal O2 has been weaned down to 3 L, is doing delightfully well currently on IV as well as inhaled corticosteroids, and bronchodilators. Objective - Vital Signs Vital signs: Vital Signs Temp 97.7 F 07/13/22 09:04 Pulse 101 H 07/13/22 11:49 Resp 18 07/13/22 11:49 BP 129/85 07/13/22 09:04 Pulse Ox 95 07/13/22 09:04 FiO2 50 07/08/22 08:00 Intake & Output 07/12/22 07/13/22 07/13/22 18:59 06:59 18:59 Intake Total 450 Balance 450 Intake: Oral 450 Other: Voiding Method Toilet Toilet # Voids 2 3 - Exam General: [Patient awake, alert and oriented times 3. Patient in no acute distress.] HEENT: [PERRL. EOMI. No pharyngeal erythema or exudate.] Neck: [No adenopathy.] Cardiac: [Heart regular in rate and rhythm. No S3. No S4. No clicks, rubs. No murmur.] Lungs: Breath sounds clear but slightly diminished Abdomen: [No mass. No organomegaly. Bowel sounds presnt and normoactive in all 4 quadrants.] Extremes: [No edema no cyanosis no claudication normal pulses] : Normal female genitalia Musculoskeletal: [No joint erythema, edema or tenderness.] Skin: [No rash.] Neurologic: [No lateralizing deficits. CN II - XII grossly intact.] Lymphatic: [No adenopathy.] - Labs CBC & Chem 7: 07/12/22 07:03 07/12/22 07:03 Labs: Abnormal Lab Results - Last 24 Hours (Table) 07/12/22 07/12/22 07/13/22 Range/Units 16:51 21:12 06:09 POC Glucose (mg/dL) 203 H 208 H 159 H (70-110) mg/dL 07/13/22 Range/Units 11:45 POC Glucose (mg/dL) 145 H (70-110) mg/dL Microbiology - Last 24 Hours (Table) 07/07/22 11:31 Blood Culture - Preliminary Blood No Growth after 120 hours 07/07/22 11:31 Blood Culture - Preliminary Blood No Growth after 120 hours Assessment and Plan (1) Acute hypoxemic respiratory failure Current Visit: Yes Status: Acute Code(s): J96.01 - ACUTE RESPIRATORY FAILURE WITH HYPOXIA SNOMED Code(s): 413148558 (2) Atrial fibrillation with rapid ventricular response Current Visit: Yes Status: Acute Code(s): I48.91 - UNSPECIFIED ATRIAL FIBRILLATION SNOMED Code(s): 650193018951321 (3) RSV infection Current Visit: Yes Status: Acute Code(s): B33.8 - OTHER SPECIFIED VIRAL DISEASES SNOMED Code(s): 57762653 (4) COPD (chronic obstructive pulmonary disease) Current Visit: No Status: Acute Code(s): J44.9 - CHRONIC OBSTRUCTIVE PULMONARY DISEASE, UNSPECIFIED SNOMED Code(s): 11443878 (5) Former smoker Current Visit: No Status: Acute Code(s): Z87.891 - PERSONAL HISTORY OF NICOTINE DEPENDENCE SNOMED Code(s): 8551451 Plan: Continue to wean O2 Continue IV steroids Continue inhaled long-acting beta agonists Continue antiarrhythmics amiodarone and metoprolol Continue apixaban Continue insulin coverage as scheduled Time with Patient: Greater than 30
[2022-07-13 13:27] LABS: HCT 44.4 % (37.2-46.3); HGB 14.8 g/dL (12.0-15.0); MCH 29.4 pg (27.0-32.0); MCHC 33.3 g/dL (32.0-37.0); MCV 88.1 fL (80.0-97.0); Mean Platelet Volume 10.8 fL (9.5-12.2); NRBC Per 100 WBC 0 /100 WBCS (0.0-0.0); Platelet Count 325 X 10*3/uL (140-440); RBC 5.04 X 10*6/uL (4.10-5.20); RDW 12.9 % (11.5-14.5); WBC 20.19 X 10*3/uL (4.50-10.00)
[2022-07-13 13:44] LABS: African American GFR (CKD) 62.9 (60.0-200.0); Anion Gap 10.7 mmol/L (10.00-18.00); BUN/Creat Ratio 30.7 Ratio (12.00-20.00); Blood Urea Nitrogen 30.7 mg/dL (9.0-27.0); Calcium 9.3 mg/dL (8.7-10.3); Carbon Dioxide 33.3 mmol/L (20.0-27.5); Non-African American GFR(CKD) 54.3 (60.0-200.0); Potassium 3.8 mmol/L (3.5-5.5)
[2022-07-13 14:06] LABS: Basophils # (M) 0 X 10*3/uL (0.00-0.10); Eosinophils # (M) 0 X 10*3/uL (0.04-0.35); Lymphocytes # (M) 1.62 X 10*3/uL (0.90-5.00); Metamyelocytes % 1 % (0-0); Monocytes # (M) 0.61 X 10*3/uL (0.20-1.00); Myelocytes % 6 % (0-0); Neutrophils # (M) 16.35 X 10*3/uL (2.00-8.90); Neutrophils % (M) 81 %; Promyelocytes % 1 % (0-0)
--- NOTE | 2022-07-13 15:01 | P.PN ---
Subjective Progress Note Date: 07/13/22 76-year-old female patient who presented emergency department with progressively worsening shortness of breath. The patient is known to me. After taking care of this patient back in June 2021 and at that time the patient had a Covid 19 infection/pneumonia. The patient was given a monoclonal antibiotics in the emergency department and subsequently she developed bilateral pulmonary infiltrates and she was given steroids and she gradually improved and she was discharged home. She was also given Remdesivir. During this current admission, the patient came into the emergency department because of shortness of breath and she was found to be hypoxic. She was placed initially on oxygen at 3-1/2 L and subsequently her condition further decompensated and the patient was placed on BiPAP. At the time of my arrival in the emergency department, the patient was receiving BiPAP at a pressure of 12/6 and 50 she was able to generate a tidal volume of 550 and her respiratory rate was 28 and a minute ventilation was 13.7. The patient was in acute COPD exacerbation. The chest x-ray showed mild hepatomegaly without pulmonary vessel congestion. Nevertheless, during her hospital emergency stay, the patient went into atrial fibrillation with rapid ventricular response. She was given a dose of Cardizem with limited success. She became borderline hypotensive along with A. fib RVR. She checked positive for RSV. Her Covid 19 testing was negative. She is known to have severe COPD with an FEV1 of 49%. The patient has limited on Trelegy Ellipta on outpatient basis. Her blood work showed a WBC count of 11.7 with a hemoglobin of 16 normal coagulation profile, d-dimer was at 0.4, BUN was 50 with a creatinine of 0.80 sodium level of 134 with a potassium level of 3.9. Troponins were negative. ProBNP level was 1550. Influenza screen was negative. Troponin 2 was negative. On 07/08/2022, the patient is doing well. She is off the BiPAP and is on 5 L of oxygen by nasal cannula. Less short of breath bronchospastic and wheezy. Note that the patient was infected with RSV which exacerbated underlying COPD. She also went into atrial fibrillation with rapid ventricular response. She was started on amiodarone loading and the patient is currently on amiodarone 0.5 mg/m maintenance. She is going to switch to oral amiodarone. She missed into fibrillation. Her pro calcitonin level was at 0.21. No vesicles of 16.4 with a hemoglobin of 14.2 platelets of 208. Sodium is at 136 with a BUN of 19 and a creatinine of 0.6. Alert and awake and communicating. Tolerating her diet. Denies having any chest pain. The proBNP level was slightly elevated at 1 5 x 0 and the troponins were negative. Blood sugars are slightly elevated secondary to systemic steroids as the patient is currently on IV Solu-Medrol 60 mg every 6 hours. The patient is also on anticoagulants with Eliquis. 07/09/2022, the patient is feeling better. She is on 8 L of oxygen by nasal cannula. Nevertheless, she feels less bronchospastic and wheezy and her cough has essentially subsided and the patient is not using the BiPAP at this point in time. She is on DuoNeb about treatments [id number]. She is on Pulmicort Respules and Perforomist twice a day and she is also receiving IV Solu-Medrol 60 mg IV push every 6 hours. She remained nature fibrillation. Rate is controlled. The patient on anticoagulation with Eliquis. The patient also metoprolol XL 50 mg by mouth daily. No other significant events otherwise for now. IV fluids are still running at the rate of 75 mL an hour. She is fariba ating her diet. No chest pain. No nausea or vomiting. No other complaints otherwise for now. Echocardiogram was noted and the patient has a preserved LV function with an ejection fraction of 50% without any valvular abnormalities. No evidence of any pulmonary hypertension. 2021, the patient remains on 8 L. She is using the incentive spirometer. Her pulse ox is ranging between 91-94%. Chest x-ray shows some increased interstitial marking in small left-sided pleural effusion/atelectasis. Otherwise, there is no airspace disease. The patient remains on bronchodilators. The patient remains on Pulmicort Respules and Perforomist updrafts. The patient remains on IV Solu-Medrol. Her cardiac rhythm is atrial fibrillation which is essentially well controlled and the patient is on ant icoagulants. Her IV fluids are currently of KVO. She was given a dose of Lasix yesterday with good diuresis. This will be repeated today. Had echocardiogram showed a preserved LV function with an EF of around 50%. On 07/10/2022, the patient is improved and the patient is currently down to 5 L of oxygen by nasal cannula. Using the [employer] spirometer. Cardiac rhythm remained nature fibrillation. The patient has adequate rate control and the patient is also on anticoagulants. In terms of her COPD exacerbation, the patient remains on IV Solu-Medrol. She remains on DuoNeb about 2000 clock. She is on Levemir insulin for blood sugar control in addition to a sliding scale coverage. She is doing better. No chest pain. No shortness of breath at rest. Cough is also subsided. No hemoptysis. No pleurisy. No other complaints otherwise. On today's blood work, the patient has been restarted of 17.9 with a hemoglobin of 15.5. BUN is 36 with a creatinine of 0.7 and a sodium level is at 136. Blood sugars at 177. 07/12/2022, the patient has been weaned down to 3 L O2 nasal cannula. Overall, doing well. She remains on systemic steroids and bronchodilators. No new complaints otherwise for now. She was transferred outside intensive care unit yesterday. Blood work from today shows a white cell count of 15.8 with a hemoglobin of 14. BUN is 36 with a creatinine of 0.8 and sodium level is 134. 07/13/2022, patient is clinically stable and the patient remains intubated. Nasal cannula. The WBC count is at 20 with a hemoglobin of 14.8, sodium was at 134 BUN is at 30 with a creatinine of 1.0. The patient remains on IV Solu- Medrol. The patient remains on DuoNeb about treatments [id number]. Objective - Vital Signs Vital signs: Vital Signs Temp 98.3 F 07/13/22 14:55 Pulse 95 07/13/22 14:55 Resp 18 07/13/22 14:55 BP 105/70 07/13/22 14:55 Pulse Ox 92 L 07/13/22 14:55 FiO2 50 07/08/22 08:00 Intake & Output 07/12/22 07/13/22 07/13/22 18:59 06:59 18:59 Intake Total 450 Balance 450 Intake: Oral 450 Other: Voiding Method Toilet Toilet # Voids 2 3 - Exam Gen. appearance the patient is a mild degree of respiratory distress and the patient is currently off BiPAP on 5 L of oxygen by nasal cannula Head exam was generally normal. There was no scleral icterus or corneal arcus. Mucous membranes were moist. Neck was supple and without jugular venous distension, thyromegaly, or carotid bruits. Carotids were easily palpable bilaterally. There was no adenopathy. HEENT: Head is normocephalic. No JVD. No carotid bruit. CHEST EXAMINATION: Lungs are diminished bilaterally to auscultation. Few crac kles in lung bases bilaterally, diminished wheezing compared to yesterday and there is improvement in air entry HEART EXAMINATION: Irregular rate and rhythm. S1, S2 heard. The patient was also no evidence currently response. Abdominal exam revealed normal bowel sounds. The abdomen was soft, non-tender, and without masses, organomegaly, or appreciable enlargement of the abdominal aorta. EXTREMITIES: no lower extremity edema and no calf tenderness. Neurologically, the patient is awake and alert and the patient does not have any focal neurological deficit. Cranial nerves are essentially intact. Examination of the skin revealed no evidence of significant rashes, suspicious appearing nevi or other concerning lesions. - Labs CBC & Chem 7: 07/13/22 07:25 07/13/22 07:25 Labs: Abnormal Lab Results - Last 24 Hours (Table) 07/12/22 07/12/22 07/13/22 Range/Units 16:51 21:12 06:09 WBC (4.50-10.00) X 10*3/uL Metamyelocytes % (0-0) % Myelocytes % (0-0) % Promyelocytes % (0-0) % Neutrophils # (Manual) (2.00-8.90) X 10*3/uL Eosinophils # (Manual) (0.04-0.35) X 10*3/uL Chloride (96-109) mmol/L Carbon Dioxide (20.0-27.5) mmol/L BUN (9.0-27.0) mg/dL Est GFR (CKD-EPI)NonAf (60.0-200.0) BUN/Creatinine Ratio (12.00-20.00) Ratio Glucose (70-110) mg/dL POC Glucose (mg/dL) 203 H 208 H 159 H (70-110) mg/dL 07/13/22 07/13/22 07/13/22 Range/Units 07:25 07:25 11:45 WBC 20.19 H (4.50-10.00) X 10*3/uL Metamyelocytes % 1 H (0-0) % Myelocytes % 6 H (0-0) % Promyelocytes % 1 H (0-0) % Neutrophils # (Manual) 16.35 H (2.00-8.90) X 10*3/uL Eosinophils # (Manual) 0 L (0.04-0.35) X 10*3/uL Chloride 91 L (96-109) mmol/L Carbon Dioxide 33.3 H (20.0-27.5) mmol/L BUN 30.7 H (9.0-27.0) mg/dL Est GFR (CKD-EPI)NonAf 54.3 L (60.0-200.0) BUN/Creatinine Ratio 30.70 H (12.00-20.00) Ratio Glucose 154 H (70-110) mg/dL POC Glucose (mg/dL) 145 H (70-110) mg/dL Microbiology - Last 24 Hours (Table) 07/07/22 11:31 Blood Culture - Final Blood No Growth after 144 hours 07/07/22 11:31 Blood Culture - Final Blood No Growth after 144 hours Assessment and Plan Plan: Acute COPD exacerbation, improving, and the exacerbating factor was RSV infection of the lungs. clinically improving and the patient is less short of breath, continues to improve slowly, no new complaints for now and she left intensive care unit. Acute hypoxic respiratory failure the patient is currently on 3 L of oxygen by nasal cannula Acute RSV tracheal bronchitis with secondary COPD exacerbation, improved compared to yesterday Acute dyspnea and hypoxic respiratory failure currently on a BiPAP at the time of admission currently the patient is off the BiPAP on 5 L of 02 nasal cannula Atrial fibrillation, chronic with rapid ventricular response secondary to above, currently on amiodarone loading to be transitioned to oral amiodarone and the patient isn't particularly related with Eliquis, the patient's rate is under better control for now and the patient is on metoprolol 50 mg by mouth daily in combination with amiodarone 400 mg by mouth twice a day. Recent Covid 19 pneumonia, hospitalized back in June 2021 Advanced COPD with an FEV1 of 49% of predicted maintain on Trelegy Ellipta on outpatient basis Hypertension Chronic systolic heart failure with an ejection fraction of 40-45% based on echocardiography from 07/17/2021. The patient also has [id number]-[id number] mitral regurgitation Plan Clinically stable Keep the patient 3 L of O2 nasal cannula Attempt to wean down FiO2 further Wean down FiO2 to maintain saturation above 90% Obtain adequate pulse ox reading Continue patient on DuoNeb nebulized treatments [id number] and IV Solu- Medrol 60 mg every 6 hours Oral amiodarone at a dose of 400 mg by mouth twice a day and metoprolol 50 mg by mouth twice a day for rate control Continue anticoagulation with Eliquis Levemir insulin coverage for blood sugar control IV fluids to KVO Use incentive spirometer.
[2022-07-13 16:49] LABS: Glucose,Whole Blood 268 mg/dL (70-110)
[2022-07-13 20:54] LABS: Glucose,Whole Blood 273 mg/dL (70-110)
[2022-07-13] MEDS: INSULIN DETEMIR (LEVEMIR) 100 UNIT/ML SYR SQ SCH (21:15)
[2022-07-14] MEDS: guaiFENesin-DM 100-10MG/5ML 10 ML CUP PO SCH ×3 (00:10→12:32)
[2022-07-14] MEDS: methylPREDNISolone SOD SUCCI 125 MG/2 ML VIAL IV SCH ×3 (00:10→12:32)
[2022-07-14 06:13] LABS: Glucose,Whole Blood 158 mg/dL (70-110)
[2022-07-14] MEDS: INSULIN ASPART (NovoLOG) 100 UNIT/ML VIAL SQ SCH ×2 (06:58→12:32)
[2022-07-14] MEDS: LEVOTHYROXINE 25 MCG TAB PO SCH (06:58)
[2022-07-14] MEDS: IPRATROPIUM-ALBUTEROL 3 ML NEB INHALATION SCH ×2 (08:01→11:44)
[2022-07-14] MEDS: BUDESONIDE 1 MG/2 ML NEBU INHALATION SCH (08:01)
[2022-07-14 08:51] VITALS: BMI 30.2
[2022-07-14] MEDS: APIXABAN 5 MG TAB PO SCH (09:07)
[2022-07-14] MEDS: ATORVASTATIN 40 MG TAB PO SCH (09:07)
[2022-07-14] MEDS: PANTOPRAZOLE 40 MG/10 ML VIAL IVP SCH (09:07)
[2022-07-14] MEDS: AMIODARONE 200 MG TAB PO SCH (09:07)
[2022-07-14] MEDS: METOPROLOL SUCCINATE (ER) 50 MG TAB.ER.24H PO SCH (09:07)
--- NOTE | 2022-07-14 11:14 | P.DS ---
Providers Date of admission: 07/07/22 14:30 Expected date of discharge: 07/14/22 Attending physician: Merritt Sarmiento Consults: 07/07/22 13:23 Consult Physician Routine Consulting Provider: Johnnie Cameron Consult Reason/Comments: Hypoxemic with RSV. COPD history Do you want consulting provider notified?: Yes Consult Physician Routine Consulting Provider: Abhishek Olivera Consult Reason/Comments: A. fib Do you want consulting provider notified?: Yes Primary care physician: Hugo Sherman Hospital Course: Final Diagnoses: Acute hypoxic respiratory failure secondary to acute RSV bronchitis, acute COPD exacerbation, status post BiPAP Chronic atrial fibrillation currently with RVR on amiodarone drip 7 mm nodule right upper lobe reported per chest x-ray Recent Covid-19 infection Hypertension Chronic CHF, systolic dysfunction Mild to moderate mitral regurgitation, history Obesity, BMI 32.2 Hospital course:This is 76-year-old female with past medical history of COPD, hypertension, former nicotine dependence, COVID-19 infection, and multiple other medical issues presented to the ER with complaints of worsening dyspnea. Hypoxic on admission, initially placed on 3 L nasal cannula, continued to decline and eventually required BiPAP.developed atrial fibrillation with RVR, initially treated with IV Cardizem, blood pressure softened. troponin negative 2 ,NT proBNP 1550.Chest x-ray reported mild cardiomegaly without pulmonary theodore congestion, with no overt failure. Repeat chest x-ray reported basilar atelectasis favored over pneumonia, 7 mm nodule right upper lobe .influenza screen negative ,tested positive for RSV. Placed on nebulized bronchodilators, IV steroids and weaned to 6 L high flow nasal cannula. Vbqqbqtulnsqg-srlpxub-bahswle. Pro-calcitonin 0.21 . Sputum culture reporting many Haemophilus influenzae. Renal function stable This morning telemetry A. fib heart rates 130s to 140s, completing amiodarone drip and transitioning to oral. Received an additional dose of metoprolol. Denies chest pain, palpitations. 07/09/2022 telemetry A. fib with controlled ventricular rate, transition to oral amiodarone yesterday, continued on beta flower. Maintaining O2 sats in the 90s on 8 L high flow nasal cannula. Received a dose of Lasix 40 mg IV push 1 as per pulmonary. Sitting up in chair, positive diet intake, denies nausea vomiting or diarrhea. Bowel movement earlier this a.m. denies chest pain, palpitations. Echo completed yesterday reporting moderate left ventricular hypertrophy with normal LV function, mild to moderate mitral regurgitation. 07/10/2022 A. fib with controlled ventricular rate. Maintained on oral amiodarone, metoprolol .Anticoagulated on Eliquis.Continues on IV steroids, nebulized bronchodilators, currently requiring 8 L high flow nasal cannula, maintaining O2 sats in the 90s. Chest x-ray reporting these or atelectasis favored over pneumonia, 7 mm nodule right upper lobe .Afebrile, T-max 99.1, preliminary blood cultures reporting no growth after 48 hours. Potassium 3.5, BUN 33, creatinine 0.76. Good diet intake, no nausea vomiting or diarrhea. Positive bowel movement yesterday. Denies abdominal pain. blood sugars controlled, on Lantus. 07/11/2022 received a dose of Lasix IV push yesterday, diuresed well. Remains in atrial fibrillation with controlled ventricular rate. Amiodarone decreased. Continues on nebulized bronchodilators , IV steroids ,FIO2 weaned to 5 L nasal cannula, maintaining O2 sats in the 90s. Potassium 3.3, magnesium level pending. Afebrile. Significant clinical improvement. O2 sat on room air after ambulation 84%, patient will require 2 L nasal cannula O2 for acute on chronic hypoxic respiratory failure secondary to RSV pneumonia as well as COPD. Patient has bee n cleared by pulmonary for discharge. Antiarrhythmics as per cardiology, patient will require amiodarone taper as per cardiology. Patient will be discharged home today in stable condition with guarded prognosis. The impression and plan of care has been dictated as directed. : I performed a history and examination of this patient, discussed the same with the dictator. I agree with the dictator's note ,documented as a scribe. Any additional findings or plans will be noted. Patient Condition at Discharge: Stable Plan - Discharge Summary Discharge Rx Participant: Yes New Discharge Prescriptions: New Ipratropium-Albuterol Nebulize [Duoneb 0.5 mg-3 mg/3 ml Soln] 3 ml INHALATION RT-QID #120 each Sodium Chloride 0.65% Nasal [Deep Sea (Saline)] 2 spray NASAL QID PRN ml PRN Reason: Dry Nasal Passages Atorvastatin [Lipitor] 40 mg PO DAILY #30 tab predniSONE 10 mg PO DIRECTED #30 tab guaiFENesin-DM 100-10MG/5ML [Robitussin DM] 10 ml PO Q6HR ml Metoprolol Succinate (ER) [Toprol XL] 50 mg PO BID #60 tab lisinopriL [Zestril] 2.5 mg PO BID #60 tab Continue Apixaban [Eliquis] 5 mg PO BID #60 tab Bran/D3/Mag11/Zinc/Machine Ii Trimmer/Kurtis/Bor [Caltrate 600+D Plus Tablet] 1 tab PO HS Fluticasone/Umeclidin/Vilanter [Trelegy Ellipta 100-62.5-25] 1 puff INHALATION RT-DAILY Albuterol Sulfate [Albuterol Sulfate Hfa] 2 puff PO RT-QID PRN PRN Reason: Shortness Of Breath Cholecalciferol [Vitamin D3 (125 Mcg = 5000 Iu)] 125 mcg PO DAILY Levothyroxine Sodium [Synthroid] 25 mcg PO DAILY Fish Oil/Dha/Epa [Fish Oil 1,200 mg Fish Oil] 1 cap PO BID Discontinued amLODIPine BESYLATE/BENAZEPRIL [amLODIPine BESYLATE/BENAZEPRIL 5-20 MG] 1 cap PO DAILY Chlorthalidone 12.5 mg PO DAILY Metoprolol Succinate (ER) [Toprol Xl] 25 mg PO DAILY Discharge Medication List Levothyroxine Sodium [Synthroid] 25 mcg PO DAILY 07/15/21 [History] Apixaban [Eliquis] 5 mg PO BID #60 tab 07/21/21 [Rx] Bran/D3/Mag11/Zinc/Machine Ii Trimmer/Kurtis/Bor [Caltrate 600+D Plus Tablet] 1 tab PO HS 08/29/21 [History] Fish Oil/Dha/Epa [Fish Oil 1,200 mg Fish Oil] 1 cap PO BID 08/29/21 [History] Fluticasone/Umeclidin/Vilanter [Trelegy Ellipta 100-62.5-25] 1 puff INHALATION RT-DAILY 08/29/21 [History] Albuterol Sulfate [Albuterol Sulfate Hfa] 2 puff PO RT-QID PRN 07/07/22 [History] Cholecalciferol [Vitamin D3 (125 Mcg = 5000 Iu)] 125 mcg PO DAILY 07/07/22 [History] Atorvastatin [Lipitor] 40 mg PO DAILY #30 tab 07/14/22 [Rx] Ipratropium-Albuterol Nebulize [Duoneb 0.5 mg-3 mg/3 ml Soln] 3 ml INHALATION RT-QID #120 each 07/14/22 [Rx] Metoprolol Succinate (ER) [Toprol XL] 50 mg PO BID #60 tab 07/14/22 [Rx] Sodium Chloride 0.65% Nasal [Deep Sea (Saline)] 2 spray NASAL QID PRN ml 07/14/22 [Rx] guaiFENesin-DM 100-10MG/5ML [Robitussin DM] 10 ml PO Q6HR ml 07/14/22 [Rx] lisinopriL [Zestril] 2.5 mg PO BID #60 tab 07/14/22 [Rx] predniSONE 10 mg PO DIRECTED #30 tab 07/14/22 [Rx] Follow up Appointment(s)/Referral(s): Johnnie Cameron MD [STAFF PHYSICIAN] - 08/01/22 1:30 pm Hugo Sherman MD [Primary Care Provider] - 07/18/22 11:30 am Abhishek Olivera MD [STAFF PHYSICIAN] - 07/29/22 2:45 pm Activity/Diet/Wound Care/Special Instructions: Amiodarone taper as per cardiology Case management to verify patient has a nebulizer 02:2 Lnc O2 Discharge Disposition: HOME WITH HOME HEALTH SERVICES
[2022-07-14 11:45] LABS: Glucose,Whole Blood 253 mg/dL (70-110)
[2022-07-14 14:48] VITALS: BP 108/75; PULSE 86; RESP 18; TEMP 98
--- NOTE | 2022-07-14 14:56 | P.PN ---
Subjective Progress Note Date: 07/14/22 Principal diagnosis: RSV, COPD exacerbation 76-year-old female patient who presented emergency department with progressively worsening shortness of breath. The patient is known to me. After taking care of this patient back in June 2021 and at that time the patient had a Covid 19 infection/pneumonia. The patient was given a monoclonal antibiotics in the emergency department and subsequently she developed bilateral pulmonary infiltrates and she was given steroids and she gradually improved and she was discharged home. She was also given Remdesivir. During this current admission, the patient came into the emergency department because of shortness of breath and she was found to be hypoxic. She was placed initially on oxygen at 3-1/2 L and subsequently her condition further decompensated and the patient was placed on BiPAP. At the time of my arrival in the emergency department, the patient was receiving BiPAP at a pressure of 12/6 and 50 she was able to generate a tidal volume of 550 and her respiratory rate was 28 and a minute ventilation was 13.7. The patient was in acute COPD exacerbation. The chest x-ray showed mild hepatomegaly without pulmonary vessel congestion. Nevertheless, during her hospital emergency stay, the patient went into atrial fibrillation with rapid ventricular response. She was given a dose of Cardizem with limited success. She became borderline hypotensive along with A. fib RVR. She checked positive for RSV. Her Covid 19 testing was negative. She is known to have severe COPD with an FEV1 of 49%. The patient has limited on Trelegy Ellipta on outpatient basis. Her blood work showed a WBC count of 11.7 with a hemoglobin of 16 normal coagulation profile, d-dimer was at 0.4, BUN was 50 with a creatinine of 0.80 sodium level of 134 with a potassium level of 3.9. Troponins were negative. ProBNP level was 1550. Influenza screen was negative. Troponin 2 was negative. On 07/08/2022, the patient is doing well. She is off the BiPAP and is on 5 L of oxygen by nasal cannula. Less short of breath bronchospastic and wheezy. Note that the patient was infected with RSV which exacerbated underlying COPD. She also went into atrial fibrillation with rapid ventricular response. She was started on amiodarone loading and the patient is currently on amiodarone 0.5 mg/m maintenance. She is going to switch to oral amiodarone. She missed into fibrillation. Her pro calcitonin level was at 0.21. No vesicles of 16.4 with a hemoglobin of 14.2 platelets of 208. Sodium is at 136 with a BUN of 19 and a creatinine of 0.6. Alert and awake and communicating. Tolerating her diet. Denies having any chest pain. The proBNP level was slightly elevated at 1 5 x 0 and the troponins were negative. Blood sugars are slightly elevated secondary to systemic steroids as the patient is currently on IV Solu-Medrol 60 mg every 6 hours. The patient is also on anticoagulants with Eliquis. 07/09/2022, the patient is feeling better. She is on 8 L of oxygen by nasal cannula. Nevertheless, she feels less bronchospastic and wheezy and her cough has essentially subsided and the patient is not using the BiPAP at this point in time. She is on DuoNeb about treatments [id number]. She is on Pulmicort Respules and Perforomist twice a day and she is also receiving IV Solu-Medrol 60 mg IV push every 6 hours. She remained nature fibrillation. Rate is controlled. The patient on anticoagulation with Eliquis. The patient also metoprolol XL 50 mg by mouth daily. No other significant events otherwise for now. IV fluids are still running at the rate of 75 mL an hour. She is tolerating her diet. No chest pain. No nausea or vomiting. No other complaints otherwise for now. Echocardiogram was noted and the patient has a preserved LV function with an ejection fraction of 50% without any valvular abnormalities. No evidence of any pulmonary hypertension. 2021, the patient remains on 8 L. She is using the incentive spirometer. Her pulse ox is ranging between 91-94%. Chest x-ray shows some increased interstitial marking in small left-sided pleural effusion/atelectasis. Otherwise, there is no airspace disease. The patient remains on bronchodilators. The patient remains on Pulmicort Respules and Perforomist updrafts. The patient remains on IV Solu-Medrol. Her cardiac rhythm is atrial fibrillation which is essentially well controlled and the patient is on anticoagulants. Her IV fluids are currently of KVO. She was given a dose of Lasix yesterday with good diuresis. This will be repeated today. Had echocardiogram showed a preserved LV function with an EF of around 50%. On 07/10/2022, the patient is improved and the patient is currently down to 5 L of oxygen by nasal cannula. Using the [place] spirometer. Cardiac rhythm remained nature fibrillation. The patient has adequate rate control and the patient is also on anticoagulants. In terms of her COPD exacerbation, the theo pettit remains on IV Solu-Medrol. She remains on DuoNeb about 2000 clock. She is on Levemir insulin for blood sugar control in addition to a sliding scale coverage. She is doing better. No chest pain. No shortness of breath at rest. Cough is also subsided. No hemoptysis. No pleurisy. No other complaints otherwise. On today's blood work, the patient has been restarted of 17.9 with a hemoglobin of 15.5. BUN is 36 with a creatinine of 0.7 and a sodium level is at 136. Blood sugars at 177. 07/12/2022, the patient has been weaned down to 3 L O2 nasal cannula. Overall, doing well. She remains on systemic steroids and bronchodilators. No new complaints otherwise for now. She was transferred outside intensive care unit yesterday. Blood work from today shows a white cell count of 15.8 with a hemoglobin of 14. BUN is 36 with a creatinine of 0.8 and sodium level is 134. 07/13/2022, patient is clinically stable and the patient remains intubated. Nasal cannula. The WBC count is at 20 with a hemoglobin of 14.8, sodium was at 134 BUN is at 30 with a creatinine of 1.0. The patient remains on IV Solu- Medrol. The patient remains on DuoNeb about treatments [id number]. I am evaluating this patient today on 07/14/2022. She appears comfortable in no acute distress. She is sitting in chair on 2 L nasal cannula. She has not qualified for home 02 based on walk test. No new labs today. Most recent chest x-ray from 07/10/2022 showed basilar atelectasis and a 7 mm nodule in the right upper lobe. She remains remains on DuoNeb inhalations, Pulmicort, and IV Solu- Medrol. HR remains well controlled with PO amio and metoprolol. Anticoagulated with Eliquis. IS is at bedside. We will continue to manage this patient's COPD in the office outpatient. Objective - Vital Signs Vital signs: Vital Signs Temp 97.7 F 07/14/22 08:00 Pulse 100 07/14/22 11:57 Resp 22 07/14/22 08:00 BP 137/90 07/14/22 08:00 Pulse Ox 93 L 07/14/22 09:33 FiO2 50 07/08/22 08:00 Intake & Output 07/13/22 07/14/22 07/14/22 18:59 06:59 18:59 Intake Total 450 Balance 450 Weight 90 kg Intake: Oral 450 Other: Voiding Method Toilet Toilet # Voids 2 3 - Exam GENERAL EXAM: Alert, active, obese female, comfortable in no apparent distress. HEAD: Normocephalic. EYES: Normal reaction of pupils, equal size. NOSE: Clear with pink turbinates. THROAT: No erythema or exudates. NECK: No masses, no JVD. CHEST: No chest wall deformity. LUNGS: Equal air entry with no crackles, wheeze, rhonchi or dullness. CVS: S1 and S2 normal with no audible murmur, regular rhythm. ABDOMEN: No hepatosplenomegaly, normal bowel sounds, no guarding or rigidity. SPINE: No scoliosis or deformity SKIN: No rashes CENTRAL NERVOUS SYSTEM: No focal deficits, tone is normal in all 4 extremities. EXTREMITIES: There is no peripheral edema. No clubbing, no cyanosis. Peripheral pulses are intact., - Labs CBC & Chem 7: 07/13/22 07:25 07/13/22 07:25 Labs: Abnormal Lab Results - Last 24 Hours (Table) 07/13/22 07/13/22 07/13/22 Range/Units 07:25 07:25 16:47 WBC 20.19 H (4.50-10.00) X 10*3/uL Metamyelocytes % 1 H (0-0) % Myelocytes % 6 H (0-0) % Promyelocytes % 1 H (0-0) % Neutrophils # (Manual) 16.35 H (2.00-8.90) X 10*3/uL Eosinophils # (Manual) 0 L (0.04-0.35) X 10*3/uL Promyelocytes # (Man) 0.20 H (0) k/uL Chloride 91 L (96-109) mmol/L Carbon Dioxide 33.3 H (20.0-27.5) mmol/L BUN 30.7 H (9.0-27.0) mg/dL Est GFR (CKD-EPI)NonAf 54.3 L (60.0-200.0) BUN/Creatinine Ratio 30.70 H (12.00-20.00) Ratio Glucose 154 H (70-110) mg/dL POC Glucose (mg/dL) 268 H (70-110) mg/dL 07/13/22 07/14/22 07/14/22 Range/Units 20:53 06:11 11:43 WBC (4.50-10.00) X 10*3/uL Metamyelocytes % (0-0) % Myelocytes % (0-0) % Promyelocytes % (0-0) % Neutrophils # (Manual) (2.00-8.90) X 10*3/uL Eosinophils # (Manual) (0.04-0.35) X 10*3/uL Promyelocytes # (Man) (0) k/uL Chloride (96-109) mmol/L Carbon Dioxide (20.0-27.5) mmol/L BUN (9.0-27.0) mg/dL Est GFR (CKD-EPI)NonAf (60.0-200.0) BUN/Creatinine Ratio (12.00-20.00) Ratio Glucose (70-110) mg/dL POC Glucose (mg/dL) 273 H 158 H 253 H (70-110) mg/dL Microbiology - Last 24 Hours (Table) 07/07/22 11:31 Blood Culture - Final Blood No Growth after 144 hours 07/07/22 11:31 Blood Culture - Final Blood No Growth after 144 hours Assessment and Plan Assessment: Acute COPD exacerbation, improving, and the exacerbating factor was RSV infection of the lungs. Acute hypoxic respiratory failure the patient is currently on 2 L of oxygen by nasal cannula. Acute RSV tracheal bronchitis with secondary COPD exacerbation, continues to improve on 2 L nasal cannula Atrial fibrillation, chronic with rapid ventricular response secondary to above, currently on by mouth amiodarone and metoprolol he remains anticoagulated on eliquis. Recent Covid 19 pneumonia, hospitalized back in June 2021. Advanced COPD with an FEV1 of 49% of predicted maintain on Trelegy Ellipta on outpatient basis Hypertension Chronic systolic heart failure with an ejection fraction of 40-45% based on echocardiography from 07/17/2021. The patient also has [id number] mitral regurgitation Plan: Plan Clinically stable wean off 2 L nasal cannula as tolerated to maintain oxygen saturation greater than 90% Use incentive spirometer. May discharge patient on oral prednisone taper. continue oral amiodarone at a dose of 200 mg by mouth twice a day and metoprolol 50 mg by mouth twice a day for rate control. Continue anticoagulation with Eliquis IV fluids to KVO a total of 10 minutes was spent with this patient follow-up. Time with Patient: Less than 30
== END 2022-07-14 16:12 | disposition home health service (06) | DRG 189 ==
LOC: EC 10:59 → 3SCARD 14:30 → 2SICU 16:08 → 4SSUR 07-11 21:48
PROVIDERS: ADMIT Family Medicine; ATTEND Family Medicine
PROC: 5A09357 Assistance with Respiratory Ventilation, Less than 24 Consecutive Hours, Continuous Positive Airway Pressure (ICD-10-PCS; principal; 2022-07-07)
DX: J96.01 Acute respiratory failure with hypoxia (principal); J44.0 Chronic obstructive pulmonary disease with (acute) lower respiratory infection; J44.1 Chronic obstructive pulmonary disease with (acute) exacerbation; J98.11 Atelectasis; E87.29 Other acidosis; I42.9 Cardiomyopathy, unspecified; I48.20 Chronic atrial fibrillation, unspecified; I48.92 Unspecified atrial flutter; I50.22 Chronic systolic (congestive) heart failure; J20.5 Acute bronchitis due to respiratory syncytial virus; T38.0X5A Adverse effect of glucocorticoids and synthetic analogues, initial encounter; E11.65 Type 2 diabetes mellitus with hyperglycemia; E03.9 Hypothyroidism, unspecified; E66.9 Obesity, unspecified; Z68.32 Body mass index [BMI] 32.0-32.9, adult; Z87.891 Personal history of nicotine dependence; I11.0 Hypertensive heart disease with heart failure; I34.0 Nonrheumatic mitral (valve) insufficiency; Z20.822 Contact with and (suspected) exposure to COVID-19; Z28.310 Unvaccinated for COVID-19; Z79.01 Long term (current) use of anticoagulants; Z79.890 Hormone replacement therapy; Z79.899 Other long term (current) drug therapy; Z86.16 Personal history of COVID-19; Z87.01 Personal history of pneumonia (recurrent)
CPT/HCPCS: 36415; 71045; 71046; 80048; 80053; 82803; 83605; 83735; 83880; 84145; 84443; 84484; 85025; 85379; 85610; 85730; 87040; 87636; 93005; 93306; 94640; 94660; 94760; 96361; 96365; 96366; 96375; 99285

== ENCOUNTER 2022-12-11 07:16 | Day surgery (SDC) | payer MEDICARE ==
[~2022-12-11 07:16] MED LIST changes: +LACTATED RINGERS 1,000 ML IV SCH; -SODIUM CHLORIDE 0.9% 1,000 ML IV SCH
[2022-12-11 08:57] VITALS: TEMP 98
[2022-12-11] MEDS ORDERED: PROPOFOL 10 MG/ML 20 ML VIAL IV ONE (08:58)
[2022-12-11] MEDS ORDERED: APIXABAN 5 MG TAB PO SCH (09:30)
[2022-12-11 10:32] VITALS: RESP 18
[2022-12-11 11:07] VITALS: BP 126/80; PULSE 70
[2022-12-11] MEDS ORDERED: SODIUM CHLORIDE 0.9% 1,000 ML IV SCH (11:15)
--- NOTE | 2022-12-11 12:26 | ECHOT ---
TRANSESOPHAGEAL ECHOCARDIOGRAM PROCEDURES PERFORMED: 1. Transesophageal echocardiogram. 2. Cardioversion. INDICATION: Persistent atrial fibrillation. DESCRIPTION OF PROCEDURE: After obtaining informed consent, transesophageal echocardiogram was performed in left lateral position using an Omni plane probe. Local and IV sedation were obtained by the revising clerk. The patient tolerated the procedure well without any obvious immediate complications. FINDINGS: 1. There is no intracardiac thrombus within the left atrial appendage, left atrium, right atrium, right ventricle and left ventricle. 2. Left ventricle has normal size and systolic function. 3. Mitral valve is anatomically normal. There is mild central mitral regurgitation noted. 4. Aortic valve is a 3-leaflet valve. There is no evidence of aortic stenosis or regurgitation. 5. Interatrial septum: There is no evidence of eeoh-pn-vyrty shunt by color-flow Doppler or pkxej-ry-tlth shunt by agitated saline contrast study. 6. Tricuspid valve shows mild tricuspid regurgitation. 7. Aortic root measures within normal limits. CONCLUSIONS: 1. No intracardiac thrombus. 2. Normal LV systolic function. 3. Mild mitral regurgitation. PLAN: The patient will proceed with cardioversion. CARDIOVERSION: INDICATION: Persistent atrial fibrillation. After making sure that the patient does not have any intracardiac thrombus with a transesophageal echo, the patient is adequately anticoagulated with Eliquis. She was cardioverted using 200 joules of synchronized DC current. The patient was shocked twice and was converted to sinus rhythm following the second shock. She will continue the Eliquis and follow up with me in 2 weeks' time. MMODL / IJN: [id number] /
== END 2022-12-11 11:09 | disposition home or self-care (01) ==
LOC: OR 07:16
PROVIDERS: ATTEND Internal Medicine Cardiovascular Disease
DX: I48.19 Other persistent atrial fibrillation (principal); I08.1 Rheumatic disorders of both mitral and tricuspid valves; I10 Essential (primary) hypertension; J44.9 Chronic obstructive pulmonary disease, unspecified; F17.210 Nicotine dependence, cigarettes, uncomplicated; E07.9 Disorder of thyroid, unspecified; Z79.51 Long term (current) use of inhaled steroids; Z79.01 Long term (current) use of anticoagulants; Z79.890 Hormone replacement therapy; Z79.899 Other long term (current) drug therapy; Z82.49 Family history of ischemic heart disease and other diseases of the circulatory system
CPT/HCPCS: 93312; 93320; 93325; 92960; J2704

== ENCOUNTER → 2023-10-23 | Outpatient (CLI) | payer MEDICARE ==
[2023-10-23 13:25] LABS: INR 1.1 (<1.2); Partial Thromboplastin Time 29.6 sec (22.0-30.0); Prothrombin Time 12.1 sec (10.0-12.5)
[2023-10-23 16:32] LABS: ALT 17 U/L (8-44); AST 22 U/L (13-35); Albumin 4.4 g/dL (3.8-4.9); Albumin/Globulin Ratio 1.69 Ratio (1.60-3.17); Alkaline Phosphatase 82 U/L (41-126); Blood Urea Nitrogen 15.7 mg/dL (9.0-27.0); Calcium 10.7 mg/dL (8.7-10.3); Carbon Dioxide 29.2 mmol/L (21.6-31.8); Chloride 104 mmol/L (96-109); Globulin 2.6 g/dL (1.6-3.3); Glucose 110 mg/dL (70-110); Potassium 4.6 mmol/L (3.5-5.5); Sodium 143 mmol/L (135-145); Total Bilirubin 0.7 mg/dL (0.3-1.2)
[2023-10-23 18:16] LABS: Appearance,Urine Clear (Clear); Bilirubin,Urine Negative (Negative); Blood,Urine Negative (Negative); Color,Urine Dark Yellow (Yellow); Ketones,Urine Negative (Negative); Nitrite,Urine Negative (Negative); Specific Gravity,Urine 1.019 (1.001-1.030); Urobilinogen,Urine 0.2 E.U./DL
[2023-10-23 18:23] LABS: Bacteria,Urine Trace (None Seen)
[2023-10-23 19:17] LABS: HCT 46.7 % (37.2-46.3); HGB 14.5 g/dL (12.0-15.0); MCH 27.4 pg (27.0-32.0); MCV 88.3 FL (80.0-97.0); Mean Platelet Volume 11.7 FL (9.5-12.2); NRBC Per 100 WBC 0 X 10*3/uL (0.00-0.01); Platelet Count 220 X 10*3/uL (140-440); RBC 5.29 X 10*6/uL (4.10-5.20); RDW 14.7 % (11.5-14.5); WBC 8.96 X 10*3/uL (4.50-10.00)
== END | disposition home or self-care (01) ==
LOC: LABPAT 12:16
PROVIDERS: ATTEND Orthopaedic Surgery
DX: Z01.812 Encounter for preprocedural laboratory examination (principal); M16.12 Unilateral primary osteoarthritis, left hip; Z22.322 Carrier or suspected carrier of Methicillin resistant Staphylococcus aureus
CPT/HCPCS: 36415; 80053; 81001; 85027; 85610; 85730; 86850; 86900; 86901; 87070

== ENCOUNTER 2023-11-03 08:32 | Day surgery (SDC) | payer MEDICARE ==
[~2023-11-03 08:32] MED LIST changes: +HYDROmorphone 0.5 MG/0.5 ML SYRINGE IVP PRN; -LACTATED RINGERS 1,000 ML IV SCH; +TRANEXAMIC 1,000 MG/100ML-NACL 1,000 MG in SALINE 1 100ML.BAG IVPB PRN
[2023-11-03] MEDS: LACTATED RINGERS 1,000 ML IV SCH (08:57)
[2023-11-03] MEDS: DEXAMETHASONE SOD PHOSPHATE 4 MG/ML 1 ML VIAL IV ONE (09:40)
[2023-11-03] MEDS: MELOXICAM 7.5 MG TAB PO PRN (09:40)
[2023-11-03] MEDS: ONDANSETRON 4 MG/2 ML VIAL IVP ONE (09:40)
[2023-11-03] MEDS: GABAPENTIN 300 MG CAP PO PRN (09:40)
[2023-11-03] MEDS: ACETAMINOPHEN TAB 500 MG TAB PO PRN (09:40)
[2023-11-03] MEDS: MIDAZOLAM 2 MG/2 ML VIAL IVP ONE (09:50)
[2023-11-03] MEDS: fentaNYL (PF) 50 MCG/ML 2 ML AMP IVP ONE (09:55)
--- NOTE | 2023-11-03 10:10 | P.ANPRN ---
Procedure Note - Anesthesia - Nerve Block Performed Left Cesar Single Time Out Performed: Yes Date of Procedure: 11/03/23 Procedure Start Time: 09:50 Procedure Stop Time: 10:00 Location of Patient: PreOp Indication: Acute Post-Operative Pain, Analgesia, Requested by Surgeon Sedation Type: Sedate with meaningful contact maintained Preparation: Sterile Prep Position: Supine Catheter: None Needle Types: Pajunk Needle Gauge: 21 Ultrasound used to visualize needle placement: Yes Ultrasound used to observe medication spread: Yes Injectate: 0.5% Ropivacaine (see comment for volume) (Ropiv 25ml + Decadron 4mg) Blood Aspirated: No Pain Paresthesia on Injection Noted: No Resistance on Injection: Normal Image Stored and Saved: Yes Events: Uneventful and Well Tolerated
[2023-11-03] MEDS ORDERED: fentaNYL (PF) 50 MCG/ML 2 ML AMP ONE (13:32)
[2023-11-03] MEDS ORDERED: GLYCOPYRROLATE 0.2 MG/ML 2 ML VIAL ONE (13:32)
[2023-11-03] MEDS ORDERED: LIDOCAINE 1% INJ 10MG/ML (20 ML MDV) ONE (13:32)
[2023-11-03] MEDS ORDERED: NEOSTIGMINE 1 MG/ML 10 ML VIAL ONE (13:32)
[2023-11-03] MEDS ORDERED: PHENYLEPHRINE-0.9% NACL SYG 1,000 MCG/10 ML SYRINGE ONE (13:32)
[2023-11-03] MEDS ORDERED: PROPOFOL 10 MG/ML 20 ML VIAL IV ONE (13:32)
[2023-11-03] MEDS ORDERED: ROCURONIUM 10 MG/ML (5 ML VIAL) IV ONE (13:32)
[2023-11-03] MEDS ORDERED: ROPIVACAINE 5 MG/ML 30 ML VIAL ONE (13:32)
[2023-11-03] MEDS ORDERED: TRANEXAMIC 1,000 MG/100ML-NACL PREMIX BAG ONE (13:32)
[2023-11-03] MEDS ORDERED: MIDAZOLAM 2 MG/2 ML VIAL ONE (13:32)
[2023-11-03] MEDS ORDERED: SUCCINYLCHOLINE CHLORIDE 200 MG/10 ML VIAL IV ONE (13:32)
[2023-11-03] MEDS ORDERED: DEXAMETHASONE SOD PHOSPHATE 4 MG/ML 1 ML VIAL ONE (13:32)
[2023-11-03] MEDS: ROPIVACAINE 5 MG/ML 30 ML VIAL MISCELLANE ONE (13:59)
[2023-11-03] MEDS: LACTATED RINGERS 1,000 ML IV ONE (14:00)
[2023-11-03] MEDS: ceFAZolin 1,000 MG in SODIUM CHLORIDE 0.9% 1,000 ML IRRIGATION ONE (14:01)
--- NOTE | 2023-11-03 14:43 | P.OP ---
Date of Procedure: 11/03/23 Preoperative Diagnosis: severe osteoarthritis left hip Postoperative Diagnosis: severe osteoarthritis left hip Procedure(s) Performed: left total hip arthroplasty with a direct anterior approach Implants: [employer] Polarstem standard size 2 with a collar [employer] R3, 3 hole hemispherical acetabular shell, 54 mm [employer] Reflection 6.5 mm cancellus screw, 20 mm, 25 mm [employer] R3, XLPE 20 acetabular liner [employer] Oxinium femoral head 36 mm, +8 All components were press-fit. The articulation is Oxinium on polyethylene. Anesthesia: GETA Surgeon: Manny Romero Gaming Surveillance Observer #1: Kimberly Burgess Estimated Blood Loss (ml): 350 Pathology: none sent Condition: stable Disposition: PACU Indications for Procedure: After failure of conservative treatment we discussed the surgical and nonsur gical treatment options at length. Patient wishes to proceed with a total hip arthroplasty with a direct anterior approach. Complications specific to this procedure were discussed at length, including but not limited to infection, leg length discrepancy, dislocation, nerve injury, and fracture. Covid-19 was also discussed at length with the patient, and they are aware of the current policies and procedures. The patient was given the option of delaying surgery, but they elect to proceed knowing these risks. Patient is aware of all these complications and informed consent was obtained Operative Findings: the operative findings are consistent with severe osteoarthritis of the left hip Description of Procedure: The patient was seen and evaluated in the preoperative area and the consent was reviewed. The operative site was marked with a skin marker. The patient verified the procedure and operative site. A HA block was placed by anesthesia in the preoperative area. The patient was then brought to the operating room and given preoperative antibiotics intravenously. 1 g of Tranexamic acid was also given intravenously. A general anesthetic was administered by the anesthesia department. The patient was then placed on the Beckemeyer table with the bony prominences well-padded. The hip area was then prepped with a ChloraPrep solution and draped in the usual sterile fashion. A universal timeout was then performed, which confirmed the patient's name, surgical site, ALLERGIES, and procedure being performed on the consent. Next the incision site was located at 1 cm distal and 4 cm lateral to the anterior superior iliac spine. The skin and subcutaneous tissues were sharply incised. Incision was carefully dissected down to the fascia overlying the tensor fascia komal muscle. This fascia was then incised in line with the muscle fibers. Care was taken to stay laterally in order to avoid injuring the lateral femoral cutaneous nerve. Next, using blunt finger dissection, the tensor fascia komal muscle was dissected off its investing fascia. The muscle was then carefully retracted laterally with a cobra retractor over the lateral neck of the femur. Next, the circumflex vessels were identified and cauterized using the Aquamantis device. The anterior hip capsule was then exposed. The capsule was then opened and an inverted T fashion. The retractors were then placed intracapsularly. The retractors were maintained intracapsular throughout the procedure. The proximal femur was then visualized. Fluoroscopic x-rays were then taken in order to evaluate the preoperative leg lengths. A small amount of traction was placed on the leg. The femoral neck was then osteotomized at the appropriate level above the lesser trochanter. A small wedge of bone was then removed from the remaining femoral head. Next, using a corkscrew the femoral head was removed from the acetabulum. On gross visual inspection, the femoral head had complete loss of articular cartilage and multiple periarticular osteophytes. The femoral head was then measured. Attention was then turned to the acetabulum. The acetabulum was exposed and any remaining labrum was excised. Sequential reaming of the acetabulum was performed using fluoroscopic guidance until there was a good bed of bleeding cancellus bone. When the appropriate size was reached, a trial was then placed. The position and fit of the trial was checked with fluoroscopy. The trial was then removed. Then, using fluoroscopic guidance, the final implant was impacted at 20 of anteversion and 40 of abduction, and fully seated in the acetabulum. 2 screws were then placed in the acetabulum. Again fluoroscopy was used to check position of the screws. Next, the liner was then impacted, with a 20 elevated liner located in the anterior superior quadrant. Component locking was confirmed. Attention was then directed to the femur. With the aid of the Beckemeyer table, the femur was externally rotated to approximately 130, extended, and adducted under the opposite leg. A side hook was then placed under the proximal femur, and the side hook elevator was used to elevate the proximal femur while releasing the capsule. Retractors were then placed. A capsular release was performed, as well as a release of the conjoined tendon, which afforded excellent vi sualization of the proximal femur. Next, a box osteotome was used to lateralize the proximal femur. A manager merchandising was then used to locate the femoral canal. Sequential broaching was then performed with appropriate size which afforded excellent fixation in the proximal femur. A trial was then placed with appropriate head and neck, and the hip was gently reduced with the aid of the Beckemeyer table. Fluoroscopy was then used to check position of the components, as well as to evaluate the leg lengths and offset. The leg lengths and offset were measured as closely as possible to ensure stability of the hip. The hip was then gently dislocated and the trials were then removed. Final implants were then impacted and the hip was again reduced. Final fluoroscopic x-rays confirmed that the components were in anatomic position. The leg lengths and offset were measured and were found to coincide with the trial measurements. The hip was also taken through range of motion, and found to be stable. The hip was then copiously irrigated with antibiotic solution with pulsatile lavage. The hip was then irrigated with Irrisept solution. The soft tissues were then injected with a ropivacaine solution. A second dose of 1 g of Tranexamic acid was also given intravenously. The fascia was then closed with 2-0 strata fix suture. The subcutaneous tissue was closed with 3-0 Vicryl. The subcuticular tissue was closed with 3-0 strata fix suture. The skin was then closed with Exofin skin glue. After the glue and dried, and Optifoam silver impregnated dressing was applied. The patient was th en transferred to the recovery room in stable condition. The field technical assistant MALINI Knox was required due to the complexity of surgery, and the need for skilled surgical scheduler for positioning, draping, exposure, retraction, and closure of the wound.
--- NOTE | 2023-11-03 14:48 | XR ---
EXAMINATION TYPE: XR Hip Limited LT DATE OF EXAM: 11/03/2023 COMPARISON: NONE HISTORY: Postop TECHNIQUE: 4 view submitted. FINDINGS: There is postsurgical change compatible hip replacement surgery. IMPRESSION: 1. Postoperative change.
--- NOTE | 2023-11-03 14:50 | FL ---
EXAMINATION TYPE: FL guidance operating room DATE OF EXAM: 11/03/2023 HISTORY: Fluoroscopy time Total dose area product (DAP) in uGy*m?, mGy*cm? (or similar): 1.3135 IMPRESSION: 1. Fluoroscopy time.
[2023-11-03] MEDS ORDERED: NALOXONE 0.4 MG/ML 1 ML VIAL IV PRN (15:09)
[2023-11-03] MEDS ORDERED: MAGNESIUM HYDROXIDE 2,400 MG/30 ML CUP PO PRN (15:09)
[2023-11-03] MEDS ORDERED: HYDROmorphone 0.5 MG/0.5 ML SYRINGE IVP PRN ×3 (15:09)
[2023-11-03] MEDS ORDERED: ONDANSETRON 4 MG/2 ML VIAL IVP PRN (15:09)
[2023-11-03] MEDS ORDERED: HYDROcodone/APAP 7.5-325MG 1 EACH TAB PO PRN ×2 (15:11)
--- NOTE | 2023-11-03 16:13 | XR ---
EXAMINATION TYPE: XR Hip Limited LT DATE OF EXAM: 11/03/2023 COMPARISON: NONE HISTORY: Postop TECHNIQUE: One view submitted. FINDINGS: There is postsurgical change compatible hip replacement surgery. IMPRESSION: 1. Postoperative change.
[2023-11-03] MEDS: SENNOSIDES-DOCUSATE SODIUM 1 EACH TAB PO SCH (20:27)
[2023-11-03] MEDS: SODIUM CHLORIDE 0.9% 1,000 ML IV SCH (21:02)
[2023-11-03] MEDS ORDERED: ALBUTEROL NEBULIZED 2.5 MG/3 ML INHALATION PRN (22:02)
[2023-11-04] MEDS: LEVOTHYROXINE 25 MCG TAB PO SCH (05:47)
[2023-11-04 08:02] VITALS: BP 108/70; PULSE 75; RESP 18; TEMP 97.6
[2023-11-04] MEDS: APIXABAN 5 MG TAB PO SCH (08:24)
[2023-11-04] MEDS: lisinopriL 20 MG TAB PO SCH (08:25)
[2023-11-04] MEDS: amLODIPine 5 MG TAB PO SCH (08:25)
[2023-11-04] MEDS: METOPROLOL SUCCINATE (ER) 50 MG TAB.ER.24H PO SCH (08:25)
[2023-11-04] MEDS: allopurinoL 100 MG TAB PO SCH (08:25)
[2023-11-04] MEDS: CHLORTHALIDONE 25 MG TAB PO SCH (08:25)
[2023-11-04] MEDS ORDERED: NON FORMULARY DRUG (Biotin [Biotin] 5 MG Capsule) PO SCH (09:00)
[2023-11-04] MEDS ORDERED: OMEGA PO SCH (09:00)
[2023-11-04] MEDS: SYMBICORT 80-4.5 MCG INHALER INHALATION SCH (09:17)
[2023-11-04] MEDS: IPRATROPIUM-ALBUTEROL 3 ML NEB INHALATION SCH (09:17)
--- NOTE | 2023-11-04 10:19 | P.DS ---
Providers Expected date of discharge: 11/04/23 Attending physician: Manny Romero Consults: 11/03/23 15:09 Consult Physician Routine Consulting Provider: Hugo Sherman Consult Reason/Comments: medical management Do you want consulting provider notified?: Yes Primary care physician: Hugo Sherman [facility] Hospital Course: This is a 78-year-old female with known history of degenerative arthritis of the left hip. The patient presented for evaluation as an outpatient. After discussion and consideration patient elects to proceed with total hip arthroplasty. The patient is seen preoperatively by Dr. Romero and medically cleared for surgery by their primary care physician. Patient is admitted to [facility] on 11/03/2023 for total hip arthroplasty. The procedure is performed without complication or sequelae. The patient is doing well postoperatively. Labs and vital signs are stable on day of discharge. On day of discharge patient's hip incision is healing well. There is minimal erythema. There is no drainage noted at this time. There is minimal soft tissue swelling to the hip and thigh. Patient has full foot and ankle motion without difficulty or pain. Calf is soft and nontender to palpation. Neurovascular status to the left lower extremity is intact. Patient is discharged home in good condition. Please see med rec for accurate list of home medications. Plan - Discharge Summary Discharge Rx Participant: Yes New Discharge Prescriptions: New HYDROcodone/APAP 7.5-325MG [[place] 7.5-325] 1 - 2 tab PO Q6H PRN #32 tab PRN Reason: Pain Sennosides [Senokot] 2 tab PO DAILY PRN #60 tablet PRN Reason: Constipation No Action Apixaban [Eliquis] 5 mg PO BID #60 tab Bran/D3/Mag11/Zinc/Dairy Nutrition Consultant/Kurtis/Bor [Caltrate 600+D Plus Tablet] 1 tab PO HS Fluticasone/Umeclidin/Vilanter [Trelegy Ellipta 100-62.5-25] 1 puff INHALATION RT-DAILY Albuterol Sulfate [Albuterol Sulfate Hfa] 2 puff PO RT-QID PRN PRN Reason: Shortness Of Breath Ipratropium-Albuterol Nebulize [Duoneb 0.5 mg-3 mg/3 ml Soln] 3 ml INHALATION RT-QID #120 each [place] 3-6-9 1 tab PO DAILY allopurinoL 100 mg PO DAILY Levothyroxine Sodium [Synthroid] 25 mcg PO DAILY Metoprolol Succinate (ER) [Toprol XL] 50 mg PO DAILY Chlorthalidone [Hygroton] 12.5 mg PO DAILY amLODIPine BESYLATE/BENAZEPRIL [amLODIPine BESYLATE/BENAZEPRIL 5-20 mg] 1 cap PO DAILY Biotin 5 mg PO DAILY Atorvastatin [Lipitor] 10 mg PO HS Discharge Medication List Levothyroxine Sodium [Synthroid] 25 mcg PO DAILY 07/15/21 [History] Apixaban [Eliquis] 5 mg PO BID #60 tab 07/21/21 [Rx] Bran/D3/Mag11/Zinc/Dairy Nutrition Consultant/Kurtis/Bor [Caltrate 600+D Plus Tablet] 1 tab PO HS 08/29/21 [History] Fluticasone/Umeclidin/Vilanter [Trelegy Ellipta 100-62.5-25] 1 puff INHALATION RT-DAILY 08/29/21 [History] Albuterol Sulfate [Albuterol Sulfate Hfa] 2 puff PO RT-QID PRN 07/07/22 [History] Ipratropium-Albuterol Nebulize [Duoneb 0.5 mg-3 mg/3 ml Soln] 3 ml INHALATION RT-QID #120 each 07/14/22 [Rx] Biotin 5 mg PO DAILY 12/08/22 [History] Chlorthalidone [Hygroton] 12.5 mg PO DAILY 12/08/22 [History] Metoprolol Succinate (ER) [Toprol XL] 50 mg PO DAILY 12/08/22 [History] Victoria 3-6-9 1 tab PO DAILY 12/08/22 [History] amLODIPine BESYLATE/BENAZEPRIL [amLODIPine BESYLATE/BENAZEPRIL 5-20 mg] 1 cap PO DAILY 12/08/22 [History] Atorvastatin [Lipitor] 10 mg PO HS 10/29/23 [History] allopurinoL 100 mg PO DAILY 10/29/23 [History] HYDROcodone/APAP 7.5-325MG [[place] 7.5-325] 1 - 2 tab PO Q6H PRN #32 tab 11/03/23 [Rx] Sennosides [Senokot] 2 tab PO DAILY PRN #60 tablet 11/03/23 [Rx] Follow up Appointment(s)/Referral(s): [facility] [[facility]] - 1-2 Days ([facility] will call you to schedule your in home physical therapy visits. ) Manny Romero DO [Doctor of Osteopathic Medicine] - 2 Weeks Activity/Diet/Wound Care/Special Instructions: Weightbearing as tolerated with walker. Leave dressing intact. Dressing may be removed by home care nurse or by patient in 7 days. Then change dressing twice daily until follow up. May shower with initial dressing intact and after removal. If dressing become saturated, please remove. Please resume Eliquis. Recommend use of compression stockings daily until follow up to help prevent swelling and blood clots. May remove at night before sleeping. Please follow[facility]up with [facility] weeks and call with any questions or concerns, . Discharge Disposition: HOME WITH HOME HEALTH SERVICES
--- NOTE | 2023-11-04 10:50 | P.CONS ---
History of Present Illness - Reason for Consult Consult date: 11/04/23 Medical management COPD, hypertension, Requesting physician: Manny Romero - Chief Complaint Left hip osteoarthritis - History of Present Illness This is a 78-year-old female with past medical history significant for COPD, atrial fibrillation, hypertension, former nicotine dependence, COVID-19 infection, and multiple other medical issues status post left total hip arthr oplasty, direct anterior approach secondary to severe osteoarthritis of left hip. Tolerated procedure well. Pain controlled. Passing flatus. Denies nausea vomiting or diarrhea. Denies abdominal pain. PT pending. Denies chest pain, palpitations or shortness of breath. Maintaining O2 sats in the mid to high 90s on room air. Afebrile. Review of Systems Those systems with pertinent positive or pertinent negative responses have been documented in the HPI. ROS Other: All systems not noted in ROS Statement are negative. Past Medical History Past Medical History: Atrial Fibrillation, COPD, Hypertension, Musculoskeletal Disorder, Osteoarthritis (OA), Pneumonia, Thyroid Disorder Additional Past Medical History / Comment(s): COVID 07/15/21, RSV in 2021 & was hospitalized,gout, chronic back pain History of Any Multi-Drug Resistant Organisms: None Reported Past Surgical History: Joint Replacement, Orthopedic Surgery, Tubal Ligation Additional Past Surgical History / Comment(s): Bilateral CATARACT SX, cardioversion, pain procedures @OA, left hip replacement Past Anesthesia/Blood Transfusion Reactions: No Reported Reaction Past Psychological History: No Psychological Hx Reported Smoking Status: Former smoker Past Alcohol Use History: None Reported Additional Past Alcohol Use History / Comment(s): quit smoking 2015, smoked for 30 yrs, up to 1 PPD Past Drug Use History: None Reported - Past Family History Mother Family Medical History: No Reported History Medications and Allergies Home Medications Medication Instructions Recorded Confirmed Type Levothyroxine Sodium [Synthroid] 25 mcg PO DAILY 07/15/21 11/03/23 History Apixaban [Eliquis] 5 mg PO BID #60 tab 07/21/21 11/03/23 Rx Bran/D3/Mag11/Zinc/Real Estate Recruiter/Kurtis/Bor 1 tab PO HS 08/29/21 11/03/23 History [Caltrate 600+D Plus Tablet] Fluticasone/Umeclidin/Vilanter 1 puff INHALATION RT-DAILY 08/29/21 11/03/23 History [Trelegy Ellipta 100-62.5-25] Albuterol Sulfate [Albuterol 2 puff PO RT-QID PRN 07/07/22 11/03/23 History Sulfate Hfa] Ipratropium-Albuterol Nebulize 3 ml INHALATION RT-QID #120 each 07/14/22 11/03/23 Rx [Duoneb 0.5 mg-3 mg/3 ml Soln] Biotin 5 mg PO DAILY 12/08/22 11/03/23 History Chlorthalidone [Hygroton] 12.5 mg PO DAILY 12/08/22 11/03/23 History Metoprolol Succinate (ER) [Toprol 50 mg PO DAILY 12/08/22 11/03/23 History XL] Sunflower 3-6-9 1 tab PO DAILY 12/08/22 11/03/23 History amLODIPine BESYLATE/BENAZEPRIL 1 cap PO DAILY 12/08/22 11/03/23 History [amLODIPine BESYLATE/BENAZEPRIL 5-20 mg] Atorvastatin [Lipitor] 10 mg PO HS 10/29/23 11/03/23 History allopurinoL 100 mg PO DAILY 10/29/23 11/03/23 History HYDROcodone/APAP 7.5-325MG [[place] 1 - 2 tab PO Q6H PRN #32 tab 11/03/23 Rx 7.5-325] Sennosides [Senokot] 2 tab PO DAILY PRN #60 tablet 11/03/23 Rx Allergies Allergy/AdvReac Type Severity Reaction Status Date / Time No Known Allergies Allergy Verified 11/03/23 09:04 Physical Exam Vitals: Vital Signs Temp Pulse Pulse Resp BP BP Pulse Ox 11/04/23 07:00 97.6 F 75 18 108/70 95 11/04/23 01:54 97.7 F 94 20 97/60 97 11/03/23 19:29 97.7 F 72 20 96/61 94 L 11/03/23 16:50 97.9 F 74 18 108/60 95 11/03/23 16:15 90 16 123/68 92 L 11/03/23 16:00 93 16 109/62 93 L 11/03/23 15:45 87 16 122/64 95 11/03/23 15:36 81 16 105/57 94 L 11/03/23 15:21 80 16 104/55 94 L 11/03/23 15:06 107 H 18 98/65 100 11/03/23 10:15 81 16 138/68 96 Intake and Output 11/03/23 11/04/23 11/04/23 22:59 06:59 14:59 Intake Total 150 480 Output Total 0 Balance 150 480 Intake: IV 150 Oral 480 Output: Urine 0 Other: Voiding Method Toilet # Voids 4 Weight 84 kg Exam General: Alert and oriented x 3, sitting up in bed, no acute distress. Conversing fluently without shortness of breath. HEENT: Atraumatic, normocephalic,MMM. NECK: Supple, no JVD CARDIOVASCULAR: S1S2 normal, irregular, no murmur, rub or gallop appreciated Respiratory: Unlabored, equal air entry, clear to auscultation. GI: Soft, nondistended, nontender, without masses or organomegaly noted,+BS Extremities: Left hip dressing clean dry and intact, minimal edema, no calf tenderness, no edema, positive DP pulse. Neurologic: Cranial nerves II through XII grossly intact. No focal deficits. Skin: Warm and dry, no rashes noted Results CBC & Chem 7: 11/04/23 05:49 Assessment and Plan Assessment: Left hip osteoarthritis status post left total hip arthroplasty, direct anterior approach Post op anemia, expected putcome. Chronic atrial fibrillation Hypertension Chronic CHF, systolic dysfunction History of mild to moderate mitral regurgitation Obesity, BMI 28 Plan: Continue on current medication regimen ,monitoring and symptomatic treatment. Aggressive pulmonary toileting with incentive spirometer reinforced. Home meds have been reviewed and resumed accordingly. PPI for GI prophylaxis ordered pain management, DVT prophylaxis as per orthopedic surgery. PT pending, patient planning on discharge home today as per orthopedic surgery. Follow-up with PCP in 2 weeks. Thank you for the consult. The impression and plan of care has been dictated as directed. : I performed a history and examination of this patient, discussed the same with the dictator. I agree with the dictator's note ,documented as a scribe. Any additional findings or plans will be noted.
[2023-11-04 11:17] LABS: Basophils # (A) 0.03 X 10*3/uL (0.00-0.10); Basophils % (A) 0.2 %; Eosinophils # (A) 0 X 10*3/uL (0.04-0.35); Eosinophils % (A) 0 %; HCT 36.6 % (37.2-46.3); HGB 11.9 g/dL (12.0-15.0); Lymphocytes # (A) 1.91 X 10*3/uL (0.90-5.00); Lymphocytes % (A) 11.2 %; MCH 28.1 pg (27.0-32.0); MCHC 32.5 g/dL (32.0-37.0); MCV 86.3 FL (80.0-97.0); Mean Platelet Volume 11.6 FL (9.5-12.2); Monocytes # (A) 1.13 X 10*3/uL (0.20-1.00); Monocytes % (A) 6.6 %; NRBC Per 100 WBC 0 X 10*3/uL (0.00-0.01); Neutrophils # (A) 13.86 X 10*3/uL (1.80-7.70); Neutrophils % (A) 81.5 %; Platelet Count 193 X 10*3/uL (140-440); RBC 4.24 X 10*6/uL (4.10-5.20); RDW 14.3 % (11.5-14.5); WBC 17.01 X 10*3/uL (4.50-10.00)
[2023-11-04] MEDS: PANTOPRAZOLE 40 MG TABLET PO SCH (11:30)
[2023-11-04] MEDS ORDERED: ATORVASTATIN 10 MG TAB PO SCH (21:00)
[2023-11-04] MEDS ORDERED: CALCIUM CARB-VIT D 500 MG-5 MCG TAB PO SCH (21:00)
== END 2023-11-04 13:55 | disposition home health service (06) ==
LOC: OR 08:32 → 4SSUR 14:58 → OR 11-04 13:55
PROVIDERS: ATTEND Orthopaedic Surgery
DX: M16.0 Bilateral primary osteoarthritis of hip (principal); G89.18 Other acute postprocedural pain; I12.9 Hypertensive chronic kidney disease with stage 1 through stage 4 chronic kidney disease, or unspecified chronic kidney disease; N18.31 Chronic kidney disease, stage 3a; J44.9 Chronic obstructive pulmonary disease, unspecified; I48.19 Other persistent atrial fibrillation; Z87.891 Personal history of nicotine dependence; Z79.01 Long term (current) use of anticoagulants; Z79.890 Hormone replacement therapy; Z79.899 Other long term (current) drug therapy; Z79.51 Long term (current) use of inhaled steroids
CPT/HCPCS: 97161; 97166; 64447; 85025; 73501; 27130; C1776; J2250; J1100; J0690 ×3; J2405; J3010; J2795

== ENCOUNTER → 2024-04-13 | Outpatient (CLI) | payer MEDICARE ==
[2024-04-14 02:24] LABS: ALT 15 U/L (8-44); AST 21 U/L (13-35); Chol/HDL Ratio 2.64 Ratio; LDL Cholesterol,Calculated 64.3 mg/dL (0.0-131.0)
== END | disposition home or self-care (01) ==
LOC: LABWHC1 15:45
PROVIDERS: ATTEND Internal Medicine Cardiovascular Disease
DX: E78.2 Mixed hyperlipidemia (principal)
CPT/HCPCS: 36415; 80061; 84450; 84460

== ENCOUNTER → 2024-06-20 | Outpatient (CLI) | payer MEDICARE ==
--- NOTE | 2024-06-20 17:51 | CTL ---
EXAMINATION TYPE: CT Low Dose Lung DATE OF EXAM ORDERED: 06/20/2024 COMPARISON: CT chest on 06/15/2017, CT Low Dose Lung 07/08/2016 CLINICAL INDICATION: Female, 78 years old with history of Z87.891 NICOTINE DEPEN Z12.2 ENCNTR SCREEN FOR MAL; PHH, former tobacco user, Lung cancer screening, History of Smoking/tobacco use. TECHNIQUE: Low dose computed tomography scan was performed through the chest at 1 mm thick sections a nd reconstructed images in multiple planes at 1 mm and [address] DLP: 94.[address] CTDI: 2.4 mGy Automated exposure control for dose reduction was used. CT DIAGNOSTIC QUALITY: Satisfactory FINDINGS: Nodules: Stable calcified granuloma within the anterior right upper lobe. Increased size of lingular 12 mm solid pulmonary nodule (series 4, image 192). Previously measured 9 mm in 2017. LUNGS: COPD: Severity: Moderate centrilobular emphysematous changes. Fibrosis: Severity: None Lymph nodes: None Other findings: Biapical pleural-parenchymal scarring. Left lower lobe linear scarring and/or atelect asis. RIGHT PLEURAL SPACE: Effusion: None Calcification: None Thickening: None Pneumothorax: None LEFT PLEURAL SPACE: Effusion: None Calcification: None Thickening: None Pneumothorax: None HEART: Heart Size: Mildly Enlarged Coronary Calcification: Small Pericardial Effusion: None OTHER FINDINGS: Upper abdomen: Calcified granulomas within the spleen. Small hiatal hernia. Bony thorax: None Supraclavicular region: None Other: None IMPRESSION: 1. Increased size of lingular 12 mm solid pulmonary nodule. Previously measured 9 mm in 2017. Furthe r evaluation with PET/CT is recommended. 2. Moderate COPD changes. 3. Sequelae of prior granulomatous disease. CT LUNG RAD AND CT CHEST RECOMMENDATION: Lung-Rad 4B or 4X Very Suspicious: Follow-up Chest CT with o r without contrast or PET/CT and/or tissue sampling. PET/CT may be used when there is a > 8 mm solid component. S Modifier (other clinically significant findings): None [facility], , 06/20/2024 5:48 PM
== END | disposition home or self-care (01) ==
LOC: RADCTMAIN 15:18
PROVIDERS: ATTEND Family Medicine
DX: Z12.2 Encounter for screening for malignant neoplasm of respiratory organs (principal); J44.9 Chronic obstructive pulmonary disease, unspecified; R91.1 Solitary pulmonary nodule; I51.7 Cardiomegaly; Z87.891 Personal history of nicotine dependence
CPT/HCPCS: 71271

== ENCOUNTER → 2024-06-24 | Outpatient (CLI) | payer MEDICARE ==
--- NOTE | 2024-06-24 14:55 | BD ---
EXAMINATION TYPE: Axial Bone Density DATE OF EXAM: 06/24/2024 CLINICAL HISTORY: 78 years old Female. ICD-10 CODE: M85.80 Osteopenia, uspec. , Additional History: Height: 67.5 Weight: 185 FRAX RISK QUESTIONS: Family History (Parent hip fracture): no History of Fracture in Adulthood: no Secondary Osteoporosis: no Rheumatoid Arthritis: no RISK FACTORS HISTORY OF: Hip Fracture (Right/Left): no Spine Fracture: no History of Wrist Fracture: no Surgery to Hip(left): yes When: 10/2023 MEDICATIONS: Thyroid Medications: yes Which medication: Levothyroxine How Lon+ years Osteoporosis Medications: no EXAM MEASUREMENTS: Bone mineral densitometry was performed using the [employer]. Bone mineral density as measured about the Lumbar spine is: ----- L1-L4(G/cm2): 1.291 T Score Values are as follows: ----- L1: 0.2 ----- L2: 0.8 ----- L3: 1.1 ----- L4: 1.2 ----- L1-L4: 0.9 Z Score Values are as follows: ----- L1: 1.4 ----- L2: 2.0 ----- L3: 2.3 ----- L4: 2.4 ----- L1-L4: 2.1 Bone mineral density has: Decreased -1.5% since study of: 05/07/2020 Bone mineral density about the R hip (g/cm2): 1.025 T Score values are as follows: -----R Neck: -1.2 -----R Total: 0.1 Z Score values are as follows: -----R Neck: 0.5 -----R Total: 1.7 Bone mineral density has: Decreased -5.0% since study of: 05-07-2020 FRAX%s: The graph provided illustrates a 12.1% chance for a major osteoporotic fx and a 2.5% chance f or the hips probability for fx in 10 years time. IMPRESSION: Osteopenia (T Score between -2.5 and -1). There is slightly increased risk of fracture and the patient may be considered for treatment. Re-Screen 2-5 years. NOTE: T-SCORE=SD OF THE YOUNG ADULT MEAN. [facility], , 06/24/2024 2:53 PM
== END | disposition home or self-care (01) ==
LOC: RADBDWWP 12:59
PROVIDERS: ATTEND Family Medicine
DX: M85.88 Other specified disorders of bone density and structure, other site (principal)
CPT/HCPCS: 77080

== ENCOUNTER → 2024-07-14 | Outpatient (CLI) | payer MEDICARE ==
--- NOTE | 2024-07-14 19:36 | PE ---
EXAMINATION TYPE: PET CT fusion skull to thigh DATE OF EXAM: 07/14/2024 CLINICAL INDICATION:Female, 78 years old with history of R91.1 LUNG NODULE; TECHNIQUE: Following the intravenous administration of 11.15 mCi of F-18 FDG, whole body images are performed from the skull base to the midthigh. Images are reviewed on the computer in the coronal, axial, and sagittal planes. Reconstructed rotating images are created on independent workstation and reviewed on the computer. A non-contrast CT is performed in conjunction with the PET scan. Glucose level 112 mg/dL CT DLP: 769.72 mGycm, Automated exposure control for dose reduction was used. COMPARISON: CT 06/20/2024, 04/06/2017, 07/08/2016, PET/CT None, MRI: None FINDINGS: Mediastinal SUV mean is 2.2. Hepatic parenchyma SUV mean is 3.0. SKULL BASE AND NECK: No suspicious radiotracer activity. CHEST, MEDIASTINUM, AND HILAR REGION: Lingular 1.2 cm solid pulmonary nodule redemonstrated (series 3, image 105). No FDG activity identifi ed. Subcarinal 1.3 cm enlarged lymph node (series 3, image 91) with a maximum SUV of 6.2. ABDOMEN AND PELVIS: Posterior paracaval enlarged lymph node measuring 2.0 cm with a maximum SUV of 8.9. MUSCULOSKELETAL STRUCTURES: No suspicious radiotracer activity. OTHER CT: Bilateral aphakia. Atherosclerotic calcification of the intracranial vasculature. Bilateral carotid bulb calcifications. Multilevel degenerative changes of the visualized spine. Right upper lo be calcific granuloma. Right axillary calcified lymph nodes. Small coronary artery calcifications. My ocardium is noted. Atherosclerotic calcifications aorta and its branches. Calcified granulomas within the spleen. Distal colonic diverticulosis without evidence for acute diverticulitis. Surgical change s from left hip arthroplasty. Advanced osteoarthritic changes of the right hip. Centrilobular emphyse matous changes. IMPRESSION: 1. Enlarged FDG avid paracaval 2.0 cm lymph node concerning for malignancy/metastasis until proven o therwise. 2. Enlarged subcarinal lymph node with mild FDG activity concerning for possible metastasis versus o ther etiologies such as inflammation. 3. Redemonstration a 1.2 cm lingular pulmonary nodule without FDG activity. Slow growing neoplasm is not excluded. Follow-up CT chest in 3-6 months is recommended. [facility], , 07/14/2024 7:33 PM
== END | disposition home or self-care (01) ==
LOC: RADPETMAIN 14:46
PROVIDERS: ATTEND Family Medicine
DX: R91.1 Solitary pulmonary nodule (principal)
CPT/HCPCS: 78815; A9552

== ENCOUNTER → 2024-11-21 | Outpatient (CLI) | payer MEDICARE ==
[2024-11-21 14:21] LABS: African American GFR (CKD) 68 (>60 ml/min/1.73 sqM); Blood Urea Nitrogen 20 mg/dL (7-17); Non-African American GFR(CKD) 59 (>60 ml/min/1.73 sqM)
--- NOTE | 2024-11-21 15:03 | CT ---
EXAMINATION TYPE: CT chest w con CT DLP: 540 mGycm, Automated exposure control for dose reduction was used. DATE OF EXAM: 11/21/2024 2:47 PM COMPARISON: PET/CT 07/14/2024, CT low-dose lung 06/20/2024, CT chest 04/06/2017, CT low dose lung 06/26 CLINICAL INDICATION:Female, 79 years old with history of R91.8 pulmonary nodules; [facility], Evaluate statu s of pulmonary nodules from last PET scan TECHNIQUE: Multiple axial images were obtained through the chest following the administration of 100 cc of Isovue 300. . Coronal and sagittal reformats reviewed. FINDINGS: LUNGS/ PLEURA: No pleural effusion, pneumothorax, or focal consolidation. Left lower lobe linear atel ectasis and/or scarring. Moderate centrilobular emphysematous changes. Stable anterior right upper lo be calcified granuloma measuring up to 6 mm. Stable lingular 1 cm solid pulmonary nodule (series 4, image 38). No FDG activity in prior PET/CT. No new or enlarging pulmonary nodules. Biapical pleural-p arenchymal scarring. AIRWAY: Patent and unremarkable.. HEART: Mildly enlarged. . No pericardial effusion. No significant coronary artery calcifications. MEDIASTINUM: Mildly increase in size of precarinal lymph node measuring 1.1 cm axis (series 3, image 24). Previously measured up to 0.9 cm short axis. Increased size of 1.6 cm anterior paratracheal lymp h node (series 3, image 16) and previously measured up to 1.1 cm. Mildly increased size of subcarinal lymph node measuring up to 1.5 cm short axis, previously 1.3 cm (series 3, image 28). VASCULATURE: No aortic aneurysm. Mild atherosclerotic calcification of the aorta. MUSCULOSKELETAL: No acute osseous abnormalities. No aggressive osseous lesions. SOFT TISSUES/LYMPH NODES: Unremarkable. LOWER NECK: No significant findings. UPPER ABDOMEN: Few scattered calcified granulomas within the spleen. Small hiatal hernia. IMPRESSION: 1. Stable lingular 1 cm pulmonary nodule which did not demonstrate FDG activity on prior PET/CT. No n ew or enlarging pulmonary nodules. Attention on follow-up exam. 2. Few nonspecific enlarging mediastinal lymph nodes. Consider short-term follow-up CT chest in 3 mon ths versus PET CT. 3. Moderate emphysematous changes. [facility], , 11/21/2024 3:01 PM
== END | disposition home or self-care (01) ==
LOC: RADCTMAIN 13:00
PROVIDERS: ATTEND Internal Medicine
DX: J43.2 Centrilobular emphysema (principal); R91.8 Other nonspecific abnormal finding of lung field; R59.0 Localized enlarged lymph nodes
CPT/HCPCS: 82565; 84520; 71260; 36415; Q9967